=== PATIENT | female | born 1965 | race Hispanic/Latino ===

== ENCOUNTER 2016-05-06 16:11 | Inpatient (IN) | payer BC ==
[2016-05-06 16:24] VITALS: BMI 23.5
[2016-05-06] MEDS ORDERED: Morphine 4 mg/ml ISec IVP STA ×4 (16:39→21:25)
--- NOTE | 2016-05-06 17:27 | ED PDOC ---
Arrival/HPI - General Chief Complaint: Abnormal Labs Time Seen by Provider: 05/06/16 16:37 Historian: Patient - History of Present Illness Narrative History of Present Illness (Text): 05/06/16 17:40 A 50 year old female sent into the emergency department by PMD for increasing left lower extremity pain and swelling. Patient reports a history of a Tibula fracture repair 3 months ago. Patient also complains of chronic shortness of breath. She denies any chest pain or other complaints at this time. PMD: Dr. Hill Past Medical History - Provider Review Nursing Documentation Reviewed: Yes - Infectious Disease Hx of Infectious Diseases: MRSA - Tetanus Immunization Tetanus Immunization: Unknown - Cardiac Hx Hypertension: Yes - Pulmonary Hx Chronic Obstructive Pulmonary Disease (COPD): Yes - Neurological Hx Dizziness: Yes Hx Migraine: Yes - HEENT Hx Difficulty Chewing: Yes (difficulty swallowing some meat) - Renal Hx Renal Disorder: No - Endocrine/Metabolic Hx Endocrine Disorders: No - Hematological/Oncological Hx Blood Transfusions: Yes Hx Blood Transfusion Reaction: No - Integumentary Hx Dermatological Disorder: Yes (skin tears easily since bypass surgery) - Musculoskeletal/Rheumatological Hx Back Pain: Yes (titanium lower back, curviture upper back) Hx Degenerative Joint Disease: Yes (bulging and herniated disc) Hx Falls: Yes Hx Fractures: Yes (left tibia) Hx Herniated Disk: Yes Hx Osteoarthritis: Yes Hx Rhabdomyolysis: Yes Hx Unsteady Gait: Yes - Gastrointestinal Hx Gastrointestinal Disorders: Yes Hx Gall Bladder Disease: No (gall bladder removed during bypass surgery 2006) Hx Gastroesophageal Reflux: Yes HX Swallowing Problems: Yes (problems swallowing some meats) Other/Comment: gastric bypass with mesh in 2006 - Genitourinary/Gynecological Hx Genitourinary Disorders: Yes (URINARY FREQUENCY,DYSURIA) Hx Urinary Tract Infection: Yes - Psychiatric Hx Anxiety: Yes Hx Depression: Yes Hx Post Traumatic Stress Disorder: Yes Hx Substance Use: No - Surgical History Hx Cholecystectomy: Yes Hx Gastric Bypass Surgery: Yes Hx Hysterectomy: Yes Hx Musculoskeletal Surgery: Yes (titanium lower back, cranial surgery) - Anesthesia Hx Anesthesia Reactions: No Hx Malignant Hyperthermia: No - Suicidal Assessment Feels Threatened In Home Enviroment: No Family/Social History - Physician Review Nursing Documentation Reviewed: Yes Family/Social History: No Known Family HX Smoking Status: Former Smoker Hx Alcohol Use: Yes (pt quit drinking at age 19) Hx Substance Use: No Hx Substance Use Treatment: No Allergies/Home Meds Allergies/Adverse Reactions: Allergies No Known Allergies Allergy (Verified 05/06/16 16:24) Home Medications: Home Meds Medication Instructions Recorded Confirmed Albuterol/Ipratropium [Duoneb 3 3 ml NEB TID 02/08/16 02/09/16 MG/3 Ml-0.5 MG/3 Ml 3 Ml] Docusate [Colace] 100 mg PO BID 02/08/16 02/09/16 Escitalopram [Lexapro] 20 mg PO DAILY 02/08/16 02/09/16 Gabapentin [Neurontin] 300 mg PO TID 02/08/16 02/09/16 HYDROmorphone [Dilaudid] 8 mg PO Q4H PRN 02/08/16 02/09/16 Hydromorphone HCl [Dilaudid] 4 mg PO Q4H PRN 02/08/16 02/09/16 Lubiprostone [Amitiza] 24 mcg PO BID 02/08/16 02/09/16 Pentoxifylline [Pentoxil] 400 mg PO TID 02/08/16 02/09/16 hydroCHLOROthiazide [Microzide] 12.5 mg PO DAILY 02/08/16 02/09/16 oxyCODONE [oxycodone Hydrochloride] 20 mg PO Q12H PRN 02/08/16 02/09/16 Review of Systems - Physician Review All systems were reviewed & negative as marked: Yes - Review of Systems Respiratory: SOB Cardiovascular: absent: Chest Pain Musculoskeletal: Other (increase left lower extremity pain and swelling) Physical Exam Vital Signs Reviewed: Yes Vital Signs Temp Pulse Resp BP Pulse Ox 05/06/16 16:26 97.8 F 77 17 100/68 98 Temperature: Afebrile Blood Pressure: Normal Pulse: Regular Respiratory Rate: Normal Appearance: Positive for: Well-Appearing, Non-Toxic, Comfortable Pain Distress: None Mental Status: Positive for: Alert and Oriented X 3 - Systems Exam Head: Present: Atraumatic, Normocephalic Pupils: Present: PERRL Extroacular Muscles: Present: EOMI Conjunctiva: Present: Normal Mouth: Present: Moist Mucous Membranes Neck: Present: Normal Range of Motion Respiratory/Chest: Present: Clear to Auscultation, Good Air Exchange. No: Respiratory Distress, Accessory Muscle Use Cardiovascular: Present: Regular Rate and Rhythm, Normal S1, S2. No: Murmurs Abdomen: Present: Normal Bowel Sounds. No: Tenderness, Distention, Peritoneal Signs Back: Present: Normal Inspection Upper Extremity: Present: Normal Inspection. No: Cyanosis, Edema Lower Extremity: Present: Edema (left lower extremity from knee down to the foot ), NORMAL PULSES, Temperature Abnormalties (warm to the touch) Neurological: Present: GCS=15, CN II-XII Intact, Speech Normal Skin: Present: Warm, Dry, Normal Color. No: Rashes Psychiatric: Present: Alert, Oriented x 3, Normal Insight, Normal Concentration Medical Decision Making ED Course and Treatment: 05/06/16 16:40 Impression: A 50 year old female with worsening left lower extremity swelling and pain. Differential Diagnosis include but are not limited to: DVT Plan: -- Angio Chest CT -- Duplex left lower extremity -- Labs -- Morphine -- Reassess and disposition Prior Visits: Notes and results from previous visits were reviewed. The patient last presented to the emergency department on 01/28/16 for evaluation of left knee and right hip pain. Progress Notes: 05/06/16 18:25 Ultrasound called the emergency department to notify us Doppler of the left lower extremity is negative for DVT. - Lab Interpretations Lab Results: 05/06/16 17:35 05/06/16 17:35 Lab Results 05/06/16 17:35: WBC 6.3, RBC 3.50, Hgb 9.7 L, Hct 30.6 L, MCV 87.4, MCH 27.7, MCHC 31.7, RDW 16.3 H, Plt Count 225, MPV 9.0, Gran % 60.1, Lymph % (Auto) 27.8 , Tompkins % (Auto) 7.8 H, Eos % (Auto) 4.0, Baso % (Auto) 0.3, Gran # 3.78, Lymph # 1.8, Tompkins # 0.5, Eos # 0.3, Baso # 0.02, PT 11.6, INR 1.07, APTT 29.8, Sodium 138, Potassium 5.2 H, Chloride 105, Carbon Dioxide 29, Anion Gap 9 L, BUN 10, Creatinine 0.7, Est GFR ( Amer) > 60, Est GFR (Non-Af Amer) > 60, Random Glucose 69 L, Calcium 7.8 L, Total Bilirubin 0.3, AST 26, ALT 19, Alkaline Phosphatase 136 H, Total Protein 5.6 L, Albumin 2.4 L, Globulin 3.2, Albumin/ Globulin Ratio 0.8 L I have reviewed the lab results: Yes - RAD Interpretation Radiology Orders: 05/06/16 16:37 ANGIO CHEST PE PROTOCOL [CT] Stat DUPLEX LOWER EXTRM VEIN LEFT [US] Stat - Medication Orders Current Medication Orders: Discontinued Medications Piperacillin Sod/Tazobactam Sod (Zosyn 3.375 In Ns 100ml) 100 mls @ 200 mls/hr IVPB STAT STA PRN Reason: Protocol Stop: 05/06/16 21:41 Last Admin: 05/06/16 22:14 Dose: 200 MLS/HR eMAR Start Stop Document 05/06/16 22:14 EKEOO (Rec: 05/06/16 22:14 EKEOO [facility] [place] [id number]) Intravenous Solution Start Date 05/06/16 Start Time 22:14 Morphine Sulfate (Morphine) 4 mg IVP STAT STA Stop: 05/06/16 16:40 Last Admin: 05/06/16 17:47 Dose: 4 MG MAR Pain Assessment Document 05/06/16 17:47 REED (Rec: 05/06/16 17:48 REED [id number]) Pain Reassessment Is this a pain reassessment? No Sleep Is patient sleeping during reassessment? No Presence of Pain Presence of Pain Yes Pain Scale Used Pain Scale Used Numeric Location Left, Right or Bilateral Left Pain Location Body Site Leg IVP Administration Document 05/06/16 17:47 REEDJ (Rec: 05/06/16 17:48 REEDJ [id number]) Charges for Administration # of IVP Administrations 1 Morphine Sulfate (Morphine) 4 mg IVP STAT STA Stop: 05/06/16 18:57 Last Admin: 05/06/16 19:06 Dose: 4 MG MAR Pain Assessment Document 05/06/16 19:06 REEDJ (Rec: 05/06/16 19:06 REED [id number]) Pain Reassessment Is this a pain reassessment? Yes Sleep Is patient sleeping during reassessment? No Presence of Pain Presence of Pain Yes IVP Administration Document 05/06/16 19:06 REEDJ (Rec: 05/06/16 19:06 REEDJ [id number]) Charges for Administration # of IVP Administrations 1 Morphine Sulfate (Morphine) 4 mg IVP STAT STA Stop: 05/06/16 20:50 Last Admin: 05/06/16 21:22 Dose: 4 MG MAR Pain Assessment Document 05/06/16 21:22 EKEOO (Rec: 05/06/16 21:23 [facility] [id number] Pain Reassessment Is this a pain reassessment? No Sleep Is patient sleeping during reassessment? No Presence of Pain Presence of Pain Yes IVP Administration Document 05/06/16 21:22 EKEOO (Rec: 05/06/16 21:23 [place] [facility] [id number][place] Charges for Administration # of IVP Administrations 1 Morphine Sulfate (Morphine) 4 mg IVP STAT STA Stop: 05/06/16 21:26 Last Admin: 05/06/16 21:32 Dose: 4 MG MAR Pain Assessment Document 05/06/16 21:32 EKEOO (Rec: 05/06/16 21:32 [facility] [id number][place] Pain Reassessment Is this a pain reassessment? No Sleep Is patient sleeping during reassessment? No Presence of Pain Presence of Pain Yes IVP Administration Document 05/06/16 21:32 EKEOO (Rec: 05/06/16 21:32 [facility] [facility] [place] [id number]) Charges for Administration # of IVP Administrations 1 - Scribe Statement The provider has reviewed the documentation as recorded by the Shona Moreno Provider Scribe Attestation: All medical record entries made by the Tayloribashley were at my direction and personally dictated by me. I have reviewed the chart and agree that the record accurately reflects my personal performance of the history, physical exam, medical decision making, and the department course for this patient. I have also personally directed, reviewed, and agree with the discharge instructions and disposition. Disposition/Present on Arrival - Present on Arrival Any Indicators Present on Arrival: Yes History of DVT/PE: Yes History of Uncontrolled Diabetes: No Urinary Catheter: No History of Decub. Ulcer: No History Surgical Site Infection Following: None - Disposition Have Diagnosis and Disposition been Completed?: Yes Diagnosis: Cellulitis of left lower extremity Disposition Time: 20:00 Patient Plan: Admission Patient Problems: Current Active Problems Problem Status Diagnosed Anemia Acute Depression Acute Knee fracture, left Acute Rhabdomyolysis Acute Syncope, near Acute Condition: STABLE
[2016-05-06 17:50] LABS: ADD MANUAL DIFF? NO
[2016-05-06 17:56] LABS: BASO # 0.02 [, K/mm3] (0.0-2.0); BASO % 0.3 % (0.0-3.0); EOS # 0.3 (0.0-0.7); GRAN # 3.78 (1.4-6.5); GRAN % 60.1 % (50.0-68.0); HEMATOCRIT 30.6 % (36.0-48.0); LYMPH # 1.8 (1.2-3.4); LYMPH % 27.8 % (22.0-35.0); MEAN CELL VOLUME 87.4 fL (80.0-105.0); MEAN CORPUSCULAR HEMOGLOBIN 27.7 pg (25.0-35.0); MEAN CORPUSCULAR HGB CONC 31.7 g/dl (31.0-37.0); MONO # 0.5 (0.1-0.6); MONO % 7.8 % (1.0-6.0); PLATELET COUNT 225 [, 10^3/uL] (120.0-450.0); RED CELL DISTRIBUTION WIDTH 16.3 % (11.5-14.5); WHITE BLOOD COUNT 6.3 [, 10^3/ul] (4.5-11.0)
[2016-05-06 18:08] LABS: ALB/GLOB RATIO 0.8 (1.1-1.8); ALKALINE PHOSPHATASE 136 U/L (38-133); ALT/SGPT 19 U/L (7-56); AST/SGOT 26 U/L (15-39); BILIRUBIN,TOTAL 0.3 mg/dL (0.2-1.3); BLOOD UREA NITROGEN 10 mg/dL (7-21); CALCIUM 7.8 mg/dL (8.4-10.5); CARBON DIOXIDE 29 mmol/L (21-33); CHLORIDE 105 mmol/L (98-107); GFR AFRICAN-AMERICAN > 60; GLUCOSE,RANDOM 69 mg/dL (70-110); POTASSIUM 5.2 mmol/L (3.6-5.0); SODIUM 138 mmol/L (132-148); TOTAL PROTEIN 5.6 g/dL (5.8-8.3)
[2016-05-06 18:09] LABS: INR 1.07 (0.93-1.08); PARTIAL THROMBOPLASTIN TIME 29.8 Seconds (23.7-30.8)
--- NOTE | 2016-05-06 19:57 | US ---
PROCEDURE: Left lower extremity venous US HISTORY: Leg pain and swelling. Evaluate for DVT. PHYSICIAN(S): Bartolome Conn MD. TECHNIQUE: Duplex sonography and color-flow Doppler with graded compression were used to evaluate the deep venous system of the left lower extremity. The exam is limited by edema. FINDINGS: The visualized deep venous system of the left lower extremity is sonographically normal and compressible. Normal wave forms and augmentation are seen. There is no sonographic evidence for deep venous thrombosis in the visualized segments of the left lower extremity. IMPRESSION: 1. No sonographic evidence for deep venous thrombosis in the visualized segments of the left lower extremity.
--- NOTE | 2016-05-06 20:22 | CT ---
EXAM: CT Angiography Chest With Intravenous Contrast. CLINICAL HISTORY: 50 years old, female; Pain; Chest pressure; Patient HX: Chest pressure. Leg surger in jan 2016. Swollen left leg; Additional info: R/O pe TECHNIQUE: Axial computed tomographic angiography images of the chest with intravenous contrast using pulmonary embolism protocol. This CT exam was performed using one or more of the following dose reduction techniques: automated exposure control, adjustment of the mA and/or kV according to patient size, and/or use of iterative reconstruction technique. MIP reconstructed images were created and reviewed. Coronal and sagittal reformatted images were created and reviewed. CONTRAST: 100 mL of omni administered intravenously. EXAM DATE/TIME: 05/06/2016 4:37 PM COMPARISON: No relevant prior studies available. FINDINGS: PULMONARY ARTERIES: Contrast opacification of the pulmonary arteries is adequate, and there are no filling defects seen to suggest pulmonary embolism. AORTA: No evidence of aortic dissection. LUNGS: No evidence of significant focal consolidation/infiltrate in the lungs. No evidence of diffuse pulmonary vascular congestion. PLEURAL SPACE: No pneumothorax or pleural effusions seen. HEART: Coronary artery calcification. No evidence of significant pericardial effusion. MEDIASTINUM: Small hiatal hernia. BONES/JOINTS: No acute bony abnormality identified. LYMPH NODES: No evidence of diffuse lymphadenopathy. STOMACH AND BOWEL: Postsurgical changes involving the stomach and left abdomen, with an appearance most compatible with previous gastric bypass surgery. IMPRESSION: - No evidence of pulmonary embolism or other significant acute abnormality in the chest. - See above for remaining findings.
[2016-05-06] MEDS ORDERED: Piperacillin/Tazobact 3.375 gm 100 ML IVPB STA (21:12)
[2016-05-07] MEDS ORDERED: Albuterol-Ipratrop 3 mg / 0.5 (3 ml) UD ONE (00:14)
[2016-05-07] MEDS: HYDROmorphone 0.5 mg/0.5 ml ISec IVP PRN ×6 (01:26→22:50)
[2016-05-07] MEDS ORDERED: Piperacillin/Tazobact 3.375 gm 100 ML IVPB SCH (06:00)
[2016-05-07] MEDS: Vancomycin 1gm in NS 250ml 250 ML IVPB SCH ×2 (06:08→17:58)
[2016-05-07] MEDS: Albuterol-Ipratrop 3 mg / 0.5 (3 ml) UD INH SCH ×3 (08:31→20:10)
[2016-05-07] MEDS: Piperacillin/Tazobact 3.375 gm 100 ML IVPB SCH ×3 (12:15→23:41)
--- NOTE | 2016-05-07 14:39 | RAD ---
PROCEDURE: Left tibia and fibula. HISTORY: leg swelling and pain COMPARISON: 02/09/2016. TECHNIQUE: Standard protocol for this study/examination. FINDINGS: Stable position of orthopedic hardware proximal tibia a/ status post open reduction internal fixation tibial plateau fracture. Disuse osteopenia again identified. IMPRESSION: No significant interval change compared to the prior examination(s).
--- NOTE | 2016-05-07 15:52 | CP.PCM.CON ---
History of Present Illness - History of Present Illness History of Present Illness: 50 year old female with PMH of HTN, COPD, history cranial surgery, S/P cholecystectomy, S/P hysterectomy, S/P gastric bypass surgery, history of migraines, left ear deafness, obstructive sleep apnea came in to [facility] complaining of left lower extremity swelling, erythema and pain. She had tibial fracture in that leg about 2 months ago and underwent placement of screws to fix the fracture. She was doing well after the surgery. About 4-5 days ago, the leg started swelling without known trauma to the leg or foot, no animal contacts, no known wounds or skin breaks, no exposure the water or walking barefoot on soil. The patient denies fever or chills, no nausea or vomiting, no chest pain, no SOB, no headache or dizziness, no abdominal pain, no diarrhea, no dysuria. Infectious Diseases consult is consulted to further evaluate and manage. Review of Systems - Review of Systems All systems: reviewed and no additional remarkable complaints except (as per HPI ) Past Patient History - Infectious Disease Hx of Infectious Diseases: MRSA - Tetanus Immunizations Tetanus Immunization: Unknown - Past Medical History & Family History Past Medical History?: Yes Past Family History: Reviewed and not pertinent - Past Social History Smoking Status: Never Smoked Alcohol: None Drugs: Denies - CARDIAC Hx Cardiac Disorders: Yes Hx Hypertension: Yes - PULMONARY Hx Respiratory Disorders: Yes Hx Chronic Obstructive Pulmonary Disease (COPD): Yes - NEUROLOGICAL Hx Neurological Disorder: Yes Hx Dizziness: Yes Hx Migraine: Yes - HEENT Hx HEENT Problems: Yes Hx Deafness: Yes (LEFT EAR) Hx Difficulty Chewing: Yes (difficulty swallowing some meat) - RENAL Hx Chronic Kidney Disease: No - ENDOCRINE/METABOLIC Hx Endocrine Disorders: No - HEMATOLOGICAL/ONCOLOGICAL Hx Blood Disorders: Yes Hx Anemia: Yes - INTEGUMENTARY Hx Dermatological Problems: Yes (skin tears easily since bypass surgery) - MUSCULOSKELETAL/RHEUMATOLOGICAL Hx Falls: Yes - GASTROINTESTINAL Hx Gastrointestinal Disorders: Yes Hx Gall Bladder Disease: Yes (gall bladder removed during bypass surgery 2006) Hx Gastroesophageal Reflux: Yes HX Swallowing Problems: Yes (problems swallowing some meats) Other/Comment: gastric bypass with mesh in 2006 - GENITOURINARY/GYNECOLOGICAL Hx Genitourinary Disorders: Yes (URINARY FREQUENCY,DYSURIA) Hx Urinary Tract Infection: Yes - PSYCHIATRIC Hx Substance Use: No - SURGICAL HISTORY Hx Surgeries: Yes Hx Cholecystectomy: Yes Hx Gastric Bypass Surgery: Yes Hx Hysterectomy: Yes Hx Musculoskeletal Surgery: Yes (titanium lower back, cranial surgery) - ANESTHESIA Hx Anesthesia Reactions: No Hx Malignant Hyperthermia: No Meds Allergies/Adverse Reactions: Allergies Allergy/AdvReac Type Severity Reaction Status Date / Time No Known Allergies Allergy Verified 05/06/16 16:24 - Medications Medications: Current Medications Albuterol/Ipratropium (Duoneb 3 Mg/0.5 Mg (3 Ml) Ud) 3 ml INH TIDRESP MARU Docusate Sodium (Colace) 100 mg PO BID MARU Escitalopram Oxalate (Lexapro) 20 mg PO DAILY MARU Gabapentin (Neurontin) 300 mg PO TID MARU PRN Reason: Protocol Hydromorphone HCl (Dilaudid) 0.5 mg IVP Q4H PRN PRN Reason: Pain, Mild (1-3) Last Admin: 05/07/16 01:26 Dose: 0.5 mg Piperacillin Sod/Tazobactam Sod (Zosyn 3.375 In Ns 100ml) 100 mls @ 200 mls/hr IVPB Q6 MARU PRN Reason: Protocol Stop: 05/07/16 12:29 Non-Formulary Medication (Lubiprostone [Amitiza]) 24 mcg PO BID MARU Pentoxifylline (Pentoxil) 400 mg PO TID [facility] Physical Exam - Constitutional Appears: Non-toxic, No Acute Distress - Head Exam Head Exam: NORMAL INSPECTION - ENT Exam ENT Exam: Mucous Membranes Moist - Neck Exam Neck exam: Negative for: Lymphadenopathy, Meningismus - Respiratory Exam Respiratory Exam: Decreased Breath Sounds - Cardiovascular Exam Cardiovascular Exam: +S1, +S2 - GI/Abdominal Exam GI & Abdominal Exam: Soft. absent: Tenderness - Extremities Exam Additional comments: left lower extremity with swelling, erythema and tenderness on palpation Results - Vital Signs Recent Vital Signs: Last Vital Signs Temp 98.3 F 05/07/16 04:05 Pulse 79 05/07/16 04:05 Resp 20 05/07/16 04:05 BP 103/62 05/07/16 04:05 Pulse Ox 97 05/07/16 00:01 - Labs Result Diagrams: 05/06/16 17:35 05/06/16 17:35 Assessment & Plan - Assessment and Plan (Free Text) Plan: Assessment Consider left lower extremity skin and skin structure infection (cellulitis) in a patient S/P tibial fracture S/P screws placement 2-3 months ago HTN COPD history cranial surgery S/P cholecystectomy S/P hysterectomy S/P gastric bypass surgery history of migraines left ear deafness obstructive sleep apnea Plan Started patient on Vancomycin and Zosyn pending blood cx, xray of the left leg and will monitor clinical response; if she continues to have significant swelling by tomorrow, will consider CT of the left leg Will follow clinically
[2016-05-07] MEDS: Lubiprostone [Amitiza] 24 MCG PO SCH (17:39)
[2016-05-07] MEDS ORDERED: Albuterol-Ipratrop 3 mg / 0.5 (3 ml) UD INH PRN (23:00)
--- NOTE | 2016-05-08 01:32 | PN ---
DATE: 05/07/2016 REFERRING PHYSICIAN: Dr. Hill. REASON FOR CONSULTATION: Chronic obstructive lung disease, history of sleep apnea syndrome, admitted with cellulitis. HISTORY OF PRESENT ILLNESS: This is a 50-year-old female with multiple medical issues including slinger sequins navarro obstructive lung disease, hypertension, history of obesity requiring gastric bypass surgery, slinger sequins navarro spine pain with opiates and benzodiazepine dependent, history of sleep apnea syndrome, came in to Emergency Room with some cough and shortness of breath. Had a CT angio done, which was negative. S he also has swelling and erythema of both lower extremities, recently had a trauma to the leg with op en reduction and fixation. There is no fever, no chills, no chest pain. PAST MEDICAL HISTORY: Chronic obstructive lung disease, obstructive sleep apnea syndrome, chronic pa in syndrome, history of multiple spine injuries, history of fall with leg fracture requiring open red uction. SOCIAL HISTORY: No history of smoking or alcohol use. FAMILY HISTORY: No significant cardiopulmonary disease reported. MEDICATIONS: She is on Colace 100 mg twice a day, Dilaudid 0.5 mg IV q.4 hours p.r.n., DuoNeb q.8 ho urs, Lexapro 20 mg daily, Amitiza 24 mcg p.o. twice a day, gabapentin 300 mg 3 times a day, Pentoxil 400 mg 3 times a day, vancomycin 1 g IV q.12 hours, Zosyn 3.375 grams q.6 hours. REVIEW OF SYSTEMS: No headache, no rhinitis. Gets cough and shortness of breath. No chest pain, no nausea, no vomiting, no diarrhea. Has back pain and leg discomfort, leg is swollen and erythematous . PHYSICAL EXAMINATION: GENERAL: Lying in the bed, sleeping. No acute distress. VITAL SIGNS: Temp is 98, heart rate is 98, respiratory rate is 20, blood pressure 115/74, pulse ox 9 6% on room air. HEENT: Moist mucous membranes. Crowded airway. Mallampati score is 4. NECK: Supple. No JVD. LUNGS: Have a few scattered rhonchi. HEART: S1, S2. ABDOMEN: Soft, nontender. No organomegaly. EXTREMITIES: She does have edema and erythema, left leg is more swollen than the right. NEUROLOGIC: Sleepy, arousable, follows simple command. LABORATORY DATA: Shows hemoglobin 9.7, hematocrit 30.6, WBC 6.3, platelet is 225. INR 1.07, PTT is 30. Sodium 138, potassium 5.2, chloride 105, bicarbonate 29, BUN 10, creatinine 0.7, calcium is 7.8, glucose 69, AST 26, ALT 19, alkaline phosphatase is 136, albumin 2.4. Microbiology: Blood cultures have been negative. CT of the chest shows no pulmonary embolism. Venous Doppler of lower extremity done, which shows no sonographic evidence of DVT thrombus in the visualized segment of the lower ext remity. Also, x-ray of the tibia and fibula which shows no significant interval changes compared to prior examination. IMPRESSION AND PLAN: Chronic obstructive lung disease, cellulitis of the left lower extremity, histo ry of hypertension, migraine headaches, history of sleep apnea syndrome, opiate dependent. I agree w ith Dr. Hill with the present management. The patient seen by infectious diseases, started on broa d spectrum antibiotics covering healthcare-associated organism. I will add inhaled bronchodilator, k eep head at 45 degrees. Sleep apnea precaution. She lost significant weight after gastric bypass tang ery, probably having no more sleep apnea, but repeat study is not done yet. Will recommend [facility] repeat sleep study as outpatient. Follow up labs in the morning. We will follow with you. Catrachito Herrera MD cc: [id number] TT: 05/08/2016 00:12:49 Confirmation # [id number] Dictation # [id number] ms 05/08/2016 00:31:39
[2016-05-08] MEDS: HYDROmorphone 0.5 mg/0.5 ml ISec IVP PRN ×5 (03:19→20:13)
[2016-05-08] MEDS: Piperacillin/Tazobact 3.375 gm 100 ML IVPB SCH ×3 (05:13→17:18)
[2016-05-08] MEDS: Vancomycin 1gm in NS 250ml 250 ML IVPB SCH ×2 (05:14→18:27)
[2016-05-08] MEDS: Arformoterol 15 mcg/2 ml Inh Sol IH SCH ×2 (07:17→20:30)
[2016-05-08] MEDS: Budesonide 0.5 mg/2 ml Inhal Susp UD IH SCH ×2 (07:17→20:30)
[2016-05-08 07:18] LABS: HEMATOCRIT 28.6 % (36.0-48.0); MEAN CELL VOLUME 86.1 fL (80.0-105.0); MEAN CORPUSCULAR HEMOGLOBIN 27.4 pg (25.0-35.0); MEAN CORPUSCULAR HGB CONC 31.8 g/dl (31.0-37.0); MEAN PLATELET VOLUME 8.8 fl (7.0-11.0); RED CELL DISTRIBUTION WIDTH 16.5 % (11.5-14.5); WHITE BLOOD COUNT 4.6 [, 10^3/ul] (4.5-11.0)
[2016-05-08 07:19] LABS: ALB/GLOB RATIO 0.7 (1.1-1.8); ALKALINE PHOSPHATASE 126 U/L (38-133); ALT/SGPT 17 U/L (7-56); AST/SGOT 21 U/L (15-39); BILIRUBIN,TOTAL 0.3 mg/dL (0.2-1.3); BLOOD UREA NITROGEN 10 mg/dL (7-21); CALCIUM 7.5 mg/dL (8.4-10.5); CARBON DIOXIDE 27 mmol/L (21-33); CHLORIDE 107 mmol/L (98-107); GFR AFRICAN-AMERICAN > 60; GLUCOSE,RANDOM 70 mg/dL (70-110); SODIUM 140 mmol/L (132-148); TOTAL PROTEIN 5.2 g/dL (5.8-8.3)
--- NOTE | 2016-05-08 07:53 | HP ---
CHIEF COMPLAINT: Pain in the legs, swelling of the legs. HISTORY OF PRESENT ILLNESS: The patient is a 50-year-old female, was seen in my office with swelling of both legs, pain. Legs are swollen, red, warm and the patient was feeling shortness of breath. Also has history of chronic obstructive pulmonary disease, asthma, has a history of fracture of tibia, fibula, repaired 3 months ago and patient was complaining of shortness of breath. She denies any acute chest pain or other complaints. Actually, patient was sitting in my office. According to her, she cannot walk to the ER. Then, I had to call ambulance and transfer patient to the Emergency Room. PAST MEDICAL HISTORY: MRSA, hypertension, COPD, dizziness, migraine, history of gastric bypass, lost too much weight, multiple traumas due to falls, history of titanium lower back, herniation of the disk, fracture of the left tibia, osteoarthritis, rhabdomyolysis, unsteady gait, history of cholelithiasis removed during a bypass surgery, GERD, dyspepsia, gastric bypass with mesh in 2006 as per patient, history of UTI, anxiety, posttraumatic stress disorder, history of hysterectomy. FAMILY HISTORY: Father and mother noncontributory. HABITS: Alcohol yes, drinking at the age of 19. No history of substance abuse. History of smoking, but not smoking now. ALLERGIES: The patient is not allergic with any medications. HOME MEDICATIONS: DuoNeb, Colace, Lexapro, gabapentin, Dilaudid, Amitiza, Pentoxyl, hydrochlorothiazide, oxycodone. REVIEW OF SYSTEMS: The patient seen and examined on the bedside, looks a little bit better. Swelling of the legs is a little bit better. Shortness of breath is better. Seen by the ID. Getting IV antibiotics. complaining about the pain. No nausea, vomiting, diarrhea. No hematuria, no hematochezia. No headache, no dizziness. PHYSICAL EXAMINATION: VITAL SIGNS: Temperature 98.1, pulse 98, blood pressure 116/74, respiratory rate 20. HEENT: Head normocephalic, atraumatic. Eyes: PERRLA. Extraocular muscles intact. Conjunctivae pink. Eyelids unremarkable. Nose patent. Mucous membranes moist. NECK: Supple. No carotid bruit, no JVD, no thyromegaly. CHEST: Bilaterally symmetrical. HEART: S1, S2 positive. LUNGS: Clear to auscultation. ABDOMEN: Soft. Bowel sounds positive. No organomegaly. EXTREMITIES: Positive edema, redness and tender. Otherwise, moving all 4 extremities. NEUROLOGIC: The patient is awake, alert, oriented x 3. MEDICATIONS: Started Brovana, Colace, Dilaudid, Lexapro, Neurontin, Pentoxyl, Pulmicort, vancomycin, Zosyn. LABORATORIES: White blood cells 6.3, hemoglobin 9.7, hematocrit 30.6, platelets noted Sodium 138, potassium 5.2, BUN 10, creatinine 0.7, random glucose 69, calcium 7.8. ASSESSMENT AND PLAN: The patient is a 50-year-old lady with anemia, hyperkalemia, hyperglycemia, hypocalcemia. Seen by infectious disease, Dr. Tai Pearce. The patient has history of hypertension, chronic obstructive pulmonary disease, history of cranial surgery because of fall, status post cholecystectomy, status post hysterectomy, gastric bypass surgery, migraine, left ear deafness, obstructive sleep apnea syndrome, chronic back pain. Came in my office with her and because of cellulitis of the legs in a patient with status post tibial fracture, status post screw placement 2-3 months ago, started patient on vancomycin and Zosyn, pending on blood culture, x-ray of the left leg and will monitor clinical response. If she continues to have significant swelling by tomorrow, will consider CT of the left leg. Appreciated by Dr. Pearce's input. Pain management, physical therapy. I reviewed CT of the chest and ultrasound of the extremities. We will follow up. Marli Hill MD cc: [id number] TT: 05/08/2016 07:52:43 en MTDD
[2016-05-08] MEDS: Lubiprostone [Amitiza] 24 MCG PO SCH ×2 (09:30→17:17)
--- NOTE | 2016-05-08 15:26 | PN ---
DATE: 05/08/2016 REFERRING PHYSICIAN: Dr. Hill SUBJECTIVE: The patient is lying in the bed, feels better. No headache, no rhinitis, decreased coug h, no shortness of breath. No nausea, no vomiting, diarrhea. Has mild leg erythema and swelling. OBJECTIVE: GENERAL: No acute distress. VITAL SIGNS: Temp is 98, heart rate 76, respiratory rate is 20, blood pressure 99/63, pulse ox 94% o n room air. HEENT: Moist mucous membranes. Crowded airway. Mallampati score is 4. NECK: Supple. No JVD. LUNGS: Have a fair airflow with few rhonchi. HEART: S1 and S2. ABDOMEN: Soft, nontender. No organomegaly. EXTREMITIES: Left leg mild edema, erythema and tenderness. NEUROLOGIC: Awake, alert, follows simple command. MEDICATIONS: She is on Brovana 15 mcg inhaled twice a day, Colace 100 mg twice a day, Dilaudid 0.5 m g IV q. 4 hours p.r.n., DuoNeb q. 8 hours, Lexapro is 20 mg daily, Amitiza is 24 mcg p.o. twice a day , Neurontin 300 mg 3 times a day, pentoxifylline 400 mg 3 times a day, Pulmicort inhaler twice a day, vancomycin 1 g IV q. 12 hours, Zosyn 3.375 g IV q. 6 hours. LABORATORY DATA: Shows hemoglobin 9.1, hematocrit 28.6, WBC 4.6, platelet is 213. Sodium 140, potas sium 5.0, chloride 107, bicarbonate is 27, BUN 10, creatinine 0.8, glucose 70, calcium 7.5, AST 21, A LT 17, alkaline phosphatase is 126, albumin is 2.1. MICROBIOLOGY: Blood culture has been negative. IMPRESSION AND PLAN: Chronic obstructive lung disease, cellulitis left lower extremity, history of h ypertension, migraine headaches, sleep apnea syndrome, opiate dependent, history of left leg fracture requiring open reduction and fixation. Seen by infectious diseases, started on broad spectrum antib iotics covering healthcare-associated organism. Pulmonary point of view, continue bronchodilator, ke ep head elevated at 45 degrees. Gastric prophylaxis, deep venous thrombosis prophylaxis, fall precau tion. Thank you and we will follow with you. Catrachito Herrera MD cc: [id number] TT: 05/08/2016 15:25:55 Confirmation # [id number] Dictation # [id number] en
--- NOTE | 2016-05-08 16:14 | CP.PCM.PN ---
Subjective - Date & Time of Evaluation Date of Evaluation: 05/08/16 Time of Evaluation: 15:15 - Subjective Subjective: Comfortable in bed, no fevers overnight, a little less pain in the left leg. Objective - Vital Signs/Intake and Output Vital Signs (last 24 hours): Temp Pulse Resp BP Pulse Ox 97.9 F 76 20 99/63 L 94 L 05/08/16 09:07 05/08/16 09:07 05/08/16 09:07 05/08/16 09:07 05/08/16 09:07 Intake and Output: 05/08/16 05/08/16 06:59 18:59 Intake Total 1050 Output Total 450 Balance 600 - Medications Medications: Current Medications Albuterol/Ipratropium (Duoneb 3 Mg/0.5 Mg (3 Ml) Ud) 3 ml INH TIDRESP PRN PRN Reason: Shortness of Breath Arformoterol Tartrate (Brovana) 15 mcg IH [id number] [facility] Last Admin: 05/08/16 07:17 Dose: 15 mcg Budesonide (Pulmicort Respules) 0.5 mg IH [id number] [facility] Last Admin: 05/08/16 07:17 Dose: 0.5 mg Docusate Sodium (Colace) 100 mg PO BID [facility] Last Admin: 05/08/16 09:29 Dose: Not Given Escitalopram Oxalate (Lexapro) 20 mg PO DAILY [facility] Last Admin: 05/08/16 09:30 Dose: 20 mg Gabapentin (Neurontin) 300 mg PO TID [facility] PRN Reason: Protocol Last Admin: 05/08/16 13:37 Dose: 300 mg Hydromorphone HCl (Dilaudid) 0.5 mg IVP Q4H PRN PRN Reason: Pain, Mild (1-3) Last Admin: 05/08/16 12:21 Dose: 0.5 mg Vancomycin HCl (Vancomycin 1gm) 250 mls @ 167 mls/hr IVPB Q12H [facility] PRN Reason: Protocol Stop: 05/14/16 06:16 Last Admin: 05/08/16 05:14 Dose: 167 mls/hr Piperacillin Sod/Tazobactam Sod (Zosyn 3.375 In Ns 100ml) 100 mls @ 200 mls/hr IVPB Q6 [facility] PRN Reason: Protocol Stop: 05/14/16 06:01 Last Admin: 05/08/16 12:22 Dose: 200 mls/hr Lubiprostone [ (Amitiza] 24 Mcg) 24 mcg PO BID [facility] Last Admin: 05/08/16 09:30 Dose: Not Given Pentoxifylline (Pentoxil) 400 mg PO TID [facility] Last Admin: 05/08/16 13:37 Dose: 400 mg - Labs Labs: 05/08/16 06:30 05/08/16 06:30 PT 11.6 Seconds (9.9-11.8) 05/06/16 17:35 INR 1.07 (0.93-1.08) 05/06/16 17:35 APTT 29.8 Seconds (23.7-30.8) 05/06/16 17:35 - Constitutional Appears: Non-toxic, No Acute Distress - Head Exam Head Exam: NORMAL INSPECTION - Neck Exam Neck Exam: absent: Lymphadenopathy, Meningismus - Respiratory Exam Respiratory Exam: Decreased Breath Sounds - Cardiovascular Exam Cardiovascular Exam: +S1, +S2 - GI/Abdominal Exam GI & Abdominal Exam: Soft. absent: Tenderness - Extremities Exam Additional comments: left leg with slightly decreased swelling Assessment and Plan - Assessment and Plan (Free Text) Plan: Assessment Consider left lower extremity skin and skin structure infection (cellulitis) in a patient S/P tibial fracture S/P screws placement 2-3 months ago HTN COPD history cranial surgery S/P cholecystectomy S/P hysterectomy S/P gastric bypass surgery history of migraines left ear deafness obstructive sleep apnea Plan continue Vancomycin and Zosyn day 2; blood cx are negative, xray of the left leg did not show acute pathology; will continue to monitor clinical response; if she continues to have significant swelling by tomorrow, will consider CT of the left leg
[2016-05-09] MEDS: Piperacillin/Tazobact 3.375 gm 100 ML IVPB SCH ×4 (00:16→17:37)
[2016-05-09] MEDS: HYDROmorphone 0.5 mg/0.5 ml ISec IVP PRN ×6 (00:17→20:44)
[2016-05-09] MEDS: Vancomycin 1gm in NS 250ml 250 ML IVPB SCH ×2 (06:41→18:35)
[2016-05-09] MEDS: Arformoterol 15 mcg/2 ml Inh Sol IH SCH ×2 (07:29→20:24)
[2016-05-09] MEDS: Budesonide 0.5 mg/2 ml Inhal Susp UD IH SCH ×2 (07:29→20:24)
--- NOTE | 2016-05-09 08:23 | PN ---
DATE: 05/08/2016 SUBJECTIVE: The patient is a 50-year-old female. The patient is seen and examined at the bedside, l aide down comfortably. Still complaining about the leg pain, but is getting a little bit better. No headache, no dizziness, no fever, no chills, no nausea, vomiting, or diarrhea. No hematuria or hemalatha tochezia. PHYSICAL EXAMINATION: VITAL SIGNS: Temperature 97.9, pulse 76, respiratory rate 20, blood pressure 99/66, pulse ox 94. HEAD: Normocephalic, atraumatic. Eyes: PERRLA, extraocular muscles intact, conjunctivae clear, eye lids remarkable. Nose: Patent. Mucous membranes: Moist. NECK: Supple. No carotid bruit, JVD, or thyromegaly. CHEST: Bilaterally symmetrical. HEART: S1, S2 positive. LUNGS: Clear to auscultation. Marli Hill MD cc: [id number] TT: 05/09/2016 03:24:10 Confirmation # [id number] Dictation # [id number] vn
[2016-05-09] MEDS: Lubiprostone [Amitiza] 24 MCG PO SCH ×2 (09:52→17:48)
--- NOTE | 2016-05-09 15:11 | CP.PCM.PN ---
Subjective - Date & Time of Evaluation Date of Evaluation: 05/09/16 Time of Evaluation: 11:00 - Subjective Subjective: Still complaining of pain in the left leg but it is a little better. Objective - Vital Signs/Intake and Output Vital Signs (last 24 hours): Temp Pulse Resp BP Pulse Ox 97.7 F 76 20 118/85 98 05/09/16 08:45 05/09/16 08:45 05/09/16 08:45 05/09/16 08:45 05/09/16 08:45 Intake and Output: 05/09/16 05/09/16 06:59 18:59 Intake Total 720 Balance 720 - Medications Medications: Current Medications Albuterol/Ipratropium (Duoneb 3 Mg/0.5 Mg (3 Ml) Ud) 3 ml INH TIDRESP PRN PRN Reason: Shortness of Breath Arformoterol Tartrate (Brovana) 15 mcg IH [id number] [facility] Last Admin: 05/09/16 07:29 Dose: 15 mcg Budesonide (Pulmicort Respules) 0.5 mg IH [id number] [facility] Last Admin: 05/09/16 07:29 Dose: 0.5 mg Docusate Sodium (Colace) 100 mg PO BID [facility] Last Admin: 05/09/16 09:52 Dose: Not Given Escitalopram Oxalate (Lexapro) 20 mg PO DAILY [facility] Last Admin: 05/09/16 09:52 Dose: 20 mg Gabapentin (Neurontin) 300 mg PO TID [facility] PRN Reason: Protocol Last Admin: 05/09/16 13:58 Dose: 300 mg Hydromorphone HCl (Dilaudid) 0.5 mg IVP Q4H PRN PRN Reason: Pain, Mild (1-3) Last Admin: 05/09/16 12:25 Dose: 0.5 mg Vancomycin HCl (Vancomycin 1gm) 250 mls @ 167 mls/hr IVPB Q12H [facility] PRN Reason: Protocol Stop: 05/14/16 06:16 Last Admin: 05/09/16 06:41 Dose: 167 mls/hr Piperacillin Sod/Tazobactam Sod (Zosyn 3.375 In Ns 100ml) 100 mls @ 200 mls/hr IVPB Q6 [facility] PRN Reason: Protocol Stop: 05/14/16 06:01 Last Admin: 05/09/16 12:25 Dose: 200 mls/hr Lubiprostone [ (Amitiza] 24 Mcg) 24 mcg PO BID [facility] Last Admin: 05/09/16 09:52 Dose: Not Given Pentoxifylline (Pentoxil) 400 mg PO TID [facility] Last Admin: 05/09/16 13:58 Dose: 400 mg - Labs Labs: 05/08/16 06:30 05/08/16 06:30 PT 11.6 Seconds (9.9-11.8) 05/06/16 17:35 INR 1.07 (0.93-1.08) 05/06/16 17:35 APTT 29.8 Seconds (23.7-30.8) 05/06/16 17:35 - Constitutional Appears: Non-toxic, No Acute Distress - Head Exam Head Exam: NORMAL INSPECTION - Neck Exam Neck Exam: absent: Lymphadenopathy, Meningismus - Respiratory Exam Respiratory Exam: Decreased Breath Sounds - Cardiovascular Exam Cardiovascular Exam: +S1, +S2 - GI/Abdominal Exam GI & Abdominal Exam: Soft. absent: Tenderness - Extremities Exam Additional comments: left leg still with swelling but is less, less erythema Assessment and Plan - Assessment and Plan (Free Text) Plan: Assessment Consider left lower extremity skin and skin structure infection (cellulitis) in a patient S/P tibial fracture S/P screws placement 2-3 months ago, slowly improving HTN COPD history cranial surgery S/P cholecystectomy S/P hysterectomy S/P gastric bypass surgery history of migraines left ear deafness obstructive sleep apnea Plan continue Vancomycin and Zosyn day 3; blood cx are negative, xray of the left leg did not show acute pathology; will continue to monitor clinical response
[2016-05-09] MEDS ORDERED: Pantoprazole 40 mg EC Tab PO STA (19:01)
--- NOTE | 2016-05-09 23:54 | PN ---
DATE: 05/09/2016 REFERRING PHYSICIAN: Dr. Hill. SUBJECTIVE: The patient is sitting side of the bed, night was unremarkable. Overall, feels better. No headache, no rhinitis, decreased cough and shortness of breath. No nausea, no vomiting, no diarr hea. Decreased leg pain and swelling. OBJECTIVE: GENERAL: No acute distress. VITAL SIGNS: Temp is 98, heart rate is 88, respiratory rate is 20, blood pressure 106/59, pulse ox 9 8% on room air. HEENT: Moist mucous membrane. No ulcer or oral thrush noted. NECK: Supple. No JVD. LUNGS: Has a fair airflow with few rhonchi. HEART: S1, S2. ABDOMEN: Soft, nontender. No organomegaly. EXTREMITIES: Left leg has some erythema and swelling, tender to touch. NEUROLOGIC: Awake, alert, follows simple commands. MEDICATIONS: She is on Brovana 15 mcg inhaled twice a day, Colace 100 mg twice a day, Dilaudid 0.5 m g IV q. 4 hours p.r.n., DuoNeb q. 8 hours p.r.n., Lexapro 20 mg daily, Amitiza 24 mcg twice a day, Ne urontin 300 mg 3 times a day, Pentoxil 400 mg 3 times a day, Protonix 40 mg daily, Pulmicort inhaled twice a day, vancomycin 1 g q. 12 hours, Zosyn 3.375 g q. 6 hours. LABORATORY DATA: Shows hemoglobin 9.1, hematocrit 28.6, WBC 4.6, platelet count is 213. No other ne w lab is available since yesterday. MICROBIOLOGY: Blood culture has been negative. IMPRESSION AND PLAN: Chronic obstructive lung disease, cellulitis of left lower extremity, history o f hypertension, migraine headaches, sleep apnea syndrome, opiate dependent, left leg fracture, presen tly has cellulitis, dysfunction. Pulmonary point of view, keep head elevated at 45 degree. Co ntinue bronchodilator. Sleep apnea precautions. Careful with sedation. Gastric prophylaxis. Thank you and we will follow with you. Catrachito Herrera MD cc: [id number] TT: 05/09/2016 23:53:34 Confirmation # [id number] Dictation # [id number]
[2016-05-10] MEDS: HYDROmorphone 0.5 mg/0.5 ml ISec IVP PRN ×4 (00:34→13:54)
[2016-05-10] MEDS: Piperacillin/Tazobact 3.375 gm 100 ML IVPB SCH ×3 (00:35→12:11)
--- NOTE | 2016-05-10 03:16 | PN ---
DATE: 05/09/2016 SUBJECTIVE: The patient is a 50-year-old female. The patient examined at the bedside, looks comfortable. getting better. Still complaining of pain in both legs, especially the left leg. No fever, no chills. No headache. No nausea, vomiting, or diarrhea. PHYSICAL EXAMINATION: VITAL SIGNS: Temperature 97.7, pulse 76, respiratory rate 20, blood pressure 118/85, pulse oximetry of 98. HEAD: Normocephalic, atraumatic. Eyes: PERRLA, extraocular muscles intact, conjunctivae pink, eyelids unremarkable. Nose: Patent. Mucous membranes: Moist. NECK: Supple. No carotid bruits or thyromegaly. CHEST: Bilaterally symmetrical. HEART: S1, S2 positive. LUNGS: Clear to auscultation. ABDOMEN: Soft, bowel sounds present. No organomegaly. EXTREMITIES: No edema, no cyanosis. NEUROLOGIC: The patient is awake, alert, moving all 4 extremities, no focal deficit. MEDICATIONS: Albuterol, Brovana, vancomycin, Colace, Lexapro, Dilaudid, erythromycin, Zosyn, amikacin, pentoxifylline. LABORATORY: , hemoglobin 9.1, hematocrit 28.6, platelets 213. Sodium 140, potassium 4, BUN 10, creatinine 0.8, glucose 70. ASSESSMENT AND PLAN: The patient is a 50-year-old lady with left lower extremity cellulitis, skin surface infection, history of tibial fracture with screw placement 2-3 months ago, slowly improving; hypertension, chronic obstructive pulmonary disease, hypercholesterolemia, hypertriglyceridemia, hysterectomy, cholecystectomy, gastric bypass surgery, migraine, left ear deafness, obstructive sleep apnea syndrome, history of obesity. Continue vancomycin and Zosyn. Blood cultures are negative. Getting physical therapy. The patient may need do rehab and GI prophylaxis. Repeat labs. We will follow up. Marli Hill MD cc: [id number] TT: 05/10/2016 03:15:36 Confirmation # [id number] Dictation # [id number] vn MTDD
[2016-05-10] MEDS ORDERED: Pantoprazole 40 mg EC Tab PO SCH (06:30)
[2016-05-10 07:14] LABS: HEMATOCRIT 29.9 % (36.0-48.0); MEAN CELL VOLUME 85.9 fL (80.0-105.0); MEAN CORPUSCULAR HEMOGLOBIN 27.3 pg (25.0-35.0); MEAN CORPUSCULAR HGB CONC 31.8 g/dl (31.0-37.0); MEAN PLATELET VOLUME 9.2 fl (7.0-11.0); RED CELL DISTRIBUTION WIDTH 16.9 % (11.5-14.5); WHITE BLOOD COUNT 5.1 [, 10^3/ul] (4.5-11.0)
[2016-05-10] MEDS: Budesonide 0.5 mg/2 ml Inhal Susp UD IH SCH (07:23)
[2016-05-10] MEDS: Arformoterol 15 mcg/2 ml Inh Sol IH SCH (07:23)
[2016-05-10 07:50] LABS: BLOOD UREA NITROGEN 6 mg/dL (7-21); CARBON DIOXIDE 26 mmol/L (21-33); CHLORIDE 108 mmol/L (98-107); GFR AFRICAN-AMERICAN > 60; GLUCOSE,RANDOM 74 mg/dL (70-110); POTASSIUM 4.4 mmol/L (3.6-5.0); SODIUM 139 mmol/L (132-148)
[2016-05-10 09:18] VITALS: BP 124/77; PULSE 76; RESP 18; TEMP 97.7; O2SAT 96
[2016-05-10] MEDS: Lubiprostone [Amitiza] 24 MCG PO SCH (09:48)
[2016-05-10] MEDS ORDERED: Lubiprostone [Amitiza] 24 MCG PO SCH (10:05)
[2016-05-10] MEDS ORDERED: Lactobacillus Acidophilus 500 MU Cap PO SCH (14:00)
--- NOTE | 2016-05-10 16:16 | CP.PCM.PN ---
Subjective - Date & Time of Evaluation Date of Evaluation: 05/10/16 Time of Evaluation: 10:30 - Subjective Subjective: Comfortable in bed, not in distress, less pain in the left leg, much improved swelling, no fevers overnight. Objective - Vital Signs/Intake and Output Vital Signs (last 24 hours): Temp Pulse Resp BP Pulse Ox 97.7 F 76 18 124/77 96 05/10/16 09:17 05/10/16 09:17 05/10/16 09:17 05/10/16 09:17 05/10/16 09:17 Intake and Output: 05/10/16 05/10/16 06:59 18:59 Intake Total 360 480 Balance 360 480 - Medications Medications: Current Medications Albuterol/Ipratropium (Duoneb 3 Mg/0.5 Mg (3 Ml) Ud) 3 ml INH TIDRESP PRN PRN Reason: Shortness of Breath Last Admin: 05/09/16 20:24 Dose: 3 ml Arformoterol Tartrate (Brovana) 15 mcg IH [id number] [facility] Last Admin: 05/10/16 07:23 Dose: 15 mcg Budesonide (Pulmicort Respules) 0.5 mg IH [id number] [facility] Last Admin: 05/10/16 07:23 Dose: 0.5 mg Docusate Sodium (Colace) 100 mg PO BID [facility] Last Admin: 05/10/16 09:46 Dose: Not Given Escitalopram Oxalate (Lexapro) 20 mg PO DAILY [facility] Last Admin: 05/10/16 09:46 Dose: 20 mg Gabapentin (Neurontin) 300 mg PO TID [facility] PRN Reason: Protocol Last Admin: 05/10/16 13:53 Dose: 300 mg Hydromorphone HCl (Dilaudid) 0.5 mg IVP Q4H PRN PRN Reason: Pain, Mild (1-3) Last Admin: 05/10/16 13:54 Dose: 0.5 mg Vancomycin HCl (Vancomycin 1gm) 250 mls @ 167 mls/hr IVPB Q12H [facility] PRN Reason: Protocol Stop: 05/14/16 06:16 Last Admin: 05/09/16 18:35 Dose: 167 mls/hr Piperacillin Sod/Tazobactam Sod (Zosyn 3.375 In Ns 100ml) 100 mls @ 200 mls/hr IVPB Q6 [facility] PRN Reason: Protocol Stop: 05/14/16 06:01 Last Admin: 05/10/16 12:11 Dose: 200 mls/hr Lactobacillus Acidophilus (Bacid Acidophilus) 1 cap PO TID [facility] Last Admin: 05/10/16 13:53 Dose: 1 cap Lubiprostone [ (Amitiza] 24 Mcg) 24 mcg PO BID [facility] Pantoprazole Sodium (Protonix Ec Tab) 40 mg PO 0630 [facility] Pentoxifylline (Pentoxil) 400 mg PO TID [facility] Last Admin: 05/10/16 13:53 Dose: 400 mg - Labs Labs: 05/10/16 06:30 05/10/16 05:00 PT 11.6 Seconds (9.9-11.8) 05/06/16 17:35 INR 1.07 (0.93-1.08) 05/06/16 17:35 APTT 29.8 Seconds (23.7-30.8) 05/06/16 17:35 - Constitutional Appears: Non-toxic, No Acute Distress - Head Exam Head Exam: NORMAL INSPECTION - ENT Exam ENT Exam: Mucous Membranes Moist - Neck Exam Neck Exam: absent: Lymphadenopathy, Meningismus - Respiratory Exam Respiratory Exam: Decreased Breath Sounds - Cardiovascular Exam Cardiovascular Exam: +S1, +S2 - GI/Abdominal Exam GI & Abdominal Exam: Soft. absent: Tenderness - Extremities Exam Additional comments: decreased swelling and erythema of the left leg Assessment and Plan - Assessment and Plan (Free Text) Plan: Assessment Consider left lower extremity skin and skin structure infection (cellulitis) in a patient S/P tibial fracture S/P screws placement 2-3 months ago, clinically improving HTN COPD history cranial surgery S/P cholecystectomy S/P hysterectomy S/P gastric bypass surgery history of migraines left ear deafness obstructive sleep apnea Plan continue Vancomycin and Zosyn day 4 - target 5-7 days of therapy; blood cx are negative, xray of the left leg did not show acute pathology; will continue to monitor clinical response
--- NOTE | 2016-05-10 17:30 | PN ---
DATE: 05/10/2016 REFERRING PHYSICIAN: Dr. Hill. SUBJECTIVE: She is lying in the bed, head at 45 degrees. Feels much better. No headache, no rhinit is, no cough, no nausea, no vomiting, no diarrhea. Decreased leg swelling. Decreased erythema. OBJECTIVE: GENERAL: No acute distress. VITAL SIGNS: Temperature is 98, heart rate 76, respiratory rate is 20, blood pressure 124/77, pulse ox 96% on room air. HEENT: Moist mucous membrane. Crowded airway. NECK: Supple. No JVD. LUNGS: Have fair airflow with a few rhonchi. HEART: S1, S2. ABDOMEN: Soft, nontender. No organomegaly. EXTREMITIES: There is not much edema. Decreased erythema of the left leg. NEUROLOGIC: Awake, alert, follows simple commands. MEDICATIONS: She is on Bacid 1 capsule 3 times a day, Brovana 15 mcg inhaled twice a day, Colace 100 mg twice a day, Dilaudid 0.5 mg q. 4 hours p.r.n. and DuoNeb q. 8 hours p.r.n., Lexapro 20 mg daily, Amitiza 24 mcg twice a day, gabapentin 300 mg 3 times a day, pentoxifylline 400 mg 3 times a day, Pr otonix 40 mg daily, Pulmicort inhaled twice a day, vancomycin 1 g q. 12 hours, Zosyn 3.375 g q. 6 candy rs. LABORATORY DATA: Shows hemoglobin 9.5, hematocrit 29.9, WBC 5.1, platelet is 242. Sodium 139, potas sium 4.4, chloride 108, bicarbonate 26, BUN 6, creatinine 0.8, glucose 74, calcium is 8.0. IMPRESSION AND PLAN: Chronic obstructive lung disease, cellulitis of left lower extremity, history o f fracture of the left lower extremity requiring ____, hypertension, migraine headaches, sleep apnea syndrome, opiate dependent, left leg fracture. From pulmonary point of view, doing okay. Continue b ronchodilator. Keep head elevated at 45 degrees. Careful with sedation. Antibiotics as per infecti ous diseases. Gastric prophylaxis. Thank you, and will follow with you. Catrachito Herrera MD cc: [id number] TT: 05/10/2016 17:29:33 Confirmation # [id number] Dictation # [id number] mn
[2016-05-10] MEDS ORDERED: Pantoprazole 40 mg EC Tab PO ONE (18:46)
== END 2016-05-10 17:15 | DRG 603 ==
LOC: ED 16:11 → ERH 21:13 → 5RNO 05-07 00:21
PROVIDERS: ADMIT Internal Medicine; ATTEND Internal Medicine
DX: L03.116 Cellulitis of left lower limb (principal); M62.82 Rhabdomyolysis; K21.9 Gastro-esophageal reflux disease without esophagitis; J44.9 Chronic obstructive pulmonary disease, unspecified; I10 Essential (primary) hypertension; F43.10 Post-traumatic stress disorder, unspecified; R26.81 Unsteadiness on feet; M47.9 Spondylosis, unspecified; G43.909 Migraine, unspecified, not intractable, without status migrainosus; F41.9 Anxiety disorder, unspecified; D64.9 Anemia, unspecified; E83.51 Hypocalcemia; R73.9 Hyperglycemia, unspecified; E87.5 Hyperkalemia; H91.92 Unspecified hearing loss, left ear; G47.33 Obstructive sleep apnea (adult) (pediatric); G89.4 Chronic pain syndrome; E78.2 Mixed hyperlipidemia; Z98.84 Bariatric surgery status

== ENCOUNTER 2017-01-29 18:14 | Observation (INO) | payer BC, MEDICARE ==
[2017-01-29 18:15] VITALS: BMI 23.5
--- NOTE | 2017-01-29 20:18 | ED PDOC ---
Arrival/HPI - General Chief Complaint: Weakness/Neurological Deficit Time Seen by Provider: 01/29/17 19:38 Historian: Patient - History of Present Illness Narrative History of Present Illness (Text): 01/29/17 20:15 A 51 year old female presents to the emergency department complaining of generalized fatigue and decreased PO intact for 2 weeks. Patient reports she fell out of bed 1 week ago and developed a hematoma on her right hip. Patient was seen by PMD today, who instructed her to come into the emergency room for further evaluation. Ambulates at baseline with walker or cane due to sciolosis. Patient denies any fever, chills, nausea, vomiting, abdominal pain, chest pain , shortness of breath or any other complaints. PMD: Dr. Hill 01/29/17 23:08 Time/Duration: Other (2 weeks) Symptom Course: Unchanged Quality: Other Context: Home Past Medical History - Provider Review Nursing Documentation Reviewed: Yes - Infectious Disease Hx of Infectious Diseases: MRSA - Tetanus Immunization Tetanus Immunization: Unknown - Cardiac Hx Cardiac Disorders: Yes Hx Hypertension: Yes - Pulmonary Hx Chronic Obstructive Pulmonary Disease (COPD): Yes - Neurological Hx Neurological Disorder: Yes Hx Dizziness: Yes Hx Migraine: Yes - HEENT Hx HEENT Disorder: Yes Hx Deafness: Yes (LEFT EAR) Hx Difficulty Chewing: Yes (difficulty swallowing some meat) - Renal Hx Renal Disorder: No - Endocrine/Metabolic Hx Endocrine Disorders: No - Hematological/Oncological Hx Blood Disorders: Yes Hx Anemia: Yes - Integumentary Hx Dermatological Disorder: Yes (skin tears easily since bypass surgery) - Musculoskeletal/Rheumatological Hx Arthritis: Yes - Gastrointestinal Hx Gastrointestinal Disorders: Yes Hx Gall Bladder Disease: Yes (gall bladder removed during bypass surgery 2006) Hx Gastroesophageal Reflux: Yes HX Swallowing Problems: Yes (problems swallowing some meats) Other/Comment: gastric bypass with mesh in 2006 - Genitourinary/Gynecological Hx Genitourinary Disorders: Yes (URINARY FREQUENCY,DYSURIA) Hx Urinary Tract Infection: Yes - Psychiatric Hx Psychophysiologic Disorder: Yes Hx Anxiety: Yes Hx Depression: Yes Hx Post Traumatic Stress Disorder: Yes Hx Substance Use: No - Surgical History Hx Cholecystectomy: Yes Hx Gastric Bypass Surgery: Yes Hx Hysterectomy: Yes Hx Musculoskeletal Surgery: Yes (titanium lower back, cranial surgery) - Anesthesia Hx Anesthesia Reactions: No Hx Malignant Hyperthermia: No - Suicidal Assessment Feels Threatened In Home Enviroment: No Family/Social History - Physician Review Nursing Documentation Reviewed: Yes Family/Social History: No Known Family HX Smoking Status: Never Smoked Hx Alcohol Use: No Hx Substance Use: No Hx Substance Use Treatment: No Allergies/Home Meds Allergies/Adverse Reactions: Allergies No Known Allergies Allergy (Verified 05/06/16 16:24) Home Medications: Home Meds Medication Instructions Recorded Confirmed Albuterol/Ipratropium [Duoneb 3 3 ml NEB TID 02/08/16 01/29/17 MG/3 Ml-0.5 MG/3 Ml 3 Ml] Docusate [Colace] 100 mg PO BID 02/08/16 01/29/17 Escitalopram [Lexapro] 20 mg PO DAILY 02/08/16 01/29/17 Gabapentin [Neurontin] 300 mg PO TID 02/08/16 01/29/17 HYDROmorphone [Dilaudid] 8 mg PO Q4H PRN 02/08/16 01/29/17 Hydromorphone HCl [Dilaudid] 4 mg PO Q4H PRN 02/08/16 01/29/17 Lubiprostone [Amitiza] 24 mcg PO BID 02/08/16 01/29/17 Pentoxifylline [Pentoxil] 400 mg PO TID 02/08/16 01/29/17 hydroCHLOROthiazide [Microzide] 12.5 mg PO DAILY 02/08/16 01/29/17 oxyCODONE [oxycodone Hydrochloride] 20 mg PO Q12H PRN 02/08/16 01/29/17 Review of Systems - Physician Review All systems were reviewed & negative as marked: Yes - Review of Systems Constitutional: Fatigue. absent: Fevers, Night Sweats Respiratory: absent: SOB Cardiovascular: absent: Chest Pain Gastrointestinal: Appetite Changes. absent: Abdominal Pain, Nausea, Vomiting Skin: Other (hematoma on right hip) Physical Exam Vital Signs Reviewed: Yes Vital Signs Temp Pulse Resp BP Pulse Ox 01/29/17 22:11 67 19 134/87 97 01/29/17 21:00 73 20 151/86 H 97 01/29/17 19:36 97.5 F L 65 18 122/79 95 Temperature: Afebrile Blood Pressure: Normal Pulse: Regular Respiratory Rate: Normal Appearance: Positive for: Well-Appearing, Non-Toxic, Comfortable Pain Distress: None Mental Status: Positive for: Alert and Oriented X 3 - Systems Exam Head: Present: Atraumatic, Normocephalic Pupils: Present: PERRL Extroacular Muscles: Present: EOMI Conjunctiva: Present: Normal Mouth: Present: Moist Mucous Membranes Neck: Present: Normal Range of Motion Respiratory/Chest: Present: Clear to Auscultation, Good Air Exchange. No: Respiratory Distress, Accessory Muscle Use Cardiovascular: Present: Regular Rate and Rhythm, Normal S1, S2. No: Murmurs Abdomen: Present: Normal Bowel Sounds. No: Tenderness, Distention, Peritoneal Signs Back: No: Midline Tenderness Upper Extremity: Present: Normal Inspection, Normal ROM, NORMAL PULSES. No: Cyanosis, Edema Lower Extremity: Present: Normal Inspection, NORMAL PULSES, Normal ROM, Other ( Large hematoma to right hip). No: Edema, Tenderness (no midline bony tenderness ) Neurological: Present: GCS=15, CN II-XII Intact, Speech Normal Skin: Present: Warm, Dry, Normal Color. No: Rashes Psychiatric: Present: Alert, Oriented x 3, Normal Insight, Normal Concentration Medical Decision Making ED Course and Treatment: 01/29/17 20:15 Impression: A 51 year old female with generalized fatigue and decrease PO intact. Patient notes hematoma on right hip. Plan: -- Head CT -- Abdomen and pelvis CT -- Chest xray -- EKG -- Labs -- Urinalysis -- Reassess and disposition Progress Notes: MDRX reviewed, patient received a 30 day supply of Suboxone, Restoril and Valium on 01/03/17. EKG shows NSR at 57 BPM with no acute ST changes. Interpreted by me. 01/29/17 21:58 CT head negative 01/29/17 23:00 CT Abd/pelvis FINDINGS: Cholecystectomy clips are present. There is mild intrahepatic duct dilation likely secondary to cholecystectomy.Recommend correlation with laboratory values. The spleen is borderline prominent. The pancreas is normal. No hydronephrosis or perinephric stranding. Gastric bypass surgery. A normal appendix is identified coronal images 29 through 32. Posterior screws L4 - 5. In the subcutaneous fat of the right posterior lateral lower abdomen/upper pelvis, there is a fluid collection with Hounsfield units ranging from 20-50. There is a small amount of stranding in the surrounding fat. In general, the differential diagnosis would include hematoma, abscess, seroma, complex cystic structure. However, there is a reported history of known hematoma. Nonetheless, I would recommend followup to ensure complete resolution. The majority of the collection is of low attenuation however there is a faint area of increased density in the medial inferior portion. I suspect this represents varying degrees of blood products. It does not have the hyperdense serpiginous appearance normally associated with contrast extravasation/active bleeding. The complex fluid collection measures approximately 7.5 x 5.5 cm in axial dimensions and 8.5 cm in craniocaudal dimensions. The collection abuts the oblique musculature however there is no actual intramuscular hematoma. Lateral aspect of this region is incompletely imaged due to body habitus. IMPRESSION: Subcutaneous complex fluid collection right posterior lateral lower abdomen as discussed in detail above. Dr. Hill to take to tele observation for frequent falls and further mgmt of fluid collection as seen on CT. Hgb WNL. - Lab Interpretations Lab Results: 01/29/17 20:15 01/29/17 20:15 Lab Results 01/29/17 20:15: Sodium 143, Potassium 4.3, Chloride 102, Carbon Dioxide 29, Anion Gap 15, BUN 11, Creatinine 0.9, Est GFR ( Amer) > 60, Est GFR (Non- Af Amer) > 60, Random Glucose 90, Calcium 9.6, Phosphorus 3.5, Magnesium 1.7, Total Bilirubin 0.8, AST 39 H, ALT 19, Alkaline Phosphatase 142 H, Total Creatine Kinase 199, Troponin I 0.03 D, Total Protein 8.7 H, Albumin 4.3, Globulin 4.4, Albumin/Globulin Ratio 1.0 L, Lipase 132 01/29/17 20:15: APTT 38.0 H 01/29/17 20:15: WBC 6.3 D, RBC 4.63, Hgb 13.1, Hct 40.4, MCV 87.3, MCH 28.3, MCHC 32.4, RDW 15.1 H, Plt Count 229, MPV 9.0, Gran % 58.8, Lymph % (Auto) 33.0 , Foard % (Auto) 5.8, Eos % (Auto) 2.1, Baso % (Auto) 0.3, Gran # 3.68, Lymph # 2.1, Foard # 0.4, Eos # 0.1, Baso # 0.02 I have reviewed the lab results: Yes - RAD Interpretation Radiology Orders: 01/29/17 19:46 CHEST PORTABLE [RAD] Stat 01/29/17 19:57 ABD & PELVIS IV CONTRAST ONLY [CT] Stat HEAD W/O CONTRAST [CT] Stat - Medication Orders Current Medication Orders: Sodium Chloride (Sodium Chloride 0.9%) 500 mls @ 999 mls/hr IV .Q31M STA Stop: 01/29/17 23:11 Discontinued Medications Morphine Sulfate (Morphine) 4 mg IVP STAT STA Stop: 01/29/17 21:01 Last Admin: 01/29/17 21:06 Dose: 4 mg MAR Pain Assessment Document 01/29/17 21:06 CNR (Rec: 01/29/17 21:06 CNR [id number]) Pain Reassessment Is this a pain reassessment? Yes IVP Administration Document 01/29/17 21:06 CNR (Rec: 01/29/17 21:06 CNR [id number]) Charges for Administration # of IVP Administrations 1 Morphine Sulfate (Morphine) 4 mg IVP STAT STA Stop: 01/29/17 22:04 Last Admin: 01/29/17 22:20 Dose: 4 mg MAR Pain Assessment Document 01/29/17 22:20 RD (Rec: 01/29/17 22:34 RD [id number]) Pain Reassessment Is this a pain reassessment? No Sleep Is patient sleeping during reassessment? No Presence of Pain Presence of Pain Yes IVP Administration Document 01/29/17 22:20 RD (Rec: 01/29/17 22:34 RD [id number]) Charges for Administration # of IVP Administrations 1 - Scribe Statement The provider has reviewed the documentation as recorded by the Tayloribashley Slade Provider Scribe Attestation: All medical record entries made by the Scribe were at my direction and personally dictated by me. I have reviewed the chart and agree that the record accurately reflects my personal performance of the history, physical exam, medical decision making, and the department course for this patient. I have also personally directed, reviewed, and agree with the discharge instructions and disposition. Disposition/Present on Arrival - Present on Arrival Any Indicators Present on Arrival: No History of DVT/PE: Yes History of Uncontrolled Diabetes: No Urinary Catheter: No History of Decub. Ulcer: No History Surgical Site Infection Following: None - Disposition Have Diagnosis and Disposition been Completed?: Yes Diagnosis: Frequent falls, Right flank hematoma, Syncope, near Disposition: HOSPITALIZED Disposition Time: 22:50 Patient Plan: Observation Patient Problems: Current Active Problems Problem Status Onset Syncope, near Acute Frequent falls Acute Right flank hematoma Acute Condition: FAIR Referrals: Marli Hill MD [Primary Care Provider] - Follow up with primary Forms: [employer] (N[place]ien)
[2017-01-29 20:25] LABS: BASO # 0.02 K/mm3 (0.0-2.0); BASO % 0.3 % (0.0-3.0); EOS # 0.1 (0.0-0.7); EOS % 2.1 % (1.5-5.0); GRAN # 3.68 (1.4-6.5); GRAN % 58.8 % (50.0-68.0); HEMATOCRIT 40.4 % (36.0-48.0); LYMPH # 2.1 (1.2-3.4); MEAN CELL VOLUME 87.3 fl (80.0-105.0); MEAN CORPUSCULAR HEMOGLOBIN 28.3 pg (25.0-35.0); MEAN CORPUSCULAR HGB CONC 32.4 g/dl (31.0-37.0); MONO # 0.4 (0.1-0.6); MONO % 5.8 % (1.0-6.0); RED CELL DISTRIBUTION WIDTH 15.1 % (11.5-14.5); WHITE BLOOD COUNT 6.3 10^3/ul (4.5-11.0)
[2017-01-29 20:54] LABS: ALKALINE PHOSPHATASE 142 U/L (38-126); ALT/SGPT 19 U/L (7-56); AST/SGOT 39 U/L (14-36); BILIRUBIN,TOTAL 0.8 mg/dL (0.2-1.3); BLOOD UREA NITROGEN 11 mg/dL (7-21); CALCIUM 9.6 mg/dL (8.4-10.5); CARBON DIOXIDE 29 mmol/L (21-33); CHLORIDE 102 mmol/L (98-107); GFR AFRICAN-AMERICAN > 60; GLUCOSE,RANDOM 90 mg/dL (70-110); LIPASE 132 U/L (23-300); MAGNESIUM 1.7 mg/dL (1.7-2.2); PHOSPHOROUS 3.5 mg/dL (2.5-4.5); POTASSIUM 4.3 mmol/L (3.6-5.0); SODIUM 143 mmol/L (132-148); TOTAL PROTEIN 8.7 g/dL (5.8-8.3)
[2017-01-29] MEDS ORDERED: Morphine 4 mg/ml ISec IVP STA ×3 (21:00→23:16)
[2017-01-29] MEDS ORDERED: Iohexol 350 MG/100 ML VIAL ONE (21:03)
[2017-01-29] MEDS ORDERED: Morphine 4 mg/ml ISec ONE (21:03)
[2017-01-29 21:04] LABS: TROPONIN I 0.03 ng/mL
--- NOTE | 2017-01-29 21:50 | CT ---
EXAM: CT Head Without Intravenous Contrast CLINICAL HISTORY: 51 years old, female; Injury or trauma; Fall; Initial encounter; Blunt trauma (contusions or hematomas); Consciousness not specified; Additional info: Fall, head trauma TECHNIQUE: Axial computed tomography images of the head/brain without intravenous contrast. All CT scans at this facility use one or more dose reduction techniques, viz.: automated exposure control; ma/kV adjustment per patient size (including targeted exams where dose is matched to indication; i.e. head); or iterative reconstruction technique. COMPARISON: No relevant prior studies available. FINDINGS: Brain: Mild atrophy. No intracranial hemorrhage. No mass. Minimal decreased attenuation within periventricular white matter. No edema. Ventricles: No hydrocephalus. Bones/joints: No acute fracture. Soft tissues: Unremarkable. Vasculature: Minimal atherosclerotic disease of intracranial arteries. Sinuses: No acute sinusitis. Mastoid air cells: No mastoid effusion. Orbits: Unremarkable as visualized. IMPRESSION: 1. No intracranial hemorrhage. 2. Nonspecific white matter changes. 3. Incidental/non-acute findings are described above.
[2017-01-29] MEDS ORDERED: Sodium Chloride 0.9% 500 ML IV STA (22:41)
--- NOTE | 2017-01-29 22:58 | CT ---
EXAM: CT Abdomen and Pelvis With Intravenous Contrast EXAM DATE/TIME: 01/29/2017 7:57 PM CLINICAL HISTORY: 51 years old, female; Signs and symptoms; Other: Generalized weakness, poor appetite; Prior surgery; Surgery date: 6+ months; Surgery type: HX gb, gastric bypass 2006; Additional info: R flank hematoma TECHNIQUE: Axial computed tomography images of the abdomen and pelvis with intravenous contrast. All CT scans at this facility use one or more dose reduction techniques, viz.: automated exposure control; ma/kV adjustment per patient size (including targeted exams where dose is matched to indication; i.e. head); or iterative reconstruction technique. Coronal and sagittal reformatted images were created and reviewed. CONTRAST: 94 mL of omni 350 administered intravenously. COMPARISON: CR - HIP RIMMA W/WO PELVIS 3-4 VIEWS 2016-01-19 12:49 FINDINGS: Cholecystectomy clips are present. There is mild intrahepatic duct dilation likely secondary to cholecystectomy.Recommend correlation with laboratory values. The spleen is borderline prominent. The pancreas is normal. No hydronephrosis or perinephric stranding. Gastric bypass surgery. A normal appendix is identified coronal images 29 through 32. Posterior screws L4 - 5. In the subcutaneous fat of the right posterior lateral lower abdomen/upper pelvis, there is a fluid collection with Hounsfield units ranging from 20-50. There is a small amount of stranding in the surrounding fat. In general, the differential diagnosis would include hematoma, abscess, seroma, complex cystic structure. However, there is a reported history of known hematoma. Nonetheless, I would recommend followup to ensure complete resolution. The majority of the collection is of low attenuation however there is a faint area of increased density in the medial inferior portion. I suspect this represents varying degrees of blood products. It does not have the hyperdense serpiginous appearance normally associated with contrast extravasation/active bleeding. The complex fluid collection measures approximately 7.5 x 5.5 cm in axial dimensions and 8.5 cm in craniocaudal dimensions. The collection abuts the oblique musculature however there is no actual intramuscular hematoma. Lateral aspect of this region is incompletely imaged due to body habitus. IMPRESSION: Subcutaneous complex fluid collection right posterior lateral lower abdomen as discussed in detail above.
[2017-01-29 23:14] LABS: INR 1.28 (0.93-1.08)
[2017-01-30 00:37] LABS: PH,URINE 6.5 (4.7-8.0); URINE BILIRUBIN SMALL (NEGATIVE); URINE BLOOD NEGATIVE (NEGATIVE); URINE GLUCOSE (UA) NEGATIVE (NEGATIVE); URINE KETONE TRACE mg/dL (NEGATIVE); URINE LEUKOCYTE ESTERASE NEGATIVE Leu/uL (NEGATIVE); URINE PROTEIN TRACE mg/dL (<30 mg/dL)
[2017-01-30 00:50] LABS: URINE APPEARANCE CLEAR (CLEAR); URINE COLOR YELLOW (YELLOW)
[2017-01-30 00:55] LABS: URINE EPITHELIAL CELLS 0 - 2 /hpf (0-5); URINE RBC 0 - 2 /hpf (0-2); URINE WBC 0 - 2 /hpf (0-6)
[2017-01-30] MEDS: HYDROmorphone 0.5 mg/0.5 ml ISec IVP PRN ×4 (01:56→21:22)
[2017-01-30] MEDS ORDERED: HYDROmorphone 0.5 mg/0.5 ml ISec IVP STA (04:49)
--- NOTE | 2017-01-30 08:13 | RAD ---
HISTORY: fatigue COMPARISON: 01/28/2016 FINDINGS: LUNGS: No active pulmonary disease. PLEURA: No significant pleural effusion identified, no pneumothorax apparent. CARDIOVASCULAR: Normal. OSSEOUS STRUCTURES: No significant abnormalities. VISUALIZED UPPER ABDOMEN: Normal. OTHER FINDINGS: None. IMPRESSION: No active disease.
--- NOTE | 2017-01-30 09:41 | CP.PCM.CON ---
<Adriane Girard - Last Filed: 01/30/17 12:27> History of Present Illness - History of Present Illness History of Present Illness: PGY-2 neurology progress note for 51 year old female with PMH of HTN, migraines, copd, dizziness, presents to the emergency department complaining of generalized fatigue and decreased PO intact for 2 weeks and s/p fall. Patient reports she fell out of her new bed 1 week ago, she states that she hit her head and her side, developed a hematoma on her right hip. She denies any loss of consciousness, headache, dizziness. Patient was seen by PMD, who instructed her to come into the emergency room for further evaluation. Patient at baseline ambulates with walker or cane due to scoliosis. Patient denies any fever, chills, nausea, vomiting, abdominal pain, chest pain, shortness of breath or any other complaints. She does report history of fall last year resulting in fracture of her leg. She also report previous brain bleed. PMH: HTN, migraines, copd, dizziness PSH: cholecystectomy, gastric bypass, hysterectomy social history: denies smoking, denies alcohol, denies illicit drug use allergy: NKDA Review of Systems - Review of Systems All systems: reviewed and no additional remarkable complaints except (as stated in HPI) Past Patient History - Infectious Disease Hx of Infectious Diseases: MRSA - Tetanus Immunizations Tetanus Immunization: Unknown - Past Medical History & Family History Past Medical History?: Yes - Past Social History Smoking Status: Former Smoker - CARDIAC Hx Cardiac Disorders: Yes Hx Hypertension: Yes - PULMONARY Hx Chronic Obstructive Pulmonary Disease (COPD): Yes - NEUROLOGICAL Hx Neurological Disorder: Yes Hx Dizziness: Yes Hx Migraine: Yes - HEENT Hx HEENT Problems: Yes Hx Deafness: Yes (LEFT EAR) Hx Difficulty Chewing: Yes (difficulty swallowing some meat) - RENAL Hx Chronic Kidney Disease: No - ENDOCRINE/METABOLIC Hx Endocrine Disorders: No - HEMATOLOGICAL/ONCOLOGICAL Hx Blood Disorders: Yes Hx Anemia: Yes - INTEGUMENTARY Hx Dermatological Problems: Yes (skin tears easily since bypass surgery) - MUSCULOSKELETAL/RHEUMATOLOGICAL Hx Falls: Yes - GASTROINTESTINAL Hx Gastrointestinal Disorders: Yes Hx Gall Bladder Disease: Yes (gall bladder removed during bypass surgery 2006) Hx Gastroesophageal Reflux: Yes HX Swallowing Problems: Yes (problems swallowing some meats) Other/Comment: gastric bypass with mesh in 2006 - GENITOURINARY/GYNECOLOGICAL Hx Genitourinary Disorders: Yes (URINARY FREQUENCY,DYSURIA) Hx Urinary Tract Infection: Yes - PSYCHIATRIC Hx Psychophysiologic Disorder: Yes Hx Anxiety: Yes Hx Depression: Yes Hx Post Traumatic Stress Disorder: Yes - SURGICAL HISTORY Hx Cholecystectomy: Yes Hx Gastric Bypass Surgery: Yes Hx Hysterectomy: Yes Hx Musculoskeletal Surgery: Yes (titanium lower back, cranial surgery) - ANESTHESIA Hx Anesthesia Reactions: No Hx Malignant Hyperthermia: No Meds Allergies/Adverse Reactions: Allergies Allergy/AdvReac Type Severity Reaction Status Date / Time No Known Allergies Allergy Verified 05/06/16 16:24 - Medications Medications: Current Medications Hydromorphone HCl (Dilaudid) 0.25 mg IVP Q6H PRN PRN Reason: Pain, severe (8-10) Last Admin: 01/30/17 09:07 Dose: 0.25 mg Physical Exam - Constitutional Appears: No Acute Distress - Head Exam Head Exam: ATRAUMATIC, NORMAL INSPECTION - Eye Exam Eye Exam: EOMI, Normal appearance, PERRL - Respiratory Exam Respiratory Exam: Clear to Auscultation Bilateral, NORMAL BREATHING PATTERN. absent: Rhonchi, Wheezes, Respiratory Distress - Cardiovascular Exam Cardiovascular Exam: REGULAR RHYTHM - Neurological Exam Neurological exam: Alert, CN II-XII Intact, Oriented x3 - Expanded Neurological Exam Expanded Patient oriented to: person, place, time Cranial nerves: EOM's Intact: Normal, Nystagmus: Normal, Tongue Deviation: Normal Cerebellar Function: Finger to Nose: Normal Neuro motor strength exam: Left Upper Extremity: 5, Right Upper Extremity: 5, Left Lower Extremity: 5, Right Lower Extremity: 5 Results - Vital Signs Recent Vital Signs: Last Vital Signs Temp 97.9 F 01/30/17 02:36 Pulse 55 L 01/30/17 06:00 Resp 17 01/30/17 02:36 BP 108/71 01/30/17 02:36 Pulse Ox 95 01/30/17 02:36 - Labs Result Diagrams: 01/29/17 20:15 01/29/17 20:15 Labs: Laboratory Results - last 24 hr 01/29/17 01/30/17 01/30/17 23:09 00:10 00:10 PT 14.0 H INR 1.28 H Urine Color Yellow Urine Appearance Clear Urine pH 6.5 Ur Specific [place] <= 1.005 Urine Protein Trace H Urine Glucose (UA) Negative Urine Ketones Trace H Urine Blood Negative Urine Nitrate Negative Urine Bilirubin Small H Urine Urobilinogen 1.0 H Ur Leukocyte Esterase Negative Urine RBC 0 - 2 Urine WBC 0 - 2 Ur Epithelial Cells 0 - 2 Urine Opiates Screen Positive H Urine Methadone Screen Negative Ur Barbiturates Screen Negative Ur Phencyclidine Scrn Negative Ur Amphetamines Screen Negative U Benzodiazepines Scrn Positive U Oth Cocaine Metabols Negative U Cannabinoids Screen Negative Assessment & Plan - Assessment and Plan (Free Text) Assessment: 51 year old female with PMH of HTN, migraines, copd, dizziness, presents to the emergency department complaining of generalized fatigue and decreased PO intact for 2 weeks and s/p fall due to de conditioning secondary to underlying long standing arthritis - CT head showed no acute findings - naproxen for pain management - OOB to chair - PT/OT Thank you for the consult Case reviewed and discussed with attending <Matt Clark - Last Filed: 01/30/17 18:04> Meds - Medications Medications: Current Medications Hydromorphone HCl (Dilaudid) 0.25 mg IVP Q6H PRN PRN Reason: Pain, severe (8-10) Last Admin: 01/30/17 15:09 Dose: 0.25 mg Results - Vital Signs Recent Vital Signs: Last Vital Signs Temp 97.8 F 01/30/17 06:00 Pulse 62 01/30/17 14:00 Resp 18 01/30/17 06:00 BP 101/70 01/30/17 06:00 Pulse Ox 95 01/30/17 06:00 - Labs Result Diagrams: 01/29/17 20:15 01/29/17 20:15 Labs: Laboratory Results - last 24 hr 01/29/17 01/30/17 01/30/17 23:09 00:10 00:10 PT 14.0 H INR 1.28 H Urine Color Yellow Urine Appearance Clear Urine pH 6.5 Ur Specific [place] <= 1.005 Urine Protein Trace H Urine Glucose (UA) Negative Urine Ketones Trace H Urine Blood Negative Urine Nitrate Negative Urine Bilirubin Small H Urine Urobilinogen 1.0 H Ur Leukocyte Esterase Negative Urine RBC 0 - 2 Urine WBC 0 - 2 Ur Epithelial Cells 0 - 2 Urine Opiates Screen Positive H Urine Methadone Screen Negative Ur Barbiturates Screen Negative Ur Phencyclidine Scrn Negative Ur Amphetamines Screen Negative U Benzodiazepines Scrn Positive U Oth Cocaine Metabols Negative U Cannabinoids Screen Negative Attending/Attestation - Attestation I have personally seen and examined this patient.: Yes I have fully participated in the care of the patient.: Yes I have reviewed all pertinent clinical information: Yes
--- NOTE | 2017-01-30 14:06 | RAD ---
PROCEDURE: Right Hip and pelvis Radiographs. HISTORY: fall COMPARISON: 01/19/2016 FINDINGS: BONES: Normal. No fracture. There is an old fracture of the left greater trochanter JOINTS: Normal. SOFT TISSUES: Normal. OTHER FINDINGS: None. IMPRESSION: No acute findings
--- NOTE | 2017-01-30 15:21 | CP.PCM.CON ---
<Chris Russell - Last Filed: 01/30/17 14:50> History of Present Illness - History of Present Illness History of Present Illness: Surgery Consult Note for Dr. Hayward Pt is a 51 yo F with PMH of HTN, migraines, COPD, rhabdomyolysis, dizziness, scoliosis, DDD, spinal stenosis and cerebral hemorrhage s/p fall was told to proceed to [facility] [place] [facility] ED by her PMD due to generalized fatigued, decreased PO intake, and right hip hematoma. Pt states that 1 week ago she was asleep when she accidentally rolled off the bed and hit the side of her head on her nightstand and hit her right hip on the floor. Pt states that pain and bruising was severe , but no open wound. Bruising improved over the week. Today, patient states that pain is still there, but controlled with medications. On comparison, with photo taken a day after injury occurred, bruising has decreased. Of note, patient requires cane/wheel chair s/p fall about a year ago requiring surgical removal and debridement of glass from her head. Pt denied CP, SOB, nausea, vomiting, diarrhea, abdominal pain, fever, chills, or CID. PMH: HTN, migraines, COPD, rhabdomyolysis, dizziness, scoliosis, DDD, spinal stenosis, cerebral hemorrhage s/p fall PSH: cholecystectomy, gastric bypass, hysterectomy, L tibial fracture repair, surgical cranial wound debridement All: NKDA FHx: DM, OR, breast CA SH: Denied tobacco, EtOH, and illicit drug use Review of Systems - Review of Systems Review of Systems: 12 point ROS reviewed and is negative other than what is stated in HPI. Past Patient History - Infectious Disease Hx of Infectious Diseases: MRSA - Tetanus Immunizations Tetanus Immunization: Unknown - Past Medical History & Family History Past Medical History?: Yes - Past Social History Smoking Status: Former Smoker - CARDIAC Hx Cardiac Disorders: Yes Hx Hypertension: Yes - PULMONARY Hx Chronic Obstructive Pulmonary Disease (COPD): Yes - NEUROLOGICAL Hx Neurological Disorder: Yes Hx Dizziness: Yes Hx Migraine: Yes - HEENT Hx HEENT Problems: Yes Hx Deafness: Yes (LEFT EAR) Hx Difficulty Chewing: Yes (difficulty swallowing some meat) - RENAL Hx Chronic Kidney Disease: No - ENDOCRINE/METABOLIC Hx Endocrine Disorders: No - HEMATOLOGICAL/ONCOLOGICAL Hx Blood Disorders: Yes Hx Anemia: Yes - INTEGUMENTARY Hx Dermatological Problems: Yes (skin tears easily since bypass surgery) - MUSCULOSKELETAL/RHEUMATOLOGICAL Hx Falls: Yes - GASTROINTESTINAL Hx Gastrointestinal Disorders: Yes Hx Gall Bladder Disease: Yes (gall bladder removed during bypass surgery 2006) Hx Gastroesophageal Reflux: Yes HX Swallowing Problems: Yes (problems swallowing some meats) Other/Comment: gastric bypass with mesh in 2006 - GENITOURINARY/GYNECOLOGICAL Hx Genitourinary Disorders: Yes (URINARY FREQUENCY,DYSURIA) Hx Urinary Tract Infection: Yes - PSYCHIATRIC Hx Psychophysiologic Disorder: Yes Hx Anxiety: Yes Hx Depression: Yes Hx Post Traumatic Stress Disorder: Yes - SURGICAL HISTORY Hx Cholecystectomy: Yes Hx Gastric Bypass Surgery: Yes Hx Hysterectomy: Yes Hx Musculoskeletal Surgery: Yes (titanium lower back, cranial surgery) - ANESTHESIA Hx Anesthesia Reactions: No Hx Malignant Hyperthermia: No Meds Allergies/Adverse Reactions: Allergies Allergy/AdvReac Type Severity Reaction Status Date / Time No Known Allergies Allergy Verified 05/06/16 16:24 - Medications Medications: Current Medications Hydromorphone HCl (Dilaudid) 0.25 mg IVP Q6H PRN PRN Reason: Pain, severe (8-10) Last Admin: 01/30/17 09:07 Dose: 0.25 mg Physical Exam - Constitutional Appears: No Acute Distress - Head Exam Head Exam: NORMAL INSPECTION - Eye Exam Eye Exam: Normal appearance - Neck Exam Neck exam: Positive for: Normal Inspection - Respiratory Exam Respiratory Exam: NORMAL BREATHING PATTERN. absent: Accessory Muscle Use, Respiratory Distress - Cardiovascular Exam Cardiovascular Exam: RRR. absent: Diastolic murmur, Gallop, Rubs, Systolic Murmur - GI/Abdominal Exam GI & Abdominal Exam: Soft. absent: Distended, Guarding, Rebound, Tenderness - Extremities Exam Additional comments: Bruise extending ~20 cm on right hip, no open lesions, lacerations, wounds. TTP. Indurated area over right iliac crest. - Neurological Exam Neurological exam: Alert, Oriented x3 - Skin Skin Exam: Normal Color Results - Vital Signs Recent Vital Signs: Last Vital Signs Temp 97.8 F 01/30/17 06:00 Pulse 61 01/30/17 06:00 Resp 18 01/30/17 06:00 BP 101/70 01/30/17 06:00 Pulse Ox 95 01/30/17 06:00 - Labs Result Diagrams: 01/29/17 20:15 01/29/17 20:15 Labs: Laboratory Results - last 24 hr 01/29/17 01/30/17 01/30/17 23:09 00:10 00:10 PT 14.0 H INR 1.28 H Urine Color Yellow Urine Appearance Clear Urine pH 6.5 Ur Specific [place] <= 1.005 Urine Protein Trace H Urine Glucose (UA) Negative Urine Ketones Trace H Urine Blood Negative Urine Nitrate Negative Urine Bilirubin Small H Urine Urobilinogen 1.0 H Ur Leukocyte Esterase Negative Urine RBC 0 - 2 Urine WBC 0 - 2 Ur Epithelial Cells 0 - 2 Urine Opiates Screen Positive H Urine Methadone Screen Negative Ur Barbiturates Screen Negative Ur Phencyclidine Scrn Negative Ur Amphetamines Screen Negative U Benzodiazepines Scrn Positive U Oth Cocaine Metabols Negative U Cannabinoids Screen Negative Assessment & Plan - Assessment and Plan (Free Text) Assessment: 51 yo F presents with right hip hematoma Plan: - CT scan showed 7.5x5.5cm hematoma on right hip - Apply ice pack to affected area - Possible bedside aspiration tomorrow - Medical management per primary - DW Dr. Mainor Russell, PGY1 <Juan Hayward - Last Filed: 02/02/17 09:49> Results - Vital Signs Recent Vital Signs: Last Vital Signs Temp 97.4 F L 01/31/17 06:00 Pulse 78 01/31/17 06:00 Resp 20 01/31/17 06:00 BP 104/73 01/31/17 06:00 Pulse Ox 96 01/31/17 06:00 - Labs Result Diagrams: 01/31/17 05:30 01/31/17 05:30 Assessment & Plan - Assessment and Plan (Free Text) Assessment: s/p fall 1 1/2 week+Hematoma hip Chet conservative Rx-Pt concurs/Follow up office This consultation done under my direct supervision Kulwant Hayward MD FACS
--- NOTE | 2017-01-30 19:06 | CARD ---
APPROVED REPORT EKG Measurement Heart [id number] <Conclusion> Sinus bradycardia Cannot rule out Anteroseptal infarct, age undetermined Abnormal ECG
[2017-01-30 19:09] VITALS: TEMP 97.4
[2017-01-31] MEDS: Albuterol-Ipratrop 3 mg / 0.5 (3 ml) UD IH SCH ×3 (01:51→13:41)
[2017-01-31] MEDS: HYDROmorphone 0.5 mg/0.5 ml ISec IVP PRN ×2 (04:16→10:18)
--- NOTE | 2017-01-31 05:50 | HP ---
CHIEF COMPLAINT: Fall, blurring of vision, and pain in the right hip. HISTORY OF PRESENT ILLNESS: Ms. Yessi Ramirez, my private patient, a 51-year-old female with past medical history of hypertension, migraines, COPD, rhabdomyolysis, dizziness, scoliosis, spinal stenosis, cerebral hemorrhage, history of multiple time falls, and history of narcotics abuse, came to the emergency room from my office with generalized fatigue, decreased p.o. intake, right hip hematoma status post fall, blurring of vision, and headache. The patient states that one week ago she was sleeping when she accidentally rolled off the bed and hit the side of her head on her night stand and hit her right hip on the floor. The patient stated that pain and bruising was severe, but not open wound. There was discoloration, bruising improving over the week, but still having pain in the hip. The patient has multiple time of falls. We admitted the patient for surgical consult to rule out hematoma and debridement of glass from her head. The patient denies chest pain, shortness of breath, nausea, vomiting, or diarrhea. No hematuria or hematochezia. No fever or chills, but complaining about blurring of vision and headache. PAST MEDICAL HISTORY: Rhabdomyolysis, hypertension, migraines, COPD, dizziness, scoliosis, spinal stenosis, DJD, cerebral hemorrhage status post fall, cholecystectomy, gastric bypass surgery, hysterectomy, left tibial fracture status post repair, and surgical cranial wound debridement. ALLERGIES: THE PATIENT IS NOT ALLERGIC TO ANY MEDICATIONS. FAMILY HISTORY: Diabetes mellitus, hypertension, and breast CA. SOCIAL HISTORY: Denies smoking, alcohol or illicit drug abuse. HOME MEDICATIONS: Reviewed by me. REVIEW OF SYSTEMS: The patient was seen and examined at the bedside, having pain in the hip. Otherwise, no nausea, vomiting or diarrhea. No fever, no chills. Blurring of vision is better, still having headache and pain in the hip. No fever, no chills. No hematuria, no hematochezia. PHYSICAL EXAMINATION: VITAL SIGNS: Temperature 97.8, pulse 61, respiratory rate 18, blood pressure 111/70, and pulse oximetry 95%. HEENT: Head is normocephalic. Eyes: PERRLA. Extraocular muscles intact. Conjunctivae clear. Nose patent. NECK: Supple. No carotid bruits, JVD or thyromegaly. CHEST: Bilaterally symmetrical. HEART: S1 and S2 positive. LUNGS: Clear to auscultation. ABDOMEN: Soft. Bowel sounds present. No organomegaly. EXTREMITIES: No edema. No cyanosis. NEUROLOGIC: The patient is awake and alert. Moving all 4 extremities. No focal deficits. LABORATORY DATA: White blood cells 6.3, hemoglobin 13.1, hematocrit 40.4, and platelets 229. Sodium 143, potassium 4.3, BUN 11, creatinine 0.9, and glucose 90. ASSESSMENT AND PLAN: Ms. Yessi Ramirez is a 51-year-old lady with right hip hematoma, surgical consult called. CT scan shows hematoma on the right hip, apply ice pack to the affected area; possible bedside aspiration tomorrow by Dr. Hawyard, history of fall, hypertension, migraine, chronic obstructive pulmonary disease, rhabdomyolysis, dizziness, scoliosis, spinal stenosis, cerebral hematoma status post multiple falls, surgical history of cholecystectomy, gastric bypass, hysterectomy, and left tibial fracture repair. Neurological consult called for blurring of vision and headache, seen by Dr. Matt Clark; generalized fatigue, decreased p.o. intake for two weeks. CT of head shows no fracture, no acute findings. Naproxen for pain management, out of bed to the chair, PT and OT. Appreciated Dr. Clark's input. Reviewed hip and pelvis x-rays. Reviewed CAT scan of the abdomen and pelvis, has subacute complex of fluid collection of right posterolateral lower abdomen, looks like hematoma. Gastrointestinal and deep venous thrombosis prophylaxis. Repeat labs. We will follow up. Marli Hill MD MTDD
[2017-01-31 06:36] LABS: BASO # 0.02 K/mm3 (0.0-2.0); BASO % 0.4 % (0.0-3.0); EOS # 0.2 (0.0-0.7); EOS % 3.4 % (1.5-5.0); GRAN # 2.99 (1.4-6.5); GRAN % 52.8 % (50.0-68.0); HEMATOCRIT 38.3 % (36.0-48.0); LYMPH # 2.2 (1.2-3.4); LYMPH % 38.1 % (22.0-35.0); MEAN CORPUSCULAR HEMOGLOBIN 27.4 pg (25.0-35.0); MEAN CORPUSCULAR HGB CONC 31.1 g/dl (31.0-37.0); MEAN PLATELET VOLUME 9.1 fl (7.0-11.0); MONO # 0.3 (0.1-0.6); MONO % 5.3 % (1.0-6.0); RED CELL DISTRIBUTION WIDTH 15.6 % (11.5-14.5); WHITE BLOOD COUNT 5.7 10^3/ul (4.5-11.0)
[2017-01-31 06:40] LABS: IRON 39 ug/dL (45-180)
[2017-01-31 06:53] LABS: ALKALINE PHOSPHATASE 124 U/L (38-126); ALT/SGPT 27 U/L (7-56); AST/SGOT 30 U/L (14-36); BILIRUBIN,TOTAL 0.8 mg/dL (0.2-1.3); BLOOD UREA NITROGEN 9 mg/dL (7-21); CARBON DIOXIDE 28 mmol/L (21-33); CHLORIDE 108 mmol/L (98-107); CHOLESTEROL 192 mg/dL (130-200); GFR AFRICAN-AMERICAN > 60; GLUCOSE,RANDOM 80 mg/dL (70-110); POTASSIUM 3.3 mmol/L (3.6-5.0); SODIUM 144 mmol/L (132-148); TOTAL PROTEIN 7.3 g/dL (5.8-8.3)
[2017-01-31] MEDS ORDERED: Bupivacaine 0.25% Inj(30mL) IJ ONE (08:33)
--- NOTE | 2017-01-31 08:41 | CP.PCM.PN ---
Subjective - Date & Time of Evaluation Date of Evaluation: 01/31/17 Time of Evaluation: 08:38 - Subjective Subjective: Surgery Progress Note for Dr. Hayward Pt seen and examined at bedside. No acute overnight events. Pt states that hematoma over right hip is box tender, but controlled. Pt denied CP, SOB, nausea, vomiting, diarrhea, fever, chills, CID, or dizziness. Objective - Vital Signs/Intake and Output Vital Signs (last 24 hours): Temp Pulse Resp BP Pulse Ox 97.4 F L 68 18 110/64 95 01/30/17 16:00 01/31/17 05:26 01/30/17 16:00 01/30/17 20:00 01/30/17 20:00 Intake and Output: 01/31/17 01/31/17 06:59 18:59 Intake Total 660 Balance 660 - Medications Medications: Current Medications Albuterol/Ipratropium (Duoneb 3 Mg/0.5 Mg (3 Ml) Ud) 3 ml IH [id number] [facility] Last Admin: 01/31/17 08:22 Dose: 3 ml Bupivacaine HCl (Marcaine 0.25%) 0 ml IJ ONCE ONE Stop: 01/31/17 08:34 Docusate Sodium (Colace) 100 mg PO BID [facility] Last Admin: 01/31/17 00:55 Dose: Not Given Escitalopram Oxalate (Lexapro) 20 mg PO DAILY MARU Gabapentin (Neurontin) 300 mg PO TID [facility] PRN Reason: Protocol Hydrochlorothiazide (Microzide) 12.5 mg PO DAILY [facility] Hydromorphone HCl (Dilaudid) 0.25 mg IVP Q6H PRN PRN Reason: Pain, severe (8-10) Last Admin: 01/31/17 04:16 Dose: 0.25 mg Pentoxifylline (Pentoxil) 400 mg PO TID [facility] - Labs Labs: 01/31/17 05:30 01/31/17 05:30 PT 14.0 SECONDS (9.4-12.5) H 01/29/17 23:09 INR 1.28 (0.93-1.08) H 01/29/17 23:09 APTT 38.0 Seconds (25.1-36.5) H 01/29/17 20:15 - Constitutional Appears: No Acute Distress - Head Exam Head Exam: NORMAL INSPECTION - Eye Exam Eye Exam: Normal appearance - ENT Exam ENT Exam: Normal Exam - Neck Exam Neck Exam: Normal Inspection - Respiratory Exam Respiratory Exam: NORMAL BREATHING PATTERN. absent: Accessory Muscle Use, Respiratory Distress - Cardiovascular Exam Cardiovascular Exam: RRR. absent: Gallop, Rubs, Murmur - GI/Abdominal Exam GI & Abdominal Exam: Soft. absent: Distended, Guarding, Tenderness, Rebound - Extremities Exam Additional comments: Hematoma over right hip with surrounding ecchymosis. TTP. - Neurological Exam Neurological Exam: Alert, Awake, Oriented x3 - Skin Skin Exam: Normal Color (other than right hip hematoma) Assessment and Plan - Assessment and Plan (Free Text) Assessment: 51 yo F presents with right hip hematoma Plan: - Ok to DC from surgical standpoint - F/u with Dr. Hayward in office - Aspiration can be done outpatient if it does not resolve on its own - Apply ice pack to affected area - Medical management per primary - DW Dr. Mainor Russell, PGY1
[2017-01-31] MEDS ORDERED: Potassium Chloride 20 mEq ER Tab PO ONE (08:48)
[2017-01-31 08:52] VITALS: BP 104/73; PULSE 78; RESP 20; O2SAT 96
[2017-01-31] MEDS ORDERED: Potassium Chloride 20 mEq ER Tab PO SCH (11:15)
[2017-01-31 13:33] LABS: FOLATE 10.9 ng/mL
== END 2017-01-31 13:43 | disposition home or self-care (01) ==
LOC: ED 18:14 → ERH 22:40 → 3RNO 01-30 00:50
PROVIDERS: ADMIT Internal Medicine; ATTEND Internal Medicine
DX: S70.01XA Contusion of right hip, initial encounter (principal); W06.XXXA Fall from bed, initial encounter; R29.6 Repeated falls; R51 Headache; J44.9 Chronic obstructive pulmonary disease, unspecified; I10 Essential (primary) hypertension; M62.82 Rhabdomyolysis; M48.00 Spinal stenosis, site unspecified; G43.909 Migraine, unspecified, not intractable, without status migrainosus; M19.90 Unspecified osteoarthritis, unspecified site; M41.9 Scoliosis, unspecified; H91.90 Unspecified hearing loss, unspecified ear; K21.9 Gastro-esophageal reflux disease without esophagitis; Z91.81 History of falling; Y92.003 Bedroom of unspecified non-institutional (private) residence as the place of occurrence of the external cause; Z98.84 Bariatric surgery status; Z90.710 Acquired absence of both cervix and uterus; Z87.891 Personal history of nicotine dependence
CPT/HCPCS: 36415; 70450; 71010; 73502; 74177; 80053; 80061; 81001; 82550; 82607; 82746; 83036; 83540; 83550; 83690; 83735; 84100; 84443; 84484; 85025; 85610; 85730; 93005; 94640; 96374; 96375; 96376; 97162; 97530; 99285; G0378; G0480; G8978; G8979; G8980; J1170; J2270; J7040; Q9967

== ENCOUNTER 2018-02-10 20:24 | Inpatient (IN) | payer MEDICARE, BC ==
[2018-02-10] MEDS ORDERED: Oxycodone/Acetaminophen 5/325 mg Tab PO STA ×2 (20:44→21:59)
--- NOTE | 2018-02-10 20:49 | ED PDOC ---
Arrival/HPI - General Chief Complaint: Lower Extremity Problem/Injury Time Seen by Provider: 02/10/18 20:25 Historian: Patient - History of Present Illness Narrative History of Present Illness (Text): 02/10/18 20:46 52 year old female, with past medical history of hypertension, COPD, rhabdomyolysis, scoliosis, spinal stenosis, cerebral hemorrhage, multiple falls w/ left tibial fracture s/p repair, presents to the ED complaining of right knee pain s/p fall 4:30 am this morning. Patient states she was attempting to get up from her bed to her wheelchair when she had a mechanical fall onto her right knee. Patient denies any head injury or any loss of consciousness. Patient reports assistance from her with ambulation following the incident. Patient informs difficulty ambulating secondary to pain, prompting her to present to the ED for medical evaluation. Patient denies any other associated somatic complaints. Patient denies any fevers, chills, headache, dizziness, chest pain, shortness of breath, dyspnea on exertion, cough, abdominal pain, nausea, vomiting, diarrhea, back pain, neck pain, or any other complaints. PMD: Dr. Hill Neurologist: Dr. Clark Time/Duration: Other (4:30 AM) Symptom Onset: Gradual Symptom Course: Unchanged Quality: Aching Activities at Onset: Light Context: Home Past Medical History - Provider Review Nursing Documentation Reviewed: Yes - Infectious Disease Hx of Infectious Diseases: None - Tetanus Immunization Tetanus Immunization: Unknown - Cardiac Hx Cardiac Disorders: Yes Hx Hypertension: Yes - Pulmonary Hx Chronic Obstructive Pulmonary Disease (COPD): Yes - Neurological Hx Neurological Disorder: Yes Hx Dizziness: Yes Hx Migraine: Yes - HEENT Hx HEENT Disorder: Yes Hx Deafness: Yes (LEFT EAR) Hx Difficulty Chewing: Yes (difficulty swallowing some meat) - Renal Hx Renal Disorder: No - Endocrine/Metabolic Hx Endocrine Disorders: No - Hematological/Oncological Hx Blood Disorders: Yes Hx Anemia: Yes - Integumentary Hx Dermatological Disorder: Yes (skin tears easily since bypass surgery) - Musculoskeletal/Rheumatological Hx Falls: Yes - Gastrointestinal Hx Gastrointestinal Disorders: Yes Hx Gall Bladder Disease: Yes (gall bladder removed during bypass surgery 2006) Hx Gastroesophageal Reflux: Yes HX Swallowing Problems: Yes (problems swallowing some meats) Other/Comment: gastric bypass with mesh in 2006 - Genitourinary/Gynecological Hx Genitourinary Disorders: Yes (URINARY FREQUENCY,DYSURIA) Hx Urinary Tract Infection: Yes - Psychiatric Hx Psychophysiologic Disorder: Yes Hx Anxiety: Yes Hx Depression: Yes Hx Post Traumatic Stress Disorder: Yes Hx Substance Use: No - Surgical History Hx Cholecystectomy: Yes Hx Gastric Bypass Surgery: Yes Hx Hysterectomy: Yes Hx Musculoskeletal Surgery: Yes (titanium lower back, cranial surgery) - Anesthesia Hx Anesthesia Reactions: No Hx Malignant Hyperthermia: No - Suicidal Assessment Feels Threatened In Home Enviroment: No Family/Social History - Physician Review Nursing Documentation Reviewed: Yes Family/Social History: Unknown Family HX Smoking Status: Former Smoker Hx Alcohol Use: No Hx Substance Use: No Hx Substance Use Treatment: No Allergies/Home Meds Allergies/Adverse Reactions: Allergies No Known Allergies Allergy (Verified 05/06/16 16:24) Home Medications: Home Meds Medication Instructions Recorded Confirmed Albuterol/Ipratropium [Duoneb 3 3 ml NEB TID 02/08/16 01/29/17 mg/0.5 mg (3 ml) UD] Docusate [Colace] 100 mg PO BID 02/08/16 01/29/17 Escitalopram [Lexapro] 20 mg PO DAILY 02/08/16 02/10/18 Gabapentin [Neurontin] 300 mg PO TID 02/08/16 01/29/17 Hydromorphone HCl [Dilaudid] 4 mg PO Q4H PRN 02/08/16 01/29/17 Lubiprostone [Amitiza] 24 mcg PO BID 02/08/16 01/29/17 Pentoxifylline [Pentoxil] 400 mg PO TID 02/08/16 01/29/17 hydroCHLOROthiazide [Microzide] 12.5 mg PO DAILY 02/08/16 01/29/17 oxyCODONE [oxyCODONE Immediate 20 mg PO Q12H PRN 02/08/16 01/29/17 Release Tab] Buprenorphine HCl/Naloxone HCl 1 tab PO TID 02/10/18 02/10/18 [Buprenorphin-Naloxon 8-2 mg Sl] Diazepam [Valium] 10 mg PO TID 02/10/18 02/10/18 Nizatidine 300 mg PO DAILY 02/10/18 02/10/18 Olanzapine/Fluoxetine HCl 2 tab PO HS 02/10/18 02/10/18 [Olanzapine-Fluoxetine 6-25 mg] Pregabalin [Lyrica] 100 mg PO TID 02/10/18 02/10/18 Temazepam [Restoril] 30 mg PO HS 02/10/18 02/10/18 rOPINIRole [Requip] 1 mg PO DAILY 02/10/18 02/10/18 Review of Systems - Physician Review All systems were reviewed & negative as marked: Yes - Review of Systems Constitutional: absent: Fevers Respiratory: absent: SOB, Cough Cardiovascular: absent: Chest Pain Gastrointestinal: absent: Abdominal Pain, Diarrhea, Nausea, Vomiting Genitourinary Female: absent: Dysuria, Urine Output Changes Musculoskeletal: Arthralgias (Right knee pain). absent: Back Pain, Neck Pain Skin: absent: Rash Neurological: absent: Headache, Dizziness Physical Exam - Physical Exam Narrative Physical Exam (Text): 02/10/18 20:57 Gen: VS reviewed, alert, well developed, well nourished, drowsy, mild distress. ENT: normal pharynx. Eye: EOMI, PERRL. Neck: no JVD, supple, no adenopathy. CV: regular rate, regular rhythm, no rubs, no murmur, no gallops, S1, S2, pulses equal and strong. Pulm: no distress, clear to auscultation, no wheeze, no rhonchi, breath sounds equal, no rales. Abd: soft, nontender, no guarding, no rebound, no rigidity, normal bowel sounds. Ext: Tenderness with effusion noted to right knee. Limited range of motion to the right knee. No bruising noted to the area. Skin: good color, no rash, no cyanosis. Psych: responds appropriately to questions, normal affect. Neuro: oriented x 3, CN2-12 intact grossly, motor intact, sensation intact. Appearance: Positive for: Well-Appearing, Non-Toxic, Other (Drowsy) Pain Distress: Mild Mental Status: Positive for: Alert and Oriented X 3 Medical Decision Making ED Course and Treatment: 02/10/18 20:44 Impression: 52 year old female presents to the Emergency department complaining of right knee pain s/p fall. Plan: -- EKG -- Labs -- Percocet -- X-ray of Right Knee -- Reassess and disposition Prior Visits: Notes and results from previous visits were reviewed. Progress Notes: 02/10/18 21:[address] hill. patient to be admitted for traumatic right knee effusion, possible ligament vs meniscus injury. patient will require comprehensive knee eval and is a potential candidate for rehab. For now, will get CT of the knee for further eval. 02/10/18 21:53 - Scribe Statement The provider has reviewed the documentation as recorded by the Scribe Alfonso Narvaez. All medical record entries made by the Scribe were at my direction and personally dictated by me. I have reviewed the chart and agree that the record accurately reflects my personal performance of the history, physical exam, medical decision making, and the department course for this patient. I have also personally directed, reviewed, and agree with the discharge instructions and disposition. Disposition/Present on Arrival - Present on Arrival Any Indicators Present on Arrival: No History of DVT/PE: No History of Uncontrolled Diabetes: No Urinary Catheter: No History of Decub. Ulcer: No History Surgical Site Infection Following: None - Disposition Have Diagnosis and Disposition been Completed?: Yes Diagnosis: Knee effusion, right Disposition: HOSPITALIZED Disposition Time: 21:53 Patient Problems: Current Active Problems Problem Status Onset Knee effusion, right Acute Condition: STABLE Referrals: Marli Hill MD [Primary Care Provider] - Follow up with primary Forms: [employer] ([place]uan)
[2018-02-10 21:38] LABS: BLOOD UREA NITROGEN 14 mg/dL (7-21); CALCIUM 8.3 mg/dL (8.4-10.5); GFR NON-AFRICAN AMERICAN > 60
[2018-02-10 21:39] LABS: BASO # 0.01 K/mm3 (0.0-2.0); BASO % 0.1 % (0.0-3.0); EOS # 0.2 (0.0-0.7); EOS % 2.8 % (1.5-5.0); GRAN # 5.11 (1.4-6.5); GRAN % 70.4 % (50.0-68.0); HEMOGLOBIN 9.9 g/dL (12.0-16.0); LYMPH # 1.4 (1.2-3.4); LYMPH % 18.7 % (22.0-35.0); MEAN CELL VOLUME 83.2 fl (80.0-105.0); MEAN CORPUSCULAR HEMOGLOBIN 25.1 pg (25.0-35.0); MEAN CORPUSCULAR HGB CONC 30.2 g/dl (31.0-37.0); MEAN PLATELET VOLUME 8.9 fl (7.0-11.0); MONO # 0.6 (0.1-0.6); RBC 3.94 10^6/uL (3.5-6.1); RED CELL DISTRIBUTION WIDTH 16.7 % (11.5-14.5); WHITE BLOOD COUNT 7.3 10^3/uL (4.5-11.0)
[2018-02-11 04:39] VITALS: BMI 43.5
[2018-02-11 06:33] LABS: HEMOGLOBIN 9.6 g/dL (12.0-16.0); MEAN CELL VOLUME 83.6 fl (80.0-105.0); MEAN CORPUSCULAR HEMOGLOBIN 25.4 pg (25.0-35.0); MEAN CORPUSCULAR HGB CONC 30.4 g/dl (31.0-37.0); MEAN PLATELET VOLUME 8.8 fl (7.0-11.0); RBC 3.78 10^6/uL (3.5-6.1); RED CELL DISTRIBUTION WIDTH 16.7 % (11.5-14.5); WHITE BLOOD COUNT 6.2 10^3/uL (4.5-11.0)
[2018-02-11 06:35] LABS: IRON 82 ug/dL (45-180)
[2018-02-11 06:37] LABS: BLOOD UREA NITROGEN 14 mg/dL (7-21); CALCIUM 8.1 mg/dL (8.4-10.5); GFR NON-AFRICAN AMERICAN > 60; HDL CHOLESTEROL 33 mg/dL (29-60)
[2018-02-11 06:44] LABS: % IRON SATURATION 24 % (20-55); TOTAL IRON BINDING CAPACITY 347 ug/dL (265-497)
[2018-02-11 06:47] LABS: LDL CHOLESTEROL 129 mg/dL (0-129)
--- NOTE | 2018-02-11 08:15 | RAD ---
Date of service: 02/10/2018 PROCEDURE: Right Knee Radiographs. HISTORY: injury COMPARISON: None. FINDINGS: BONES: No demonstrated acute fracture or destructive bony lesion identified. Diffuse osteopenia suggests osteoporosis. JOINTS: No subluxation or dislocation appreciated. Degenerative joint space narrowing and cortical sclerosis are appreciated in all 3 joint compartments compatible with osteoarthritis. JOINT EFFUSION: None. OTHER FINDINGS: None. IMPRESSION: Other for arthritis seen throughout the joint compartments of the right knee without definitive fracture or dislocation identified. Please see separate subsequent right knee CT demonstrating lateral tibial plateau fracture however, also performed 02/10/2018.
--- NOTE | 2018-02-11 09:09 | CT ---
Date of service: 02/10/2018 PROCEDURE: HISTORY: injury, fall COMPARISON: TECHNIQUE: FINDINGS: Large joint effusion. Lateral tibial plateau fracture with 5 millimeter plateau depression. No other fracture deformity is observed. Mild degenerative changes. Vascular calcifications. IMPRESSION: Large joint effusion. Lateral tibial plateau fracture with 5 millimeter plateau depression.
[2018-02-11] MEDS: Non Formulary Medication (Lubiprostone [Amitiza] 24 MCG) PO SCH ×2 (10:54→18:05)
--- NOTE | 2018-02-11 11:04 | CP.PCM.PCO ---
Addendum Addendum: 02/11/18 11:00 med list was obtained from [facility] [place] pharmacy [phone] subooxone 09/18, filled 02/09/18 lyrica 100mg po tid ropinirole 1mg po daily escitalopram 20mg po daily diazepam 10mg po daily symbiax 08/11 (olanzapine/fluoxetine) two tabs daily temazepam 15mg po daily nizatidine 300mg po tid prescriber topamax/butalbital by Dr.Ashish Clark excitalopram, symbiax, could be resumed diazepam and temazepam could be adjusted, but pt seems to be drowsy, will consider to hold it for now will f/u and advise accordingly
[2018-02-11 12:36] LABS: FOLATE > 20.0 ng/mL
--- NOTE | 2018-02-11 12:38 | CON ---
DATE: 02/11/2018 HISTORY OF PRESENT ILLNESS: In short, the patient is 52-year-old female with multiple medical issues including hypertension, COPD, rhabdomyolysis, scoliosis, spinal stenosis, cerebral hemorrhage, multiple falls. The patient came to the hospital complaining of right knee pain, status post fall. Psych consult was called for evaluation of psychotropic medications. The patient was seen and examined. This pattern chart writer is very familiar with this patient from the previous consultation services, which took place here in [place], most recent was in 01/2016. Back then, the patient came to the hospital status post fall as well, so the patient has psychiatrist in the community, Torsten Manley, and the patient fills her medications here in [place] [facility]. This pattern chart writer checked the previous record. The patient was on gabapentin, Lexapro 40 mg daily, Symbyax 08/11, it is combination of Zyprexa and Prozac. The patient also was on diazepam 10 mg three times a day and Suboxone. The patient also was on Restoril. The patient reported that she is on the same set of the medications right now. Last time, the patient saw Dr. Torsten Manley at the beginning of the month. The patient reported that her mood is okay. The patient denied any thoughts of harming herself or others. The patient denied any hopelessness or helplessness. The patient reported history of hearing voices, but not now. The patient's vital signs are stable. Temperature 98.1, pulse is 85, blood pressure 127/78, respirations 18, oxygen saturation is 93. MEDICATIONS: Reviewed. The patient is on Colace, Lexapro 20 mg daily, Toradol, Symbyax, Pentoxil, Lyrica, and Requip. LABORATORY DATA: Labs reviewed. Most recent was from today. Hemoglobin and hematocrit are 9.6 and 31.6. Chemistry reviewed. Triglycerides and cholesterol, elevated. Urine drug screen was not obtained from the patient. Microbiology reviewed. Blood bank reviewed. Reports reviewed. Knee x-ray was done yesterday, which showed large joint effusion, lateral tibial plateau fracture with 5 mm plateau depression. MENTAL STATUS EXAMINATION: The patient appears to be drowsy, is generally arousable, some psychomotor retardation. Mood described as okay. Affect was constricted. Thought process, coherent and goal directed. Thought content, the patient denied visual, auditory, or tactile hallucinations. Denied paranoid ideation. The patient denied thoughts of harming herself or others. Denied intent or plan. Insight and judgment seemed to be fair. Impulses are well controlled. IMPRESSION: As per history, depression with psychosis. No history of being admitted to the psychiatric inpatient unit. At present moment, the patient is on the medical floor status post fall. The patient is on multiple psychotropic medications. PLAN: We will call to [facility], , to confirm medications. In regard of Restoril, we will confirm the dose, but at the present moment, the patient seems to be drowsy. In regard of Symbyax, it could be continued. In regard of Suboxone, the patient reported that she had history of being addicted to pain killers, and the patient and her family was advised to bring her old medications. Meanwhile, the patient is not depressed. The patient is not psychotic. We will follow up and advise accordingly. In regard of the medications, we will call to the pharmacy and confirm medications, and we will give you advises. Thank you very much for letting me participate in care of your patient. Should you have any questions, give me a call back. Eva Siu MD
--- NOTE | 2018-02-11 14:30 | PN ---
DATE: 02/11/2018 PULMONARY PROGRESS NOTE REFERRING PHYSICIAN: Marli Hill MD REASON FOR CONSULT: Chronic obstructive lung disease, history of sleep apnea and mechanical fall with lateral tibial plateau fracture. HISTORY OF PRESENT ILLNESS: Yessi is a 52-year-old female known to us from prior admissions with past medical history of hypertension, chronic obstructive lung disease, rhabdomyolysis, scoliosis, spinal stenosis, cerebral hemorrhage, multiple falls with left tibial fracture status post repair, valvular heart disease, obesity, lost weight but regained, chronic pain syndrome, history of anxiety and depression, and history of gastric bypass surgery. The patient presented to the emergency room complaining of right knee pain, status post mechanical fall. She stated that she was attempting to get out of her bed to the wheel chair, when she fell on to her right knee. Today, the patient reports pain to right lower extremity, right knee. No headache, rhinitis, chest pain, shortness of breath, cough, abdominal pain, nausea, vomiting, or diarrhea reported. PAST MEDICAL HISTORY: As per history of present illness. ALLERGIES: NO KNOWN ALLERGIES. SOCIAL HISTORY: Former smoker. No EtOH abuse. No illicit drug use. FAMILY HISTORY: No significant cardiopulmonary disease reported. MEDICATIONS: Reviewed. Colace 100 mg twice a day, Lexapro 20 mg daily, hydrochlorothiazide 12.5 mg daily, Toradol 50 mg every 6 hours p.r.n., 24 mcg twice a day, olanzapine/fluoxetine 6/25 mg two tabs at bedtime, pentoxyl 400 mg three times a day, Lyrica 100 mg three times a day and Requip 1 mg daily. REVIEW OF SYSTEMS: No headache, rhinitis, cough, shortness of breath, chest pain, abdominal pain, nausea, vomiting, or diarrhea reported. The patient does report pain to right lower extremity. PHYSICAL EXAMINATION GENERAL: No acute distress. VITAL SIGNS: Blood pressure 127/78, pulse 84, temperature 98, and oxygen saturation 93%. HEENT: Moist mucous membranes. Crowded airway. Small oral cavity. NECK: Supple. No JVD. LUNGS: Few rhonchi bilaterally. CARDIOVASCULAR: S1 and S2 audible. ABDOMEN: Soft and nontender. No distension. No organomegaly. EXTREMITIES: Tender right lower extremity, erythema, mild swelling to right lower extremity. NEUROLOGICAL: Awake, alert, verbal, and follows simple commands. LABORATORY DATA: Reviewed. WBC 6.2, RBC 3.78, hemoglobin 9.6, hematocrit 31.6 and platelets 195. Sodium 139, potassium 4.6, chloride 104, carbon dioxide 32, anion gap 8, BUN 14, creatinine 0.9, GFR greater than 60, random glucose 99 and calcium 8.1. Iron 82, CIBC 347, percent saturation 24. Triglycerides , cholesterol 219, LDL cholesterol direct 129 and HDL cholesterol 33. TSH 1.40. Knee CT shows large joint effusion, lateral tibial plateau fracture with 5 mm plateau depression. IMPRESSION AND PLAN: Mechanical fall with a right large joint effusion, lateral tibial plateau fracture, 5 millimeter plateau depression, chronic obstructive lung disease, valvular heart disease, history of gastric bypass surgery, depression, anxiety disorder, and chronic pain syndrome. Continue consult with psychiatrist. Pulmonary point of view, the patient with past medical history of sleep apnea syndrome, keep head of bed elevated at 45 degrees, sleep apnea precautions. We will add inhaled bronchodilators, gastric prophylaxis, rule out Lovenox for deep venous thrombosis prophylaxis. We will monitor hemoglobin and hematocrit closely. Orthopedic followup and pain management. We will add Protonix for gastric prophylaxis. This patient was seen and examined by Dr. Herrera. Discussed assessment and plan as described above. Thank you for this consult. We will follow with you. Rg Prudence, DIRECTOR OF APPLICATION DEVELOPMENT Glenda Solis MD
--- NOTE | 2018-02-11 14:48 | CP.PCM.APN ---
Subjective - Date & Time of Evaluation Date of Evaluation: 02/11/18 Time of Evaluation: 10:10 - Subjective Subjective: Patient seen and examined at bedside. Is complaining of 10 /10 pain to right knee extending down leg, currently asking for pain medicine. Denied shortness of breath, chest pain, fever or chills. Review of Systems - Constitutional Constitutional: As Per HPI - EENT Eyes: As Per HPI Ears: As Per HPI - Breasts Breasts: As Per HPI - Cardiovascular Cardiovascular: As Per HPI - Respiratory Respiratory: As Per HPI - Gastrointestinal Gastrointestinal: As Per HPI - Genitourinary Genitourinary: As Per HPI - Reproductive: Female Reproductive:Female: As Per HPI - Musculoskeletal Musculoskeletal: Joint Swelling, Limited Range of Motion, Radiating Pain into Limb - Integumentary Integumentary: Erythema - Neurological Neurological: As Per HPI - Psychiatric Psychiatric: As Per HPI - Endocrine Endocrine: As Per HPI Objective - Vital Signs/Intake and Output Vital Signs (last 24 hours): Temp Pulse Resp BP Pulse Ox 98.5 F 80 16 111/69 96 02/11/18 14:00 02/11/18 14:00 02/11/18 14:00 02/11/18 14:00 02/11/18 14:00 Intake and Output: 02/11/18 02/11/18 06:59 18:59 Intake Total 200 Balance 200 - Medications Medications: Current Medications Docusate Sodium (Colace) 100 mg PO BID [facility] Last Admin: 02/11/18 10:54 Dose: 100 mg Enoxaparin Sodium (Lovenox) 40 mg SC DAILY [facility]; Protocol Escitalopram Oxalate (Lexapro) 20 mg PO DAILY [facility] Last Admin: 02/11/18 10:55 Dose: 20 mg Hydrochlorothiazide (Microzide) 12.5 mg PO DAILY [facility] Last Admin: 02/11/18 10:55 Dose: 12.5 mg Ketorolac Tromethamine (Toradol) 15 mg IVP Q12 PRN PRN Reason: Pain, moderate (4-7) Non-Formulary Medication (Lubiprostone [Amitiza]) 24 mcg PO BID [facility] Last Admin: 02/11/18 10:54 Dose: Not Given Non-Formulary Medication (Olanzapine/Fluoxetine Hcl [Olanzapine-Fluoxetine 6-25 Mg]) 2 tab PO [facility] Pantoprazole Sodium (Protonix Ec Tab) 40 mg PO HS [facility] Pentoxifylline (Pentoxil) 400 mg PO TID [facility] Last Admin: 02/11/18 10:54 Dose: Not Given Pregabalin (Lyrica) 100 mg PO TID [facility] Last Admin: 02/11/18 13:56 Dose: 100 mg Ropinirole HCl (Requip) 1 mg PO DAILY [facility] Last Admin: 02/11/18 10:55 Dose: 1 mg - Labs Labs: 02/11/18 06:00 02/11/18 06:00 - Constitutional Appears: Well, Non-toxic, No Acute Distress - Head Exam Head Exam: NORMAL INSPECTION - Eye Exam Eye Exam: Normal appearance Pupil Exam: NORMAL ACCOMODATION - ENT Exam ENT Exam: Mucous Membranes Moist, Normal Exam - Neck Exam Neck Exam: Full ROM - Respiratory Exam Respiratory Exam: Clear to Ausculation Bilateral, NORMAL BREATHING PATTERN - Cardiovascular Exam Cardiovascular Exam: REGULAR RHYTHM, +S1, +S2 - GI/Abdominal Exam GI & Abdominal Exam: Soft, Normal Bowel Sounds - Rectal Exam Rectal Exam: Deferred - Extremities Exam Extremities Exam: Joint Swelling, Tenderness Additional comments: right leg with erythema noted to right lower leg, and 2+ edema. - Back Exam Back Exam: NORMAL INSPECTION - Neurological Exam Neurological Exam: Oriented x3 - Psychiatric Exam Psychiatric exam: Normal Affect - Skin Skin Exam: Dry, Intact, Warm Assessment and Plan - Assessment and Plan (Free Text) Assessment: Radiology Results Knee X-Ray 02/10/18 20:43 IMPRESSION: Other for arthritis seen throughout the joint compartments of the right knee without definitive fracture or dislocation identified. Please see separate subsequent right knee CT demonstrating lateral tibial plateau fracture however, also performed 02/10/2018. Knee CT 02/10/18 21:50 IMPRESSION: Large joint effusion. Lateral tibial plateau fracture with 5 millimeter plateau depression. 52 year old female, with past medical history of hypertension, COPD, rhabdomyolysis, scoliosis, spinal stenosis, cerebral hemorrhage, multiple falls w/ left tibial fracture s/p repair, presents to the ED complaining of right knee pain s/p fall 4:30 am on day of admission, noted in ED to have right knee effusion and admitted for further work up. Plan: 1. Right leg lateral tibial fracture- Awaiting ortho recommendations, possible surgery? Awaiting further xrays. 2. Right knee with large joint effusion likely secondary to fx left tibial fracture, with associated cellulitis- will order empiric antibiotics. 3. Pain secondary to right tibia fracture, pain meds as ordered, pain management consult pending. Will continue to monitor clinical status and follow closely. Pt eval is pending.
--- NOTE | 2018-02-11 14:52 | CP.PCM.CON ---
History of Present Illness - History of Present Illness History of Present Illness: ortho consult for Dr. Lawrence 52 F sustained a fall yesterday while trying to get into bed and landed onto her right knee. Patient is 2 years s/p ORIF left tibial plateau fracture. Patient is 90% non ambulatory in the wheelchair. She ambulates with a cane to go to the bathroom while at home. Patient admits to pain and swelling in her right knee. She is a chronic pain management patient. She does admit to some pain in her groin as well as right ankle pain. Past Patient History - Infectious Disease Hx of Infectious Diseases: None - Tetanus Immunizations Tetanus Immunization: Unknown - Past Medical History & Family History Past Medical History?: Yes - Past Social History Smoking Status: Never Smoked - CARDIAC Hx Cardiac Disorders: Yes Hx Hypertension: Yes - PULMONARY Hx Respiratory Disorders: Yes Hx Chronic Obstructive Pulmonary Disease (COPD): Yes - NEUROLOGICAL Hx Neurological Disorder: Yes Hx Dizziness: Yes Hx Migraine: Yes - HEENT Hx HEENT Problems: Yes Hx Deafness: Yes (LEFT EAR) Hx Difficulty Chewing: Yes (difficulty swallowing some meat) - RENAL Hx Chronic Kidney Disease: No - ENDOCRINE/METABOLIC Hx Endocrine Disorders: No - HEMATOLOGICAL/ONCOLOGICAL Hx Blood Disorders: Yes Hx Anemia: Yes - INTEGUMENTARY Hx Dermatological Problems: Yes (skin tears easily since bypass surgery) - MUSCULOSKELETAL/RHEUMATOLOGICAL Hx Musculoskeletal Disorders: Yes Hx Falls: Yes - GASTROINTESTINAL Hx Gastrointestinal Disorders: Yes Hx Gall Bladder Disease: Yes (gall bladder removed during bypass surgery 2006) Hx Gastroesophageal Reflux: Yes HX Swallowing Problems: Yes (problems swallowing some meats) Other/Comment: gastric bypass with mesh in 2006 - GENITOURINARY/GYNECOLOGICAL Hx Genitourinary Disorders: Yes (URINARY FREQUENCY,DYSURIA) Hx Urinary Tract Infection: Yes - PSYCHIATRIC Hx Psychophysiologic Disorder: Yes Hx Anxiety: Yes Hx Depression: Yes Hx Post Traumatic Stress Disorder: Yes - SURGICAL HISTORY Hx Surgeries: Yes Hx Cholecystectomy: Yes Hx Gastric Bypass Surgery: Yes Hx Hysterectomy: Yes Hx Musculoskeletal Surgery: Yes (titanium lower back, cranial surgery) - ANESTHESIA Hx Anesthesia Reactions: No Hx Malignant Hyperthermia: No Meds Allergies/Adverse Reactions: Allergies Allergy/AdvReac Type Severity Reaction Status Date / Time No Known Allergies Allergy Verified 05/06/16 16:24 - Medications Medications: Current Medications Docusate Sodium (Colace) 100 mg PO BID [facility] Last Admin: 02/11/18 10:54 Dose: 100 mg Enoxaparin Sodium (Lovenox) 40 mg SC DAILY [facility]; Protocol Escitalopram Oxalate (Lexapro) 20 mg PO DAILY [facility] Last Admin: 02/11/18 10:55 Dose: 20 mg Hydrochlorothiazide (Microzide) 12.5 mg PO DAILY [facility] Last Admin: 02/11/18 10:55 Dose: 12.5 mg Ketorolac Tromethamine (Toradol) 15 mg IVP Q6H PRN PRN Reason: Pain, moderate (4-7) Non-Formulary Medication (Lubiprostone [Amitiza]) 24 mcg PO BID [facility] Last Admin: 02/11/18 10:54 Dose: Not Given Non-Formulary Medication (Olanzapine/Fluoxetine Hcl [Olanzapine-Fluoxetine 6-25 Mg]) 2 tab PO HS [facility] Pantoprazole Sodium (Protonix Ec Tab) 40 mg PO HS [facility] Pentoxifylline (Pentoxil) 400 mg PO TID [facility] Last Admin: 02/11/18 10:54 Dose: Not Given Pregabalin (Lyrica) 100 mg PO TID [facility] Last Admin: 02/11/18 13:56 Dose: 100 mg Ropinirole HCl (Requip) 1 mg PO DAILY [facility] Last Admin: 02/11/18 10:55 Dose: 1 mg Physical Exam - Constitutional Appears: Well, No Acute Distress - Head Exam Head Exam: ATRAUMATIC, NORMAL INSPECTION - Extremities Exam Additional comments: On examination, patient is alert and awake laying in bed in no acute distress. Patient appears lethargic. On examination of the right knee, the skin is intact. There is a large effusion. No obvious deformity. She has tenderness to palpation over the lateral tibial plateau as well as the ankle. Pitting edema noted of the lower extremity. She has active range of motion of the foot and ankle. Sensation is intact to light touch. She has some mild pain in the right groin with passive IR/ER of the hip. Calf and thigh are soft and non-tender. Grossly NVI distally - Neurological Exam Neurological exam: Alert Results - Vital Signs Recent Vital Signs: Last Vital Signs Temp 98.5 F 02/11/18 14:00 Pulse 80 02/11/18 14:00 Resp 16 02/11/18 14:00 BP 111/69 02/11/18 14:00 Pulse Ox 96 02/11/18 14:00 - Labs Result Diagrams: 02/11/18 06:00 02/11/18 06:00 Labs: Laboratory Results - last 24 hr 02/10/18 02/10/18 02/11/18 21:20 21:20 06:00 WBC 7.3 RBC 3.94 Hgb 9.9 L D Hct 32.8 L MCV 83.2 D MCH 25.1 MCHC 30.2 L RDW 16.7 H Plt Count 189 MPV 8.9 Gran % 70.4 H Lymph % (Auto) 18.7 L Hardy % (Auto) 8.0 H Eos % (Auto) 2.8 Baso % (Auto) 0.1 Gran # 5.11 Lymph # (Auto) 1.4 Hardy # (Auto) 0.6 Eos # (Auto) 0.2 Baso # (Auto) 0.01 Sodium 137 139 Potassium 5.3 H 4.6 Chloride 102 104 Carbon Dioxide 32 32 Anion Gap 9 L 8 L BUN 14 14 Creatinine 0.7 0.9 Est GFR ( Amer) > 60 > 60 Est GFR (Non-Af Amer) > 60 > 60 Random Glucose 102 99 Hemoglobin A1c Calcium 8.3 L 8.1 L Iron TIBC % Saturation Triglycerides 209 H Cholesterol 219 H LDL Cholesterol Direct 129 HDL Cholesterol 33 Vitamin B12 175 L Folate > 20.0 TSH 3rd Generation 02/11/18 02/11/18 02/11/18 06:00 06:00 06:00 WBC 6.2 RBC 3.78 Hgb 9.6 L Hct 31.6 L MCV 83.6 MCH 25.4 MCHC 30.4 L RDW 16.7 H Plt Count 195 MPV 8.8 Gran % Lymph % (Auto) Hardy % (Auto) Eos % (Auto) Baso % (Auto) Gran # Lymph # (Auto) Hardy # (Auto) Eos # (Auto) Baso # (Auto) Sodium Potassium Chloride Carbon Dioxide Anion Gap BUN Creatinine Est GFR ( Amer) Est GFR (Non-Af Amer) Random Glucose Hemoglobin A1c 5.3 Calcium Iron 82 TIBC 347 % Saturation 24 Triglycerides Cholesterol LDL Cholesterol Direct HDL Cholesterol Vitamin B12 Folate TSH 3rd Generation 02/11/18 06:00 WBC RBC Hgb Hct MCV MCH MCHC RDW Plt Count MPV Gran % Lymph % (Auto) Hardy % (Auto) Eos % (Auto) Baso % (Auto) Gran # Lymph # (Auto) Hardy # (Auto) Eos # (Auto) Baso # (Auto) Sodium Potassium Chloride Carbon Dioxide Anion Gap BUN Creatinine Est GFR ( Amer) Est GFR (Non-Af Amer) Random Glucose Hemoglobin A1c Calcium Iron TIBC % Saturation Triglycerides Cholesterol LDL Cholesterol Direct HDL Cholesterol Vitamin B12 Folate TSH 3rd Generation 1.40 - Imaging and Cardiology ct scan Additional comment: CT scan of the right knee reviewed shows a large joint effusion. There is a lateral tibial plateau fracture with 5mm depression of the plateau. Assessment & Plan (1) Tibial plateau fracture, right Assessment and Plan: Ct scan reviewed with Dr. Lawrence showing a right lateral tibial plateau fracture The treatment options were discussed with the patient and her including operative vs non operative treatment. The risks benefits and alternatives were discussed in detail for both options, and explaining that both operative and non operative would include patient to be NWB of the RLE for about 10-12 weeks. It was discussed that the recommendation is for surgery pending her function status. Patient and her would like to proceed with surgery. Discussed above with Dr. Howard Lawrence will see patient tomorrow morning to further discuss. Status: Acute
[2018-02-11 16:04] LABS: BARBITURATES, UR NEGATIVE (NEGATIVE); OPIATES, UR NEGATIVE (NEGATIVE)
[2018-02-11 16:05] LABS: BENZODIAZEPINES, UR POSITIVE (NEGATIVE); PHENCYCLIDINE, UR NEGATIVE (NEGATIVE)
--- NOTE | 2018-02-11 17:20 | RAD ---
HISTORY: clearance COMPARISON: Chest x-ray performed 01/29/17 TECHNIQUE: Chest PA and lateral FINDINGS: Examination limited by habitus. LUNGS: Left lower lobe infiltrate. Linear atelectasis, right midlung zone. Please note that chest x-ray has limited sensitivity for the detection of pulmonary masses. PLEURA: Left costophrenic angle excluded from view. No significant pleural effusion identified. No definite pneumothorax . CARDIOVASCULAR: Cardiomegaly. No atherosclerotic calcification present. OSSEOUS STRUCTURES: Osseous demineralization. Degenerative changes. VISUALIZED UPPER ABDOMEN: Elevation of the right hemidiaphragm. OTHER FINDINGS: None. IMPRESSION: Left lower lobe infiltrate. Linear atelectasis, right midlung zone. Cardiomegaly.
[2018-02-11] MEDS: ceFAZolin 1 gm in NS 1 GM/100 ML BAG IVPB SCH ×2 (17:55→21:00)
[2018-02-11] MEDS: Pantoprazole 40 mg EC Tab PO SCH (21:18)
[2018-02-11] MEDS: OLANZAPINE PO SCH (21:20)
[2018-02-11] MEDS: FLUOXETINE HCL PO SCH (21:20)
[2018-02-11] MEDS: [UNRECOGNIZED DRUG - OTHER] PO SCH (21:20)
--- NOTE | 2018-02-12 00:01 | CARD ---
APPROVED REPORT Date of service: 02/10/2018 EKG Measurement Heart [id number] MD [id number] <Conclusion> Normal sinus rhythm Low voltage QRS Septal infarct, age undetermined Abnormal ECG
[2018-02-12 04:01] LABS: BARBITURATES, UR NEGATIVE (NEGATIVE); OPIATES, UR NEGATIVE (NEGATIVE)
[2018-02-12 04:25] LABS: BENZODIAZEPINES, UR POSITIVE (NEGATIVE); PHENCYCLIDINE, UR NEGATIVE (NEGATIVE)
[2018-02-12] MEDS: ceFAZolin 1 gm in NS 1 GM/100 ML BAG IVPB SCH (06:33)
[2018-02-12 07:01] LABS: BASO # 0.02 K/mm3 (0.0-2.0); BASO % 0.3 % (0.0-3.0); EOS # 0.3 (0.0-0.7); EOS % 4.8 % (1.5-5.0); GRAN # 2.65 (1.4-6.5); GRAN % 45.5 % (50.0-68.0); HEMOGLOBIN 9.6 g/dL (12.0-16.0); LYMPH # 2.3 (1.2-3.4); LYMPH % 38.9 % (22.0-35.0); MEAN CELL VOLUME 85.4 fl (80.0-105.0); MEAN CORPUSCULAR HEMOGLOBIN 25.4 pg (25.0-35.0); MEAN CORPUSCULAR HGB CONC 29.7 g/dl (31.0-37.0); MEAN PLATELET VOLUME 8.8 fl (7.0-11.0); MONO # 0.6 (0.1-0.6); MONO % 10.5 % (1.0-6.0); RBC 3.78 10^6/uL (3.5-6.1); WHITE BLOOD COUNT 5.8 10^3/uL (4.5-11.0)
[2018-02-12 07:16] LABS: BLOOD UREA NITROGEN 17 mg/dL (7-21); CALCIUM 8.1 mg/dL (8.4-10.5); GFR NON-AFRICAN AMERICAN > 60
[2018-02-12 09:47] LABS: URINE BILIRUBIN NEGATIVE (NEGATIVE); URINE BLOOD NEGATIVE (NEGATIVE); URINE GLUCOSE (UA) NEGATIVE (NEGATIVE); URINE LEUKOCYTE ESTERASE TRACE Leu/uL (NEGATIVE); URINE PROTEIN NEGATIVE mg/dL (<30 mg/dL); URINE UROBILINOGEN 0.2 E.U./dL (<1 E.U./dL)
[2018-02-12 09:48] LABS: URINE APPEARANCE CLEAR (CLEAR); URINE COLOR YELLOW (YELLOW)
--- NOTE | 2018-02-12 09:56 | RAD ---
Date of service: 02/11/2018 PROCEDURE: Right Ankle Radiographs. HISTORY: s/p fall COMPARISON: None available. FINDINGS: BONES: Normal. No fracture. JOINTS: Normal. No osteoarthritis. Ankle mortise maintained. Talar dome intact SOFT TISSUES: Normal. OTHER FINDINGS: None. IMPRESSION: Normal right ankle radiographs.
[2018-02-12 10:01] LABS: URINE BACTERIA FEW /hpf; URINE RBC NEGATIVE /hpf (0-2)
--- NOTE | 2018-02-12 10:20 | CON ---
DATE: 02/12/2018 INPATIENT CONSULT REASON FOR CONSULT: Right proximal tibia fracture. Consult is as follows. HISTORY OF PRESENT ILLNESS: This is 52-year-old female who presents status post fall with right knee pain. The patient denies any other injuries. She denies any numbness or tingling going down her leg. PHYSICAL EXAMINATION GENERAL: This is an obese female, in no apparent distress. She is awake, alert and oriented x3. EXTREMITY: Evaluation of the right lower extremity shows right lower extremity is in a knee immobilizer. She has a small layer ecchymosis along the end of the distal tibia just proximal to the ankle. No gross crepitus is appreciated. She is moving her foot without significant pain. Her thigh and calf are soft and nontender. She does have significant tenderness over the lateral aspect of her proximal tibia. No gross varus valgus instability is appreciated. She has a palpable DP pulse. Grossly, she is neurovascularly intact. Grossly, she is neuromotor, she is neurologically intact. She is intact at soft touch in all distributions. X-rays of CT scan of the right knee showing lateral tibial plateau fracture with approximately 5 mm of depression at the articular surface. X-rays of the right hip shows no obvious fractures or dislocations. X-rays of the ankles shows no obvious fractures or dislocations. IMPRESSION: Right lateral tibial plateau fracture. PLAN: We discussed the treatment options including nonsurgical versus surgical management. The risks and benefits of all options were discussed with the patient and the patient's spouse and they want to proceed with surgery which should be an open reduction and internal fixation of right lateral tibial plateau fracture. For now, we are going to have her continue ice, elevation, nonweightbearing right lower extremity. We will hold her Lovenox today and we will plan to further evaluate her soft tissue swelling tomorrow. If there is no significant swelling, we will plan on proceeding with the surgery. Aldair Lawrence MD
--- NOTE | 2018-02-12 10:23 | RAD ---
Date of service: 02/11/2018 PROCEDURE: Pelvis and right hip HISTORY: s/p fall. COMPARISON: 01/30/2017 TECHNIQUE: Three views FINDINGS: Old fractures of the right pubic rami are seen. There is some heterotopic bone adjacent to the left femoral neck. There is no acute fracture. IMPRESSION: No acute findings
--- NOTE | 2018-02-12 10:53 | RAD ---
Date of service: 02/12/2018 PROCEDURE: Radiographs of the right tibia and fibula. HISTORY: s/p fall COMPARISON: None available TECHNIQUE: Frontal and lateral views obtained. FINDINGS: BONES: No fracture or destructive lesion. JOINT SPACES: Unremarkable. OTHER FINDINGS: None. IMPRESSION: Unremarkable radiographs of the right tibia and fibula.
[2018-02-12] MEDS: Nystatin 100,000 Units/gm Topical Pow(15 gm) TOP SCH ×2 (11:04→17:33)
--- NOTE | 2018-02-12 11:05 | PN ---
DATE: 02/11/2018 SUBJECTIVE: The patient is a 52-year-old female. The patient was seen and examined at the bedside on 02/11/2018. Looking comfortable. No fever. No chills. No hematuria. No hematochezia. Still having swelling of the legs and is hurting. Discussion done with nursing staff. Marli Hill MD MTDD
[2018-02-12] MEDS: Enoxaparin 40 mg Syringe SC SCH (11:11)
[2018-02-12] MEDS: Calcium-Vit D 250 mg-125 Units Tab UD PO SCH (11:13)
--- NOTE | 2018-02-12 11:57 | PN ---
DATE: 02/12/2018 PULMONARY PROGRESS NOTE REFERRING PHYSICIAN: Dr. Marli Hill. SUBJECTIVE: The patient is lying in bed with head of bed elevated. Family is at bedside. No acute distress. No overnight events reported. No headache, rhinitis, cough, shortness of breath, chest pain, abdominal pain, nausea, vomiting, or diarrhea reported. The patient does report pain to right lower extremity. OBJECTIVE: GENERAL: No acute distress. VITAL SIGNS: Blood pressure 91/56, pulse 95, temperature 97.5, and oxygen saturation 94%. HEENT: Moist mucous membranes. Crowded airway. Small oral cavity. NECK: Supple. No JVD. LUNGS: Few rhonchi bilaterally. CARDIOVASCULAR: S1 and S2 audible. ABDOMEN: Soft and nontender. No distension. No organomegaly. EXTREMITIES: Immobilizer is in place to right lower extremity. No edema to left lower extremity. NEUROLOGICAL: Awake, alert, and verbal. Follows commands. MEDICATIONS: Reviewed. DuoNeb 3 mL inhalation every 6 hours p.r.n., Brovana 15 mcg every 12 hours, Lipitor 10 mg at dinner, Pulmicort 0.5 mg every 12 hours, calcium vitamin D 1 tab daily, Ancef 1 g every 8 hours, vitamin B12 1000 mcg IM daily, Colace 100 mg twice a day, Lovenox 40 mg daily, Lexapro 20 mg daily, fenofibrate 145 mg p.o. daily, hydrochlorothiazide 12.5 mg p.o. daily, Toradol 15 mg IV push every 12 hours p.r.n., Amitiza 24 mcg twice a day, olanzapine/fluoxetine 6/25 mg two tabs at bedtime, nystatin topically twice a day, Protonix 40 mg at dinner, Pentoxil 400 mg three times a day, Lyrica 100 mg three times a day, and Requip 1 mg p.o. daily. LABORATORY DATA: Reviewed. WBC 5.8, RBC 3.78, hemoglobin 9.6, hematocrit 32.3, and platelets 185. Sodium 140, potassium 4.7, chloride 105, carbon dioxide 32, anion gap 8, BUN 17, creatinine 0.9, GFR greater than 60, random glucose 112, and calcium 8.1. Urine leukocyte esterase trace, urine WBC 10-15. Urine benzodiazepine screen positive. Chest x-ray shows left lower lobe infiltrate, linear atelectasis right mid lung zone, and cardiomegaly. Ankle x-ray shows normal right ankle radiographs. Hip and pelvis x-ray report pending. IMPRESSION AND PLAN: Mechanical fall with right lateral tibial plateau fracture, 5 mm plateau depression, chronic obstructive lung disease, valvular heart disease, history of gastric bypass surgery, patient regained weight, depression, anxiety disorder, chronic pain syndrome, and past medical history of sleep apnea syndrome. Keep head of bed elevated at 45 degrees, sleep apnea precaution. Continue inhaled bronchodilators, gastric prophylaxis, and deep venous thrombosis prophylaxis. We will order procalcitonin level to be done today due to left lower lobe infiltrate noted on chest x-ray. We will start the patient on continuous positive airway pressure 7 at bedtime for sleep apnea syndrome. Will order CT chest without contrast to evaluate infiltrate seen on chest x-ray. Patient is s/p fall. Want to rule out lung contusion. The patient will need sleep study and full pulmonary function test as outpatient. The patient should have close cardiopulmonary monitoring while under anesthesia and after anesthesia. This patient was seen and examined with Dr. Herrera. Discussed assessment and plan as described above. Thank you for this consult. We will follow with you. Rg Weeks APN Catrachito Herrera MD DAMIEN
--- NOTE | 2018-02-12 13:09 | HP ---
DATE OF EXAM: 02/11/2018 The patient was seen and examined on the bedside on 02/11/2018. This history and physical is on 02/11/2018. CHIEF COMPLAINT: Lower extremity pain. HISTORY OF PRESENT ILLNESS: Ms. Yessi Ramirez is 52-year-old female with past medical history of hypertension, COPD, rhabdomyolysis, scoliosis, spinal stenosis, cerebral hemorrhage, multiple falls, left tibial fracture status post repair, has history of drug addiction, came to the emergency room for the right knee pain and status post fall. The patient states that she was attempting to getup from her bed to her wheelchair when she had a mechanical fall on to her right knee. The patient denies any head injury or any loss of consciousness as per patient. The patient reports assistance from her partner. Denies any head injury or loss of consciousness. The patient reports assistance from her with ambulation falling the incident, difficulty ambulating after that, so came in the emergency room. No fever. No chills. No diarrhea. No hematuria. No hematochezia. Readmitted the patient, did knee x-ray and knee CT, seen by Dr. Sharon Tello psychiatrist because the patient is on too many pain medications. We will call pain management also. Omer got confirmed patient's psych medications. The patient's regular psychiatrist is Dr. callejas PAST MEDICAL HISTORY: As above, hypertension, COPD, dizziness, migraine, deafness, difficulty swallowing sometime meat, history of gastric bypass long time ago, anemia, skin tears, cholecystectomy, after the bypass surgery in 2006, anxiety, depression and posttraumatic stress disorder. FAMILY HISTORY: Father and mother noncontributory. SOCIAL HISTORY: Smoking, former smoker; alcohol, no as per patient. Substance abuse, no as per patient. ALLERGIES: NOT ALLERGIC WITH ANY MEDICATIONS. HOME MEDICATIONS: Albuterol, Colace, Lexapro, Neurontin and Dilaudid, Amitiza, Pentoxil, Valium, nizatidine, Lyrica, Restoril and Requip. REVIEW OF SYSTEMS: The patient was seen and examined at the bedside, complaining about pain. No fever. No chills. No headache. No dizziness. No chest pain. No palpitation. No rhinitis, coughing or shortness of breath. No abdominal pain. Complaining about pain in the lower extremities. PHYSICAL EXAMINATION: VITAL SIGNS: Blood pressure 120/78, pulse 80, temperature 98.2 and oxygen saturation 93%. HEENT: Head is normocephalic and atraumatic. Eyes PERRLA. Extraocular muscles intact. Conjunctivae clear. Nose patent. Mucous membrane moist. NECK: Supple. No carotid bruit. No JVD or thyromegaly. CHEST: Bilaterally symmetrical. HEART: S1 and S2, positive. LUNGS: Few rhonchi bilaterally. ABDOMEN: Soft and nontender. No organomegaly. EXTREMITIES: Tender right lower extremity. Erythema, mild swelling of the right lower extremity. NEUROLOGIC: Awake and alert. Follows simple commands. Cranial nerve II through XII was grossly intact. LABORATORY DATA: White blood cells is 6.2, hemoglobin 9.6, hematocrit 31.6 and platelets 195. Sodium 139, potassium 4.6, BUN 14, creatinine 0.9, calcium 8.1, triglyceride 209, cholesterol 219 and vitamin B12 175. ASSESSMENT AND PLAN: Ms. Yessi Ramirez is 52-year-old female with anemia, hypocalcemia, hypertriglyceridemia, hypercholesterolemia, B12 deficiency, benzodiazepine is positive, screening came with fall. According to the patient, it is a mechanical fall with large right joint effusion, bilateral tibial plateau fracture, 5 mm plateau depression, chronic obstructive lung disease, valvular heart disease, history of gastric bypass, surgery, depression, anxiety, chronic pain syndrome, history of drug addiction. Continue present treatment. Psych consult possible because she is on too many psych medications. Her psychiatrist Dr. Dr. Tello confirmed her psych medications and she is on pain medications. Also, we are following her pain management Dr. Mckeon, sleep apnea precautions, Dr. Herrera added inhaled bronchodilators, gastric prophylaxis, Lovenox for deep vein thrombosis prophylaxis. We have to monitor her H and H, hypercholesterolemia, hypertriglyceridemia. We will add Lipitor, add TriCor. We will give injections of B12. Repeat labs. We will follow up. Marli Hill MD MTDD
--- NOTE | 2018-02-12 13:22 | CP.PCM.CON ---
History of Present Illness - History of Present Illness History of Present Illness: 52 year old female with PMH of HTN, COPD, history cranial surgery, S/P cholecystectomy, S/P hysterectomy, S/P gastric bypass surgery, history of migraines, left ear deafness, obstructive sleep apnea, morbid obesity with BMI 44 [place] [facility] [place] and landing on her right knee. She has had ORIF done on her left tibia 2 years ago. Ortho is evaluating her right knee to see if surgery is needed. Infectious diseases consult is requested because CXR is showing left lower lobe infiltrate. About 2 days ago, patient states she started having dry cough with some chills. She denies rhinorrhea, no sore throat, no body aches, no headache or dizziness, no SOB at rest, no nausea or vomiting, no dysphagia, no abdominal pain, no diarrhea, no dysuria. Review of Systems - Review of Systems All systems: reviewed and no additional remarkable complaints except (as per HPI) Past Patient History - Infectious Disease Hx of Infectious Diseases: None - Tetanus Immunizations Tetanus Immunization: Unknown - Past Medical History & Family History Past Medical History?: Yes - Past Social History Smoking Status: Never Smoked - CARDIAC Hx Cardiac Disorders: Yes Hx Hypertension: Yes - PULMONARY Hx Respiratory Disorders: Yes Hx Chronic Obstructive Pulmonary Disease (COPD): Yes - NEUROLOGICAL Hx Neurological Disorder: Yes Hx Dizziness: Yes Hx Migraine: Yes - HEENT Hx HEENT Problems: Yes Hx Deafness: Yes (LEFT EAR) Hx Difficulty Chewing: Yes (difficulty swallowing some meat) - RENAL Hx Chronic Kidney Disease: No - ENDOCRINE/METABOLIC Hx Endocrine Disorders: No - HEMATOLOGICAL/ONCOLOGICAL Hx Blood Disorders: Yes Hx Anemia: Yes - INTEGUMENTARY Hx Dermatological Problems: Yes (skin tears easily since bypass surgery) - MUSCULOSKELETAL/RHEUMATOLOGICAL Hx Musculoskeletal Disorders: Yes Hx Falls: Yes - GASTROINTESTINAL Hx Gastrointestinal Disorders: Yes Hx Gall Bladder Disease: Yes (gall bladder removed during bypass surgery 2006) Hx Gastroesophageal Reflux: Yes HX Swallowing Problems: Yes (problems swallowing some meats) Other/Comment: gastric bypass with mesh in 2006 - GENITOURINARY/GYNECOLOGICAL Hx Genitourinary Disorders: Yes (URINARY FREQUENCY,DYSURIA) Hx Urinary Tract Infection: Yes - PSYCHIATRIC Hx Psychophysiologic Disorder: Yes Hx Anxiety: Yes Hx Depression: Yes Hx Post Traumatic Stress Disorder: Yes - SURGICAL HISTORY Hx Surgeries: Yes Hx Cholecystectomy: Yes Hx Gastric Bypass Surgery: Yes Hx Hysterectomy: Yes Hx Musculoskeletal Surgery: Yes (titanium lower back, cranial surgery) - ANESTHESIA Hx Anesthesia Reactions: No Hx Malignant Hyperthermia: No Meds Allergies/Adverse Reactions: Allergies Allergy/AdvReac Type Severity Reaction Status Date / Time No Known Allergies Allergy Verified 05/06/16 16:24 - Medications Medications: Current Medications Albuterol/Ipratropium (Duoneb 3 Mg/0.5 Mg (3 Ml) Ud) 3 ml IH [id number] PRN PRN Reason: Shortness of Breath Arformoterol Tartrate (Brovana) 15 mcg IH [id number] [facility] Atorvastatin Calcium (Lipitor) 10 mg PO DIN [facility] Budesonide (Pulmicort Respules) 0.5 mg IH [id number] [facility] Calcium/Vitamin D (Oscal-D 250 Mg-125 Units Tab) 1 tab PO DAILY [facility] Cyanocobalamin (Vitamin B12 1000 Mcg/Ml Inj) 1,000 mcg IM DAILY [facility] Docusate Sodium (Colace) 100 mg PO BID [facility] Last Admin: 02/11/18 18:00 Dose: 100 mg Enoxaparin Sodium (Lovenox) 40 mg SC DAILY [facility]; Protocol Escitalopram Oxalate (Lexapro) 20 mg PO DAILY [facility] Last Admin: 02/11/18 10:55 Dose: 20 mg Fenofibrate (Tricor) 145 mg PO DAILY [facility] Hydrochlorothiazide (Microzide) 12.5 mg PO DAILY [facility] Last Admin: 02/11/18 10:55 Dose: 12.5 mg Cefazolin Sodium (Ancef 1gm In Ns) 1 gm in 100 mls @ 100 mls/hr IVPB Q8 [facility] Last Admin: 02/12/18 06:33 Dose: 100 mls/hr Ketorolac Tromethamine (Toradol) 15 mg IVP Q12 PRN PRN Reason: Pain, moderate (4-7) Last Admin: 02/11/18 21:19 Dose: 15 mg Non-Formulary Medication (Lubiprostone [Amitiza]) 24 mcg PO BID [facility] Last Admin: 02/11/18 18:05 Dose: Not Given Non-Formulary Medication (Olanzapine/Fluoxetine Hcl [Olanzapine-Fluoxetine 6-25 Mg]) 2 tab PO HS [facility] Last Admin: 02/11/18 21:20 Dose: 2 tab Nystatin (Nystop Topical Powder) 0 gm TOP BID [facility] Pantoprazole Sodium (Protonix Ec Tab) 40 mg PO HS [facility] Last Admin: 02/11/18 21:18 Dose: 40 mg Pentoxifylline (Pentoxil) 400 mg PO TID [facility] Last Admin: 02/11/18 10:54 Dose: Not Given Pregabalin (Lyrica) 100 mg PO TID [facility] Last Admin: 02/11/18 18:01 Dose: 100 mg Ropinirole HCl (Requip) 1 mg PO DAILY [facility] Last Admin: 02/11/18 10:55 Dose: 1 mg Physical Exam - Constitutional Appears: Chronically Ill - Head Exam Head Exam: NORMAL INSPECTION - ENT Exam ENT Exam: Mucous Membranes Moist - Neck Exam Neck exam: Negative for: Lymphadenopathy, Meningismus - Respiratory Exam Respiratory Exam: Decreased Breath Sounds - Cardiovascular Exam Cardiovascular Exam: +S1, +S2 - GI/Abdominal Exam GI & Abdominal Exam: Soft. absent: Tenderness Results - Vital Signs Recent Vital Signs: Last Vital Signs Temp 97.5 F L 02/11/18 22:00 Pulse 95 H 02/11/18 22:00 Resp 18 02/11/18 22:00 BP 91/56 L 02/11/18 22:00 Pulse Ox 94 L 02/11/18 22:00 - Labs Result Diagrams: 02/12/18 06:20 02/12/18 06:20 Labs: Laboratory Results - last 24 hr 02/11/18 02/11/18 02/11/18 06:00 06:00 15:22 WBC RBC Hgb Hct MCV MCH MCHC RDW Plt Count MPV Gran % Lymph % (Auto) Ogle % (Auto) Eos % (Auto) Baso % (Auto) Gran # Lymph # (Auto) Ogle # (Auto) Eos # (Auto) Baso # (Auto) Sodium Potassium Chloride Carbon Dioxide Anion Gap BUN Creatinine Est GFR ( Amer) Est GFR (Non-Af Amer) Random Glucose Hemoglobin A1c 5.3 Calcium Vitamin B12 175 L Folate > 20.0 Urine Opiates Screen Negative Urine Methadone Screen Negative Ur Barbiturates Screen Negative Ur Phencyclidine Scrn Negative Ur Amphetamines Screen Negative U Benzodiazepines Scrn Positive H U Oth Cocaine Metabols Negative U Cannabinoids Screen Negative 02/11/18 02/12/18 02/12/18 15:38 06:20 06:20 WBC 5.8 RBC 3.78 Hgb 9.6 L Hct 32.3 L MCV 85.4 MCH 25.4 MCHC 29.7 L RDW 17.0 H Plt Count 185 MPV 8.8 Gran % 45.5 L Lymph % (Auto) 38.9 H Ogle % (Auto) 10.5 H Eos % (Auto) 4.8 Baso % (Auto) 0.3 Gran # 2.65 Lymph # (Auto) 2.3 Ogle # (Auto) 0.6 Eos # (Auto) 0.3 Baso # (Auto) 0.02 Sodium 140 Potassium 4.7 Chloride 105 Carbon Dioxide 32 Anion Gap 8 L BUN 17 Creatinine 0.9 Est GFR ( Amer) > 60 Est GFR (Non-Af Amer) > 60 Random Glucose 112 H Hemoglobin A1c Calcium 8.1 L Vitamin B12 Folate Urine Opiates Screen Negative Urine Methadone Screen Negative Ur Barbiturates Screen Negative Ur Phencyclidine Scrn Negative Ur Amphetamines Screen Negative U Benzodiazepines Scrn Positive H U Oth Cocaine Metabols Negative U Cannabinoids Screen Negative Assessment & Plan - Assessment and Plan (Free Text) Plan: Assessment R/O left lower lobe community-acquired pneumonia right knee injury from fall history of left lower extremity skin and skin structure infection (cellulitis) in a patient S/P tibial fracture S/P screws placement HTN COPD history cranial surgery S/P cholecystectomy S/P hysterectomy S/P gastric bypass surgery history of migraines left ear deafness obstructive sleep apnea Plan started Rocephin and Doxycycline and follow up blood cx, PCT; patient to get CT chest follow up further plans of Ortho will monitor clinically
--- NOTE | 2018-02-12 13:29 | CP.PCM.APN ---
Subjective - Date & Time of Evaluation Date of Evaluation: 02/12/18 Time of Evaluation: 11:00 - Subjective Subjective: Pt seen and examined at bedside. In no acute distress. Denies chest pain or shortness of breath. Objective - Vital Signs/Intake and Output Vital Signs (last 24 hours): Temp Pulse Resp BP Pulse Ox 97.5 F L 95 H 18 91/56 L 94 L 02/11/18 22:00 02/11/18 22:00 02/11/18 22:00 02/11/18 22:00 02/11/18 22:00 Intake and Output: 02/12/18 02/12/18 06:59 18:59 Intake Total 540 Balance 540 - Medications Medications: Current Medications Albuterol/Ipratropium (Duoneb 3 Mg/0.5 Mg (3 Ml) Ud) 3 ml IH [id number] PRN PRN Reason: Shortness of Breath Arformoterol Tartrate (Brovana) 15 mcg IH [id number] [facility] Atorvastatin Calcium (Lipitor) 10 mg PO DIN [facility] Budesonide (Pulmicort Respules) 0.5 mg IH [id number] [facility] Calcium/Vitamin D (Oscal-D 250 Mg-125 Units Tab) 1 tab PO DAILY [facility] Last Admin: 02/12/18 11:13 Dose: 1 tab Cyanocobalamin (Vitamin B12 1000 Mcg/Ml Inj) 1,000 mcg IM DAILY [facility] Last Admin: 02/12/18 11:12 Dose: 1,000 mcg Docusate Sodium (Colace) 100 mg PO BID [facility] Last Admin: 02/12/18 11:12 Dose: 100 mg Doxycycline Hyclate (Doryx) 100 mg PO Q12 [facility]; Protocol Enoxaparin Sodium (Lovenox) 40 mg SC DAILY [facility]; Protocol Last Admin: 02/12/18 11:11 Dose: 40 mg Escitalopram Oxalate (Lexapro) 20 mg PO DAILY [facility] Last Admin: 02/12/18 11:12 Dose: 20 mg Fenofibrate (Tricor) 145 mg PO DAILY [facility] Last Admin: 02/12/18 11:13 Dose: 145 mg Hydrochlorothiazide (Microzide) 12.5 mg PO DAILY [facility] Last Admin: 02/12/18 11:12 Dose: 12.5 mg Ceftriaxone Sodium (Rocephin 1 Gram Ivpb) 1 gm in 100 mls @ 100 mls/hr IVPB DAILY [facility]; Protocol Ketorolac Tromethamine (Toradol) 15 mg IVP Q12 PRN PRN Reason: Pain, moderate (4-7) Last Admin: 02/12/18 11:13 Dose: 15 mg Non-Formulary Medication (Lubiprostone [Amitiza]) 24 mcg PO BID [facility] Last Admin: 02/11/18 18:05 Dose: Not Given Non-Formulary Medication (Olanzapine/Fluoxetine Hcl [Olanzapine-Fluoxetine 6-25 Mg]) 2 tab PO HS [facility] Last Admin: 02/11/18 21:20 Dose: 2 tab Nystatin (Nystop Topical Powder) 0 gm TOP BID [facility] Last Admin: 02/12/18 11:04 Dose: 1 applic Pantoprazole Sodium (Protonix Ec Tab) 40 mg PO HS [facility] Last Admin: 02/11/18 21:18 Dose: 40 mg Pentoxifylline (Pentoxil) 400 mg PO TID [facility] Last Admin: 02/11/18 10:54 Dose: Not Given Pregabalin (Lyrica) 100 mg PO TID [facility] Last Admin: 02/12/18 11:13 Dose: 100 mg Ropinirole HCl (Requip) 1 mg PO DAILY [facility] Last Admin: 02/12/18 11:13 Dose: 1 mg - Labs Labs: 02/12/18 06:20 02/12/18 06:20 - Constitutional Appears: Well, No Acute Distress - Head Exam Head Exam: ATRAUMATIC - Eye Exam Eye Exam: Normal appearance - ENT Exam ENT Exam: Mucous Membranes Moist, Normal Exam - Neck Exam Neck Exam: Full ROM - Respiratory Exam Respiratory Exam: Rhonchi - Cardiovascular Exam Cardiovascular Exam: REGULAR RHYTHM, +S1, +S2 - GI/Abdominal Exam GI & Abdominal Exam: Soft, Normal Bowel Sounds - Rectal Exam Rectal Exam: Deferred - Extremities Exam Additional comments: Right lower extremity with immobilizer - Neurological Exam Neurological Exam: Alert, Awake, Oriented x3 Assessment and Plan - Assessment and Plan (Free Text) Assessment: Pt is a 52 y.o. female who is admitted with R knee pain s/p fall. ITS Impressions Knee X-Ray 02/10/18 20:43 IMPRESSION: Other for arthritis seen throughout the joint compartments of the right knee without definitive fracture or dislocation identified. Please see separate subsequent right knee CT demonstrating lateral tibial plateau fracture however, also performed 02/10/2018. Knee CT 02/10/18 21:50 IMPRESSION: Large joint effusion. Lateral tibial plateau fracture with 5 millimeter plateau depression. Hip/Pelvis X-Ray 02/11/18 14:28 IMPRESSION: No acute findings Ankle X-Ray 02/11/18 14:43 IMPRESSION: Normal right ankle radiographs. Chest X-Ray 02/11/18 14:53 IMPRESSION: Left lower lobe infiltrate. Linear atelectasis, right midlung zone. Cardiomegaly. Tibia/Fibula X-Ray 02/12/18 08:34 IMPRESSION: Unremarkable radiographs of the right tibia and fibula. Plan: Possible OR tomorrow for R lateral tibial plateau fracture Started on Rocephin and Doxy by ID for L lower lobe infiltrate CT Chest/Procal pending Ortho, Pulm, Psych, Pain Management and ID on board Meds per MAR Physical therapy eval after surgery Will continue to follow
--- NOTE | 2018-02-12 13:31 | CT ---
Date of service: 02/12/2018 PROCEDURE: CT Chest without contrast HISTORY: rule out lung contusion; follow up infiltrate COMPARISON: 05/06/2016 TECHNIQUE: Contiguous axial images were obtained through the chest without intravenous contrast enhancement. Sagittal and coronal reconstructions were performed. Radiation dose: Total exam DLP = 887.62 mGy-cm. This CT exam was performed using one or more of the following dose reduction techniques: Automated exposure control, adjustment of the mA and/or kV according to patient size, and/or use of iterative reconstruction technique. FINDINGS: LUNGS: Linear fibrotic changes in the right upper lobe as well as discoid atelectasis/left minimal lingular infiltrate. MEDIASTINUM: Unremarkable thoracic aorta. No aneurysm. Normal sized heart. Main pulmonary artery unremarkable. No vascular congestion. No lymphadenopathy. No aortic atherosclerotic calcification. PLEURA: No pleural fluid. No pneumothorax. BONES: No fracture. No destructive lesion. UPPER ABDOMEN: Status post gastric sleeve surgery and cholecystectomy. OTHER FINDINGS: None. IMPRESSION: Linear fibrotic changes in the right upper lobe as well as discoid atelectasis/left minimal lingular infiltrate.
[2018-02-12] MEDS: cefTRIAXone 1 gm 1 GM/100 ML BAG IVPB SCH (13:53)
[2018-02-12] MEDS: Non Formulary Medication (Lubiprostone [Amitiza] 24 MCG) PO SCH ×2 (13:53→17:33)
--- NOTE | 2018-02-12 16:04 | CARD ---
APPROVED REPORT Date of service: 02/12/2018 EXAM: Two-dimensional and M-mode echocardiogram with Doppler and color Doppler. INDICATION Pre-Op 2D DIMENSIONS Left Atrium (2D)4.0 (1.6-4.0cm)IVSd0.9 (0.7-1.1cm) LVDd4.2 (3.9-5.9cm)LVOT Diameter2.1 (1.8-2.4cm) PWd1.1 (0.7-1.1cm)LVDs2.9 (2.5-4.0cm) FS (%) 30.7 %LVEF (%)58.6 (>50%) M-Mode DIMENSIONS Aortic Root3.20 (2.2-3.7cm)Aortic Cusp Exc.1.10 (1.5-2.0cm) Aortic Valve AoV Peak Thzijppr947.0cm/sAoV VTI62.6cmAO Peak GR.34mmHg LVOT Peak Rucnvaap636.0cm/sLVOT VTI21.30cmAO Mean GR.20mmHg ADINA (VMAX)1.90nd5GGZ (VTI)1.18cm2 Mitral Valve MV E Cjnyhach74.8cm/sMV A Xdayoekk58.4cm/sE/A ratio1.0 TDI Lateral E' Peak V11.30cm/sMedial E' Peak V7.70cm/sE/Lateral E'7.9 E/Medial E'11.5 Pulmonary Valve PV Peak Asvdzoxt29.4cm/sPV Peak Grad.3mmHg Tricuspid Valve TR Peak Kdbnxxai685mo/sRAP BHEDGQSC91yePxMR Peak Gr.21mmHg [id number] LEFT VENTRICLE The left ventricle is normal size. There is normal left ventricular wall thickness. The left ventricular function is normal.EF-55-60% There is normal LV segmental wall motion. Transmitral Doppler flow pattern is Grade II-pseudonormal filling dynamics. No left ventricle thrombus noted on this study. There is no ventricular septal defect visualized. There is no left ventricular aneurysm. There is no mass noted in the left ventricle. RIGHT VENTRICLE The right ventricle is normal size. There is normal right ventricular wall thickness. The right ventricular systolic function is normal. ATRIA The left atrium is borderline dilated. The right atrium size is normal. The interatrial septum is intact with no evidence for an atrial septal defect. AORTIC VALVE The aortic valve is calcified and displays decreased opening. right coronary cusp is relatively immobile There is trace aortic regurgitation. Mild There is no aortic valvular vegetation. MITRAL VALVE The mitral valve is thickened but opens well. Mitral regurgitation is trace. There is no mitral valve stenosis. There is no evidence of mitral valve prolapse. TRICUSPID VALVE The tricuspid valve leaflets are thickened , but open well. There is trace tricuspid regurgitation.RVSP-31 mmof hg. There is no tricuspid valve stenosis. There is no tricuspid valve prolapse or vegetation. PULMONIC VALVE The pulmonic valve is mildly thickened. There is trace pulmonic valvular regurgitation. There is no pulmonic valvular stenosis. GREAT VESSELS The aortic root is normal in size. The ascending aorta is normal in size. The pulmonary artery is normal. The IVC is normal in size and collapses >50% with inspiration. PERICARDIAL EFFUSION There is no pleural effusion. There is no pericardial effusion. <Conclusion> Normal chamber size. EF-55-60%. Trace MR/TR/AR/PI. Mild , right coronary cusp is heavily calcified and relatively immobile. RVSP-31 mmof Hg. The IVC is normal in size and collapses >50% with inspiration. There is no pericardial effusion.
--- NOTE | 2018-02-12 19:44 | CON ---
DATE: 02/12/2018 CARDIOLOGY CONSULTATION REPORT REASON FOR CONSULTATION: Preop evaluate and stratification for left knee surgery status post fall with fracture of right tibial plateau. BRIEF NOTE OF THE VISIT: This is a 52-year-old female with a past medical history of hypertension, COPD, obesity, rhabdomyolysis, scoliosis, spinal stenosis, history of CVA in the past, history of multiple fall, history of left tibial fracture status post repair, who came to the emergency room walking home and trying to get on the bed and her leg left snapped and fell down and sustained fracture possibly with a left tibial plateau fracture with a 5 mm plateau depression and large joint left effusion requiring OR internal fixation. Cardiology consult is called for preop evaluation, risk stratification. The patient denies any chest pain. Denies any shortness of breath. Denies any palpitation. The patient says this is functional, active with no history of chest pain or shortness of breath or any palpitation. PAST MEDICAL HISTORY: Significant for hypertension, COPD, dizziness, migraine, hard of hearing, difficulty in swallowing, history of gastric bypass long time ago, history of depression, history of posttraumatic stress syndrome. PAST SURGICAL HISTORY: Significant for cholecystectomy, history of gastric bypass in 2006. SOCIAL HISTORY: Has tobacco abuse, quit at the age of 19; history of some substance abuse in the past. FAMILY HISTORY: Significant for coronary artery disease. CURRENT MEDICATIONS: At home, was taking buprenorphine and naloxone combination, Restoril, Lyrica, oxycodone, lot of substance for narcotic and analgesic as well. CARDIAC WORKUP: The patient had last previous workup as follows; mild aortic regurgitation, echo dated 03/16/2014, normal ejection fraction of 58%. Past surgical history as mentioned, history of gastric bypass surgery in the past to reduce the weight, history of spinal surgery for back pain, history of cholecystectomy, history of hysterectomy, and history of left knee surgery recently after a fall. REVIEW OF SYSTEMS: As per HPI. PHYSICAL EXAMINATION; As follows; VITAL SIGNS: Height of the patient 5 feet 2 inches. Weight of the patient is 203 pounds. Body mass index 43.5 kg/m2. Rest of the vital signs; temperature afebrile, heart rate is 80 and blood pressure 111/69. HEENT: PERRLA. Extraocular muscles intact. NECK: Supple. No carotid bruits or thyromegaly. CHEST: Clear to auscultation. HEART: S1 and S2, regular. ABDOMEN: Soft. EXTREMITIES: Clubbing and cyanosis negative. LABORATORY DATA: Blood work as follows; WBC 5.8, hemoglobin 9.3, hematocrit 32.3, platelet count 185. Chemistry shows sodium 140, potassium 4.3, chloride 105, carbon dioxide 32, anion gap of 8, BUN 17, creatinine 0.9. EKG showed normal sinus, low voltage poor R-R progression. IMPRESSION: A 52-year-old female with past medial history significant for gastric bypass, history of hysterectomy, history of multiple surgeries, chronic obstructive pulmonary disease, history of back surgeries, scoliosis, rhabdomyolysis, multiple medical problems, obesity, came in after a fall and tibial fracture requiring open reduction and internal fixation. PLAN: Because of the patient is at moderate risk, we will get echo to her left ventricular function. Start low dose of beta-saba. No history of angina, no history of arrhythmia, no history of congestive heart failure. We will follow with you. Further recommendations made after the patient's echo. Most likely, we will tell the patient to go as a moderate to high risk surgery because of underlying comorbidity. We will follow with you. Thank you Dr. Hill for providing this opportunity in taking care of the patient, Yessi Ramirez for pulmonary evaluation and followup as well. Catrachito Way MD
[2018-02-12] MEDS: Arformoterol 15 mcg/2 ml Inh Sol IH SCH (20:16)
[2018-02-12] MEDS: Budesonide 0.5 mg/2 ml Inhal Susp UD IH SCH (20:17)
--- NOTE | 2018-02-12 20:23 | PN ---
DATE: 02/12/2018 SUBJECTIVE: The patient is a 52-year-old female with reported history of anxiety and depression. The patient sees Dr. Torsten Manley in the community. The patient was admitted on the medical side, status post fall. Psych consult was called for evaluation of medication. The patient has multiple psychotropic medications. The patient was seen initially yesterday. Medication list confirmed. The patient is followed up today. The patient presented with some improvement with her presentation. The patient reported that she slept okay. The patient is kind of concerned about her fall, which led the patient to this hospitalization and the patient was found to have lateral tibial plateau fracture. The patient reported that she is scheduled for surgery for tomorrow. The patient reported that she is not anxious about surgery, but she is worried about her fall. The patient seems to be optimistic, denied being depressed. PHYSICAL EXAMINATION: VITAL SIGNS: Stable. LABORATORY DATA: Reviewed. MEDICATIONS: Reviewed. MENTAL STATUS EXAMINATION: The patient appears to be alert, oriented, pleasant, cooperative. Mood described as, "I am okay." Affect was reactive, mood congruent. Thought process seems to be coherent and goal directed. Thought content, the patient denies visual, auditory, or tactile hallucinations. Denies paranoid ideations. The patient denies thoughts of harming herself or others. Denies intent or plan. The patient does not present to be psychotic or suicidal. Insight and judgment seem to be fair. Impulses are well controlled. IMPRESSION: As per history, mood spectrum disorder and posttraumatic stress disorder, as well as rapid eye movement sleeping disorder. PLAN: Continue current management. Continue current medications. Lexapro could be continued, Suboxone is on hold. There are no acute psychiatric issues going on. The patient contracted for safety. The patient has followup appointment with Dr. Torsten Manley, family is involved. This sba underwriter will sign off from this case. Please re-consult as needed. Thank you very much for letting me participate in the care of your patient. Eva Siu MD DAMIEN
[2018-02-12] MEDS: FLUOXETINE HCL PO SCH (22:16)
[2018-02-12] MEDS: OLANZAPINE PO SCH (22:16)
[2018-02-12] MEDS: Pantoprazole 40 mg EC Tab PO SCH (22:16)
[2018-02-12] MEDS: [UNRECOGNIZED DRUG - OTHER] PO SCH (22:16)
--- NOTE | 2018-02-13 02:23 | PN ---
DATE: 02/12/2018 SUBJECTIVE: The patient is a 52-year-old female. The patient was seen and examined at the bedside, 02/12/2018, looking comfortable. No fever. No chills. No hematuria. No hematochezia. Still having pain in the legs. No headache. No dizziness. No acute distress. Denies chest pain or shortness of breath. PHYSICAL EXAMINATION: VITAL SIGNS: Temperature 97.5, pulse 95, respiratory rate 18, blood pressure 91/66, pulse oximetry 94. HEENT: Normocephalic and atraumatic. Eyes PERRLA. Extraocular muscles intact. Conjunctivae clear. Nose patent. Mucous membranes moist. NECK: Supple. No carotid bruit, JVD, or thyromegaly. CHEST: Bilaterally symmetrical. HEART: S1, S2 positive. LUNGS: Clear to auscultation. ABDOMEN: Soft. Bowel sounds present. No organomegaly. EXTREMITIES: No edema. No cyanosis. NEUROLOGIC: The patient is awake and alert, moving all four extremities. No focal deficits. MEDICATIONS: Brovana, Lipitor, Pulmicort, Os-Vinicius, vitamin B12, Colace, doxycycline, Lovenox, Lexapro, TriCor, hydrochlorothiazide, Rocephin, nystatin, Protonix, Lyrica, Requip. LABORATORY DATA: White blood cells 5.8, hemoglobin 9.6, hematocrit 32.3, platelets 155. Sodium 140, potassium 4.7, BUN 70, creatinine 0.9, glucose 112. ASSESSMENT AND PLAN: Ms. Yessi Ramirez is a 52-year-old female with anemia, hyperglycemia, admitted with right knee pain as before. X-rays of the knee shows arthritis throughout the joint compartment of the right knee without definite fracture or dislocation on the right. Subsequent right knee CT demonstrates lateral tibial plateau fractures, fractures likes 5 mm plateau depression with large joint effusion, apexes no acute findings. Ankle x-rays normal right ankle radiograph. Check x-ray shows left lower lobe infiltrates, linear atelectasis, right middle lung zone. Unremarkable radiographs of the right tibia and fibula. Discussion done with nurse practitioner, James Kahn, and patient's partner. Possibly, patient will go to ER tomorrow for right lateral tibia, left plateau fracture, starting Rocephin and doxycycline by Infectious Disease for lower lobe infiltrate. Ortho, Pulmonary, Cardio, and Psych is on the case. Physical therapy evaluation after surgery seen by the manager mutual fund, Dr. Way. The patient has history of COPD, hypertension, migraine, history of gastric bypass long time ago, history of posttraumatic stress disorder. he will get echocardiography to see the left ventricular function. He cleared the patient to go as moderate to high risk surgery because of underlying comorbidity. Seen by the emergency crew supervisor also. Continue present treatment. Repeat labs. We will follow up. Marli Hill MD MTDD
[2018-02-13 06:55] LABS: PARTIAL THROMBOPLASTIN TIME 33.2 Seconds (25.1-36.5); PROTHROMBIN TIME 11.5 SECONDS (9.4-12.5)
[2018-02-13 07:21] LABS: BASO # 0.02 K/mm3 (0.0-2.0); BASO % 0.4 % (0.0-3.0); EOS # 0.3 (0.0-0.7); EOS % 4.9 % (1.5-5.0); GRAN # 2.47 (1.4-6.5); GRAN % 46.8 % (50.0-68.0); HEMOGLOBIN 9.2 g/dL (12.0-16.0); MEAN CELL VOLUME 86.5 fl (80.0-105.0); MEAN CORPUSCULAR HEMOGLOBIN 24.9 pg (25.0-35.0); MEAN CORPUSCULAR HGB CONC 28.8 g/dl (31.0-37.0); MONO # 0.5 (0.1-0.6); MONO % 9.9 % (1.0-6.0); RBC 3.7 10^6/uL (3.5-6.1); RED CELL DISTRIBUTION WIDTH 17.1 % (11.5-14.5); WHITE BLOOD COUNT 5.3 10^3/uL (4.5-11.0)
--- NOTE | 2018-02-13 07:35 | CP.PCM.PN ---
Subjective - Date & Time of Evaluation Date of Evaluation: 02/13/18 Time of Evaluation: 06:45 - Subjective Subjective: Awake, alert, lying in bed, right leg with immobilizer Reason for consultation and follow up: Cardiac evaluation and pre-op clearance for right tibial fracture Seen and examined by me and Dr. Way Objective - Vital Signs/Intake and Output Vital Signs (last 24 hours): Temp Pulse Resp BP Pulse Ox 98.6 F 89 20 130/70 95 02/12/18 14:00 02/13/18 01:05 02/12/18 14:00 02/12/18 17:36 02/12/18 14:00 Intake and Output: 02/13/18 02/13/18 06:59 18:59 Intake Total 620 Balance 620 - Medications Medications: Current Medications Albuterol/Ipratropium (Duoneb 3 Mg/0.5 Mg (3 Ml) Ud) 3 ml IH [id number] PRN PRN Reason: Shortness of Breath Arformoterol Tartrate (Brovana) 15 mcg IH [id number] [facility] Last Admin: 02/12/18 20:16 Dose: 15 mcg Atorvastatin Calcium (Lipitor) 10 mg PO DIN [facility] Last Admin: 02/12/18 17:35 Dose: 10 mg Budesonide (Pulmicort Respules) 0.5 mg IH [id number] [facility] Last Admin: 02/12/18 20:17 Dose: 0.5 mg Calcium/Vitamin D (Oscal-D 250 Mg-125 Units Tab) 1 tab PO DAILY [facility] Last Admin: 02/12/18 11:13 Dose: 1 tab Cyanocobalamin (Vitamin B12 1000 Mcg/Ml Inj) 1,000 mcg IM DAILY [facility] Last Admin: 02/12/18 11:12 Dose: 1,000 mcg Docusate Sodium (Colace) 100 mg PO BID [facility] Last Admin: 02/12/18 17:36 Dose: 100 mg Doxycycline Hyclate (Doryx) 100 mg PO Q12 [facility]; Protocol Last Admin: 02/12/18 22:15 Dose: 100 mg Enoxaparin Sodium (Lovenox) 40 mg SC DAILY [facility]; Protocol Last Admin: 02/12/18 11:11 Dose: 40 mg Escitalopram Oxalate (Lexapro) 20 mg PO DAILY [facility] Last Admin: 02/12/18 11:12 Dose: 20 mg Fenofibrate (Tricor) 145 mg PO DAILY [facility] Last Admin: 02/12/18 11:13 Dose: 145 mg Hydrochlorothiazide (Microzide) 12.5 mg PO DAILY [facility] Last Admin: 02/12/18 11:12 Dose: 12.5 mg Ceftriaxone Sodium (Rocephin 1 Gram Ivpb) 1 gm in 100 mls @ 100 mls/hr IVPB DAILY [facility]; Protocol Last Admin: 02/12/18 13:53 Dose: 100 mls/hr Ketorolac Tromethamine (Toradol) 15 mg IVP Q12 PRN PRN Reason: Pain, moderate (4-7) Last Admin: 02/12/18 23:38 Dose: 15 mg Metoprolol Tartrate (Lopressor) 12.5 mg PO BID [facility] Last Admin: 02/12/18 17:36 Dose: 12.5 mg Non-Formulary Medication (Lubiprostone [Amitiza]) 24 mcg PO BID [facility] Last Admin: 02/12/18 17:33 Dose: Not Given Non-Formulary Medication (Olanzapine/Fluoxetine Hcl [Olanzapine-Fluoxetine 6-25 Mg]) 2 tab PO HS [facility] Last Admin: 02/12/18 22:16 Dose: 2 tab Nystatin (Nystop Topical Powder) 0 gm TOP BID [facility] Last Admin: 02/12/18 17:33 Dose: 1 applic Pantoprazole Sodium (Protonix Ec Tab) 40 mg PO HS [facility] Last Admin: 02/12/18 22:16 Dose: 40 mg Pentoxifylline (Pentoxil) 400 mg PO TID [facility] Last Admin: 02/11/18 10:54 Dose: Not Given Pregabalin (Lyrica) 100 mg PO TID [facility] Last Admin: 02/12/18 17:36 Dose: 100 mg Ropinirole HCl (Requip) 1 mg PO DAILY [facility] Last Admin: 02/12/18 11:13 Dose: 1 mg - Labs Labs: 02/13/18 06:30 02/12/18 06:20 PT 11.5 SECONDS (9.4-12.5) 02/13/18 06:30 INR 1.00 02/13/18 06:30 APTT 33.2 Seconds (25.1-36.5) 02/13/18 06:30 - Constitutional Appears: Non-toxic, No Acute Distress - Head Exam Head Exam: NORMAL INSPECTION, NORMOCEPHALIC - Eye Exam Eye Exam: Normal appearance Pupil Exam: NORMAL ACCOMODATION - ENT Exam ENT Exam: Mucous Membranes Moist, Normal Exam - Respiratory Exam Respiratory Exam: Clear to Ausculation Bilateral, NORMAL BREATHING PATTERN - Cardiovascular Exam Cardiovascular Exam: +S1, +S2 - GI/Abdominal Exam GI & Abdominal Exam: Soft, Normal Bowel Sounds - Extremities Exam Additional comments: right leg immobilizer - Neurological Exam Neurological Exam: Alert, Awake, Oriented x3 - Psychiatric Exam Psychiatric exam: Normal Affect, Normal Mood - Skin Skin Exam: Dry, Normal Color, Warm Assessment and Plan - Assessment and Plan (Free Text) Assessment: A 52 year old female,who came to the ER due to right knee pain s/p fall. History of hypertension, COPD, obese, rhabdomyolysis, scoliosis, spinal stenosis, cerebral hemorrhage,CVA, multiple falls w/ left tibial fracture s/p repair.depression, hard of hearing, post traumatic stress syndrome,cholecystectomy, gastric bypass 2006, history of tobacco abuse.CT of right leg showed lateral tibial plateau fracture. Denies chest pain. Denies shortness of breath. Echo showed LVEF 55-60%, normal chambers. Trace MR/TR/AR/PI. mild aortic stenosis, right cusp is heavily calcified relatively immobile. RVSP 31 mmHg.No pericardial effusion. No evidence of heart failure, No evidence of myocardial ischemia. Cleared for right leg surgery. Moderate risk for surgery. Plan: No distress Patient for right tibial surgery Cleared for surgery with moderate risk Echo LVEF 55-60% Heart rate controlled Blood pressure controlled Started low dose Lopressor Continue current treatment Will follow up postoperatively Plan and treatment discussed with Dr. Way
[2018-02-13 07:42] LABS: ALB/GLOB RATIO 0.9 (1.1-1.8); ALBUMIN 3.2 g/dL (3.0-4.8); ALT/SGPT 28 U/L (7-56); AST/SGOT 46 U/L (14-36); BLOOD UREA NITROGEN 13 mg/dL (7-21); CALCIUM 8.5 mg/dL (8.4-10.5); GFR NON-AFRICAN AMERICAN > 60; HDL CHOLESTEROL 32 mg/dL (29-60)
[2018-02-13 07:52] LABS: LDL CHOLESTEROL 137 mg/dL (0-129)
[2018-02-13] MEDS: Budesonide 0.5 mg/2 ml Inhal Susp UD IH SCH ×2 (07:52→19:52)
[2018-02-13] MEDS: Arformoterol 15 mcg/2 ml Inh Sol IH SCH ×2 (07:52→19:51)
[2018-02-13] MEDS: Non Formulary Medication (Lubiprostone [Amitiza] 24 MCG) PO SCH ×2 (10:00→18:37)
--- NOTE | 2018-02-13 10:08 | RAD ---
Date of service: 02/13/2018 HISTORY: pneumoni, repeat in am COMPARISON: CT scan 02/12/2018 TECHNIQUE: Chest PA and lateral FINDINGS: LUNGS: The CT shows linear atelectasis or scarring in the lingular segment of the left lobe and minimal linear scarring in the right upper lobe. The findings are more difficult to appreciate on plain film. The findings are unchanged. There are no new infiltrates PLEURA: No significant pleural effusion identified. No pneumothorax apparent. CARDIOVASCULAR: No aortic atherosclerotic calcification present. Normal cardiac size. No pulmonary vascular congestion. OSSEOUS STRUCTURES: No significant abnormalities. VISUALIZED UPPER ABDOMEN: Normal. OTHER FINDINGS: None. IMPRESSION: The CT shows linear atelectasis or scarring in the lingular segment of the left lobe and minimal linear scarring in the right upper lobe. The findings are more difficult to appreciate on plain film. The findings are unchanged There are no new infiltrates
[2018-02-13] MEDS ORDERED: Midazolam 2 MG/2 ML VIAL ONE (10:45)
[2018-02-13] MEDS ORDERED: Propofol 10 mg/ml Inj (20 ML) ONE (10:45)
[2018-02-13] MEDS ORDERED: Phenylephrine 10 mg/ml Inj ONE (10:59)
--- NOTE | 2018-02-13 11:22 | PN ---
DATE: 02/12/2018 REASON FOR CONSULTATION AND FOLLOWUP: Cardiac evaluation, preop evaluation for right tibial fracture. This note is in addition to the dictated by nurse practitioner, Mayte Olmstead. Patient had echocardiography done yesterday that revealed ejection fraction 55-60%, trace MR, normal chamber sizes and trace TR, trace AR, trace TN, mild right coronary cusp with heavily calcified and relatively immobile, RV systolic pressure 31. RECOMMENDATION: Patient is cleared to go for surgery, it is moderate risk because of underlying comorbidity, no absolute contraindication, no evidence of ischemia, no evidence of arrhythmia, no evidence of congestive heart failure. We will follow up closely. Continue low-dose beta-saba as tolerated and started yesterday. We will follow with you. Thank you Dr. Hill for providing us the opportunity in taking care of the patient, Ashley Dickson. We will put the order of clearance in physician nurse communication. Patient needs pulmonary evaluation and clearance before surgery. Catrachito Way MD
--- NOTE | 2018-02-13 12:08 | PN ---
DATE: 02/13/2018 PULMONARY PROGRESS NOTE REFERRING PHYSICIAN: Marli Hill MD SUBJECTIVE: The patient seen and examined at bedside. No acute distress. Reports wearing CPAP machine last night. No headache, rhinitis, cough, shortness of breath, chest pain, abdominal pain, nausea, vomiting, diarrhea, leg pain or leg swelling reported. Family is at bedside. The patient reports pending surgery today. Has chest x-ray to be done prior to surgery. PHYSICAL EXAMINATION: GENERAL: No acute distress. VITAL SIGNS: Blood pressure 100/65, pulse 66, temperature 97.2 and oxygen saturation 99%. HEENT: Moist mucous membranes. Crowded airway. Small oral cavity. NECK: Supple. No JVD. LUNGS: Few rhonchi bilaterally. CARDIOVASCULAR: S1 and S2, audible. ABDOMEN: Soft and nontender. No distention. No organomegaly. EXTREMITIES: Immobilizer is in place to right lower extremity. No edema to left lower extremity. NEUROLOGIC: Awake, alert and verbal. Follows commands. MEDICATIONS: Reviewed. DuoNeb 3 mL inhalation every 6 hours p.r.n., Brovana 15 mcg every 12 hours, Lipitor 10 mg at dinner, Pulmicort 0.5 mg inhalation every 12 hours, Os-Vinicius D 1 tab daily, Rocephin 1 g daily, vitamin B12 at 1000 mcg IM daily, Colace 100 mg twice a day, doxycycline 100 mg every 12 hours, Lovenox 40 mg subcutaneous daily, Lexapro 20 mg daily, Tricor 145 mg daily, hydrochlorothiazide 12.5 mg daily, Toradol 15 mg every 12 hours p.r.n., Lopressor 12.5 mg twice a day, Amitiza 24 mcg twice a day, olanzapine/fluoxetine 6/25 mg two tabs at bedtime, nystatin topically twice a day affected area, Protonix 40 mg at bedtime, Pentoxil 400 mg three times a day, Lyrica 100 mg three times a day, and Requip 1 mg daily. LABORATORY DATA: Reviewed. WBC 5.3, RBC 3.7, hemoglobin 9.2, hematocrit 32 and platelets 200. PT 11.5, INR 1 and APTT 33.2. Sodium 141, potassium 4.6, chloride 106, carbon dioxide 31, anion gap 10, BUN 13, creatinine 0.8, GFR greater than 60, random glucose 105, calcium 8.5, phosphorous 5, magnesium 2.1, total bilirubin 0.2, AST 46, ALT 28, alkaline phosphatase 120, total protein 6.7, albumin 3.2, globulin 3.5 and albumin-globulin ratio 0.9. Triglycerides 180, cholesterol 207, LDL cholesterol 137 and HDL cholesterol 32. Procalcitonin 0.07 and TSH is 2.73. Chest x-ray shows no new infiltrates. Echocardiogram shows normal chamber size, ejection fraction 55% to 60%, mild aortic stenosis, right coronary cusp is heavily calcified and relatively immobile, RVSP is 31, IVC is normal in size and collapse is greater than 50% with inspiration. No pericardial effusion. There is trace MR/TR/AR/PI. Chest CT shows linear fibrotic changes in the right upper lobe as well as discoid atelectasis or left minimal lingular infiltrates. IMPRESSION AND PLAN: Mechanical fall with right lateral tibial plateau fracture, 5 mm plateau depression, chronic obstructive lung disease, valvular heart disease, history of gastric bypass surgery, the patient regained weight, depression, anxiety disorder, chronic pain syndrome, history of sleep apnea syndrome. Findings on chest CT are thought to be chronic changes, the patient does not have a cough, does not have shortness of breath. We believe the patient is stable for surgery. Sleep apnea precautions must be maintained while sedated. Continued inhaled bronchodilators, gastric prophylaxis, and deep venous thrombosis prophylaxis. Keep head of bed elevated at 45 degrees. Sleep apnea precautions. Close cardiopulmonary monitoring while under anesthesia and after anesthesia. The patient will need sleep study and full pulmonary function test as outpatient. This patient was seen and examined with Dr. Herrera. Discussed assessment and plan as described above. Thank you for this consult. We will follow with you. Rg Weeks APN Catrachito Herrera MD
--- NOTE | 2018-02-13 12:30 | CP.PCM.PN ---
Subjective - Date & Time of Evaluation Date of Evaluation: 02/13/18 Time of Evaluation: 07:50 - Subjective Subjective: Patient for surgery on right knee today, no fevers overnight. Objective - Vital Signs/Intake and Output Vital Signs (last 24 hours): Temp Pulse Resp BP Pulse Ox 97.5 F L 95 H 18 91/56 L 94 L 02/11/18 22:00 02/11/18 22:00 02/11/18 22:00 02/11/18 22:00 02/11/18 22:00 Intake and Output: 02/12/18 02/12/18 06:59 18:59 Intake Total 540 Balance 540 - Medications Medications: Current Medications Albuterol/Ipratropium (Duoneb 3 Mg/0.5 Mg (3 Ml) Ud) 3 ml IH [id number] PRN PRN Reason: Shortness of Breath Arformoterol Tartrate (Brovana) 15 mcg IH [id number] [facility] Atorvastatin Calcium (Lipitor) 10 mg PO DIN [facility] Budesonide (Pulmicort Respules) 0.5 mg IH [id number] [facility] Calcium/Vitamin D (Oscal-D 250 Mg-125 Units Tab) 1 tab PO DAILY [facility] Last Admin: 02/12/18 11:13 Dose: 1 tab Cyanocobalamin (Vitamin B12 1000 Mcg/Ml Inj) 1,000 mcg IM DAILY [facility] Last Admin: 02/12/18 11:12 Dose: 1,000 mcg Docusate Sodium (Colace) 100 mg PO BID [facility] Last Admin: 02/12/18 11:12 Dose: 100 mg Doxycycline Hyclate (Doryx) 100 mg PO Q12 [facility]; Protocol Enoxaparin Sodium (Lovenox) 40 mg SC DAILY [facility]; Protocol Last Admin: 02/12/18 11:11 Dose: 40 mg Escitalopram Oxalate (Lexapro) 20 mg PO DAILY [facility] Last Admin: 02/12/18 11:12 Dose: 20 mg Fenofibrate (Tricor) 145 mg PO DAILY [facility] Last Admin: 02/12/18 11:13 Dose: 145 mg Hydrochlorothiazide (Microzide) 12.5 mg PO DAILY [facility] Last Admin: 02/12/18 11:12 Dose: 12.5 mg Ceftriaxone Sodium (Rocephin 1 Gram Ivpb) 1 gm in 100 mls @ 100 mls/hr IVPB DAILY [facility]; Protocol Ketorolac Tromethamine (Toradol) 15 mg IVP Q12 PRN PRN Reason: Pain, moderate (4-7) Last Admin: 02/12/18 11:13 Dose: 15 mg Non-Formulary Medication (Lubiprostone [Amitiza]) 24 mcg PO BID [facility] Last Admin: 02/11/18 18:05 Dose: Not Given Non-Formulary Medication (Olanzapine/Fluoxetine Hcl [Olanzapine-Fluoxetine 6-25 Mg]) 2 tab PO HS [facility] Last Admin: 02/11/18 21:20 Dose: 2 tab Nystatin (Nystop Topical Powder) 0 gm TOP BID [facility] Last Admin: 02/12/18 11:04 Dose: 1 applic Pantoprazole Sodium (Protonix Ec Tab) 40 mg PO HS [facility] Last Admin: 02/11/18 21:18 Dose: 40 mg Pentoxifylline (Pentoxil) 400 mg PO TID [facility] Last Admin: 02/11/18 10:54 Dose: Not Given Pregabalin (Lyrica) 100 mg PO TID [facility] Last Admin: 02/12/18 11:13 Dose: 100 mg Ropinirole HCl (Requip) 1 mg PO DAILY [facility] Last Admin: 02/12/18 11:13 Dose: 1 mg - Labs Labs: 02/12/18 06:20 02/12/18 06:20 - Constitutional Appears: No Acute Distress, Chronically Ill - Head Exam Head Exam: NORMAL INSPECTION - Respiratory Exam Respiratory Exam: Decreased Breath Sounds - Cardiovascular Exam Cardiovascular Exam: +S1, +S2 - GI/Abdominal Exam GI & Abdominal Exam: Soft. absent: Tenderness Assessment and Plan - Assessment and Plan (Free Text) Plan: Assessment consider left lower lobe community-acquired pneumonia right knee injury from fall with tibial plate fracture history of left lower extremity skin and skin structure infection (cellulitis) in a patient S/P tibial fracture S/P screws placement HTN COPD history cranial surgery S/P cholecystectomy S/P hysterectomy S/P gastric bypass surgery history of migraines left ear deafness obstructive sleep apnea Plan continue Rocephin and Doxycycline day 2 for 5-7 days - reviewed CT chest follow up findings on surgery today will continue to monitor clinically
[2018-02-13] MEDS ORDERED: Rocuronium 10 mg/ml (5 ml) ONE ×2 (13:21→14:05)
[2018-02-13] MEDS ORDERED: cefTRIAXone (Rocephin) 1 gm Inj IVPB ONE (13:25)
[2018-02-13] MEDS ORDERED: Bupivacaine 0.5% 50 ML IJ ONE (13:51)
[2018-02-13] MEDS ORDERED: Neostigmine Methylsulfate 3mg/3ml Syringe IV ONE (14:53)
[2018-02-13] MEDS ORDERED: Glycopyrrolate 0.2 mg/ml (2ml vial) ONE (15:06)
[2018-02-13] MEDS ORDERED: Sevoflurane - Inhalation Anesthetic Liq (250 ml) ONE (15:14)
[2018-02-13] MEDS ORDERED: Bacitracin Ointment 30 GM TUBE ONE (15:59)
--- NOTE | 2018-02-13 16:17 | PCM.SURG1 ---
Surgeon's Initial Post Op Note - Surgeon's Notes Surgeon: Ivana Lawrence MD Dispensing And Measuring Optician: Gisele Knott PA-C Type of Anesthesia: General Endo Anesthesia Administered By: Dr. Licea Pre-Operative Diagnosis: right lateral tibial plateau fracture Operative Findings: see full note Post-Operative Diagnosis: same Operation Performed: ORIF Right lateral tibial plateau fx Specimen/Specimens Removed: none Estimated Blood Loss: EBL {In ML}: 75 Blood Products Given: N/A Drains Used: Wound Vac Post-Op Condition: Fair Date of Surgery/Procedure: 02/13/18 Time of Surgery/Procedure: 16:17 (+DP/PT pulses )
[2018-02-13] MEDS ORDERED: Lactated Ringer's 1,000 ML IV SCH (16:30)
[2018-02-13] MEDS: HYDROmorphone 0.5 mg/0.5 ml ISec IVP PRN ×2 (17:04→20:45)
[2018-02-13] MEDS ORDERED: HYDROmorphone 0.5 mg/0.5 ml ISec ONE (17:09)
--- NOTE | 2018-02-13 17:56 | RAD ---
Date of service: 02/13/2018 PROCEDURE: Right Knee Radiographs. HISTORY: s/o ORIF lateral tibial plateau fx. COMPARISON: 02/12/2018 FINDINGS: BONES: Status post ORIF lateral tibial plateau fracture. Fracture fragments are in near anatomic alignment. Orthopedic hardware is grossly intact. JOINTS: Normal. No osteoarthritis. JOINT EFFUSION: None. OTHER FINDINGS: Postoperative changes of anterior soft tissues. Suprapatellar surgical drain. IMPRESSION: Status post ORIF lateral tibial plateau fracture.
[2018-02-13] MEDS: HYDROmorphone 1 mg/ml ISec IVP PRN ×2 (18:31→23:08)
--- NOTE | 2018-02-13 22:07 | PQF ---
PROVIDER RESPONSE TEXT: Patient with left lower lobe pneumonia present REVIEWER QUERY TEXT: Clinical Validity Additional clinical indicators are required to support your documented diagnosis of Please respond and also state in your next progress note whether: -- Condition exists and also please provide clinical indicators to support the diagnosis -- Condition does not exist and also please provide amended documentation in the medical record to cl caleb -- Unable to provide additional clarity regarding the diagnosis -- Other, please specify The patient's Clinical Indicators include: Documentation, " r/o LLL CAP"CT Chest- Linear fibrotic changes in the right upper lobe as well as dis coid Please clarify if Pneumonia is present or has it been ruled out Query created by: Karime Tomlin on 02/13/2018 9:33 AM Electronically signed by: Tai Pearce MD 02/13/2018 10:04 PM
--- NOTE | 2018-02-13 22:57 | PN ---
DATE: 02/13/2018 SUBJECTIVE: The patient is a 52-year-old female. The patient was seen and examined at the bedside on 02/13/2018, looking comfortable. I saw her early in the morning before she has to go for surgery. Her girlfriend was standing on the bedside also. No fever. No chills. No headache. No dizziness. No chest pain. No palpitation. PHYSICAL EXAMINATION: VITAL SIGNS: Temperature 98.6, pulse 89, respiratory rate 20, blood pressure 130/70, and pulse oximetry 95. HEENT: Head, normocephalic and atraumatic. Eyes: PERRLA. Extraocular muscles intact. Conjunctivae clear. Nose patent. Mucous membranes moist. NECK: Supple. No carotid bruit. No JVD or thyromegaly. CHEST: Bilaterally symmetrical. HEART: S1, S2 positive. LUNGS: Clear to auscultation. ABDOMEN: Soft. Bowel sounds present. No organomegaly. EXTREMITIES: No edema. No cyanosis. Both the knees are tender. NEUROLOGIC: The patient is awake and alert, follows simple commands. Moving all 4 extremities. No focal deficits. Cranial nerves II through XII are grossly intact. MEDICATIONS: DuoNeb, Brovana, Lipitor, Pulmicort, vitamin D, Os-Vinicius, doxycycline, Lovenox, Lexapro, hydralazine, Toradol, and Protonix. LABORATORY DATA: White blood cells 5.3, hemoglobin 9.2, hematocrit 32, platelets 200. Sodium 140, potassium 4.7, BUN 17, creatinine 0.9, and glucose 112. ASSESSMENT AND PLAN: Ms. Yessi Ramirez is a 52-year-old lady with anemia, hyperglycemia, has history of right knee pain status post fall, hypertension, chronic obstructive pulmonary disease, obesity, history of rhabdomyolysis, scoliosis, spinal stenosis, cerebral hemorrhage, cerebrovascular accident, multiple falls, left tibial fracture has to be repaired, depression, under the care of psychiatrist, getting psychiatric medications, hard of hearing, posttraumatic stress disorder syndrome, cholecystectomy and gastric bypass surgery in 2006, history of tobacco abuse, substance abuse. CT of the right leg shows lateral tibial plateau fracture. Planned for surgery today, was cleared by Cardiology and Pulmonary. Plan is to after surgery to give physical therapy and we will transfer to rehab. Meanwhile, continue present treatment. Repeat laboratories. We will follow up. Marli Hill MD [facility] # [id number]
[2018-02-13] MEDS: Pantoprazole 40 mg EC Tab PO SCH (23:04)
--- NOTE | 2018-02-14 02:13 | OP ---
PROCEDURE DATE: 02/13/2018 PREOPERATIVE DIAGNOSIS: Right lateral tibial plateau fracture. POSTOPERATIVE DIAGNOSIS: Right lateral tibial plateau fracture. PROCEDURE: Open reduction and internal fixation of right lateral tibial plateau fracture. SURGEON: Aldair Lawrence MD FABRICATION ENGINEER: Dr. Lawrence was assisted by Felicia Knott, physician help desk assistant. Ms. Knott was present throughout the entire case and assisted in patient positioning, wound closure, and retraction. ANESTHESIA: General. COMPLICATIONS: None. ESTIMATED BLOOD LOSS: 25 mL. IMPLANT: Synthes lateral proximal tibial locking plate. INDICATIONS FOR PROCEDURE: This is a 52-year-old female who presented status post fall with right knee pain. On examination, the patient was noted to have lateral joint line tenderness, but was stable with varus valgus stress. Radiographically, x-rays and CAT scan were consistent with displaced lateral tibial plateau fracture. Recommendation was for open reduction and internal fixation once the patient was medically optimized. The risks, benefits, and alternatives of the procedure were discussed with the patient and informed consent was obtained. OPERATIVE PROCEDURE: After the surgical site was signed and verified in the preoperative holding area, the patient was taken to the operating room and placed supine on the operating room table. After administration of general anesthesia, the patient received her ceftriaxone and doxycycline IV as part of her regularly scheduled doses. A tourniquet was placed about the right thigh. A bump was placed under the right hip. Care was taken to make sure all bony prominences and nerves were well padded and protected, and the right upper extremity was prepped and draped in the usual sterile fashion. The tourniquet was inflated and an approximately 12 cm curvilinear incision was made, centered proximally over the ITB , curving down towards the Gerdy's tubercle and extending distally. The soft tissue was dissected sharply down to the fascia and the fascia was incised in line with the ITB and both medial and lateral flaps were raised. A submeniscal arthrotomy was performed and extensive amount of fracture hematoma was evacuated. Sutures were placed in the meniscus for later repair. At this point, the wound was irrigated with antibiotic saline solution and the fracture was evaluated. The patient was noted to have a depressed central portion of the lateral tibial plateau and a small split. At this point, through the split and using a bone tamp and osteotome, the articular surface was elevated. This was confirmed under direct visualization as well as a C-arm. Next, using cancellous bone chips and putty, the metaphyseal defect was packed to provide support for the articular segment. Next, using a bone reduction forceps, the split was then reduced and images were taken confirming good reduction in both the AP and lateral planes. Satisfied, a 4-hole Synthes locking plate was then placed and originally held using K-wires. Position of the plate was confirmed using a C-arm. The fracture was then definitely fixed using five screws in the proximal articular segment and two locking and one cortical screw distally. Once this was done, all the K-wires were removed and position of wire and position of the hardware was confirmed using image intensifier. Satisfied, the wound was irrigated and the meniscus was repaired through the K-wire holes in the plate and tying down the previous FiberWire sutures. The ITB and the fascia was loosely approximated using #1 Vicryl suture, the subcutaneous suture was closed using 0 Vicryl and 2-0 Vicryl suture, and the skin was closed using 3-0 nylon. A TRACY wound VAC incisional dressing was placed and a knee immobilizer was placed. The patient was then awakened and taken to the recovery room in stable condition. Aldair Lawrence MD
[2018-02-14] MEDS: HYDROmorphone 1 mg/ml ISec IVP PRN ×4 (03:09→22:15)
[2018-02-14] MEDS: oxyCODONE 10 mg Immediate Release Tab PO PRN (06:04)
[2018-02-14] MEDS: OLANZAPINE PO SCH ×2 (06:05→22:55)
[2018-02-14] MEDS: FLUOXETINE HCL PO SCH ×2 (06:05→22:55)
[2018-02-14] MEDS: [UNRECOGNIZED DRUG - OTHER] PO SCH ×2 (06:05→22:55)
[2018-02-14 06:56] LABS: BLOOD UREA NITROGEN 12 mg/dL (7-21); CALCIUM 8.1 mg/dL (8.4-10.5); GFR NON-AFRICAN AMERICAN > 60
[2018-02-14 06:59] LABS: BASO # 0.02 K/mm3 (0.0-2.0); BASO % 0.3 % (0.0-3.0); EOS # 0.3 (0.0-0.7); EOS % 3.5 % (1.5-5.0); GRAN # 4.99 (1.4-6.5); GRAN % 65.2 % (50.0-68.0); HEMOGLOBIN 9.7 g/dL (12.0-16.0); LYMPH # 1.7 (1.2-3.4); LYMPH % 22.5 % (22.0-35.0); MEAN CELL VOLUME 85.2 fl (80.0-105.0); MEAN CORPUSCULAR HEMOGLOBIN 25.1 pg (25.0-35.0); MEAN CORPUSCULAR HGB CONC 29.5 g/dl (31.0-37.0); MEAN PLATELET VOLUME 9.2 fl (7.0-11.0); MONO # 0.7 (0.1-0.6); MONO % 8.5 % (1.0-6.0); RBC 3.86 10^6/uL (3.5-6.1); RED CELL DISTRIBUTION WIDTH 16.9 % (11.5-14.5); WHITE BLOOD COUNT 7.7 10^3/uL (4.5-11.0)
[2018-02-14] MEDS: Arformoterol 15 mcg/2 ml Inh Sol IH SCH ×2 (07:52→20:13)
[2018-02-14] MEDS: Budesonide 0.5 mg/2 ml Inhal Susp UD IH SCH ×2 (07:52→20:13)
--- NOTE | 2018-02-14 08:17 | CP.PCM.PN ---
Subjective - Date & Time of Evaluation Date of Evaluation: 02/14/18 Time of Evaluation: 06:40 - Subjective Subjective: Awake, alert, lying in bed, complaining of leg pain Reason for consultation and follow up: Cardiac evaluation and pre-op clearance for right tibial fracture, status post ORIF of right tibia plateau fracture Seen and examined by me and Dr. Way Objective - Vital Signs/Intake and Output Vital Signs (last 24 hours): Temp Pulse Resp BP Pulse Ox 99.4 F 84 20 140/82 93 L 02/14/18 06:13 02/13/18 22:00 02/13/18 22:00 02/13/18 22:00 02/13/18 22:00 Intake and Output: 02/14/18 02/14/18 06:59 18:59 Intake Total 240 Output Total 1400 Balance -1160 - Medications Medications: Current Medications Acetaminophen (Tylenol 325mg Tab) 650 mg PO Q6H PRN PRN Reason: Fever >100.4 F Last Admin: 02/14/18 07:03 Dose: 650 mg Albuterol/Ipratropium (Duoneb 3 Mg/0.5 Mg (3 Ml) Ud) 3 ml IH [id number] PRN PRN Reason: Shortness of Breath Arformoterol Tartrate (Brovana) 15 mcg IH [id number] [facility] Last Admin: 02/14/18 07:52 Dose: 15 mcg Atorvastatin Calcium (Lipitor) 10 mg PO DIN [facility] Last Admin: 02/13/18 18:38 Dose: 10 mg Budesonide (Pulmicort Respules) 0.5 mg IH [id number] [facility] Last Admin: 02/14/18 07:52 Dose: 0.5 mg Calcium/Vitamin D (Oscal-D 250 Mg-125 Units Tab) 1 tab PO DAILY [facility] Last Admin: 02/12/18 11:13 Dose: 1 tab Cyanocobalamin (Vitamin B12 1000 Mcg/Ml Inj) 1,000 mcg IM DAILY [facility] Last Admin: 02/13/18 10:00 Dose: Not Given Docusate Sodium (Colace) 100 mg PO BID [facility] Last Admin: 02/13/18 18:41 Dose: 100 mg Doxycycline Hyclate (Doryx) 100 mg PO Q12 [facility]; Protocol Last Admin: 02/13/18 23:04 Dose: 100 mg Enoxaparin Sodium (Lovenox) 40 mg SC DAILY [facility]; Protocol Last Admin: 02/12/18 11:11 Dose: 40 mg Escitalopram Oxalate (Lexapro) 20 mg PO DAILY [facility] Last Admin: 02/12/18 11:12 Dose: 20 mg Fenofibrate (Tricor) 145 mg PO DAILY [facility] Last Admin: 02/13/18 18:40 Dose: 145 mg Hydrochlorothiazide (Microzide) 12.5 mg PO DAILY [facility] Last Admin: 02/13/18 10:00 Dose: Not Given Hydromorphone HCl (Dilaudid) 1 mg IVP Q4H PRN PRN Reason: Pain, severe (8-10) Last Admin: 02/14/18 03:09 Dose: 1 mg Ceftriaxone Sodium (Rocephin 1 Gram Ivpb) 1 gm in 100 mls @ 100 mls/hr IVPB DAILY [facility]; Protocol Last Admin: 02/12/18 13:53 Dose: 100 mls/hr Ketorolac Tromethamine (Toradol) 15 mg IVP Q12 PRN PRN Reason: Pain, moderate (4-7) Last Admin: 02/13/18 20:50 Dose: 15 mg Metoprolol Tartrate (Lopressor) 12.5 mg PO BID [facility] Last Admin: 02/13/18 18:37 Dose: 12.5 mg Non-Formulary Medication (Lubiprostone [Amitiza]) 24 mcg PO BID [facility] Last Admin: 02/13/18 18:37 Dose: Not Given Non-Formulary Medication (Olanzapine/Fluoxetine Hcl [Olanzapine-Fluoxetine 6-25 Mg]) 2 tab PO [facility] Last Admin: 02/14/18 06:05 Dose: Not Given Nystatin (Nystop Topical Powder) 0 gm TOP BID [facility] Last Admin: 02/12/18 17:33 Dose: 1 applic Oxycodone HCl (Oxycodone Immediate Release Tab) 10 mg PO Q4H PRN PRN Reason: Pain, moderate (4-7) Last Admin: 02/14/18 06:04 Dose: 10 mg Pantoprazole Sodium (Protonix Ec Tab) 40 mg PO HS [facility] Last Admin: 02/13/18 23:04 Dose: 40 mg Pentoxifylline (Pentoxil) 400 mg PO TID [facility] Last Admin: 02/11/18 10:54 Dose: Not Given Pregabalin (Lyrica) 100 mg PO TID [facility] Last Admin: 02/13/18 18:39 Dose: 100 mg Ropinirole HCl (Requip) 1 mg PO DAILY [facility] Last Admin: 02/12/18 11:13 Dose: 1 mg - Labs Labs: 02/14/18 06:00 02/14/18 06:00 PT 11.5 SECONDS (9.4-12.5) 02/13/18 06:30 INR 1.00 02/13/18 06:30 APTT 33.2 Seconds (25.1-36.5) 02/13/18 06:30 - Constitutional Appears: Non-toxic, No Acute Distress - Head Exam Head Exam: NORMAL INSPECTION, NORMOCEPHALIC - Eye Exam Eye Exam: Normal appearance Pupil Exam: NORMAL ACCOMODATION - ENT Exam ENT Exam: Mucous Membranes Moist, Normal Exam - Respiratory Exam Respiratory Exam: Decreased Breath Sounds, NORMAL BREATHING PATTERN - Cardiovascular Exam Cardiovascular Exam: +S1, +S2 - GI/Abdominal Exam GI & Abdominal Exam: Soft, Normal Bowel Sounds - Extremities Exam Additional comments: right leg immobilizer - Neurological Exam Neurological Exam: Alert, Awake, Oriented x3 - Psychiatric Exam Psychiatric exam: Normal Affect, Normal Mood - Skin Skin Exam: Dry, Normal Color, Warm Assessment and Plan - Assessment and Plan (Free Text) Assessment: A 52 year old female,who came to the ER due to right knee pain s/p fall. History of hypertension, COPD, obese, rhabdomyolysis, scoliosis, spinal stenosis, cerebral hemorrhage,CVA, multiple falls w/ left tibial fracture s/p repair.depression, hard of hearing, post traumatic stress syndrome,cholecystectomy, gastric bypass 2006, history of tobacco abuse.CT of right leg showed lateral tibial plateau fracture. Denies chest pain. Denies shortness of breath. Echo showed LVEF 55-60%, normal chambers. Trace MR/TR/AR/PI. mild aortic stenosis, right cusp is heavily calcified relatively immobile. RVSP 31 mmHg.No pericardial effusion. No evidence of heart failure, No evidence of myocardial ischemia. Cleared for right leg surgery. Moderate risk for surgery. Status post ORIF of right tibia plateau fracture POD#1. Left lower lobe pneumonia. Plan: Status post ORIF of right tibia plateau fracture POD#1 No distress, complaining of surgical leg pain PRN pain medicine administered by RN Low grade fever, Tylenol PRN Heart rate controlled Blood pressure controlled On Lopressor 12.5 mg BID Continue current treatment Plan and treatment discussed with Dr. Way
[2018-02-14] MEDS: Non Formulary Medication (Lubiprostone [Amitiza] 24 MCG) PO SCH ×2 (10:34→18:29)
[2018-02-14] MEDS: Enoxaparin 40 mg Syringe SC SCH (11:00)
[2018-02-14] MEDS: Calcium-Vit D 250 mg-125 Units Tab UD PO SCH (11:02)
[2018-02-14] MEDS: Nystatin 100,000 Units/gm Topical Pow(15 gm) TOP SCH ×2 (11:09→18:30)
[2018-02-14] MEDS: cefTRIAXone 1 gm 1 GM/100 ML BAG IVPB SCH (11:09)
--- NOTE | 2018-02-14 12:28 | PN ---
DATE: 02/14/2018 REASON FOR CONSULTATION AND FOLLOWUP: Preop evaluation and postop followup, status post OR right tibial plateau fracture. This note is in addition to the dictated by nurse practitioner, Mayte Olmstead. SUBJECTIVE: The patient denies any chest pain, shortness of breath, or any palpitation. Not in apparent distress. PHYSICAL EXAMINATION: VITAL SIGNS: The patient's low-grade fever , heart rate 97, and blood pressure 132/91. GENERAL: No complaint of any chest pain. CVS status is stable. In summary, this is a 52-year-old female with past medical history significant for hypertension, history of obesity, scoliosis, spinal stenosis, rhabdomyolysis, CVA in the past, status post multiple falls, status post fall, and fracture of the tibia status post OR internal fixation. Recent echo on 02/12/2018 showed ejection fraction 55% to 60%, trace MR, trace TR, trace AR, trace PI, mild right coronary cusp with heavily calcified and relatively immobile, RV systolic pressure 31. RECOMMENDATIONS: Follow up labs, monitor electrolytes closely, adequate analgesia. The patient's low-grade fever follow up closely. Continue low-dose beta saba as blood pressure and heart rate is tolerated. Since the blood pressure is 132/90 and heart rate is elevated, we will increase metoprolol to 25 mg p.o. twice a day. We will follow with you. Continue DVT prophylaxis. Monitor H and H closely. We will get magnesium and phosphate level tomorrow. Thank you Dr. Hill for providing us the opportunity in taking care of the patient, Yessi Ramirez. Catrachito Way MD
--- NOTE | 2018-02-14 14:23 | CP.PCM.PN ---
Subjective - Date & Time of Evaluation Date of Evaluation: 02/14/18 Time of Evaluation: 14:20 - Subjective Subjective: Pt awake but sleepy. Adequate pain control. Pt was seen by physical therapy earlier. Tmax 102.1 Tnow 98.1 RLE: dressing intact, knee immobilizer in place grossly NVI distally WBC 7.7 Hg 9.6 R knee post op xrays: fx well aligned, hardware in good position POD#1 Spirometry PT D/c planning. Will likely need THIERRY placement Objective - Vital Signs/Intake and Output Vital Signs (last 24 hours): Temp Pulse Resp BP Pulse Ox 102.1 F H 90 16 125/76 92 L 02/14/18 07:00 02/14/18 11:03 02/14/18 07:00 02/14/18 11:03 02/14/18 07:00 Intake and Output: 02/14/18 02/14/18 06:59 18:59 Intake Total 240 Output Total 1400 Balance -1160 - Medications Medications: Current Medications Acetaminophen (Tylenol 325mg Tab) 650 mg PO Q6H PRN PRN Reason: Fever >100.4 F Last Admin: 02/14/18 07:03 Dose: 650 mg Albuterol/Ipratropium (Duoneb 3 Mg/0.5 Mg (3 Ml) Ud) 3 ml IH [id number] PRN PRN Reason: Shortness of Breath Arformoterol Tartrate (Brovana) 15 mcg IH [id number] [facility] Last Admin: 02/14/18 07:52 Dose: 15 mcg Atorvastatin Calcium (Lipitor) 10 mg PO DIN [facility] Last Admin: 02/13/18 18:38 Dose: 10 mg Budesonide (Pulmicort Respules) 0.5 mg IH [id number] [facility] Last Admin: 02/14/18 07:52 Dose: 0.5 mg Calcium/Vitamin D (Oscal-D 250 Mg-125 Units Tab) 1 tab PO DAILY [facility] Last Admin: 02/14/18 11:02 Dose: 1 tab Cyanocobalamin (Vitamin B12 1000 Mcg/Ml Inj) 1,000 mcg IM DAILY [facility] Last Admin: 02/14/18 11:01 Dose: 1,000 mcg Docusate Sodium (Colace) 100 mg PO BID [facility] Last Admin: 02/14/18 11:03 Dose: 100 mg Doxycycline Hyclate (Doryx) 100 mg PO Q12 [facility]; Protocol Last Admin: 02/14/18 11:07 Dose: 100 mg Enoxaparin Sodium (Lovenox) 40 mg SC DAILY [facility]; Protocol Last Admin: 02/14/18 11:00 Dose: 40 mg Escitalopram Oxalate (Lexapro) 20 mg PO DAILY [facility] Last Admin: 02/14/18 11:02 Dose: 20 mg Fenofibrate (Tricor) 145 mg PO DAILY [facility] Last Admin: 02/14/18 11:02 Dose: 145 mg Hydrochlorothiazide (Microzide) 12.5 mg PO DAILY [facility] Last Admin: 02/14/18 11:03 Dose: 12.5 mg Hydromorphone HCl (Dilaudid) 1 mg IVP Q4H PRN PRN Reason: Pain, severe (8-10) Last Admin: 02/14/18 11:46 Dose: 1 mg Ceftriaxone Sodium (Rocephin 1 Gram Ivpb) 1 gm in 100 mls @ 100 mls/hr IVPB DAILY [facility]; Protocol Last Admin: 02/14/18 11:09 Dose: 100 mls/hr Ketorolac Tromethamine (Toradol) 15 mg IVP Q12 PRN PRN Reason: Pain, moderate (4-7) Last Admin: 02/14/18 08:20 Dose: 15 mg Metoprolol Tartrate (Lopressor) 25 mg PO Q12 [facility] Last Admin: 02/14/18 11:03 Dose: 25 mg Non-Formulary Medication (Lubiprostone [Amitiza]) 24 mcg PO BID [facility] Last Admin: 02/13/18 18:37 Dose: Not Given Non-Formulary Medication (Olanzapine/Fluoxetine Hcl [Olanzapine-Fluoxetine 6-25 Mg]) 2 tab PO [facility] Last Admin: 02/14/18 06:05 Dose: Not Given Nystatin (Nystop Topical Powder) 0 gm TOP BID [facility] Last Admin: 02/14/18 11:09 Dose: 1 applic Oxycodone HCl (Oxycodone Immediate Release Tab) 10 mg PO Q4H PRN PRN Reason: Pain, moderate (4-7) Last Admin: 02/14/18 06:04 Dose: 10 mg Pantoprazole Sodium (Protonix Ec Tab) 40 mg PO HS [facility] Last Admin: 02/13/18 23:04 Dose: 40 mg Pentoxifylline (Pentoxil) 400 mg PO TID [facility] Last Admin: 02/11/18 10:54 Dose: Not Given Pregabalin (Lyrica) 100 mg PO TID [facility] Last Admin: 02/14/18 11:07 Dose: 100 mg Ropinirole HCl (Requip) 1 mg PO DAILY [facility] Last Admin: 02/14/18 11:12 Dose: 1 mg - Labs Labs: 02/14/18 06:00 02/14/18 06:00 PT 11.5 SECONDS (9.4-12.5) 02/13/18 06:30 INR 1.00 02/13/18 06:30 APTT 33.2 Seconds (25.1-36.5) 02/13/18 06:30
--- NOTE | 2018-02-14 15:55 | PN ---
DATE: 02/14/2018 PULMONARY PROGRESS NOTE REFERRING PHYSICIAN: Marli Hill MD SUBJECTIVE: The patient is lying in bed, asleep, easily arousable. No headache, rhinitis, cough, shortness of breath, chest pain, abdominal pain, nausea, vomiting, leg pain or leg swelling reported. PHYSICAL EXAMINATION GENERAL: No acute distress. VITAL SIGNS: Blood pressure 132/91, pulse 97, temperature 99.4, and oxygen saturation 92. HEENT: Moist mucous membranes. Crowded airway. Small oral cavity. NECK: Supple. No JVD. LUNGS: Few scattered rhonchi bilaterally. CARDIOVASCULAR: S1, S2 audible. ABDOMEN: Soft, nontender. No distention. No organomegaly. EXTREMITIES: Immobilizer in place to the right lower extremity. No edema to bilateral lower extremities. NEUROLOGICAL: Awake, alert, and verbal. Follows commands. MEDICATIONS: Reviewed. Tylenol 650 every 6 hours p.r.n., DuoNeb 3 mL inhalation every 6 hours p.r.n., Brovana 50 mcg every 12 hours, Lipitor 10 mg daily, Pulmicort 0.5 mg inhalation every 12 hours, calcium with vitamin D one tab p.o. daily, Rocephin 1 g daily, vitamin B12 1000 mcg IM daily, Colace 100 mg twice a day, doxycycline 100 mg every 12 hours, Lovenox 40 mg subcu daily, Lexapro 20 mg p.o. daily, fenofibrate 145 mg p.o. daily, hydrochlorothiazide 12.5 mg p.o. daily, Dilaudid 1 mg IV push every 4 hours p.r.n., Toradol 15 mg IV push every 12 hours p.r.n., metoprolol tartrate 25 mg every 12 hours, Amitiza 25 mcg twice a day, olanzapine/fluoxetine 6/25 mg two tabs at bedtime, Nystatin topically twice a day to the infected area, oxycodone 10 mg every 4 hours p.r.n., Protonix 40 mg at bedtime, Pentoxil 400 mg two times a day, Lyrica 100 mg two times a day, and ReQuip 1 mg daily. LABORATORY DATA: Reviewed. WBC 7.7, RBC 3.86, hemoglobin 9.7, hematocrit 32.9, platelets 223. Sodium 138, potassium 5.1, chloride 105, carbon dioxide 20, anion gap 10, BUN 12, creatinine 0.9, GFR greater than 60. Random glucose 119, calcium 8.1. IMPRESSION AND PLAN: Mechanical fall with right lateral tibial plateau fracture, 5 mm plateau depression, status post aura, chronic obstructive lung disease, valvular heart disease, history of gastric bypass surgery, depression, anxiety disorder, chronic pain syndrome, history of sleep apnea syndrome. Continue sleep apnea precaution, head of bed elevated at 25 degrees. Continue continuous positive airway pressure use at bedtime, continue bronchodilators, gastric prophylaxis, deep venous thrombosis prophylaxis. The patient out-of-bed to chair if okay with orthopedic surgeon. This patient was seen and examined by Dr. Herrera. I discussed assessment and plan as described above. Thank you for this consult. We will follow. Rg Weeks APN Catrachito Herrera MD [facility]
[2018-02-14] MEDS: Pantoprazole 40 mg EC Tab PO SCH (22:15)
--- NOTE | 2018-02-14 23:31 | PN ---
DATE: 02/14/2018 SUBJECTIVE: The patient is status post surgery of the right knee. She seems comfortable on pain medications. No respiratory distress. PHYSICAL EXAMINATION VITAL SIGNS: Earlier she had a temperature of 102.1, now it is 98.1, heart rate 81, blood pressure 106/69, respiration 18, sat 92% on room air. HEAD AND NECK: Normal. No JVD. No thyromegaly. CHEST: Clear bilateral. CARDIAC: First sound and second sound normal. ABDOMEN: Soft, obese, and nontender. EXTREMITIES: Noted for right knee cast and left leg no edema. NEUROLOGIC: She open her eyes and move. Follow commands. She was just sedated She moves all extremities except her right leg because of recent surgery. LABORATORY STUDY: Sodium 138, potassium 5.1, chloride 105, bicarb 29, BUN 12, creatinine 0.9, and calcium 8.1. Hemoglobin A1c 5.3. CBC shows white count of 7.7, hemoglobin 9.7, hematocrit 32.9, and platelets 223. MEDICATIONS: The patient currently taking Brovana, Colace, Dilaudid, doxycycline, DuoNeb, Lexapro, Lipitor 10 mg at bedtime, Lopressor 25 mg twice a day, Amitiza 24 mcg twice a day, Lovenox 40 subcutaneous, Lyrica 100 t.i.d., calcium, vitamin D, oxycodone 10 mg every 4 hour p.r.n., Protonix, pentoxifylline, Requip, Rocephin 1 g daily, Toradol p.r.n. 15 mg, TriCor 145, Tylenol and vitamin B12. IMPRESSION AND PLAN: 1. Status post right knee surgery. The patient will be going for physical therapy. 2. Postoperative fever of 102. Does also have urine 10 to 15 white cells however. Her blood cultures are negative and urine culture . She will continue current antibiotic coverage. Currently, she is getting Rocephin and doxycycline. 3. Hypertension, chronic obstructive pulmonary disease and anemia. Continue current therapy. Brovana, Pulmicort and Lipitor for hypercholesterolemia. Continue current therapy. Plan, go for rehabilitation when stable and afebrile. Marbin Silva MD
--- NOTE | 2018-02-15 02:31 | PN ---
DATE: 02/14/2018 SUBJECTIVE: The patient is seen in bed, in no acute distress. The patient was seen early this morning in room 564, bed 1. No fevers. No chills. PHYSICAL EXAMINATION: VITAL SIGNS: Temperature of 98, T-max earlier of 102, blood pressure 130/90, respiratory rate of 18. HEENT: Unremarkable. NECK: Supple. LUNGS: Decreased breath sounds. HEART: Normal S1 and S2. ABDOMEN: Soft. LABORATORY EXAMINATION: Reveals a white count of 7.7, hemoglobin of 9. Coagulation is noted. Chemistries revealed a BUN of 12, creatinine of 0.9. LFTs are noted. Procalcitonin is 0.07. Urinalysis is noted. Microbiology reveals the blood cultures are negative. Urine cultures with multiple species, probable contamination. ASSESSMENT AND PLAN: This is a 52-year-old female with left lower lobe community-acquired pneumonia. The patient is with chronic obstructive lung disease, on ceftriaxone and doxycycline day #3. The patient had a CAT scan of the chest. Status post open reduction and internal fixation of the tibial plateau fracture, on doxycycline and ceftriaxone. We will follow closely with you. Ryan Patel MD
[2018-02-15] MEDS: HYDROmorphone 1 mg/ml ISec IVP PRN ×3 (04:14→22:18)
[2018-02-15 06:57] LABS: BASO # 0.01 K/mm3 (0.0-2.0); BASO % 0.2 % (0.0-3.0); EOS # 0.2 (0.0-0.7); EOS % 3.4 % (1.5-5.0); GRAN # 3.48 (1.4-6.5); GRAN % 69.6 % (50.0-68.0); HEMOGLOBIN 9.1 g/dL (12.0-16.0); LYMPH % 19.8 % (22.0-35.0); MEAN CELL VOLUME 86.9 fl (80.0-105.0); MEAN CORPUSCULAR HEMOGLOBIN 25.3 pg (25.0-35.0); MEAN CORPUSCULAR HGB CONC 29.1 g/dl (31.0-37.0); MEAN PLATELET VOLUME 8.9 fl (7.0-11.0); MONO # 0.4 (0.1-0.6); RBC 3.6 10^6/uL (3.5-6.1); RED CELL DISTRIBUTION WIDTH 17.3 % (11.5-14.5)
[2018-02-15 07:31] LABS: BLOOD UREA NITROGEN 15 mg/dL (7-21); CALCIUM 7.8 mg/dL (8.4-10.5); GFR NON-AFRICAN AMERICAN > 60
[2018-02-15] MEDS: Budesonide 0.5 mg/2 ml Inhal Susp UD IH SCH ×3 (07:38→19:42)
[2018-02-15] MEDS: Arformoterol 15 mcg/2 ml Inh Sol IH SCH ×3 (07:38→19:41)
--- NOTE | 2018-02-15 07:40 | CP.PCM.PN ---
Subjective - Date & Time of Evaluation Date of Evaluation: 02/15/18 Time of Evaluation: 06:45 - Subjective Subjective: Lying in bed, Awake, alert, tolerable leg pain Reason for consultation and follow up: Cardiac evaluation and pre-op clearance for right tibial fracture, status post ORIF of right tibia plateau fracture Seen and examined by me and Dr. Way Objective - Vital Signs/Intake and Output Vital Signs (last 24 hours): Temp Pulse Resp BP Pulse Ox 98.2 F 85 18 111/67 92 L 02/14/18 23:25 02/14/18 23:25 02/14/18 23:25 02/14/18 23:25 02/14/18 23:25 Intake and Output: 02/15/18 02/15/18 06:59 18:59 Intake Total 860 Balance 860 - Medications Medications: Current Medications Acetaminophen (Tylenol 325mg Tab) 650 mg PO Q6H PRN PRN Reason: Fever >100.4 F Last Admin: 02/14/18 07:03 Dose: 650 mg Albuterol/Ipratropium (Duoneb 3 Mg/0.5 Mg (3 Ml) Ud) 3 ml IH [id number] PRN PRN Reason: Shortness of Breath Arformoterol Tartrate (Brovana) 15 mcg IH [id number] [facility] Last Admin: 02/14/18 20:13 Dose: 15 mcg Atorvastatin Calcium (Lipitor) 10 mg PO DIN [facility] Last Admin: 02/14/18 17:22 Dose: 10 mg Budesonide (Pulmicort Respules) 0.5 mg IH [id number] [facility] Last Admin: 02/14/18 20:13 Dose: 0.5 mg Calcium/Vitamin D (Oscal-D 250 Mg-125 Units Tab) 1 tab PO DAILY [facility] Last Admin: 02/14/18 11:02 Dose: 1 tab Cyanocobalamin (Vitamin B12 1000 Mcg/Ml Inj) 1,000 mcg IM DAILY [facility] Last Admin: 02/14/18 11:01 Dose: 1,000 mcg Docusate Sodium (Colace) 100 mg PO BID [facility] Last Admin: 02/14/18 18:28 Dose: 100 mg Doxycycline Hyclate (Doryx) 100 mg PO Q12 [facility]; Protocol Last Admin: 02/14/18 22:15 Dose: 100 mg Enoxaparin Sodium (Lovenox) 40 mg SC DAILY [facility]; Protocol Last Admin: 02/14/18 11:00 Dose: 40 mg Escitalopram Oxalate (Lexapro) 20 mg PO DAILY [facility] Last Admin: 02/14/18 11:02 Dose: 20 mg Fenofibrate (Tricor) 145 mg PO DAILY [facility] Last Admin: 02/14/18 11:02 Dose: 145 mg Hydrochlorothiazide (Microzide) 12.5 mg PO DAILY [facility] Last Admin: 02/14/18 11:03 Dose: 12.5 mg Hydromorphone HCl (Dilaudid) 1 mg IVP Q4H PRN PRN Reason: Pain, severe (8-10) Last Admin: 02/15/18 04:14 Dose: 1 mg Ceftriaxone Sodium (Rocephin 1 Gram Ivpb) 1 gm in 100 mls @ 100 mls/hr IVPB DAILY [facility]; Protocol Last Admin: 02/14/18 11:09 Dose: 100 mls/hr Ketorolac Tromethamine (Toradol) 15 mg IVP Q12 PRN PRN Reason: Pain, moderate (4-7) Last Admin: 02/14/18 20:42 Dose: 15 mg Metoprolol Tartrate (Lopressor) 25 mg PO Q12 [facility] Last Admin: 02/14/18 22:14 Dose: 25 mg Non-Formulary Medication (Lubiprostone [Amitiza]) 24 mcg PO BID [facility] Last Admin: 02/14/18 18:29 Dose: Not Given Non-Formulary Medication (Olanzapine/Fluoxetine Hcl [Olanzapine-Fluoxetine 6-25 Mg]) 2 tab PO HS [facility] Last Admin: 02/14/18 22:55 Dose: Not Given Nystatin (Nystop Topical Powder) 0 gm TOP BID [facility] Last Admin: 02/14/18 18:30 Dose: 1 applic Oxycodone HCl (Oxycodone Immediate Release Tab) 10 mg PO Q4H PRN PRN Reason: Pain, moderate (4-7) Last Admin: 02/14/18 06:04 Dose: 10 mg Pantoprazole Sodium (Protonix Ec Tab) 40 mg PO HS [facility] Last Admin: 02/14/18 22:15 Dose: 40 mg Pentoxifylline (Pentoxil) 400 mg PO TID [facility] Last Admin: 02/11/18 10:54 Dose: Not Given Pregabalin (Lyrica) 100 mg PO TID [facility] Last Admin: 02/14/18 18:28 Dose: 100 mg Ropinirole HCl (Requip) 1 mg PO DAILY [facility] Last Admin: 02/14/18 11:12 Dose: 1 mg - Labs Labs: 02/15/18 06:00 02/15/18 06:00 PT 11.5 SECONDS (9.4-12.5) 02/13/18 06:30 INR 1.00 02/13/18 06:30 APTT 33.2 Seconds (25.1-36.5) 02/13/18 06:30 - Constitutional Appears: Non-toxic, No Acute Distress - Head Exam Head Exam: NORMAL INSPECTION, NORMOCEPHALIC - Eye Exam Eye Exam: Normal appearance Pupil Exam: NORMAL ACCOMODATION - ENT Exam ENT Exam: Mucous Membranes Moist, Normal Exam - Respiratory Exam Respiratory Exam: Decreased Breath Sounds, Clear to Ausculation Bilateral, NORMAL BREATHING PATTERN - Cardiovascular Exam Cardiovascular Exam: +S1, +S2 - GI/Abdominal Exam GI & Abdominal Exam: Soft, Normal Bowel Sounds - Extremities Exam Additional comments: right leg immobilizer - Neurological Exam Neurological Exam: Alert, Awake, Oriented x3 - Psychiatric Exam Psychiatric exam: Normal Affect, Normal Mood - Skin Skin Exam: Dry, Normal Color, Warm Assessment and Plan - Assessment and Plan (Free Text) Assessment: A 52 year old female,who came to the ER due to right knee pain s/p fall. History of hypertension, COPD, obese, rhabdomyolysis, scoliosis, spinal stenosis, cerebral hemorrhage,CVA, multiple falls w/ left tibial fracture s/p repair.depression, hard of hearing, post traumatic stress syndrome,cholecystectomy, gastric bypass 2006, history of tobacco abuse.CT of right leg showed lateral tibial plateau fracture. Denies chest pain. Denies shortness of breath. Echo showed LVEF 55-60%, normal chambers. Trace MR/TR/AR/PI. mild aortic stenosis, right cusp is heavily calcified relatively immobile. RVSP 31 mmHg.No pericardial effusion. No evidence of heart failure, No evidence of myocardial ischemia. Status post ORIF of right tibia plateau fracture POD#2. Left lower lobe pneumonia. Cardiac status stable. Plan: No distress, complaining of tolerable surgical leg pain Cardiac status stable Heart rate controlled Blood pressure controlled Status post ORIF of right tibia plateau fracture POD#2 On Lopressor 12.5 mg BID Continue IV antibiotics as per ID Continue current treatment Continue current medications Physical therapy Will follow up Plan and treatment discussed with Dr. Way
[2018-02-15] MEDS ORDERED: Magnesium Sulfate 2 gm/50 ml 2 GM/50 ML BAG IVPB ONE (09:20)
[2018-02-15] MEDS: Enoxaparin 40 mg Syringe SC SCH (09:26)
[2018-02-15] MEDS: cefTRIAXone 1 gm 1 GM/100 ML BAG IVPB SCH (09:36)
[2018-02-15] MEDS: Calcium-Vit D 250 mg-125 Units Tab UD PO SCH (09:36)
[2018-02-15] MEDS: Nystatin 100,000 Units/gm Topical Pow(15 gm) TOP SCH ×2 (09:36→18:24)
[2018-02-15] MEDS: Non Formulary Medication (Lubiprostone [Amitiza] 24 MCG) PO SCH ×2 (10:38→18:23)
--- NOTE | 2018-02-15 14:19 | PN ---
DATE: 02/15/2018 SUBJECTIVE: The patient is in bed, in no acute distress, nontoxic. PHYSICAL EXAMINATION: VITAL SIGNS: Temperature is 98, blood pressure is 110/60, respiratory rate of 18. HEENT: Unremarkable. NECK: Supple. LUNGS: Decreased breath sounds. HEART: Normal S1, S2. ABDOMEN: Soft, nontender. LABORATORY DATA: White count of 5, hemoglobin of 9, platelets of 185. Chemistries reveals a BUN of 15, creatinine of 0.9. Urinalysis is noted and microbiology reveals the blood cultures are no growth and urine cultures species and urinalysis is not significant and Dr. Silva's note is reviewed. ASSESSMENT AND PLAN: This is a 52-year-old female, seen earlier today in 564, bed 1, status post right knee surgery. Postoperatively, the patient had a fever, which is resolved, with negative cultures with a left lower community-acquired pneumonia, day #4 of ceftriaxone and doxycycline, status post open reduction internal fixation of the tibial plateau fracture, with negative procalcitonin, negative blood cultures, no obvious source for the postoperative fever of 102. We will discontinue the ceftriaxone and the doxycycline, today is day #4 of the antibiotics. The patient is clinically doing well. She is awake and alert, conversing. We will follow with you. Discontinue the antibiotics. Ryan Patel MD
[2018-02-15] MEDS: Ergocalciferol 50,000 Intl Units Cap PO SCH (18:25)
[2018-02-15] MEDS: oxyCODONE 10 mg Immediate Release Tab PO PRN (18:25)
[2018-02-15] MEDS: Albuterol-Ipratrop 3 mg / 0.5 (3 ml) UD IH PRN (18:35)
--- NOTE | 2018-02-15 21:41 | PN ---
DATE: 02/15/2018 PULMONARY PROGRESS NOTE REFERRING PHYSICIAN: Marli Hill MD SUBJECTIVE: She is lying in bed, sleepy but arousable. Night was unremarkable. Tolerated BiPAP well. No cough. No sputum production. No nausea. No vomiting. Right knee discomfort. Has a soft knee support on the right side. Neurologically awake, alert and follows simple commands. OBJECTIVE: GENERAL: No acute distress. VITAL SIGNS: Temperature is 98, T-max is 102, heart rate is 92, respiratory rate is 20, blood pressure is 99/57, and pulse ox is 94% on room air. HEENT: Moist mucous membranes. Crowded airway. NECK: Supple. No JVD. LUNGS: Has a fair airflow with few rhonchi. HEART: S1 and S2. ABDOMEN: Soft, nontender. No organomegaly. EXTREMITIES: Has a dressing on the right knee. NEUROLOGIC: Awake, alert and follows simple commands. MEDICATIONS: She is on Brovana inhaled twice a day, Colace 100 mg twice a day, Dilaudid 1 mg every 4 hours p.r.n., vitamin D 50,000 units every seven days, DuoNeb every 6 hours p.r.n., Lexapro 20 mg daily, Lipitor 10 mg daily, metoprolol tartrate 25 mg twice a day, Lovenox 40 mg daily, Amitiza 24 mcg twice a day, Lyrica 100 mg three times a day, hydrochlorothiazide 12.5 mg daily, calcium plus vitamin D, oxycodone immediate release every 4 hour p.r.n., pentoxifylline 400 mg three times a day, Protonix 40 mg daily, Pulmicort inhaled twice a day, Requip 1 mg at bedtime, Toradol 15 mg every 12 hours, TriCor 145 mg daily, Tylenol p.r.n., and vitamin B12 1000 mcg IM daily. LABORATORY DATA: Shows hemoglobin 9.1, hematocrit 31.3, WBC 5, platelet is 185. INR 1, PTT 33. Sodium 138, potassium 4.1, chloride 102, bicarbonate 32, BUN 15, creatinine 0.9, glucose 158, calcium is 7.8, phosphorus 3.6, magnesium 1.6. Urinalysis shows wbc's 10-15. Microbiology: Blood cultures and urine cultures have been negative. IMPRESSION AND PLAN: Mechanical fall with right lateral tibial plateau fracture with plateau depression, status post surgery; chronic obstructive lung disease; valvular heart disease; history of gastric bypass surgery; depression; anxiety disorder; chronic pain syndrome; history of sleep apnea syndrome; spike fever. Being followed by Dr. Patel. I believe, antibiotic choice is as per him. From sleep point of view, continue continuous positive airway pressure. Bronchodilators. Keep head at 45 degrees. Gastric prophylaxis. Deep venous thrombosis prophylaxis. Follow up labs in the morning. Thank you for this consult. We will follow with you. Catrachito Herrera MD
[2018-02-15] MEDS: Pantoprazole 40 mg EC Tab PO SCH (22:16)
--- NOTE | 2018-02-16 01:34 | PN ---
DATE: 02/15/2018 SUBJECTIVE: She had right knee surgery done. She complained of little short of breath, history of lung disease in the past, COPD. The patient otherwise seems okay. PHYSICAL EXAMINATION VITAL SIGNS: Temperature 102.6, heart rate 92, blood pressure 110/61, respirations 33, saturation 94%. HEAD AND NECK: Normal. No JVD. No thyromegaly. CHEST: Bilateral wheezing. CARDIAC: First sounds and second sounds normal. ABDOMEN: Soft, nontender. EXTREMITIES: Right knee has a cast and left leg is normal. NEUROLOGIC: Otherwise normal. LABORATORY DATA: The patient had on 02/15/2018, white count 5, hemoglobin 9.1, hematocrit 31.3, platelets 185. Chemistry: Sodium 138, potassium 4.1, chloride 102, bicarb 32, BUN 15, creatinine 0.9, blood sugar 158, calcium 7.8, and phosphorous 3.6, magnesium 1.6. IMPRESSION AND PLAN: 1. Status post right knee surgery. Continue DVT prophylaxis and pain medicine. 2. Wheezing with history of chronic obstructive pulmonary disease. We will give the patient nebulizer treatment. We will get a chest x-ray in the morning and will give Solu-Medrol IV 20 mg IV dose now. The patient also being seen by Dr. Herrera, so will continue current therapy. 3. History of depression, hypercholesterolemia, hypertension, chronic back pain. Plan is to continue current therapy. The patient getting Toradol, getting Lexapro, Dilaudid p.r.n., hydrochlorothiazide 12.5, oxycodone 10 mg every 4, Pulmicort, Requip 1 mg daily,Toradol p.r.n., Tylenol and vitamin B12. She is getting calcium and vitamin D. Continue current therapy. Followup clinically. 4. For the fever, 102, we are going to get ID consultation, Dr. Patel. I see here there is no any antibiotics IV. Will continue. Get blood cultures and get the ID consult. Marbin Silva MD
[2018-02-16] MEDS: HYDROmorphone 1 mg/ml ISec IVP PRN ×2 (05:24→08:59)
--- NOTE | 2018-02-16 07:09 | CP.PCM.PN ---
Subjective - Date & Time of Evaluation Date of Evaluation: 02/16/18 Time of Evaluation: 06:15 - Subjective Subjective: Feels better, tolerable leg pain, Lying in bed, Awake, alert, Reason for consultation and follow up: Cardiac evaluation and pre-op clearance for right tibial fracture, post op follow up status post ORIF of right tibia plateau fracture Seen and examined by me and Dr. Way Objective - Vital Signs/Intake and Output Vital Signs (last 24 hours): Temp Pulse Resp BP Pulse Ox 98.3 F 89 18 144/87 94 L 02/15/18 21:57 02/15/18 22:16 02/15/18 21:57 02/15/18 22:16 02/15/18 21:57 Intake and Output: 02/16/18 02/16/18 06:59 18:59 Intake Total 660 Balance 660 - Medications Medications: Current Medications Acetaminophen (Tylenol 325mg Tab) 650 mg PO Q6H PRN PRN Reason: Fever >100.4 F Last Admin: 02/15/18 17:00 Dose: 650 mg Albuterol/Ipratropium (Duoneb 3 Mg/0.5 Mg (3 Ml) Ud) 3 ml IH [id number] PRN PRN Reason: Shortness of Breath Last Admin: 02/15/18 18:35 Dose: 3 ml Arformoterol Tartrate (Brovana) 15 mcg IH [id number] [facility] Last Admin: 02/15/18 19:41 Dose: Not Given Atorvastatin Calcium (Lipitor) 10 mg PO DIN [facility] Last Admin: 02/15/18 18:21 Dose: 10 mg Budesonide (Pulmicort Respules) 0.5 mg IH [id number] [facility] Last Admin: 02/15/18 19:42 Dose: Not Given Calcium/Vitamin D (Oscal-D 250 Mg-125 Units Tab) 1 tab PO DAILY [facility] Last Admin: 02/15/18 09:36 Dose: 1 tab Cyanocobalamin (Vitamin B12 1000 Mcg/Ml Inj) 1,000 mcg IM DAILY [facility] Last Admin: 02/15/18 09:27 Dose: 1,000 mcg Docusate Sodium (Colace) 100 mg PO BID [facility] Last Admin: 02/15/18 18:21 Dose: 100 mg Enoxaparin Sodium (Lovenox) 40 mg SC DAILY [facility]; Protocol Last Admin: 02/15/18 09:26 Dose: 40 mg Ergocalciferol (Drisdol 50,000 Intl Units Cap) 1 cap PO Q7D [facility] Last Admin: 02/15/18 18:25 Dose: 1 cap Escitalopram Oxalate (Lexapro) 20 mg PO DAILY [facility] Last Admin: 02/15/18 09:29 Dose: 20 mg Fenofibrate (Tricor) 145 mg PO DAILY [facility] Last Admin: 02/15/18 09:31 Dose: 145 mg Hydrochlorothiazide (Microzide) 12.5 mg PO DAILY [facility] Last Admin: 02/15/18 09:29 Dose: 12.5 mg Hydromorphone HCl (Dilaudid) 1 mg IVP Q4H PRN PRN Reason: Pain, severe (8-10) Last Admin: 02/16/18 05:24 Dose: 1 mg Ketorolac Tromethamine (Toradol) 15 mg IVP Q12 PRN PRN Reason: Pain, moderate (4-7) Last Admin: 02/15/18 08:40 Dose: 15 mg Metoprolol Tartrate (Lopressor) 25 mg PO Q12 [facility] Last Admin: 02/15/18 22:16 Dose: 25 mg Non-Formulary Medication (Lubiprostone [Amitiza]) 24 mcg PO BID [facility] Last Admin: 02/15/18 18:23 Dose: Not Given Non-Formulary Medication (Olanzapine/Fluoxetine Hcl [Olanzapine-Fluoxetine 6-25 Mg]) 2 tab PO HS [facility] Last Admin: 02/14/18 22:55 Dose: Not Given Nystatin (Nystop Topical Powder) 0 gm TOP BID [facility] Last Admin: 02/15/18 18:24 Dose: 1 applic Oxycodone HCl (Oxycodone Immediate Release Tab) 10 mg PO Q4H PRN PRN Reason: Pain, moderate (4-7) Last Admin: 02/15/18 18:25 Dose: 10 mg Pantoprazole Sodium (Protonix Ec Tab) 40 mg PO HS [facility] Last Admin: 02/15/18 22:16 Dose: 40 mg Pentoxifylline (Pentoxil) 400 mg PO TID [facility] Last Admin: 02/11/18 10:54 Dose: Not Given Pregabalin (Lyrica) 100 mg PO TID [facility] Last Admin: 02/15/18 18:21 Dose: 100 mg Ropinirole HCl (Requip) 1 mg PO DAILY [facility] Last Admin: 02/15/18 09:38 Dose: 1 mg - Labs Labs: 02/15/18 06:00 02/15/18 06:00 PT 11.5 SECONDS (9.4-12.5) 02/13/18 06:30 INR 1.00 02/13/18 06:30 APTT 33.2 Seconds (25.1-36.5) 02/13/18 06:30 - Constitutional Appears: Non-toxic, No Acute Distress - Head Exam Head Exam: NORMAL INSPECTION, NORMOCEPHALIC - Eye Exam Eye Exam: Normal appearance Pupil Exam: NORMAL ACCOMODATION - ENT Exam ENT Exam: Mucous Membranes Moist, Normal Exam - Respiratory Exam Respiratory Exam: Decreased Breath Sounds, Clear to Ausculation Bilateral, NORMAL BREATHING PATTERN - Cardiovascular Exam Cardiovascular Exam: +S1, +S2 - GI/Abdominal Exam GI & Abdominal Exam: Soft, Normal Bowel Sounds - Extremities Exam Additional comments: right leg immobilizer - Neurological Exam Neurological Exam: Alert, Awake, Oriented x3 - Psychiatric Exam Psychiatric exam: Normal Affect, Normal Mood - Skin Skin Exam: Dry, Normal Color, Warm Assessment and Plan - Assessment and Plan (Free Text) Assessment: A 52 year old female,who came to the ER due to right knee pain s/p fall. History of hypertension, COPD, obese, rhabdomyolysis, scoliosis, spinal stenosis, cerebral hemorrhage,CVA, multiple falls w/ left tibial fracture s/p r epair.depression, hard of hearing, post traumatic stress syndrome,cholecystectomy, gastric bypass 2006, history of tobacco abuse.CT of right leg showed lateral tibial plateau fracture. Denies chest pain. Denies shortness of breath. Echo showed LVEF 55-60%, normal chambers. Trace MR/TR/AR/PI. mild aortic stenosis, right cusp is heavily calcified relatively immobile. RVSP 31 mmHg.No pericardial effusion. No evidence of heart failure, No evidence of myocardial ischemia.Left lower lobe pneumonia. Status post ORIF of right tibia plateau fracture POD#3. Cardiac status stable. Had fever yesterday afternoon, ID on consult. Plan: Status post ORIF of right tibia plateau fracture POD#3 No distress, denies shortness of breath Cardiac status stable Heart rate controlled Blood pressure controlled Had fever yesterday afternoon ID consult Given one dose of Prednisone On Lopressor 25 mg BID Continue IV antibiotics as per ID Continue current treatment Continue current medications Physical therapy Will follow up Plan and treatment discussed with Dr. Way
[2018-02-16] MEDS: Arformoterol 15 mcg/2 ml Inh Sol IH SCH ×2 (07:42→19:47)
[2018-02-16] MEDS: Budesonide 0.5 mg/2 ml Inhal Susp UD IH SCH ×2 (07:42→19:47)
--- NOTE | 2018-02-16 08:48 | CP.PCM.PN ---
Subjective - Date & Time of Evaluation Date of Evaluation: 02/16/18 Time of Evaluation: 08:48 - Subjective Subjective: Pt awake, alert. Tnow 97.4 T max 102 yesterday R knee: dressing changed, TRACY removed incision clean and dry; no drainage or cellulitis mild erythema distal tibia in area of anterio abrasions thigh soft, NT grossly NVI distally POD# 3 cont NWB RLE D/c planning Objective - Vital Signs/Intake and Output Vital Signs (last 24 hours): Temp Pulse Resp BP Pulse Ox 98.3 F 89 18 144/87 94 L 02/15/18 21:57 02/15/18 22:16 02/15/18 21:57 02/15/18 22:16 02/15/18 21:57 Intake and Output: 02/16/18 02/16/18 06:59 18:59 Intake Total 660 Balance 660 - Medications Medications: Current Medications Acetaminophen (Tylenol 325mg Tab) 650 mg PO Q6H PRN PRN Reason: Fever >100.4 F Last Admin: 02/15/18 17:00 Dose: 650 mg Albuterol/Ipratropium (Duoneb 3 Mg/0.5 Mg (3 Ml) Ud) 3 ml IH [id number] PRN PRN Reason: Shortness of Breath Last Admin: 02/15/18 18:35 Dose: 3 ml Arformoterol Tartrate (Brovana) 15 mcg IH [id number] [facility] Last Admin: 02/16/18 07:42 Dose: 15 mcg Atorvastatin Calcium (Lipitor) 10 mg PO DIN [facility] Last Admin: 02/15/18 18:21 Dose: 10 mg Budesonide (Pulmicort Respules) 0.5 mg IH [id number] [facility] Last Admin: 02/16/18 07:42 Dose: 0.5 mg Calcium/Vitamin D (Oscal-D 250 Mg-125 Units Tab) 1 tab PO DAILY [facility] Last Admin: 02/15/18 09:36 Dose: 1 tab Cyanocobalamin (Vitamin B12 1000 Mcg/Ml Inj) 1,000 mcg IM DAILY [facility] Last Admin: 02/15/18 09:27 Dose: 1,000 mcg Docusate Sodium (Colace) 100 mg PO BID [facility] Last Admin: 02/15/18 18:21 Dose: 100 mg Enoxaparin Sodium (Lovenox) 40 mg SC DAILY [facility]; Protocol Last Admin: 02/15/18 09:26 Dose: 40 mg Ergocalciferol (Drisdol 50,000 Intl Units Cap) 1 cap PO Q7D [facility] Last Admin: 02/15/18 18:25 Dose: 1 cap Escitalopram Oxalate (Lexapro) 20 mg PO DAILY [facility] Last Admin: 02/15/18 09:29 Dose: 20 mg Fenofibrate (Tricor) 145 mg PO DAILY [facility] Last Admin: 02/15/18 09:31 Dose: 145 mg Hydrochlorothiazide (Microzide) 12.5 mg PO DAILY [facility] Last Admin: 02/15/18 09:29 Dose: 12.5 mg Hydromorphone HCl (Dilaudid) 1 mg IVP Q4H PRN PRN Reason: Pain, severe (8-10) Last Admin: 02/16/18 05:24 Dose: 1 mg Ketorolac Tromethamine (Toradol) 15 mg IVP Q12 PRN PRN Reason: Pain, moderate (4-7) Last Admin: 02/15/18 08:40 Dose: 15 mg Metoprolol Tartrate (Lopressor) 25 mg PO Q12 [facility] Last Admin: 02/15/18 22:16 Dose: 25 mg Non-Formulary Medication (Lubiprostone [Amitiza]) 24 mcg PO BID [facility] Last Admin: 02/15/18 18:23 Dose: Not Given Non-Formulary Medication (Olanzapine/Fluoxetine Hcl [Olanzapine-Fluoxetine 6-25 Mg]) 2 tab PO HS [facility] Last Admin: 02/14/18 22:55 Dose: Not Given Nystatin (Nystop Topical Powder) 0 gm TOP BID [facility] Last Admin: 02/15/18 18:24 Dose: 1 applic Oxycodone HCl (Oxycodone Immediate Release Tab) 10 mg PO Q4H PRN PRN Reason: Pain, moderate (4-7) Last Admin: 02/15/18 18:25 Dose: 10 mg Pantoprazole Sodium (Protonix Ec Tab) 40 mg PO HS [facility] Last Admin: 02/15/18 22:16 Dose: 40 mg Pentoxifylline (Pentoxil) 400 mg PO TID [facility] Last Admin: 02/11/18 10:54 Dose: Not Given Pregabalin (Lyrica) 100 mg PO TID [facility] Last Admin: 02/15/18 18:21 Dose: 100 mg Ropinirole HCl (Requip) 1 mg PO DAILY [facility] Last Admin: 02/15/18 09:38 Dose: 1 mg - Labs Labs: 02/15/18 06:00 02/15/18 06:00 PT 11.5 SECONDS (9.4-12.5) 02/13/18 06:30 INR 1.00 02/13/18 06:30 APTT 33.2 Seconds (25.1-36.5) 02/13/18 06:30
--- NOTE | 2018-02-16 08:54 | PN ---
DATE: 02/15/2018 REASON FOR CONSULTATION: Followup preop clearancer and, status post postop followup. SUBJECTIVE: The patient denies any chest pain, shortness of breath, or any palpitation. Not in apparent distress. This note is in addition to the dictated by nurse practitioner, Mayte Olmstead. The patient had echocardiography preop that revealed ejection fraction of over 60%, trace MR, trace TR, trace AR, trace PI, mild aortic stenosis, the right cusp is heavily calcified and relatively immobile, RV systolic pressure 31. SUMMARY: This is a 52-year-old female with past medical history significant for noncardiac dependence, history of fall status post knee pain, history of rhabdomyolysis, history of knee surgery in the past, status post knee repair and now the patient had fracture of the tibial plateau status post repair, open reduction internal fixation. Kidney status is stable. RECOMMENDATIONS: Continue Lopressor, increased from 12.5 to 25 mg p.o. b.i.d. Continue DVT prophylaxis. Continue rehab. We will follow with you. Thank you Dr. Hill for providing us the opportunity in taking care of the patient, Yessi Ramirez. Catrachito Way MD MTDD
[2018-02-16 09:38] LABS: MEAN CELL VOLUME 85.6 fl (80.0-105.0); MEAN CORPUSCULAR HEMOGLOBIN 25.3 pg (25.0-35.0); MEAN CORPUSCULAR HGB CONC 29.6 g/dl (31.0-37.0); MEAN PLATELET VOLUME 9.1 fl (7.0-11.0); RBC 3.95 10^6/uL (3.5-6.1); WHITE BLOOD COUNT 5.4 10^3/uL (4.5-11.0)
--- NOTE | 2018-02-16 09:49 | RAD ---
Date of service: 02/13/2018 PROCEDURE: Fluoroscopy up to 1 hr HISTORY: O.R.I.F. OF RT. TIBIAL PLATEAU FX. (RIGHT) COMPARISON: TECHNIQUE: Fluoroscopy was provided in the operating room. 99.2 sec of fluoro time. Cumulative dose 6.57 mGy. Three images were submitted FINDINGS: The study shows internal fixation of a proximal tibial fracture with a plate and multiple screws IMPRESSION: As above
[2018-02-16] MEDS: Enoxaparin 40 mg Syringe SC SCH (09:53)
[2018-02-16] MEDS: Calcium-Vit D 250 mg-125 Units Tab UD PO SCH (09:54)
[2018-02-16] MEDS: Nystatin 100,000 Units/gm Topical Pow(15 gm) TOP SCH ×2 (09:55→17:57)
[2018-02-16] MEDS: Non Formulary Medication (Lubiprostone [Amitiza] 24 MCG) PO SCH ×2 (09:55→17:56)
[2018-02-16 10:14] LABS: BLOOD UREA NITROGEN 19 mg/dL (7-21); GFR NON-AFRICAN AMERICAN > 60
[2018-02-16] MEDS ORDERED: cefTRIAXone 1 gm 1 GM/100 ML BAG IVPB ONE (10:58)
--- NOTE | 2018-02-16 11:53 | CP.PCM.APN ---
Subjective - Date & Time of Evaluation Date of Evaluation: 02/16/18 Time of Evaluation: 08:45 - Subjective Subjective: Pt seen and examined at bedside. +cough but denies chest pain or shortness of breath. States that pain on R leg is controlled w/ current management. Objective - Vital Signs/Intake and Output Vital Signs (last 24 hours): Temp Pulse Resp BP Pulse Ox 97.4 F L 83 18 114/69 93 L 02/16/18 06:00 02/16/18 06:00 02/16/18 06:00 02/16/18 06:00 02/16/18 06:00 Intake and Output: 02/16/18 02/16/18 06:59 18:59 Intake Total 660 Balance 660 - Medications Medications: Current Medications Acetaminophen (Tylenol 325mg Tab) 650 mg PO Q6H PRN PRN Reason: Fever >100.4 F Last Admin: 02/15/18 17:00 Dose: 650 mg Albuterol/Ipratropium (Duoneb 3 Mg/0.5 Mg (3 Ml) Ud) 3 ml IH [id number] PRN PRN Reason: Shortness of Breath Last Admin: 02/15/18 18:35 Dose: 3 ml Arformoterol Tartrate (Brovana) 15 mcg IH [id number] [facility] Last Admin: 02/16/18 07:42 Dose: 15 mcg Atorvastatin Calcium (Lipitor) 10 mg PO DIN [facility] Last Admin: 02/15/18 18:21 Dose: 10 mg Budesonide (Pulmicort Respules) 0.5 mg IH [id number] [facility] Last Admin: 02/16/18 07:42 Dose: 0.5 mg Calcium/Vitamin D (Oscal-D 250 Mg-125 Units Tab) 1 tab PO DAILY [facility] Last Admin: 02/16/18 09:54 Dose: 1 tab Cyanocobalamin (Vitamin B12 1000 Mcg/Ml Inj) 1,000 mcg IM DAILY [facility] Last Admin: 02/16/18 09:56 Dose: 1,000 mcg Docusate Sodium (Colace) 100 mg PO BID [facility] Last Admin: 02/16/18 09:54 Dose: 100 mg Doxycycline Hyclate (Doryx) 100 mg PO Q12 [facility]; Protocol Enoxaparin Sodium (Lovenox) 40 mg SC DAILY [facility]; Protocol Last Admin: 02/16/18 09:53 Dose: 40 mg Ergocalciferol (Drisdol 50,000 Intl Units Cap) 1 cap PO Q7D [facility] Last Admin: 02/15/18 18:25 Dose: 1 cap Escitalopram Oxalate (Lexapro) 20 mg PO DAILY [facility] Last Admin: 02/16/18 09:54 Dose: 20 mg Fenofibrate (Tricor) 145 mg PO DAILY [facility] Last Admin: 02/16/18 09:54 Dose: 145 mg Hydrochlorothiazide (Microzide) 12.5 mg PO DAILY [facility] Last Admin: 02/16/18 09:54 Dose: 12.5 mg Hydromorphone HCl (Dilaudid) 2 mg PO Q6H PRN PRN Reason: Pain, severe (8-10) Ceftriaxone Sodium (Rocephin 1 Gram Ivpb) 1 gm in 100 mls @ 100 mls/hr IVPB ONCE ONE; Protocol Stop: 02/16/18 11:57 Ketorolac Tromethamine (Toradol) 15 mg IVP Q12 PRN PRN Reason: Pain, moderate (4-7) Last Admin: 02/15/18 08:40 Dose: 15 mg Metoprolol Tartrate (Lopressor) 25 mg PO Q12 [facility] Last Admin: 02/16/18 09:57 Dose: 25 mg Non-Formulary Medication (Lubiprostone [Amitiza]) 24 mcg PO BID [facility] Last Admin: 02/16/18 09:55 Dose: Not Given Non-Formulary Medication (Olanzapine/Fluoxetine Hcl [Olanzapine-Fluoxetine 6-25 Mg]) 2 tab PO HS [facility] Last Admin: 02/14/18 22:55 Dose: Not Given Nystatin (Nystop Topical Powder) 0 gm TOP BID [facility] Last Admin: 02/16/18 09:55 Dose: 1 applic Oxycodone HCl (Oxycodone Immediate Release Tab) 10 mg PO Q4H PRN PRN Reason: Pain, moderate (4-7) Last Admin: 02/15/18 18:25 Dose: 10 mg Pantoprazole Sodium (Protonix Ec Tab) 40 mg PO HS [facility] Last Admin: 02/15/18 22:16 Dose: 40 mg Pentoxifylline (Pentoxil) 400 mg PO TID [facility] Last Admin: 02/11/18 10:54 Dose: Not Given Pregabalin (Lyrica) 100 mg PO TID [facility] Last Admin: 02/16/18 09:54 Dose: 100 mg Ropinirole HCl (Requip) 1 mg PO DAILY [facility] Last Admin: 02/16/18 09:53 Dose: 1 mg - Labs Labs: 02/16/18 09:32 02/16/18 09:32 PT 11.5 SECONDS (9.4-12.5) 02/13/18 06:30 INR 1.00 02/13/18 06:30 APTT 33.2 Seconds (25.1-36.5) 02/13/18 06:30 - Constitutional Appears: Well, No Acute Distress - Head Exam Head Exam: NORMAL INSPECTION - Eye Exam Eye Exam: Normal appearance - Neck Exam Neck Exam: Full ROM - Respiratory Exam Respiratory Exam: Clear to Ausculation Bilateral, NORMAL BREATHING PATTERN - Cardiovascular Exam Cardiovascular Exam: REGULAR RHYTHM, +S1, +S2 - GI/Abdominal Exam GI & Abdominal Exam: Soft, Normal Bowel Sounds - Rectal Exam Rectal Exam: Deferred - Extremities Exam Additional comments: R lower ext with immobilizer - Neurological Exam Neurological Exam: Alert, Awake, Oriented x3 Assessment and Plan - Assessment and Plan (Free Text) Assessment: Pt is a 52 y.o. female who is admitter for R lateral tibial plateau fracture s/p ORIF on 02/13. She had spiked a fever yesterday - 102.6. Today, pt had been afebrile. Discussed w/ ID, will give her one dose of Rocephin and will re-start Doxy PO and repeat CXR. ID would like to observe pt for another 24hrs to make sure she remains afebrile. D/W Ortho, pt is cleared for DC to [facility] tomorrow if remains stable. Also, Dr. Silva (covering Dr. Hill), is clearing pt for DC to [facility] tomorrow if she continues to be afebrile and medically stable.
--- NOTE | 2018-02-16 12:30 | PN ---
DATE: 02/16/2018 REFERRING PHYSICIAN: Marli Hill MD SUBJECTIVE: The patient is lying in bed, awake. No acute distress. No overnight events reported. Does report some pain to right lower extremity. Reports wearing CPAP machine last night. No headache, rhinitis, cough, shortness of breath, chest pain, abdominal pain, nausea, vomiting, diarrhea reported. OBJECTIVE: GENERAL: No acute distress. VITAL SIGNS: Blood pressure 114/69, pulse 83, temperature 97.4, and oxygen saturation 93%. HEENT: Moist mucous membranes. Crowded airway. NECK: Supple. No JVD. LUNGS: Few rhonchi bilaterally. CARDIOVASCULAR: S1 and S2 audible. ABDOMEN: Soft and nontender. No distention. No organomegaly. EXTREMITIES: Dressing to right knee. NEUROLOGICAL: Awake, alert, and verbal. Follows simple commands. MEDICATIONS: Reviewed. Tylenol 650 mg every 6 hours p.r.n. for fever, DuoNeb 3 mL inhalation every 6 hours p.r.n., Brovana 15 mcg every 12 hours, Lipitor 10 mg at dinner, Pulmicort 0.5 mg every 12 hours, Os-Vinicius one tab daily, vitamin B12 1000 mcg IM daily, Colace 100 mg twice a day, Lovenox 40 mg subcutaneously daily, ergocalciferol 50,000 units every 7 days, Lexapro 20 mg daily, TriCor 145 mg daily, hydrochlorothiazide 12.5 mg daily, Dilaudid 1 mg IV push every 4 hours p.r.n., Toradol 15 mg every 12 hours p.r.n., Lopressor 25 mg every 12 hours, Amitiza 24 mcg twice a day, olanzapine/fluoxetine 6/25 mg two tabs at bedtime, Nystatin topically twice a day, oxycodone 10 mg every 4 hours p.r.n., Protonix 40 mg at bedtime, Pentoxil 400 mg three times a day, Lyrica 100 mg three times a day, and ReQuip 1 mg daily. LABORATORY DATA: Reviewed. WBC 5.4, RBC 3.95, hemoglobin 10, hematocrit 33.8, and platelets 219. Sodium 137, potassium 4.4, chloride 99, carbon dioxide 30, anion gap 13, BUN 19, creatinine 0.9, GFR greater than 60, random glucose 126, calcium 9. Blood cultures preliminary shows no growth after 4 days. IMPRESSION AND PLAN: Mechanical fall with right lateral tibial plateau fracture and plateau depression, status post surgery, chronic obstructive lung disease, valvular heart disease, history of gastric bypass surgery, depression, anxiety disorder, chronic pain syndrome, history of sleep apnea syndrome. The patient is seen and followed by Infectious Disease, antibiotics as per Infectious Disease. Pulmonary point of view, continue continuous positive airway pressure use at bedtime, head of bed elevated at 45 degrees, sleep precaution, continue inhaled bronchodilators, gastric prophylaxis, deep venous thrombosis prophylaxis. This patient was seen and examined with Dr. Herrera. Discussed assessment and plan as described above. Thank you for this consult and we will follow with you. Rg Weeks APN Catrachito Herrera MD
--- NOTE | 2018-02-16 12:47 | RAD ---
Date of service: 02/16/2018 HISTORY: cough COMPARISON: No prior. TECHNIQUE: Chest PA and lateral FINDINGS: LUNGS: Minimal infiltrate in the lingular segment of the left lung unchanged PLEURA: No significant pleural effusion identified. No pneumothorax apparent. CARDIOVASCULAR: No aortic atherosclerotic calcification present. Normal cardiac size. No pulmonary vascular congestion. OSSEOUS STRUCTURES: No significant abnormalities. VISUALIZED UPPER ABDOMEN: Normal. OTHER FINDINGS: None. IMPRESSION: Minimal infiltrate in the lingular segment of the left lung unchanged
[2018-02-16] MEDS: oxyCODONE 10 mg Immediate Release Tab PO PRN (13:47)
--- NOTE | 2018-02-16 14:02 | CP.PCM.PN ---
Subjective - Date & Time of Evaluation Date of Evaluation: 02/16/18 Time of Evaluation: 10:05 - Subjective Subjective: Had fever again yesterday afternoon but no fevers this morning, still with cough but improving. No nausea, no diarrhea, no SOB at rest. Objective - Vital Signs/Intake and Output Vital Signs (last 24 hours): Temp Pulse Resp BP Pulse Ox 97.4 F L 83 18 114/69 93 L 02/16/18 06:00 02/16/18 06:00 02/16/18 06:00 02/16/18 06:00 02/16/18 06:00 Intake and Output: 02/16/18 02/16/18 06:59 18:59 Intake Total 660 Balance 660 - Medications Medications: Current Medications Acetaminophen (Tylenol 325mg Tab) 650 mg PO Q6H PRN PRN Reason: Fever >100.4 F Last Admin: 02/15/18 17:00 Dose: 650 mg Albuterol/Ipratropium (Duoneb 3 Mg/0.5 Mg (3 Ml) Ud) 3 ml IH [id number] PRN PRN Reason: Shortness of Breath Last Admin: 02/15/18 18:35 Dose: 3 ml Arformoterol Tartrate (Brovana) 15 mcg IH [id number] [facility] Last Admin: 02/16/18 07:42 Dose: 15 mcg Atorvastatin Calcium (Lipitor) 10 mg PO DIN [facility] Last Admin: 02/15/18 18:21 Dose: 10 mg Budesonide (Pulmicort Respules) 0.5 mg IH [id number] [facility] Last Admin: 02/16/18 07:42 Dose: 0.5 mg Calcium/Vitamin D (Oscal-D 250 Mg-125 Units Tab) 1 tab PO DAILY [facility] Last Admin: 02/15/18 09:36 Dose: 1 tab Cyanocobalamin (Vitamin B12 1000 Mcg/Ml Inj) 1,000 mcg IM DAILY [facility] Last Admin: 02/15/18 09:27 Dose: 1,000 mcg Docusate Sodium (Colace) 100 mg PO BID [facility] Last Admin: 02/15/18 18:21 Dose: 100 mg Enoxaparin Sodium (Lovenox) 40 mg SC DAILY [facility]; Protocol Last Admin: 02/15/18 09:26 Dose: 40 mg Ergocalciferol (Drisdol 50,000 Intl Units Cap) 1 cap PO Q7D [facility] Last Admin: 02/15/18 18:25 Dose: 1 cap Escitalopram Oxalate (Lexapro) 20 mg PO DAILY [facility] Last Admin: 02/15/18 09:29 Dose: 20 mg Fenofibrate (Tricor) 145 mg PO DAILY [facility] Last Admin: 02/15/18 09:31 Dose: 145 mg Hydrochlorothiazide (Microzide) 12.5 mg PO DAILY [facility] Last Admin: 02/15/18 09:29 Dose: 12.5 mg Hydromorphone HCl (Dilaudid) 1 mg IVP Q4H PRN PRN Reason: Pain, severe (8-10) Last Admin: 02/16/18 08:59 Dose: 1 mg Ketorolac Tromethamine (Toradol) 15 mg IVP Q12 PRN PRN Reason: Pain, moderate (4-7) Last Admin: 02/15/18 08:40 Dose: 15 mg Metoprolol Tartrate (Lopressor) 25 mg PO Q12 [facility] Last Admin: 02/15/18 22:16 Dose: 25 mg Non-Formulary Medication (Lubiprostone [Amitiza]) 24 mcg PO BID [facility] Last Admin: 02/15/18 18:23 Dose: Not Given Non-Formulary Medication (Olanzapine/Fluoxetine Hcl [Olanzapine-Fluoxetine 6-25 Mg]) 2 tab PO [facility] Last Admin: 02/14/18 22:55 Dose: Not Given Nystatin (Nystop Topical Powder) 0 gm TOP BID [facility] Last Admin: 02/15/18 18:24 Dose: 1 applic Oxycodone HCl (Oxycodone Immediate Release Tab) 10 mg PO Q4H PRN PRN Reason: Pain, moderate (4-7) Last Admin: 02/15/18 18:25 Dose: 10 mg Pantoprazole Sodium (Protonix Ec Tab) 40 mg PO HS [facility] Last Admin: 02/15/18 22:16 Dose: 40 mg Pentoxifylline (Pentoxil) 400 mg PO TID [facility] Last Admin: 02/11/18 10:54 Dose: Not Given Pregabalin (Lyrica) 100 mg PO TID [facility] Last Admin: 02/15/18 18:21 Dose: 100 mg Ropinirole HCl (Requip) 1 mg PO DAILY [facility] Last Admin: 02/15/18 09:38 Dose: 1 mg - Labs Labs: 02/16/18 09:32 02/15/18 06:00 PT 11.5 SECONDS (9.4-12.5) 02/13/18 06:30 INR 1.00 02/13/18 06:30 APTT 33.2 Seconds (25.1-36.5) 02/13/18 06:30 - Constitutional Appears: Chronically Ill - Head Exam Head Exam: NORMAL INSPECTION - Neck Exam Neck Exam: absent: Lymphadenopathy, Meningismus - Respiratory Exam Respiratory Exam: Decreased Breath Sounds - Cardiovascular Exam Cardiovascular Exam: +S1, +S2 - GI/Abdominal Exam GI & Abdominal Exam: Soft. absent: Tenderness Assessment and Plan - Assessment and Plan (Free Text) Plan: Assessment consider left lower lobe community-acquired pneumonia right knee injury from fall with tibial plate fracture S/P ORIF POD #3 history of left lower extremity skin and skin structure infection (cellulitis) in a patient S/P tibial fracture S/P screws placement HTN COPD history cranial surgery S/P cholecystectomy S/P hysterectomy S/P gastric bypass surgery history of migraines left ear deafness obstructive sleep apnea Plan continue Rocephin and Doxycycline day 5 for 5-7 days - reviewed CT chest will continue to monitor clinically
--- NOTE | 2018-02-16 19:07 | PN ---
DATE: 02/16/2018 SEX OF THE PATIENT: Female. AGE OF THE PATIENT: 52. REASON FOR CONSULTATION: Follow up cardiac evaluation, preop clearance for right tibial fracture, status post follow up right internal fixation. SUBJECTIVE: The patient denies any chest pain, shortness of breath, or any palpitation. OBJECTIVE: GENERAL: Not in apparent distress. The patient is hemodynamically stable. VITAL SIGNS: Temperature afebrile, heart rate 83, and blood pressure 114/69. This note is in addition to dictated by nurse practitioner, Mayte Olmstead. ASSESSMENT: Status post fall, status post right knee surgery, status post refracture of the right knee, history of rhabdomyolysis, scoliosis, spinal stenosis, cardiovascular accident, multiple falls, left tibial fracture, status post repair in the past and now plateau of the tibial fracture, status post right internal fixation. Last echocardiogram shows ejection fraction 55% to 60%, normal chamber size, trace mitral regurgitation, tricuspid regurgitation, aortic regurgitation, ____. RECOMMENDATIONS: Continue rehab. Continue adequate analgesia. Continue metoprolol. Continue deep vein thrombosis prophylaxis. We will sign offjohnd to follow p.r.n. Monitor H and H. Monitor electrolytes. Thank you Dr. Hill for providing us the opportunity in taking care of the patient, Yessi Ramirez. Catrachito Way MD
[2018-02-16] MEDS: [UNRECOGNIZED DRUG - OTHER] PO SCH (21:45)
[2018-02-16] MEDS: Pantoprazole 40 mg EC Tab PO SCH (21:45)
[2018-02-16] MEDS: FLUOXETINE HCL PO SCH (21:45)
[2018-02-16] MEDS: OLANZAPINE PO SCH (21:45)
--- NOTE | 2018-02-17 07:04 | CP.PCM.PN ---
Subjective - Date & Time of Evaluation Date of Evaluation: 02/17/18 Time of Evaluation: 06:45 - Subjective Subjective: Lying in bed, Awake, alert Reason for consultation and follow up: Cardiac evaluation and pre-op clearance for right tibial fracture, post op follow up status post ORIF of right tibia plateau fracture Seen and examined by me and Dr. Way Objective - Vital Signs/Intake and Output Vital Signs (last 24 hours): Temp Pulse Resp BP Pulse Ox 97.9 F 79 20 103/68 96 02/16/18 23:19 02/16/18 23:19 02/16/18 23:19 02/16/18 23:19 02/16/18 23:19 Intake and Output: 02/17/18 02/17/18 06:59 18:59 Intake Total 480 Balance 480 - Medications Medications: Current Medications Acetaminophen (Tylenol 325mg Tab) 650 mg PO Q6H PRN PRN Reason: Fever >100.4 F Last Admin: 02/16/18 14:06 Dose: 650 mg Albuterol/Ipratropium (Duoneb 3 Mg/0.5 Mg (3 Ml) Ud) 3 ml IH [id number] PRN PRN Reason: Shortness of Breath Last Admin: 02/15/18 18:35 Dose: 3 ml Arformoterol Tartrate (Brovana) 15 mcg IH [id number] [facility] Last Admin: 02/16/18 19:47 Dose: 15 mcg Atorvastatin Calcium (Lipitor) 10 mg PO DIN [facility] Last Admin: 02/16/18 17:56 Dose: 10 mg Budesonide (Pulmicort Respules) 0.5 mg IH [id number] [facility] Last Admin: 02/16/18 19:47 Dose: 0.5 mg Calcium/Vitamin D (Oscal-D 250 Mg-125 Units Tab) 1 tab PO DAILY [facility] Last Admin: 02/16/18 09:54 Dose: 1 tab Cyanocobalamin (Vitamin B12 1000 Mcg/Ml Inj) 1,000 mcg IM DAILY [facility] Last Admin: 02/16/18 09:56 Dose: 1,000 mcg Docusate Sodium (Colace) 100 mg PO BID [facility] Last Admin: 02/16/18 17:56 Dose: Not Given Doxycycline Hyclate (Doryx) 100 mg PO Q12 [facility]; Protocol Last Admin: 02/16/18 21:30 Dose: 100 mg Enoxaparin Sodium (Lovenox) 40 mg SC DAILY [facility]; Protocol Last Admin: 02/16/18 09:53 Dose: 40 mg Ergocalciferol (Drisdol 50,000 Intl Units Cap) 1 cap PO Q7D [facility] Last Admin: 02/15/18 18:25 Dose: 1 cap Escitalopram Oxalate (Lexapro) 20 mg PO DAILY [facility] Last Admin: 02/16/18 09:54 Dose: 20 mg Fenofibrate (Tricor) 145 mg PO DAILY [facility] Last Admin: 02/16/18 09:54 Dose: 145 mg Hydrochlorothiazide (Microzide) 12.5 mg PO DAILY [facility] Last Admin: 02/16/18 09:54 Dose: 12.5 mg Hydromorphone HCl (Dilaudid) 2 mg PO Q6H PRN PRN Reason: Pain, severe (8-10) Last Admin: 02/17/18 02:13 Dose: 2 mg Ceftriaxone Sodium (Rocephin 1 Gram Ivpb) 1 gm in 100 mls @ 100 mls/hr IVPB DAILY [facility]; Protocol Metoprolol Tartrate (Lopressor) 25 mg PO Q12 [facility] Last Admin: 02/16/18 21:40 Dose: 25 mg Non-Formulary Medication (Lubiprostone [Amitiza]) 24 mcg PO BID [facility] Last Admin: 02/16/18 17:56 Dose: Not Given Non-Formulary Medication (Olanzapine/Fluoxetine Hcl [Olanzapine-Fluoxetine 6-25 Mg]) 2 tab PO HS [facility] Last Admin: 02/16/18 21:45 Dose: 2 tab Nystatin (Nystop Topical Powder) 0 gm TOP BID [facility] Last Admin: 02/16/18 17:57 Dose: 1 applic Oxycodone HCl (Oxycodone Immediate Release Tab) 10 mg PO Q4H PRN PRN Reason: Pain, moderate (4-7) Last Admin: 02/16/18 13:47 Dose: 10 mg Pantoprazole Sodium (Protonix Ec Tab) 40 mg PO HS [facility] Last Admin: 02/16/18 21:45 Dose: 40 mg Pentoxifylline (Pentoxil) 400 mg PO TID [facility] Last Admin: 02/11/18 10:54 Dose: Not Given Pregabalin (Lyrica) 100 mg PO TID [facility] Last Admin: 02/16/18 17:56 Dose: 100 mg Ropinirole HCl (Requip) 1 mg PO DAILY [facility] Last Admin: 02/16/18 09:53 Dose: 1 mg - Labs Labs: 02/16/18 09:32 02/16/18 09:32 PT 11.5 SECONDS (9.4-12.5) 02/13/18 06:30 INR 1.00 02/13/18 06:30 APTT 33.2 Seconds (25.1-36.5) 02/13/18 06:30 - Constitutional Appears: Non-toxic, No Acute Distress - Head Exam Head Exam: NORMAL INSPECTION, NORMOCEPHALIC - Eye Exam Eye Exam: Normal appearance Pupil Exam: NORMAL ACCOMODATION - ENT Exam ENT Exam: Mucous Membranes Moist, Normal Exam - Respiratory Exam Respiratory Exam: Decreased Breath Sounds, NORMAL BREATHING PATTERN - Cardiovascular Exam Cardiovascular Exam: +S1, +S2 - GI/Abdominal Exam GI & Abdominal Exam: Soft, Normal Bowel Sounds - Extremities Exam Additional comments: right leg immobilizer - Neurological Exam Neurological Exam: Alert, Altered, Awake, Oriented x3 - Psychiatric Exam Psychiatric exam: Normal Affect, Normal Mood - Skin Skin Exam: Dry, Normal Color, Warm Assessment and Plan - Assessment and Plan (Free Text) Assessment: A 52 year old female,who came to the ER due to right knee pain s/p fall. History of hypertension, COPD, obese, rhabdomyolysis, scoliosis, spinal stenosis, cerebral hemorrhage,CVA, multiple falls w/ left tibial fracture s/p repair.depression, hard of hearing, post traumatic stress syndrome,cholecystectomy, gastric bypass 2006, history of tobacco abuse.CT of right leg showed lateral tibial plateau fracture. Denies chest pain. Denies shortness of breath. Echo showed LVEF 55-60%, normal chambers. Trace MR/TR/AR/PI. mild aortic stenosis, right cusp is heavily calcified relatively immobile. RVSP 31 mmHg.No pericardial effusion. No evidence of heart failure, No evidence of myocardial ischemia. Left lower lobe pneumonia. Status post ORIF of right tibia plateau fracture POD#4. Cardiac status stable. ID on consult. Plan: Cardiac status stable Heart rate controlled Blood pressure controlled Status post ORIF of right tibia plateau fracture POD#4 No distress, denies shortness of breath ID consult (left lower lobe pneumonia Continue IV antibiotics as per ID On Lopressor 25 mg BID Continue current treatment Continue current medications Physical therapy Discharge planning Will follow up Plan and treatment discussed with Dr. Way
[2018-02-17] MEDS: Budesonide 0.5 mg/2 ml Inhal Susp UD IH SCH ×2 (07:51→19:58)
[2018-02-17] MEDS: Arformoterol 15 mcg/2 ml Inh Sol IH SCH ×2 (07:51→19:57)
[2018-02-17] MEDS ORDERED: cefTRIAXone 1 gm 1 GM/100 ML BAG IVPB SCH (10:00)
[2018-02-17] MEDS: Calcium-Vit D 250 mg-125 Units Tab UD PO SCH (11:00)
[2018-02-17] MEDS: Ergocalciferol 50,000 Intl Units Cap PO SCH (11:25)
[2018-02-17] MEDS: Enoxaparin 40 mg Syringe SC SCH (11:26)
[2018-02-17] MEDS: Non Formulary Medication (Lubiprostone [Amitiza] 24 MCG) PO SCH ×2 (11:27→17:38)
[2018-02-17] MEDS: Vancomycin 1gm in NS 250ml 1 GM/250 ML BAG IVPB SCH (11:42)
--- NOTE | 2018-02-17 12:14 | PN ---
DATE: 02/17/2018 REFERRING PHYSICIAN: Marli Hill MD. SUBJECTIVE: The patient lying in bed, asleep, easily arousable, no acute distress. No overnight events reported. The patient reports wearing BiPAP last night. No headache, rhinitis, cough, shortness of breath, chest pain, abdominal pain, nausea, vomiting, diarrhea, leg pain reported. The patient was febrile yesterday evening. PHYSICAL EXAMINATION: GENERAL: No acute distress. VITAL SIGNS: Blood pressure 103/68, pulse 79, temperature 97.9, oxygen saturation 96. HEENT: Moist mucous membranes. Crowded airway. NECK: Supple. No JVD. LUNGS: Few rhonchi bilaterally. CARDIOVASCULAR: S1 and S2 audible. ABDOMEN: Soft and nontender. No distention. No organomegaly. EXTREMITIES: Knee immobilizer in place to right lower extremity. NEUROLOGICAL: Awake, alert, and verbal. Follows commands. MEDICATIONS: Reviewed. Tylenol 650 every 6 hours p.r.n. fever greater than 100.4, DuoNeb 3 mL inhalation every 6 hours p.r.n., Brovana 15 mcg every 12 hours, Lipitor 10 mg at dinner, Pulmicort 0.5 mg every 12 hours, Os-Vinicius 1 tab daily, Rocephin 1 g every 8 hours, vitamin B12 at 100 mcg injection IM daily, Colace 100 mg twice a day, Lovenox 40 mg subcutaneously daily, ergocalciferol 1 capsule every 7 days, Lexapro 20 mg daily, fenofibrate 145 mg daily, hydrochlorothiazide 12.5 mg daily, Dilaudid 2 mg every 6 hours p.r.n., metoprolol tartrate 25 mg every 12 hours, Amitiza 24 mcg twice a day, olanzapine/fluoxetine 6/25 mg at bedtime, nystatin topically twice a day, oxycodone 10 mg every 4 hours p.r.n., Protonix 40 mg at bedtime, Pentoxil 400 mg 3 times a day, Lyrica 100 mg 3 times a day, and ReQuip 1 mg daily, vancomycin 1 g every 12 hours. LABORATORY DATA: Reviewed. POC glucose 105. Blood cultures, preliminary, no growth after 24 hours. IMPRESSION AND PLAN: Mechanical fall, right lateral tibial plateau fracture with plateau depression, status post open reduction and internal fixation, chronic obstructive lung disease, valvular heart disease, history of gastric bypass surgery, depression, anxiety disorder, chronic pain syndrome, history of sleep apnea syndrome. Continue followup with Infectious Disease. Antibiotics as per Infectious Disease. Pulmonary point of view, continue continuous positive airway pressure use at bedtime, sleep apnea precaution, head of bed elevated 45 degrees, continue inhaled bronchodilators, gastric prophylaxis, deep venous thrombosis prophylaxis, avoid nocturnal sedation. This patient was seen and examined with Dr. Herrera. Discussed assessment and plan as described above. Thank you for this consult. We will follow with you. Rg Weeks APN Catrachito Herrera MD
[2018-02-17] MEDS: Cefepime 1gm in NS 100ml 1 GM/100 ML BAG IVPB SCH ×2 (13:52→21:30)
[2018-02-17] MEDS: Nystatin 100,000 Units/gm Topical Pow(15 gm) TOP SCH ×2 (14:00→18:08)
--- NOTE | 2018-02-17 14:30 | PN ---
DATE: 02/17/2018 REASON FOR THE CONSULTATION AND FOLLOWUP: Cardiac evaluation, preop clearance for right tibial fracture, status post postoperative OR internal fixation postoperative followup. SUBJECTIVE: The patient denies any chest pain, shortness of breath, or any palpitation. not in apparent distress. PHYSICAL EXAMINATION VITAL SIGNS: Temperature afebrile, heart rate 79 and blood pressure 103/68. HEENT: PERRLA intact. NECK: Supple. No carotid bruit or thyromegaly. CHEST: Clear to auscultation. HEART: S1 and S2 regular. ABDOMEN: Soft. EXTREMITIES: Clubbing, cyanosis negative. LABORATORY DATA: Blood workup as follows; WBC 5.5, hemoglobin 10, hematocrit 33.8 and platelet count 219. Chemistry shows sodium 130, potassium 4.0, chloride 99, carbon dioxide 38, anion gap of 13, BUN 19 and creatinine 0.9. IMPRESSION: A 52-year-old female with past medical history significant for tibial surgery in the past status post tibial plateau fracture, status post open reduction and internal fixation, postop the patient is currently stable. Her recent echo shows ejection fraction of 55%, trace mitral regurgitation, tricuspid regurgitation, aortic regurgitation, PI, mild aortic stenosis, right cusp is heavily calcified, right ventricular systolic pressure 31, cardiovascular status is stable. No evidence of acute myocardial infarction, no evidence of ischemia. RECOMMENDATIONS: Continue adequate analgesia and rehab. We will sign off and glad to follow p.r.n. Continue perioperative beta-saba. Echo dated on 02/12/2018. This note is an addition to note dictated by nurse practitioner, Mayte Olmstead. Thank you Dr. Hill for providing us the opportunity in taking care of the patient, Yessi Ramirez. Catrachito Way MD
--- NOTE | 2018-02-17 17:03 | PN ---
DATE: 02/17/2018 SUBJECTIVE: The patient seen earlier today. The patient is slightly more lethargic today although she is responsive, she does communicate. She appears slightly less responsive. PHYSICAL EXAMINATION: VITAL SIGNS: Temperature is 100.8, heart rate of 86, respiratory rate of 20, blood pressure is 104/50. HEENT: Unremarkable. NECK: Supple. LUNGS: Have decreased breath sounds. HEART: Normal S1 and S2. ABDOMEN: Soft, nontender. LABORATORY EXAMINATION: Reveals a white count of 5.4, hemoglobin of 10 and platelets of 219. Coagulation is noted. Chemistries reveals a BUN of 19, creatinine of 0.9. Urinalysis is noted. Toxicology is reviewed. Microbiology reveals the blood cultures are negative. ASSESSMENT AND PLAN: A 52-year-old female with a fever, which is a new fever really although the repeat cultures are negative and also had a tachycardia. Systemic inflammatory response syndrome with a left lower lobe community-acquired pneumonia, right knee injury status post open reduction and internal fixation day #4 and, on ceftriaxone and doxycycline day #6. We will discontinue the doxycycline and the ceftriaxone new fevers. The patient had a chest x-ray yesterday. Minimal infiltrate is noted, which is unchanged with negative blood cultures and repeat cultures are negative. We will order urinalysis and urine culture and sputum culture and methicillin-resistant Staphylococcus aureus screen and a procalcitonin. We will make further recommendations. We will empirically start vancomycin and Maxipime. We will follow with you. Ryan Patel MD
[2018-02-17] MEDS: OLANZAPINE PO SCH (21:29)
[2018-02-17] MEDS: [UNRECOGNIZED DRUG - OTHER] PO SCH (21:29)
[2018-02-17] MEDS: FLUOXETINE HCL PO SCH (21:29)
[2018-02-17] MEDS: Pantoprazole 40 mg EC Tab PO SCH (21:29)
[2018-02-18 00:14] LABS: URINE BILIRUBIN NEGATIVE (NEGATIVE); URINE BLOOD NEGATIVE (NEGATIVE); URINE GLUCOSE (UA) NEGATIVE (NEGATIVE); URINE LEUKOCYTE ESTERASE NEGATIVE Leu/uL (NEGATIVE); URINE PROTEIN NEGATIVE mg/dL (<30 mg/dL); URINE UROBILINOGEN 0.2 E.U./dL (<1 E.U./dL)
[2018-02-18 00:16] LABS: URINE APPEARANCE CLEAR (CLEAR); URINE COLOR YELLOW (YELLOW)
[2018-02-18] MEDS: oxyCODONE 10 mg Immediate Release Tab PO PRN ×2 (00:19→06:39)
[2018-02-18] MEDS: Vancomycin 1gm in NS 250ml 1 GM/250 ML BAG IVPB SCH ×3 (01:45→23:25)
--- NOTE | 2018-02-18 02:14 | PN ---
DATE: 02/17/2018 SUBJECTIVE: The patient is clinically stable, comfortable breathing. No distress. PHYSICAL EXAMINATION: VITAL SIGNS: Temperature 98, heart rate 102, blood pressure 110/76, respirations 20, saturation 96%. HEAD AND NECK: Normal. No JVD. No thyromegaly. CHEST: Clear, bilateral. Decreased wheezing, better. CARDIAC: First sound and second sounds normal. ABDOMEN: Soft, nontender. EXTREMITIES: Right knee cast and no edema. NEUROLOGIC: Normal. LABORATORY DATA: Blood sugar 105, otherwise stable. IMPRESSION AND PLAN: 1. Status post right knee surgery fracture. The patient is going for rehabilitation. Continue deep vein thrombosis prophylaxis. 2. Chronic obstructive pulmonary disease, mild exacerbation, better with Solu-Medrol. Continue on inhaled bronchodilators. 3. Hypertension, hypercholesterinemia, anemia. Continue Lipitor, metoprolol, and iron pills. 4. The patient had chronic depression. Continue on Lexapro. The patient is getting Requip 1 mg by mouth daily. 5. Fever of 102. The patient had cultures. Culture results are negative. microbiology. The patient is on vancomycin and Maxipime. We will continue current therapy when cleared by Infectious Disease and other consultants. The patient will be sent for rehabilitation. Marbin Silva MD
[2018-02-18] MEDS: Albuterol-Ipratrop 3 mg / 0.5 (3 ml) UD IH PRN ×2 (03:26→07:25)
[2018-02-18] MEDS: Cefepime 1gm in NS 100ml 1 GM/100 ML BAG IVPB SCH ×3 (05:21→22:46)
--- NOTE | 2018-02-18 06:45 | CP.PCM.PN ---
Subjective - Date & Time of Evaluation Date of Evaluation: 02/18/18 Time of Evaluation: 06:20 - Subjective Subjective: Awake, alert, Lying in bed, no distress Reason for consultation and follow up: Cardiac evaluation and pre-op clearance for right tibial fracture, post op follow up status post ORIF of right tibia plateau fracture Seen and examined by me and Dr. Way Objective - Vital Signs/Intake and Output Vital Signs (last 24 hours): Temp Pulse Resp BP Pulse Ox 98.6 F 102 H 18 110/76 98 02/17/18 23:21 02/17/18 23:21 02/17/18 23:21 02/17/18 23:21 02/17/18 23:21 Intake and Output: 02/17/18 02/18/18 18:59 06:59 Intake Total 620 Balance 620 - Medications Medications: Current Medications Acetaminophen (Tylenol 325mg Tab) 650 mg PO Q6H PRN PRN Reason: Fever >100.4 F Last Admin: 02/16/18 14:06 Dose: 650 mg Albuterol/Ipratropium (Duoneb 3 Mg/0.5 Mg (3 Ml) Ud) 3 ml IH [id number] PRN PRN Reason: Shortness of Breath Last Admin: 02/18/18 03:26 Dose: 3 ml Arformoterol Tartrate (Brovana) 15 mcg IH [id number] [facility] Last Admin: 02/17/18 19:57 Dose: 15 mcg Atorvastatin Calcium (Lipitor) 10 mg PO DIN [facility] Last Admin: 02/17/18 18:05 Dose: 10 mg Budesonide (Pulmicort Respules) 0.5 mg IH [id number] [facility] Last Admin: 02/17/18 19:58 Dose: 0.5 mg Calcium/Vitamin D (Oscal-D 250 Mg-125 Units Tab) 1 tab PO DAILY [facility] Last Admin: 02/17/18 11:00 Dose: 1 tab Cyanocobalamin (Vitamin B12 1000 Mcg/Ml Inj) 1,000 mcg IM DAILY [facility] Last Admin: 02/17/18 11:28 Dose: 1,000 mcg Docusate Sodium (Colace) 100 mg PO BID [facility] Last Admin: 02/17/18 18:11 Dose: Not Given Enoxaparin Sodium (Lovenox) 40 mg SC DAILY [facility]; Protocol Last Admin: 02/17/18 11:26 Dose: 40 mg Ergocalciferol (Drisdol 50,000 Intl Units Cap) 1 cap PO Q7D [facility] Last Admin: 02/17/18 11:25 Dose: 1 cap Escitalopram Oxalate (Lexapro) 20 mg PO DAILY [facility] Last Admin: 02/17/18 11:25 Dose: 20 mg Fenofibrate (Tricor) 145 mg PO DAILY [facility] Last Admin: 02/17/18 11:25 Dose: 145 mg Hydrochlorothiazide (Microzide) 12.5 mg PO DAILY [facility] Last Admin: 02/17/18 11:41 Dose: Not Given Hydromorphone HCl (Dilaudid) 2 mg PO Q6H PRN PRN Reason: Pain, severe (8-10) Last Admin: 02/18/18 03:50 Dose: 2 mg Cefepime HCl (Maxipime 1gm) 1 gm in 100 mls @ 100 mls/hr IVPB Q8 [facility]; Protocol Stop: 02/26/18 14:01 Last Admin: 02/18/18 05:21 Dose: 100 mls/hr Vancomycin HCl (Vancomycin 1gm) 1 gm in 250 mls @ 167 mls/hr IVPB Q12H [facility]; Protocol Stop: 02/26/18 11:16 Last Admin: 02/18/18 01:45 Dose: 167 mls/hr Metoprolol Tartrate (Lopressor) 25 mg PO Q12 [facility] Last Admin: 02/17/18 21:28 Dose: 25 mg Non-Formulary Medication (Lubiprostone [Amitiza]) 24 mcg PO BID [facility] Last Admin: 02/17/18 17:38 Dose: Not Given Non-Formulary Medication (Olanzapine/Fluoxetine Hcl [Olanzapine-Fluoxetine 6-25 Mg]) 2 tab PO HS [facility] Last Admin: 02/17/18 21:29 Dose: 2 tab Nystatin (Nystop Topical Powder) 0 gm TOP BID [facility] Last Admin: 02/17/18 18:08 Dose: 1 applic Oxycodone HCl (Oxycodone Immediate Release Tab) 10 mg PO Q4H PRN PRN Reason: Pain, moderate (4-7) Last Admin: 02/18/18 06:39 Dose: 10 mg Pantoprazole Sodium (Protonix Ec Tab) 40 mg PO [facility] Last Admin: 01/01/19 21:29 Dose: 40 mg Pentoxifylline (Pentoxil) 400 mg PO TID [facility] Last Admin: 02/11/18 10:54 Dose: Not Given Pregabalin (Lyrica) 100 mg PO TID [facility] Last Admin: 02/17/18 18:05 Dose: 100 mg Ropinirole HCl (Requip) 1 mg PO DAILY [facility] Last Admin: 02/17/18 11:27 Dose: 1 mg - Labs Labs: 02/16/18 09:32 02/16/18 09:32 PT 11.5 SECONDS (9.4-12.5) 02/13/18 06:30 INR 1.00 02/13/18 06:30 APTT 33.2 Seconds (25.1-36.5) 02/13/18 06:30 - Constitutional Appears: Non-toxic, No Acute Distress - Head Exam Head Exam: NORMAL INSPECTION, NORMOCEPHALIC - Eye Exam Eye Exam: Normal appearance Pupil Exam: NORMAL ACCOMODATION - ENT Exam ENT Exam: Mucous Membranes Moist, Normal Exam - Neck Exam Neck Exam: Full ROM - Respiratory Exam Respiratory Exam: Decreased Breath Sounds, Clear to Ausculation Bilateral, NORMAL BREATHING PATTERN - Cardiovascular Exam Cardiovascular Exam: +S1, +S2 - GI/Abdominal Exam GI & Abdominal Exam: Soft, Normal Bowel Sounds - Extremities Exam Additional comments: right leg with immobilzer elevated with pillow - Neurological Exam Neurological Exam: Alert, Awake, Oriented x3 - Psychiatric Exam Psychiatric exam: Normal Affect, Normal Mood - Skin Skin Exam: Dry, Normal Color, Warm Assessment and Plan - Assessment and Plan (Free Text) Assessment: A 52 year old female,who came to the ER due to right knee pain s/p fall. History of hypertension, COPD, obese, rhabdomyolysis, scoliosis, spinal stenosis, cerebral hemorrhage,CVA, multiple falls w/ left tibial fracture s/p repair.depression, hard of hearing, post traumatic stress s yndrome,cholecystectomy, gastric bypass 2006, history of tobacco abuse.CT of right leg showed lateral tibial plateau fracture. Denies chest pain. Denies shortness of breath. Echo showed LVEF 55-60%, normal chambers. Trace MR/TR/AR/PI. mild aortic stenosis, right cusp is heavily calcified relatively immobile. RVSP 31 mmHg.No pericardial effusion. No evidence of heart failure, No evidence of myocardial ischemia. Left lower lobe pneumonia. Status post ORIF of right tibia plateau fracture POD#5. ID consult (left lower lobe pneumonia).Cardiac status stable. Will sign off. Refer as needed. Plan: Cardiac status stable Heart rate controlled Blood pressure controlled Status post ORIF of right tibia plateau fracture POD#5 No distress, denies shortness of breath Continue IV antibiotics as per ID On Lopressor 25 mg BID Adequate pain management for Physical therapy Continue current treatment Continue current medications Physical therapy Discharge planning Will sign off, refer as needed Plan and treatment discussed with Dr. Way
[2018-02-18] MEDS: Arformoterol 15 mcg/2 ml Inh Sol IH SCH ×2 (07:25→20:21)
[2018-02-18] MEDS: Budesonide 0.5 mg/2 ml Inhal Susp UD IH SCH ×2 (07:25→20:21)
--- NOTE | 2018-02-18 08:32 | PN ---
DATE: 02/16/2018 SUBJECTIVE: The patient is comfortable, in no distress, breathing better. PHYSICAL EXAMINATION: VITAL SIGNS: Temperature 100.8, heart rate 79, blood pressure 103/64, respirations 20, and saturation 96. HEAD AND NECK: Normal. No JVD. No thyromegaly. CHEST: Clear bilaterally. CARDIAC: First sound and second sound normal. ABDOMEN: Soft, obese, and nontender. EXTREMITIES: No edema. NEUROLOGIC: Normal. Right lower extremity is with a cast, status post surgery. LABORATORY DATA: White count 5.4, hemoglobin 10, hematocrit 33.8, and platelets 219. Chemistry: Sodium 137, potassium 4.4, chloride 99, bicarb 30, BUN 90, creatinine , blood sugar 126, and calcium 9. IMPRESSION: 1. Status post right knee surgery. Continue cast. The patient will go for physical therapy rehabilitations. Continue deep venous thrombosis prophylaxis. 2. Chronic obstructive pulmonary disease exacerbation. Continue Solu-Medrol and continue inhaled bronchodilators. 3. The patient has fever of 102. Blood culture orders negative. Continue vancomycin for now. Infectious disease consult has seen the patient. 4. Hypercholesteremia and hypertension. Continue metoprolol 25 b.i.d. and Lipitor. 5. Depression. Continue Lexapro. PLAN: We will follow her clinically. Continue inhaled bronchodilators, IV bronchodilators, B12 vitamins, oxycodone, and Maxipime 1 g every 8 hours plus vancomycin. We will follow up with the ID consult, and the patient when stable will be discharged. Marbin Silva MD
[2018-02-18 09:37] LABS: HEMOGLOBIN 9.1 g/dL (12.0-16.0); MEAN CELL VOLUME 86.4 fl (80.0-105.0); MEAN CORPUSCULAR HEMOGLOBIN 25.2 pg (25.0-35.0); MEAN CORPUSCULAR HGB CONC 29.2 g/dl (31.0-37.0); MEAN PLATELET VOLUME 8.9 fl (7.0-11.0); RBC 3.61 10^6/uL (3.5-6.1); RED CELL DISTRIBUTION WIDTH 17.4 % (11.5-14.5); WHITE BLOOD COUNT 2.7 10^3/uL (4.5-11.0)
--- NOTE | 2018-02-18 09:47 | CP.PCM.PN ---
Subjective - Date & Time of Evaluation Date of Evaluation: 02/18/18 Time of Evaluation: 09:41 - Subjective Subjective: Patient seen and examined. Denies any significant pain. Denies any SOB/CP but admits to purulent cough. Patient has been afebrile last 24h WBC 2.7 Hgb 9.1 R knee: dressings changed. Incision is clean dry and intact with the sutures in place. There is no erythema or drainage. Incision cleaned and new dressings applied. +AROM foot and ankle. Sensation intact to light touch. Calf is soft but tender to palpation. Thigh is soft and nontender. Grossly NVI distally s/p ORIF right lateral tibial plateau fracture Cont DVT prophylaxis Cont abx per ID Venous doppler US ordered to rule out any DVTs Discharge planning to [facility] Will see patient in Dr. Lawrence's office for a follow up Discussed above with Dr. Lawrence, agrees with above. Objective - Vital Signs/Intake and Output Vital Signs (last 24 hours): Temp Pulse Resp BP Pulse Ox 98.2 F 91 H 20 104/63 98 02/18/18 06:00 02/18/18 06:00 02/18/18 06:00 02/18/18 06:00 02/18/18 06:00 Intake and Output: 02/18/18 02/18/18 06:59 18:59 Intake Total 620 Balance 620 - Medications Medications: Current Medications Acetaminophen (Tylenol 325mg Tab) 650 mg PO Q6H PRN PRN Reason: Fever >100.4 F Last Admin: 02/16/18 14:06 Dose: 650 mg Albuterol/Ipratropium (Duoneb 3 Mg/0.5 Mg (3 Ml) Ud) 3 ml IH [id number] PRN PRN Reason: Shortness of Breath Last Admin: 02/18/18 07:25 Dose: 3 ml Arformoterol Tartrate (Brovana) 15 mcg IH [id number] [facility] Last Admin: 02/18/18 07:25 Dose: 15 mcg Atorvastatin Calcium (Lipitor) 10 mg PO DIN [facility] Last Admin: 02/17/18 18:05 Dose: 10 mg Budesonide (Pulmicort Respules) 0.5 mg IH [id number] [facility] Last Admin: 02/18/18 07:25 Dose: 0.5 mg Calcium/Vitamin D (Oscal-D 250 Mg-125 Units Tab) 1 tab PO DAILY [facility] Last Admin: 02/17/18 11:00 Dose: 1 tab Cyanocobalamin (Vitamin B12 1000 Mcg/Ml Inj) 1,000 mcg IM DAILY [facility] Last Admin: 02/17/18 11:28 Dose: 1,000 mcg Docusate Sodium (Colace) 100 mg PO BID [facility] Last Admin: 02/17/18 18:11 Dose: Not Given Enoxaparin Sodium (Lovenox) 40 mg SC DAILY [facility]; Protocol Last Admin: 02/17/18 11:26 Dose: 40 mg Ergocalciferol (Drisdol 50,000 Intl Units Cap) 1 cap PO Q7D [facility] Last Admin: 02/17/18 11:25 Dose: 1 cap Escitalopram Oxalate (Lexapro) 20 mg PO DAILY [facility] Last Admin: 02/17/18 11:25 Dose: 20 mg Fenofibrate (Tricor) 145 mg PO DAILY [facility] Last Admin: 02/17/18 11:25 Dose: 145 mg Hydrochlorothiazide (Microzide) 12.5 mg PO DAILY [facility] Last Admin: 02/17/18 11:41 Dose: Not Given Hydromorphone HCl (Dilaudid) 2 mg PO Q6H PRN PRN Reason: Pain, severe (8-10) Last Admin: 02/18/18 03:50 Dose: 2 mg Cefepime HCl (Maxipime 1gm) 1 gm in 100 mls @ 100 mls/hr IVPB Q8 [facility]; Protocol Stop: 02/26/18 14:01 Last Admin: 02/18/18 05:21 Dose: 100 mls/hr Vancomycin HCl (Vancomycin 1gm) 1 gm in 250 mls @ 167 mls/hr IVPB Q12H [facility]; Protocol Stop: 02/26/18 11:16 Last Admin: 02/18/18 01:45 Dose: 167 mls/hr Metoprolol Tartrate (Lopressor) 25 mg PO Q12 [facility] Last Admin: 02/17/18 21:28 Dose: 25 mg Non-Formulary Medication (Lubiprostone [Amitiza]) 24 mcg PO BID [facility] Last Admin: 02/17/18 17:38 Dose: Not Given Non-Formulary Medication (Olanzapine/Fluoxetine Hcl [Olanzapine-Fluoxetine 6-25 Mg]) 2 tab PO HS [facility] Last Admin: 02/17/18 21:29 Dose: 2 tab Nystatin (Nystop Topical Powder) 0 gm TOP BID [facility] Last Admin: 02/17/18 18:08 Dose: 1 applic Oxycodone HCl (Oxycodone Immediate Release Tab) 15 mg PO Q4H PRN PRN Reason: Pain, severe (8-10) Pantoprazole Sodium (Protonix Ec Tab) 40 mg PO HS [facility] Last Admin: 02/17/18 21:29 Dose: 40 mg Pentoxifylline (Pentoxil) 400 mg PO TID [facility] Last Admin: 02/11/18 10:54 Dose: Not Given Pregabalin (Lyrica) 100 mg PO TID [facility] Last Admin: 02/17/18 18:05 Dose: 100 mg Ropinirole HCl (Requip) 1 mg PO DAILY [facility] Last Admin: 02/17/18 11:27 Dose: 1 mg - Labs Labs: 02/18/18 09:15 02/16/18 09:32 PT 11.5 SECONDS (9.4-12.5) 02/13/18 06:30 INR 1.00 02/13/18 06:30 APTT 33.2 Seconds (25.1-36.5) 02/13/18 06:30 Assessment and Plan (1) Tibial plateau fracture, right Status: Acute
[2018-02-18 09:52] LABS: BLOOD UREA NITROGEN 24 mg/dL (7-21); CALCIUM 8.3 mg/dL (8.4-10.5); GFR NON-AFRICAN AMERICAN 52
[2018-02-18] MEDS: Non Formulary Medication (Lubiprostone [Amitiza] 24 MCG) PO SCH ×2 (10:00→18:13)
[2018-02-18] MEDS: Nystatin 100,000 Units/gm Topical Pow(15 gm) TOP SCH ×2 (10:00→18:15)
--- NOTE | 2018-02-18 11:58 | US ---
PROCEDURE: Right lower extremity venous US HISTORY: Leg pain and swelling. Evaluate for DVT. PHYSICIAN(S): Bartolome Conn M.D. TECHNIQUE: Duplex sonography and color-flow Doppler with graded compression were used to evaluate the deep venous system of the right lower extremity. Exam is somewhat limited by body habitus and FINDINGS: The visualized deep venous system of the right lower extremity is sonographically normal and compressible. Normal waveforms and augmentation are seen. There is no sonographic evidence for deep venous thrombosis in the visualized segments of the right lower extremity. IMPRESSION: 1. No sonographic evidence for deep venous thrombosis in the visualized segments of the right lower extremity.
--- NOTE | 2018-02-18 14:13 | PN ---
DATE: 02/18/2018 REASON FOR CONSULTATION: Followup preop evaluation, postop followup. In summary,this is a 52-year-old female with a past medical history of hypertension, history of fall, history of tibial fracture status post internal fixation. POSTOPERATIVE COURSE: The patient is stable. WBC 2.7, hemoglobin , hematocrit 31.2, platelet count 200. Chemistry showed sodium 132, potassium 4.4, , anion gap of 13, BUN 19 and creatinine 0.9. ASSESSMENT: A 52-year-old female with a past medical history significant for obesity, hypertension, status post tibial fracture, status post open reduction and internal fixation. The patient is hemodynamically stable. We will sign off, glad to follow up p.r.n. Continue pain medications. Continue metoprolol, continue atorvastatin. No active cardiac symptoms at this time. We will follow with you. Thank you, Dr. Hill, for providing us the opportunity in taking care of the patient, Ashley. Catrachito Way MD
--- NOTE | 2018-02-18 17:09 | CP.PCM.PN ---
Subjective - Date & Time of Evaluation Date of Evaluation: 02/18/18 Time of Evaluation: 09:40 - Subjective Subjective: c/o knee pain, denies chest pain, no SOB, no cough, no hemoptysis Objective - Vital Signs/Intake and Output Vital Signs (last 24 hours): Temp Pulse Resp BP Pulse Ox 98.5 F 81 20 100/51 L 93 L 02/18/18 14:00 02/18/18 14:00 02/18/18 14:00 02/18/18 14:00 02/18/18 14:00 Intake and Output: 02/18/18 02/18/18 06:59 18:59 Intake Total 620 Balance 620 - Medications Medications: Current Medications Acetaminophen (Tylenol 325mg Tab) 650 mg PO Q6H PRN PRN Reason: Fever >100.4 F Last Admin: 02/16/18 14:06 Dose: 650 mg Albuterol/Ipratropium (Duoneb 3 Mg/0.5 Mg (3 Ml) Ud) 3 ml IH [id number] PRN PRN Reason: Shortness of Breath Last Admin: 02/18/18 07:25 Dose: 3 ml Arformoterol Tartrate (Brovana) 15 mcg IH [id number] [facility] Last Admin: 02/18/18 07:25 Dose: 15 mcg Atorvastatin Calcium (Lipitor) 10 mg PO DIN [facility] Last Admin: 02/18/18 16:23 Dose: 10 mg Budesonide (Pulmicort Respules) 0.5 mg IH [id number] [facility] Last Admin: 02/18/18 07:25 Dose: 0.5 mg Calcium/Vitamin D (Oscal-D 250 Mg-125 Units Tab) 1 tab PO DAILY [facility] Last Admin: 02/17/18 11:00 Dose: 1 tab Cyanocobalamin (Vitamin B12 1000 Mcg/Ml Inj) 1,000 mcg IM DAILY [facility] Last Admin: 02/17/18 11:28 Dose: 1,000 mcg Docusate Sodium (Colace) 100 mg PO BID [facility] Last Admin: 02/17/18 18:11 Dose: Not Given Enoxaparin Sodium (Lovenox) 40 mg SC DAILY [facility]; Protocol Last Admin: 02/17/18 11:26 Dose: 40 mg Ergocalciferol (Drisdol 50,000 Intl Units Cap) 1 cap PO Q7D [facility] Last Admin: 02/17/18 11:25 Dose: 1 cap Escitalopram Oxalate (Lexapro) 20 mg PO DAILY [facility] Last Admin: 02/17/18 11:25 Dose: 20 mg Fenofibrate (Tricor) 145 mg PO DAILY [facility] Last Admin: 02/17/18 11:25 Dose: 145 mg Hydrochlorothiazide (Microzide) 12.5 mg PO DAILY [facility] Last Admin: 02/17/18 11:41 Dose: Not Given Hydromorphone HCl (Dilaudid) 2 mg PO Q6H PRN PRN Reason: Pain, severe (8-10) Last Admin: 02/18/18 16:23 Dose: 2 mg Cefepime HCl (Maxipime 1gm) 1 gm in 100 mls @ 100 mls/hr IVPB Q8 [facility]; Protocol Stop: 02/26/18 14:01 Last Admin: 02/18/18 14:19 Dose: 100 mls/hr Vancomycin HCl (Vancomycin 1gm) 1 gm in 250 mls @ 167 mls/hr IVPB Q12H [facility]; Protocol Stop: 02/26/18 11:16 Last Admin: 02/18/18 16:22 Dose: 167 mls/hr Metoprolol Tartrate (Lopressor) 25 mg PO Q12 [facility] Last Admin: 02/17/18 21:28 Dose: 25 mg Non-Formulary Medication (Lubiprostone [Amitiza]) 24 mcg PO BID [facility] Last Admin: 02/17/18 17:38 Dose: Not Given Non-Formulary Medication (Olanzapine/Fluoxetine Hcl [Olanzapine-Fluoxetine 6-25 Mg]) 2 tab PO [facility] Last Admin: 02/17/18 21:29 Dose: 2 tab Nystatin (Nystop Topical Powder) 0 gm TOP BID [facility] Last Admin: 02/17/18 18:08 Dose: 1 applic Oxycodone HCl (Oxycodone Immediate Release Tab) 15 mg PO Q4H PRN PRN Reason: Pain, severe (8-10) Pantoprazole Sodium (Protonix Ec Tab) 40 mg PO HS [facility] Last Admin: 02/17/18 21:29 Dose: 40 mg Pentoxifylline (Pentoxil) 400 mg PO TID [facility] Last Admin: 02/11/18 10:54 Dose: Not Given Pregabalin (Lyrica) 100 mg PO TID [facility] Last Admin: 02/18/18 14:19 Dose: 100 mg Ropinirole HCl (Requip) 1 mg PO DAILY [facility] Last Admin: 02/17/18 11:27 Dose: 1 mg - Labs Labs: 02/18/18 09:15 02/18/18 09:15 PT 11.5 SECONDS (9.4-12.5) 02/13/18 06:30 INR 1.00 02/13/18 06:30 APTT 33.2 Seconds (25.1-36.5) 02/13/18 06:30 - Respiratory Exam Respiratory Exam: Clear to Ausculation Bilateral, NORMAL BREATHING PATTERN - Cardiovascular Exam Cardiovascular Exam: REGULAR RHYTHM - GI/Abdominal Exam GI & Abdominal Exam: Soft, Normal Bowel Sounds - Extremities Exam Extremities Exam: Joint Swelling - Neurological Exam Neurological Exam: Alert, Awake - Skin Skin Exam: Dry, Warm Assessment and Plan (1) Tibial plateau fracture, right Status: Acute - Assessment and Plan (Free Text) Plan: await THIERRY
[2018-02-18] MEDS: oxyCODONE 15 mg Immediate Release Tab PO PRN (17:19)
--- NOTE | 2018-02-18 17:52 | PN ---
DATE: 02/18/2018 PULMONARY PROGRESS NOTE REFERRING PHYSICIAN: Marli Hill MD SUBJECTIVE: The patient is lying in bed, no acute distress. Reports having pain to right lower extremity, reports using CPAP machine last night. No headache, rhinitis, cough, shortness of breath, chest pain, abdominal pain, nausea, vomiting, diarrhea reported. OBJECTIVE: GENERAL: No acute distress. VITAL SIGNS: Blood pressure 104/63, pulse 91, temperature 98.2, oxygen saturation 98%. HEENT: Moist mucous membranes. Crowded airway. NECK: Supple. No JVD. LUNGS: Few rhonchi bilaterally. CARDIOVASCULAR: S1, S2 audible. ABDOMEN: Soft, nontender. No distension. No organomegaly. EXTREMITIES: Knee immobilizer in place to right lower extremity. Right lower extremity tender to touch. NEUROLOGIC: Awake, alert, verbal, follows commands. MEDICATIONS: Reviewed. Tylenol 650 every 6 hours p.r.n. for fever greater than 100.4, DuoNeb 3 mL inhalation every 6 hours p.r.n., Brovana 15 mcg every 12 hours, Lipitor 10 mg at dinner, Pulmicort 0.5 mg every 12 hours, Os-Vinicius 1 tab daily, cefepime 1 g every 8 hours, vitamin B12 1000 mcg IM daily, Colace 100 mg twice a day, Lovenox 40 mg daily, ergocalciferol 1 cap every 7 days, Lexapro 20 mg daily, fenofibrate 145 mg daily, hydrochlorothiazide 12.5 mg daily, Dilaudid 2 mg every 6 hours p.r.n., metoprolol tartrate 25 mg every 12 hours, Amitiza 24 mcg twice a day, olanzapine/fluoxetine 6/25 mg 2 tabs at bedtime, nystatin powder topically twice a day to affected area, oxycodone 15 mg every 4 hours p.r.n. severe pain, Protonix 40 mg at bedtime, Pentoxil 400 mg 3 times a day, Lyrica 100 mg 3 times a day, Requip 1 mg daily, vancomycin 1 g every 12 hours. LABORATORY DATA: Reviewed. WBC 2.7, RBC 3.61, hemoglobin 9.1, hematocrit 31.2, platelets 200. Sodium 137, potassium 4.6, chloride 104, carbon dioxide 27, anion gap 12, BUN 24, creatinine 1.1, GFR 52, random glucose 123, calcium 8.3, magnesium 1.8. Procalcitonin 0.17. Blood culture preliminary, no growth after 48 hours. DIAGNOSTIC DATA: Extremity ultrasound shows no sonographic evidence for deep venous thrombosis in the visualized segments of the right lower extremity. IMPRESSION AND PLAN: Mechanical fall, right lateral tibial plateau fracture with plateau depression status post open reduction internal fixation, chronic obstructive lung disease, sleep apnea syndrome, valvular heart disease, history of gastric bypass surgery, depression and anxiety disorder, chronic pain syndrome. Continue followup with Infectious Disease, antibiotics as per Infectious Disease, continue CPAP use at bedtime, sleep apnea precaution, head of bed elevated at 45 degrees, continue inhaled bronchodilators, gastric prophylaxis, deep venous thrombosis prophylaxis, avoid nocturnal sedation. The patient would benefit from physical therapy pending clearance. This patient was seen and examined with Dr. Herrera. Discussed assessment and plan as described above. Thank you for this consult. We will follow with you. Rg Weeks APN Catrachito Herrera MD
[2018-02-18] MEDS: Enoxaparin 40 mg Syringe SC SCH (18:12)
[2018-02-18] MEDS: Calcium-Vit D 250 mg-125 Units Tab UD PO SCH (18:15)
[2018-02-18] MEDS: Pantoprazole 40 mg EC Tab PO SCH (22:44)
[2018-02-18] MEDS: OLANZAPINE PO SCH ×2 (22:45→22:46)
[2018-02-18] MEDS: [UNRECOGNIZED DRUG - OTHER] PO SCH ×2 (22:45→22:46)
[2018-02-18] MEDS: FLUOXETINE HCL PO SCH ×2 (22:45→22:46)
--- NOTE | 2018-02-19 01:35 | PN ---
DATE: 02/18/2018 SUBJECTIVE: The patient is seen in bed, in no acute distress, nontoxic. The patient was seen early this morning in 561, bed 2. PHYSICAL EXAMINATION: VITAL SIGNS: Temperature of 98, blood pressure 100/50, respiratory rate 20, heart rate of 81. HEENT: Examination is unremarkable. NECK: Supple. LUNGS: Have decreased breath sounds. HEART: Normal S1 and S2. ABDOMEN: Soft. EXTREMITIES: No evidence of DVT. LABORATORY DATA: Examination reveals a white count of 2.7, BUN of 24, creatinine of 1.1, procalcitonin is 0.17. Urinalysis is noted. Microbiology, cultures are negative. ASSESSMENT AND PLAN: A 52-year-old female with a new fever, repeat cultures negative. Systemic inflammatory response syndrome, status post reduction and internal fixation day #5 and empirically started on vancomycin and cefepime. We will check on the final culture results. She has been afebrile. We will follow with you. Ryan Patel MD
[2018-02-19] MEDS: oxyCODONE 15 mg Immediate Release Tab PO PRN ×3 (01:40→17:43)
[2018-02-19] MEDS: Cefepime 1gm in NS 100ml 1 GM/100 ML BAG IVPB SCH ×2 (05:32→14:37)
[2018-02-19] MEDS: Budesonide 0.5 mg/2 ml Inhal Susp UD IH SCH ×2 (07:14→19:35)
[2018-02-19] MEDS: Arformoterol 15 mcg/2 ml Inh Sol IH SCH ×2 (07:14→19:35)
--- NOTE | 2018-02-19 08:03 | CP.PCM.PN ---
Subjective - Date & Time of Evaluation Date of Evaluation: 02/19/18 Time of Evaluation: 07:59 - Subjective Subjective: Pt awake,alert. Adequate pain control. Afebrile, VSS R knee: dressing changed incision clean and dry no cellulitis erythema over distal tibia improved wbc 2.7 POD#6 stable for rehab from ortho standpoint NWB RLE f/u in office 03/02 cont dvt prophylaxis Objective - Vital Signs/Intake and Output Vital Signs (last 24 hours): Temp Pulse Resp BP Pulse Ox 98.5 F 80 20 113/54 L 93 L 02/18/18 14:00 02/18/18 22:44 02/18/18 14:00 02/18/18 22:44 02/18/18 14:00 Intake and Output: 02/19/18 02/19/18 06:59 18:59 Intake Total 840 Balance 840 - Medications Medications: Current Medications Acetaminophen (Tylenol 325mg Tab) 650 mg PO Q6H PRN PRN Reason: Fever >100.4 F Last Admin: 02/16/18 14:06 Dose: 650 mg Albuterol/Ipratropium (Duoneb 3 Mg/0.5 Mg (3 Ml) Ud) 3 ml IH [id number] PRN PRN Reason: Shortness of Breath Last Admin: 02/18/18 07:25 Dose: 3 ml Arformoterol Tartrate (Brovana) 15 mcg IH [id number] [facility] Last Admin: 02/19/18 07:14 Dose: 15 mcg Atorvastatin Calcium (Lipitor) 10 mg PO DIN [facility] Last Admin: 02/18/18 16:23 Dose: 10 mg Budesonide (Pulmicort Respules) 0.5 mg IH [id number] [facility] Last Admin: 02/19/18 07:14 Dose: 0.5 mg Calcium/Vitamin D (Oscal-D 250 Mg-125 Units Tab) 1 tab PO DAILY [facility] Last Admin: 02/18/18 18:15 Dose: 1 tab Cyanocobalamin (Vitamin B12 1000 Mcg/Ml Inj) 1,000 mcg IM DAILY [facility] Last Admin: 02/18/18 18:15 Dose: 1,000 mcg Docusate Sodium (Colace) 100 mg PO BID [facility] Last Admin: 02/18/18 17:20 Dose: Not Given Enoxaparin Sodium (Lovenox) 40 mg SC DAILY [facility]; Protocol Last Admin: 02/18/18 18:12 Dose: 40 mg Ergocalciferol (Drisdol 50,000 Intl Units Cap) 1 cap PO Q7D [facility] Last Admin: 02/17/18 11:25 Dose: 1 cap Escitalopram Oxalate (Lexapro) 20 mg PO DAILY [facility] Last Admin: 02/18/18 11:00 Dose: 20 mg Fenofibrate (Tricor) 145 mg PO DAILY [facility] Last Admin: 02/18/18 10:00 Dose: 145 mg Hydrochlorothiazide (Microzide) 12.5 mg PO DAILY [facility] Last Admin: 02/18/18 10:00 Dose: 12.5 mg Hydromorphone HCl (Dilaudid) 2 mg PO Q6H PRN PRN Reason: Pain, severe (8-10) Last Admin: 02/19/18 06:08 Dose: 2 mg Cefepime HCl (Maxipime 1gm) 1 gm in 100 mls @ 100 mls/hr IVPB Q8 [facility]; Protocol Stop: 02/26/18 14:01 Last Admin: 02/19/18 05:32 Dose: 100 mls/hr Vancomycin HCl (Vancomycin 1gm) 1 gm in 250 mls @ 167 mls/hr IVPB Q12H [facility]; Protocol Stop: 02/26/18 11:16 Last Admin: 02/18/18 23:25 Dose: 167 mls/hr Metoprolol Tartrate (Lopressor) 25 mg PO Q12 [facility] Last Admin: 02/18/18 22:44 Dose: 25 mg Non-Formulary Medication (Lubiprostone [Amitiza]) 24 mcg PO BID [facility] Last Admin: 02/18/18 18:13 Dose: Not Given Non-Formulary Medication (Olanzapine/Fluoxetine Hcl [Olanzapine-Fluoxetine 6-25 Mg]) 2 tab PO HS [facility] Last Admin: 02/18/18 22:46 Dose: 2 tab Nystatin (Nystop Topical Powder) 0 gm TOP BID [facility] Last Admin: 02/18/18 18:15 Dose: 1 applic Oxycodone HCl (Oxycodone Immediate Release Tab) 15 mg PO Q4H PRN PRN Reason: Pain, severe (8-10) Last Admin: 02/19/18 01:40 Dose: 15 mg Pantoprazole Sodium (Protonix Ec Tab) 40 mg PO HS [facility] Last Admin: 02/18/18 22:44 Dose: 40 mg Pentoxifylline (Pentoxil) 400 mg PO TID [facility] Last Admin: 02/11/18 10:54 Dose: Not Given Pregabalin (Lyrica) 100 mg PO TID [facility] Last Admin: 02/18/18 17:19 Dose: 100 mg Ropinirole HCl (Requip) 1 mg PO DAILY [facility] Last Admin: 02/18/18 10:00 Dose: 1 mg - Labs Labs: 02/18/18 09:15 02/18/18 09:15 PT 11.5 SECONDS (9.4-12.5) 02/13/18 06:30 INR 1.00 02/13/18 06:30 APTT 33.2 Seconds (25.1-36.5) 02/13/18 06:30
[2018-02-19] MEDS: Calcium-Vit D 250 mg-125 Units Tab UD PO SCH (10:05)
--- NOTE | 2018-02-19 12:22 | PN ---
DATE: 02/19/2018 PULMONARY PROGRESS NOTE REFERRING PHYSICIAN: Marli Hill MD SUBJECTIVE: The patient is lying in bed with a head of bed elevated. Reports right lower extremity pain. Reports not using CPAP machine last night. No headache, rhinitis, cough, shortness of breath, chest pain, abdominal pain, nausea, vomiting, or diarrhea reported. OBJECTIVE: GENERAL: No acute distress. VITAL SIGNS: Blood pressure 112/70, pulse 86, temperature 98.6, and oxygen saturation 94%. HEENT: Moist mucous membranes. Crowded airway. NECK: Supple. No JVD. LUNGS: Few rhonchi bilaterally. CARDIOVASCULAR: S1, S2 audible. ABDOMEN: Soft and nontender. No distension. No organomegaly. EXTREMITIES: Right lower extremity tender to touch. Immobilizer in place to right lower extremity. NEUROLOGIC: Awake, alert, and verbal. Follows commands. MEDICATIONS: Reviewed. Tylenol 650 every 6 hours p.r.n. for fever greater than 100.4, DuoNeb 3 mL inhalation every 6 hours p.r.n., Brovana 15 mcg every 12 hours, Lipitor 10 mg at dinner, Pulmicort 0.5 mg every 12 hours, Os-Vinicius 1 tab daily, cefepime 1 g every 8 hours, vitamin B12 1000 mcg IM daily, Colace 100 mg twice a day, Lovenox 40 mg daily, ergocalciferol 50,000 units every 7 days, Lexapro 20 mg daily, fenofibrate 145 mg daily, hydrochlorothiazide 12.5 mg daily, Dilaudid 2 mg every 6 hours p.r.n., metoprolol tartrate 25 mg every 12 hours, Amitiza 24 mcg twice a day, olanzapine/fluoxetine 6/25 mg 2 tabs at bedtime, nystatin topically twice a day, oxycodone 15 mg every 4 hours p.r.n., Protonix 40 mg at bedtime, Pentoxil 400 mg three times a day, Lyrica 100 mg three times a day, Requip 1 mg daily, and vancomycin 1 g every 12 hours. LABORATORY DATA: Reviewed. Sputum culture pending. IMPRESSION AND PLAN: Mechanical fall, right lateral tibial plateau fracture status post open reduction internal fixation, chronic obstructive lung disease, sleep apnea syndrome, valvular heart disease, gastric bypass surgery history, depression, anxiety disorder, and chronic pain syndrome. Continue antibiotics as per Infectious Disease. Continue to encourage continuous positive airway pressure use at bedtime, sleep apnea precaution, head of bed elevated at 45 degrees. Continue inhaled bronchodilators, gastric prophylaxis, and deep venous thrombosis prophylaxis. The patient would benefit from physical therapy. Avoid nocturnal sedation. This patient was seen and examined with Dr. Herrera. Discussed assessment and plan as described above. Thank you for this consult. We will follow with you. Rg PrudenceMIRI Catrachito Herrera MD DAMIEN
[2018-02-19 12:45] VITALS: O2SAT 94
[2018-02-19] MEDS: Non Formulary Medication (Lubiprostone [Amitiza] 24 MCG) PO SCH (14:37)
[2018-02-19] MEDS: Nystatin 100,000 Units/gm Topical Pow(15 gm) TOP SCH (14:38)
[2018-02-19] MEDS: Vancomycin 1gm in NS 250ml 1 GM/250 ML BAG IVPB SCH (14:39)
[2018-02-19 14:56] VITALS: BP 90/59; PULSE 70; RESP 20; TEMP 97.8
--- NOTE | 2018-02-19 21:21 | DS ---
This is Dr. Dietz covering for Dr. Marli Hill. HOSPITAL COURSE: The patient is a 52-year-old female admitted through the emergency department on 02/11/2018 with an acute right tibial plateau fracture. The patient underwent open reduction and internal fixation of the fracture by Dr. Lawrence on 02/13/2018 and had an uncomplicated postoperative course. The patient was also treated for community-acquired pneumonia and was seen by Infectious Disease, Dr. Patel. The patient is now medically stable for discharge to subacute rehab. PHYSICAL EXAMINATION: VITAL SIGNS: Blood pressure 114/73, pulse 82, temperature 98.6, respiratory rate 18. LUNGS: Clear. HEART: Regular rate and rhythm. ABDOMEN: Soft, nontender. EXTREMITIES: Right knee dressing is intact. Wound is clean. NEUROLOGIC: The patient is awake and oriented x3 without focal sensory or motor deficits. SKIN: Warm and dry. IMPRESSION: 1. Status post open reduction and internal fixation, right tibial plateau fracture. 2. Community-acquired pneumonia. 3. Chronic obstructive pulmonary disease. 4. History of cerebrovascular accident. 5. Hypertension. 6. History of gastric bypass surgery. PLAN: The patient was discharged to subacute rehab on the following medications, Brovana 15 mcg inhaled every 12 hours, Colace 100 mg b.i.d., Dilaudid 2 mg p.o. every 6 hours p.r.n. DuoNebs every 6 hours., Lexapro 20 mg daily, Lipitor 10 mg daily, metoprolol tartrate 25 mg every 12 hours, Lovenox 40 mg subcutaneously daily, Amitiza 24 mcg twice daily Lyrica 100 mg three times daily, Maxipime 1 g IV every 8 hours, hydrochlorothiazide 12.5 mg daily, oxycodone 50 mg p.o. every 4 hours p.r.n., Requip 1 mg daily, TriCor 145 mg daily, vancomycin 1 g every 12 hours IV and Protonix 40 mg p.o. at bedtime. The patient will be maintained on a heart-healthy diet. Activities as per the rehab facility. The patient will be followed up after her discharge from the rehab facility by her PMD, Dr. Hill. Ankush Brown, GARCIA/ MD [facility] # [id number]
--- NOTE | 2018-02-19 21:47 | PN ---
DATE: 02/19/2018 SUBJECTIVE: The patient is in bed in no acute distress, nontoxic. OBJECTIVE: VITAL SIGNS: On exam, temperature is 98, blood pressure is 90/50, respiratory rate of 20, heart rate of 70. HEENT: Unremarkable. NECK: Supple. LUNGS: Have decreased breath sounds. HEART: Normal S1, S2. ABDOMEN: Soft. LABORATORY EXAMINATION: Reveals a white count of 2.7, hemoglobin of 9. Chemistries reveal a BUN of 24, creatinine of 1.1, procalcitonin is 0.17. Microbiology reveals cultures are negative. Review of orders reveals the patient to be on cefepime and vancomycin. ASSESSMENT AND PLAN: This is a 52-year-old female with systemic inflammatory response syndrome status post reduction and internal fixation, postprocedure day #6, started on vancomycin and cefepime empirically for the new fever. Now has been afebrile 24-48 hours with a normal white count. Urinalysis unremarkable. Urine culture, multiple species. Blood cultures negative. MRSA is negative. Ultrasound of lower extremities, no evidence of deep venous thrombosis. Chest x-ray, minimal infiltrate on the chest x-ray. We will discontinue the antibiotics with a negative procalcitonin. We will watch the patient off of antibiotics, afebrile. Ryan Patel MD
== END 2018-02-19 20:07 | DRG 492 ==
LOC: ED 20:24 → ERH 21:50 → 5RNO 22:52
PROVIDERS: ADMIT Internal Medicine; ATTEND Internal Medicine
PROC: B246ZZZ Ultrasonography of Right and Left Heart (ICD-10-PCS; 2018-02-12)
PROC: 0QSG04Z Reposition Right Tibia with Internal Fixation Device, Open Approach (ICD-10-PCS; principal; 2018-02-13 10:30)
DX: S82.141A Displaced bicondylar fracture of right tibia, initial encounter for closed fracture (principal); J18.1 Lobar pneumonia, unspecified organism; Z68.41 Body mass index [BMI] 40.0-44.9, adult; J44.0 Chronic obstructive pulmonary disease with (acute) lower respiratory infection; J44.1 Chronic obstructive pulmonary disease with (acute) exacerbation; M62.82 Rhabdomyolysis; M25.561 Pain in right knee; W18.30XA Fall on same level, unspecified, initial encounter; R29.6 Repeated falls; I10 Essential (primary) hypertension; M25.461 Effusion, right knee; Z79.899 Other long term (current) drug therapy; E66.01 Morbid (severe) obesity due to excess calories; Z98.84 Bariatric surgery status; G47.33 Obstructive sleep apnea (adult) (pediatric); F43.10 Post-traumatic stress disorder, unspecified; G47.9 Sleep disorder, unspecified; I35.0 Nonrheumatic aortic (valve) stenosis; M41.9 Scoliosis, unspecified; Z87.891 Personal history of nicotine dependence; Z90.49 Acquired absence of other specified parts of digestive tract; Z90.710 Acquired absence of both cervix and uterus; J44.9 Chronic obstructive pulmonary disease, unspecified; D64.9 Anemia, unspecified; E78.00 Pure hypercholesterolemia, unspecified; E78.1 Pure hyperglyceridemia; F32.89 Other specified depressive episodes; G89.4 Chronic pain syndrome; H91.92 Unspecified hearing loss, left ear; Z82.49 Family history of ischemic heart disease and other diseases of the circulatory system; K21.9 Gastro-esophageal reflux disease without esophagitis; M17.11 Unilateral primary osteoarthritis, right knee; M48.00 Spinal stenosis, site unspecified; R50.82 Postprocedural fever; Z86.73 Personal history of transient ischemic attack (TIA), and cerebral infarction without residual deficits; Z87.440 Personal history of urinary (tract) infections

== ENCOUNTER 2018-07-15 14:51 | Observation (INO) | payer MEDICARE, BC ==
[2018-07-15] MEDS ORDERED: Aspirin 325 mg EC Tablets PO STA (15:23)
[2018-07-15] MEDS ORDERED: Nitroglycerin 2% Ointment Foilpak UD TOP STA (15:27)
[2018-07-15] MEDS ORDERED: Enoxaparin 100 mg Syringe SC STA (15:28)
--- NOTE | 2018-07-15 15:36 | ED PDOC ---
Arrival/HPI - General Chief Complaint: Shortness Of Breath Time Seen by Provider: 07/15/18 15:02 Historian: Patient - History of Present Illness Time/Duration: > month Symptom Onset: Gradual Symptom Course: Worsening Severity Level: Moderate Activities at Onset: Rest Associated Symptoms (Text): 07/15/18 15:34 Patient complains of shortness of breath generalized weakness and fatigue difficulty ambulating intermittent chest pain for the last several weeks following discharge from rehab in May. No fever or chills. There has been a mild nonproductive cough. No injury or trauma. Past Medical History - Infectious Disease Hx of Infectious Diseases: None - Tetanus Immunization Tetanus Immunization: Unknown - Cardiac Hx Cardiac Disorders: Yes Hx Hypertension: Yes - Pulmonary Hx Chronic Obstructive Pulmonary Disease (COPD): Yes - Neurological Hx Paralysis: No - HEENT Hx HEENT Disorder: Yes Hx Deafness: Yes (LEFT EAR) Hx Difficulty Chewing: Yes (difficulty swallowing some meat) - Renal Hx Renal Disorder: No - Endocrine/Metabolic Hx Endocrine Disorders: No - Hematological/Oncological Hx Blood Transfusions: Yes Hx Blood Transfusion Reaction: No - Integumentary Hx Dermatological Disorder: Yes (skin tears easily since bypass surgery) - Musculoskeletal/Rheumatological Hx Musculoskeletal Disorders: Yes - Gastrointestinal Hx Gastrointestinal Disorders: Yes Hx Gall Bladder Disease: Yes (gall bladder removed during bypass surgery 2006) Hx Gastroesophageal Reflux: Yes HX Swallowing Problems: Yes (problems swallowing some meats) Other/Comment: gastric bypass with mesh in 2006 - Genitourinary/Gynecological Hx Genitourinary Disorders: Yes (URINARY FREQUENCY,DYSURIA) Hx Urinary Tract Infection: Yes - Psychiatric Hx Emotional Abuse: No Hx Physical Abuse: No Hx Substance Use: No - Surgical History Hx Cholecystectomy: Yes Hx Gastric Bypass Surgery: Yes Hx Hysterectomy: Yes Hx Musculoskeletal Surgery: Yes (titanium lower back, cranial surgery) - Anesthesia Hx Anesthesia Reactions: No Hx Malignant Hyperthermia: No - Suicidal Assessment Feels Threatened In Home Enviroment: No Family/Social History - Physician Review Nursing Documentation Reviewed: Yes Family/Social History: Unknown Family HX Smoking Status: Never Smoked Hx Alcohol Use: No Hx Substance Use: No Hx Substance Use Treatment: No Allergies/Home Meds Allergies/Adverse Reactions: Allergies No Known Allergies Allergy (Verified 05/06/16 16:24) Home Medications: Home Meds Medication Instructions Recorded Confirmed Albuterol/Ipratropium [Duoneb 3 3 ml NEB TID 02/08/16 01/29/17 mg/0.5 mg (3 ml) UD] Docusate [Colace] 100 mg PO BID 02/08/16 01/29/17 Escitalopram [Lexapro] 20 mg PO DAILY 02/08/16 02/10/18 Lubiprostone [Amitiza] 24 mcg PO BID 02/08/16 01/29/17 hydroCHLOROthiazide [Microzide] 12.5 mg PO DAILY 02/08/16 01/29/17 Olanzapine/Fluoxetine HCl 2 tab PO HS 02/10/18 02/10/18 [Olanzapine-Fluoxetine 6-25 mg] Pregabalin [Lyrica] 100 mg PO TID 02/10/18 02/10/18 rOPINIRole [Requip] 1 mg PO DAILY 02/10/18 02/10/18 Review of Systems - Physician Review All systems were reviewed & negative as marked: Yes - Review of Systems Constitutional: Fatigue. absent: Fevers Respiratory: SOB, Cough, Wheezing. absent: Sputum Cardiovascular: Chest Pain, Palpitations. absent: Syncope Gastrointestinal: Nausea. absent: Abdominal Pain, Diarrhea, Vomiting Neurological: absent: Headache, Dizziness, Focal Weakness Physical Exam Temperature: Afebrile Blood Pressure: Hypertensive Pulse: Regular Respiratory Rate: Normal Appearance: Positive for: Well-Appearing, Non-Toxic, Comfortable, Uncomfortable, Other (Obese and anxious) Pain Distress: None Mental Status: Positive for: Alert and Oriented X 3 - Systems Exam Head: Present: Atraumatic, Normocephalic Pupils: Present: PERRL Extroacular Muscles: Present: EOMI Conjunctiva: Present: Normal Mouth: Present: Moist Mucous Membranes Pharnyx: No: ERYTHEMA, EXUDATE, TONSILS ENLARGED Neck: Present: Normal Range of Motion. No: MIDLINE TENDERNESS, Paraspinal Tenderness Respiratory/Chest: Present: Clear to Auscultation, Good Air Exchange, Decreased Breath Sounds. No: Respiratory Distress, Accessory Muscle Use Cardiovascular: Present: Regular Rate and Rhythm, Normal S1, S2. No: Murmurs Abdomen: No: Tenderness, Distention, Peritoneal Signs Back: Present: Normal Inspection Upper Extremity: Present: Normal Inspection. No: Cyanosis, Edema Lower Extremity: Present: Normal Inspection. No: Edema Neurological: Present: GCS=15, CN II-XII Intact, Speech Normal, Motor Func Grossly Intact Skin: Present: Warm, Dry, Normal Color. No: Rashes Psychiatric: Present: Alert, Oriented x 3, Normal Insight, Normal Concentration Medical Decision Making ED Course and Treatment: 07/15/18 15:37 EKG shows normal sinus rhythm rate approximately [address]ressions in V2 through V5 when compared with EKG of February 10, 2018. 07/15/18 16:34 Seen in the emergency department by Dr. Way. Discussed with Dr. Hill who will admit to telemetry. - RAD Interpretation Radiology Orders: 07/15/18 15:25 CHEST PORTABLE [RAD] Stat X-ray chest one view as read by the rate shows no acute findings. No infiltrate effusion or cardiomegaly. Cosmetology Instructor: Radiologist - Medication Orders Current Medication Orders: Discontinued Medications Aspirin (Ecotrin) 325 mg PO STAT STA Stop: 07/15/18 15:24 Enoxaparin Sodium (Lovenox) 100 mg SC STAT STA; Protocol Stop: 07/15/18 15:29 Nitroglycerin (Nitro-Bid 2% Oint) 1 ea TOP STAT STA Stop: 07/15/18 15:28 Disposition/Present on Arrival - Present on Arrival Any Indicators Present on Arrival: No History of DVT/PE: No History of Uncontrolled Diabetes: No Urinary Catheter: No History of Decub. Ulcer: No History Surgical Site Infection Following: Bariatric Surgery, 6, Orthopedic Procedures - Disposition Have Diagnosis and Disposition been Completed?: Yes Diagnosis: Acute coronary syndrome Disposition: HOSPITALIZED Disposition Time: 16:35 Patient Plan: Observation, Telemetry Patient Problems: Current Active Problems Problem Status Onset Acute coronary syndrome Acute Condition: FAIR Referrals: PCP,NO [Primary Care Provider] - Follow up with primary Forms: [employer] (Bots[place]an)
[2018-07-15 15:49] LABS: BASO # 0.02 K/mm3 (0.0-2.0); BASO % 0.2 % (0.0-3.0); EOS # 0.2 (0.0-0.7); EOS % 2.3 % (1.5-5.0); HEMOGLOBIN 15.7 g/dL (12.0-16.0); LYMPH # 1.8 (1.2-3.4); LYMPH % 18.3 % (22.0-35.0); MEAN CELL VOLUME 80.8 fl (80.0-105.0); MEAN CORPUSCULAR HEMOGLOBIN 26.7 pg (25.0-35.0); MEAN CORPUSCULAR HGB CONC 33.1 g/dl (31.0-37.0); MEAN PLATELET VOLUME 10.1 fl (7.0-11.0); MONO # 0.7 (0.1-0.6); MONO % 7.3 % (1.0-6.0); RBC 5.88 10^6/uL (3.5-6.1); RED CELL DISTRIBUTION WIDTH 14.8 % (11.5-14.5); WHITE BLOOD COUNT 9.8 10^3/uL (4.5-11.0)
[2018-07-15 15:56] LABS: INR 1.16; PARTIAL THROMBOPLASTIN TIME 34.6 Seconds (26.9-38.3); PROTHROMBIN TIME 12.9 SECONDS (9.4-12.5)
[2018-07-15 16:00] LABS: VENOUS BLOOD GAS BASE EXCESS 4.7 mmol/L (0.0-2.0); VENOUS BLOOD GAS PO2 37 mm/Hg (30-55); VENOUS BLOOD PH 7.45 (7.32-7.43)
[2018-07-15 16:09] LABS: ALB/GLOB RATIO 1.1 (1.1-1.8); ALBUMIN 4.7 g/dL (3.0-4.8); ALT/SGPT 48 U/L (7-56); AST/SGOT 66 U/L (14-36); BLOOD UREA NITROGEN 16 mg/dL (7-21); CALCIUM 9.4 mg/dL (8.4-10.5); GFR NON-AFRICAN AMERICAN > 60
[2018-07-15] MEDS ORDERED: Apap-Butalbital-Caffeine 325-50-40mg Tab PO ONE ×2 (16:11→22:30)
[2018-07-15] MEDS ORDERED: Potassium Chloride 20 mEq/15 ml LIQ UD PO STA (16:12)
--- NOTE | 2018-07-15 16:19 | RAD ---
Date of service: 07/15/2018 HISTORY: sob COMPARISON: Chest radiographs 02/16/2018. TECHNIQUE: 1 view obtained. FINDINGS: LUNGS: No active pulmonary disease. PLEURA: No significant pleural effusion identified, no pneumothorax apparent. CARDIOVASCULAR: No aortic atherosclerotic calcification present. Normal cardiac size. No pulmonary vascular congestion. OSSEOUS STRUCTURES: No significant abnormalities. VISUALIZED UPPER ABDOMEN: Normal. OTHER FINDINGS: None. IMPRESSION: No interval acute cardiopulmonary disease appreciated.
[2018-07-15 16:34] LABS: B-TYPE NATRIURETIC PEPTIDE 268 pg/mL (0-450); TROPONIN I 0.02 ng/mL
[2018-07-15] MEDS: Nitroglycerin 2% Ointment Foilpak UD TOP SCH (18:00)
[2018-07-15] MEDS ORDERED: Magnesium Sulfate 2 gm/50 ml 2 GM/50 ML BAG IVPB ONE (18:03)
[2018-07-15] MEDS ORDERED: Potassium Chloride 20 mEq ER Tab PO STA ×2 (18:03→19:48)
--- NOTE | 2018-07-15 20:30 | CARD ---
APPROVED REPORT Date of service: 07/15/2018 EKG Measurement Heart [id number] <Conclusion> Normal sinus rhythm Nonspecific ST and T wave abnormality Prolonged QT Abnormal ECG
[2018-07-15 23:19] VITALS: BMI 37.1
[2018-07-15] MEDS ORDERED: Pneumococcal 23-Valent Vaccine IM ONE (23:19)
[2018-07-15 23:53] LABS: TROPONIN I 0.03 ng/mL
[2018-07-16] MEDS: Nitroglycerin 2% Ointment Foilpak UD TOP SCH ×3 (00:37→12:33)
[2018-07-16] MEDS ORDERED: Morphine 2 mg/ml ISec IVP STA ×2 (06:35→15:54)
[2018-07-16 06:56] LABS: BASO # 0.04 K/mm3 (0.0-2.0); BASO % 0.5 % (0.0-3.0); EOS # 0.3 (0.0-0.7); EOS % 3.9 % (1.5-5.0); HEMOGLOBIN 15.2 g/dL (12.0-16.0); LYMPH # 2.8 (1.2-3.4); LYMPH % 31.6 % (22.0-35.0); MEAN CELL VOLUME 80.9 fl (80.0-105.0); MEAN CORPUSCULAR HEMOGLOBIN 26.1 pg (25.0-35.0); MEAN CORPUSCULAR HGB CONC 32.3 g/dl (31.0-37.0); MEAN PLATELET VOLUME 9.9 fl (7.0-11.0); MONO # 0.7 (0.1-0.6); MONO % 7.8 % (1.0-6.0); RBC 5.82 10^6/uL (3.5-6.1); RED CELL DISTRIBUTION WIDTH 14.9 % (11.5-14.5); WHITE BLOOD COUNT 8.7 10^3/uL (4.5-11.0)
--- NOTE | 2018-07-16 07:07 | CON ---
DATE: 07/15/2018 CONSULT SERVICE: Cardiology. REASON FOR CONSULTATION: Chest pain, rule out acute coronary artery syndrome and unstable angina. BRIEF CLINICAL HISTORY: This is a 52-year-old female, her brought her here because of inability to walk for 6 days. The patient has recently had ankle surgery done, since the patient was walking with a walker and from the last 6 days, unable to walk and feeling generalized body ache and pain, nausea, vomiting, and some chest pain started this morning. PAST MEDICAL HISTORY: Past history is significant for recently fracture of tibia leg and the patient went to rehab where walking with a walker and now after she came back to home, she was bedridden. Past history also significant for COPD, hypertension, dizziness, hard of hearing, difficulty in swallowing, history of gastric bypass many years ago, depression, posttraumatic stress disorder. History of CVA, history of scoliosis, history of rhabdomyolysis, and history of spinal stenosis. Past medical history also significant for depression, history of left tibial fracture, history of right tibial fracture, history of CVA, history of spinal stenosis, and history of scoliosis. PAST SURGICAL HISTORY: Significant for history of gastric bypass in 2006, history of cholecystectomy, and history of ankle surgery in January 2018. SOCIAL HISTORY: Has tobacco abuse, quit at the age of 19. History of some substance abuse in the past. FAMILY HISTORY: Significant for coronary artery disease. CURRENT MEDICATIONS: The patient is taking at home Requip, vitamin D, Solu-Medrol, metoprolol tartrate, and hydrochlorothiazide. REVIEW OF SYSTEMS: As per HPI. PHYSICAL EXAMINATION: GENERAL: As follows; height of the patient 5 feet 6 inches, weight of the patient is 230 pounds, and body mass index 37.1 kg/m2. VITAL SIGNS: Temperature is afebrile, heart rate 96, and blood pressure 126/96. HEENT: PERRLA. Extraocular movement intact. NECK: Supple. No carotids bruits or thyromegaly. CHEST: Clear to auscultation. HEART: S1 and S2 regular. ABDOMEN: Soft. EXTREMITIES: Clubbing and cyanosis negative. LABORATORY DATA: EKG shows normal sinus with ST-T changes anteriorly, which is new since January. Blood workup; WBC 9.8, hemoglobin 15, hematocrit 47.5, and platelet count 279,000. Chemistry shows sodium 136, potassium 3.6, chloride 92, carbon dioxide 27, anion gap of 21, BUN 16, and creatinine 0.7. IMPRESSION: A 52-year-old female with a past medical history significant for extensive history of cerebrovascular accident, bilateral tibial fracture with internal fixation, history of spinal stenosis, history of chronic obstructive pulmonary disease, history of bedridden, presents with acute coronary artery syndrome and shortness of breath. RECOMMENDATIONS: We will follow serial CPK, troponin, treat unstable angina. We will load with aspirin and Plavix, also with Lovenox. Follow up with the serial trend troponin, if the troponin is positive, consider cardiac catheterization. Discussed with the patient and family. Thank you Dr. Hill for providing us the opportunity in taking care of the patient, Ashley Dickson. Catrachito Way MD cc: Marli Hill MD
[2018-07-16 07:19] LABS: TROPONIN I 0.03 ng/mL
[2018-07-16 07:21] LABS: LDL CHOLESTEROL 107 mg/dL (0-129)
[2018-07-16 07:29] LABS: ALBUMIN 4.6 g/dL (3.0-4.8); ALT/SGPT 53 U/L (7-56); AST/SGOT 71 U/L (14-36); BLOOD UREA NITROGEN 21 mg/dL (7-21); CALCIUM 9.6 mg/dL (8.4-10.5); GFR NON-AFRICAN AMERICAN > 60; HDL CHOLESTEROL 34 mg/dL (29-60)
--- NOTE | 2018-07-16 09:01 | CP.PCM.PN ---
Subjective - Date & Time of Evaluation Date of Evaluation: 07/16/18 Time of Evaluation: 06:35 - Subjective Subjective: Awake, alert, complaining of severe back pain, some chest discomfort Reason for consultation and follow up: cardiac evaluation of chest pain, history of COPD, hypertension,CVA Seen and examined by me and Objective - Vital Signs/Intake and Output Vital Signs (last 24 hours): Temp Pulse Resp BP Pulse Ox 98.1 F 74 18 136/91 H 95 07/16/18 05:12 07/16/18 05:12 07/16/18 05:12 07/16/18 05:12 07/16/18 05:12 Intake and Output: 07/16/18 07/16/18 06:59 18:59 Intake Total 600 Output Total 200 Balance 400 - Medications Medications: Current Medications Aspirin (Ecotrin) 81 mg PO DAILY [facility] Clopidogrel Bisulfate (Plavix) 75 mg PO DAILY [facility] Metoprolol Tartrate (Lopressor) 25 mg PO BID [facility] Last Admin: 07/15/18 18:37 Dose: Not Given Nitroglycerin (Nitro-Bid 2% Oint) 1 ea TOP Q6H [facility] Last Admin: 07/16/18 06:31 Dose: 1 ea - Labs Labs: 07/16/18 06:30 07/16/18 06:30 PT 12.9 SECONDS (9.4-12.5) H 07/15/18 15:40 INR 1.16 07/15/18 15:40 APTT 34.6 Seconds (26.9-38.3) 07/15/18 15:40 - Constitutional Appears: Non-toxic, No Acute Distress - Head Exam Head Exam: NORMAL INSPECTION, NORMOCEPHALIC - Eye Exam Eye Exam: Normal appearance Pupil Exam: NORMAL ACCOMODATION - ENT Exam ENT Exam: Mucous Membranes Moist, Normal Exam - Respiratory Exam Respiratory Exam: Decreased Breath Sounds, Clear to Ausculation Bilateral, NORMAL BREATHING PATTERN - Cardiovascular Exam Cardiovascular Exam: REGULAR RHYTHM, +S1, +S2 - GI/Abdominal Exam GI & Abdominal Exam: Soft, Normal Bowel Sounds - Extremities Exam Extremities Exam: Full ROM, Normal Capillary Refill - Neurological Exam Neurological Exam: Alert, Awake, Oriented x3 - Psychiatric Exam Psychiatric exam: Anxious - Skin Skin Exam: Dry, Normal Color, Warm Assessment and Plan - Assessment and Plan (Free Text) Assessment: A 52 year old obese female who came in to the ER due to generalized weakness with shortness of breath and intermittent chest pain. History of COPD, hypertension,gastric bypass in 2006,depression, post traumatic stress syndrome,CVA,scoliosis, rhamdomyolysis, spinal stenosis, left tibial fracture with surgery in January 2018, cholecystectomy.She went to rehab after the left tibial surgery and walking with walker, however for the past 6 days prior to admission, she was bedridden and felt very weak. Troponin indeterminate. Chest X ray unremarkable, EKG normal sinus rhythm with ST-T wave abnormality. Acute coronary syndrome. Echo done on 01/2018 showed LVEF 55-60%,trace MR/TR/AR/PI, mild aortic stenosis, right coronary cusp heavily calcified and relatively immobile, RVSP 31 mmHg, no pericardial effusion. Scheduled for cardiac catheterization today. Kept NPO. Complaining of severe back pain. PRN Morphine given. Plan: No distress Complaining of severe back pain. not relieved with Toradol PRN Morphine given. Scheduled for cardiac catheterization today Kept NPO Heart rate stable Blood pressure controlled On ASA 81 mg daily,Plavix 75 mg daily, Lopressor 25 mg BID Nitropatch 1 top every 6 hours. Continue current treatment Continue current medications Replenish potassium Further recommendations post cardiac cath Will follow up Plan and treatment discussed with Dr. Way
[2018-07-16] MEDS ORDERED: Potassium Chloride 20 mEq ER Tab PO STA (09:17)
[2018-07-16] MEDS ORDERED: Lidocaine 2% Inj (20ml) ONE (10:20)
--- NOTE | 2018-07-16 12:11 | CP.PCM.PCO ---
Physician Communication Note - Physician Communication Note Physician Communication Note: cardiac cath pending, PT eval pending
[2018-07-16] MEDS ORDERED: Iodixanol 320 MG/ML 200 ML BOTTLE IV ONE (13:22)
[2018-07-16 13:24] LABS: IRON 61 ug/dL (45-180)
[2018-07-16 13:34] LABS: % IRON SATURATION 14 % (20-55); TOTAL IRON BINDING CAPACITY 426 ug/dL (265-497)
[2018-07-16] MEDS ORDERED: Midazolam 2 MG/2 ML VIAL ONE ×2 (14:19→14:40)
[2018-07-16] MEDS ORDERED: Sodium Chloride 0.9% 1,000 ML IV SCH (15:15)
--- NOTE | 2018-07-16 15:47 | CPOSTOP ---
DATE: 07/16/2018 DICTATING PHYSICIAN: Catrachito Way MD RN RECRUITMENT: Sara lock technician. TYPE OF ANESTHESIA: Moderate conscious sedation, total 3 mg of Versed, 150 of fentanyl given. Periodically started 1 mg of Versed and 50 of fentanyl. PRE-PROCEDURE DIAGNOSIS: Unstable angina, acute coronary syndrome. PROCEDURE PERFORMED: Left heart catheterization. FINDINGS: Distal LAD diffusely diseased, 55% stenosis. FINAL DIAGNOSIS: Nonobstructive coronary artery disease, preserved left ventricular function. POST PROCEDURE CONDITION: The patient's condition is stable. VASCULAR ACCESS: Right femoral artery. CLOSURE DEVICE: Angio-Seal. TOTAL RADIATION DOSE: 8083.19 milligray unit. CUMULATIVE: 1139 milligray unit. FLUORO TIME: 3.2 minutes. TOTAL CONTRAST USED: [address] MD
[2018-07-16 16:02] LABS: URINE BILIRUBIN SMALL (NEGATIVE); URINE BLOOD SMALL (NEGATIVE); URINE GLUCOSE (UA) NEGATIVE (NEGATIVE); URINE LEUKOCYTE ESTERASE SMALL Leu/uL (NEGATIVE); URINE PROTEIN 100 mg/dL (<30 mg/dL)
[2018-07-16 16:04] LABS: URINE APPEARANCE SLIGHT-CLOUDY (CLEAR); URINE COLOR AMBER (YELLOW)
[2018-07-16 16:11] LABS: URINE BACTERIA MANY /hpf; URINE RBC 20 - 25 /hpf (0-2); URINE WBC TNTC /hpf (0-6)
--- NOTE | 2018-07-16 16:20 | CP.PCM.CON ---
<Chandrakant Chambers - Last Filed: 07/16/18 16:20> History of Present Illness - History of Present Illness History of Present Illness: PGY6 GI Fellow Consult Note Patient is a 52yo female with PMHx significant for morbid obesity s/p bariatric surgery (gastric sleeve with fundoplication per patient description), CAD, HTN, COPD, PUD, MIGUEL ÁNGEL, multiple fractures who presented to the ED with shortness of breath, intermittent chest pain and generalized malaise. The patient suffered a right tibial plateau fracture in January 2018 and subsequently had ORIF and prolonged rehabilitation with recent discharge in May 2018. Upon returning home, she still had difficulty ambulating and noted lower extremity weakness. In the last few weeks she has noticed progressively worsening fatigue, SOB and intermittent chest pain. More recently, she notes nausea and vomiting with difficulty tolerating any oral intake in the last 2 weeks. Given the constellation of symptoms, she came to the ED for evaluation and is currently being evaluated s/p cardiac catheterization (no interventions required). Regarding her nausea/vomiting, patient states that since her bariatric procedure she has suffered with difficulty tolerating any food and has suffered multiple gastric remnant ulcers previously. She also notes a history of vitamin deficiencies but is unaware of which vitamins she has been supplemented in the past. At this time, she notes epigastric burning pain radiating to the chest and nausea, vomiting with most meals. She admits to frequent constipation, typically only passing stool 2 times weekly. Denies any hematemesis, melena, or hematochezia. Does believe she has lost 15lbs in the last month (EMR I/O shows patient to be within 3lbs of her Tommy weight). 12 system ROS performed and otherwise negative PMHx: See HPI PSHx: B/L tibial ORIF, hysterectomy, gastric sleeve with fundoplication (per pt description), cholecystectomy FHx: Patient denies Social: Denies tobacco, EtOH or illicit drug use Endo: Multiple EGDs with prior PUD per patient; colonoscopy previously - both >5 years ago and none on record for review Past Patient History - Infectious Disease Hx of Infectious Diseases: None - Tetanus Immunizations Tetanus Immunization: Unknown - Past Medical History & Family History Past Medical History?: Yes - Past Social History Smoking Status: Never Smoked - CARDIAC Hx Cardiac Disorders: Yes Hx Hypercholesterolemia: Yes Hx Hypertension: Yes - PULMONARY Hx Respiratory Disorders: Yes Hx Chronic Obstructive Pulmonary Disease (COPD): Yes - NEUROLOGICAL Hx Neurological Disorder: Yes Hx Dizziness: Yes Hx Migraine: Yes - HEENT Hx HEENT Problems: Yes Hx Deafness: Yes (LEFT EAR) Hx Difficulty Chewing: Yes (difficulty swallowing some meat) - RENAL Hx Chronic Kidney Disease: No - ENDOCRINE/METABOLIC Hx Endocrine Disorders: No - HEMATOLOGICAL/ONCOLOGICAL Hx Blood Disorders: Yes Hx Anemia: Yes - INTEGUMENTARY Hx Dermatological Problems: Yes (skin tears easily since bypass surgery) Other/Comment: 07-15-18 BILATERAL LE EDEMA MORE TO RIGHT LEG +2 NON PITTING. OLD HEALED WOUND TO JACOBSEN BONE.PAIN TO LEGS. - MUSCULOSKELETAL/RHEUMATOLOGICAL Hx Falls: Yes - GASTROINTESTINAL Hx Gastrointestinal Disorders: Yes (CONSTIPATION.) Hx Gall Bladder Disease: Yes (gall bladder removed during bypass surgery 2006) Hx Gastroesophageal Reflux: Yes HX Swallowing Problems: Yes (problems swallowing some meats) Other/Comment: gastric bypass with mesh in 2006 - GENITOURINARY/GYNECOLOGICAL Hx Genitourinary Disorders: Yes (URINARY FREQUENCY,DYSURIA) Hx Urinary Tract Infection: Yes - PSYCHIATRIC Hx Substance Use: No - SURGICAL HISTORY Hx Surgeries: (GASTRIC BYPASS WITH MESH,TITANIUM LOWER BACK.) Hx Cholecystectomy: Yes Hx Gastric Bypass Surgery: Yes Hx Hysterectomy: Yes Hx Musculoskeletal Surgery: Yes (titanium lower back, cranial surgery) - ANESTHESIA Hx Anesthesia Reactions: No Hx Malignant Hyperthermia: No Meds Allergies/Adverse Reactions: Allergies Allergy/AdvReac Type Severity Reaction Status Date / Time No Known Allergies Allergy Verified 07/15/18 18:42 - Medications Medications: Current Medications Aspirin (Ecotrin) 81 mg PO DAILY [facility] Last Admin: 07/16/18 09:12 Dose: 81 mg Clopidogrel Bisulfate (Plavix) 75 mg PO DAILY [facility] Last Admin: 07/16/18 09:12 Dose: 75 mg Sodium Chloride (Sodium Chloride 0.9%) 1,000 mls @ 100 mls/hr IV .Q10H [facility] Stop: 07/17/18 01:00 Metoprolol Tartrate (Lopressor) 25 mg PO BID [facility] Last Admin: 07/16/18 09:13 Dose: Not Given Nitroglycerin (Nitro-Bid 2% Oint) 1 ea TOP Q6H [facility] Last Admin: 07/16/18 12:33 Dose: Not Given Potassium Chloride (K-Dur 20 Meq Er Tab) 40 meq PO ONCE ONE Stop: 07/16/18 18:31 Pregabalin (Lyrica) 100 mg PO TID [facility] Physical Exam - Constitutional Appears: No Acute Distress, Chronically Ill, Other (morbidly obese) - Eye Exam Eye Exam: EOMI, PERRL - ENT Exam ENT Exam: Mucous Membranes Moist - Respiratory Exam Respiratory Exam: Clear to Auscultation Bilateral. absent: Rales, Rhonchi, Wheezes - Cardiovascular Exam Cardiovascular Exam: RRR, +S1, +S2 - GI/Abdominal Exam GI & Abdominal Exam: Normal Bowel Sounds, Soft. absent: Distended, Firm, Guarding, Organomegaly, Rigid, Tenderness - Extremities Exam Extremities exam: Positive for: normal inspection. Negative for: pedal edema - Neurological Exam Neurological exam: Alert, Oriented x3 - Psychiatric Exam Psychiatric exam: Anxious - Skin Skin Exam: Dry, Warm Additional comments: multiple tattos on arms Results - Vital Signs Recent Vital Signs: Last Vital Signs Temp 97.7 F 07/16/18 12:00 Pulse 74 07/16/18 12:00 Resp 16 07/16/18 12:00 BP 137/86 07/16/18 12:00 Pulse Ox 95 07/16/18 05:12 - Labs Result Diagrams: 07/16/18 06:30 07/16/18 06:30 Labs: Laboratory Results - last 24 hr 07/15/18 07/15/18 07/16/18 15:40 23:20 06:30 WBC 8.7 RBC 5.82 Hgb 15.2 Hct 47.1 MCV 80.9 MCH 26.1 MCHC 32.3 RDW 14.9 H Plt Count 255 MPV 9.9 Neut % (Auto) 56.2 Lymph % (Auto) 31.6 Lyon % (Auto) 7.8 H Eos % (Auto) 3.9 Baso % (Auto) 0.5 Lymph # (Auto) 2.8 Lyon # (Auto) 0.7 H Eos # (Auto) 0.3 Baso # (Auto) 0.04 Absolute Neuts (auto) 4.91 Sodium Potassium Chloride Carbon Dioxide Anion Gap BUN Creatinine Est GFR ( Amer) Est GFR (Non-Af Amer) Random Glucose Hemoglobin A1c Calcium Phosphorus Magnesium Iron TIBC % Saturation Total Bilirubin AST ALT Alkaline Phosphatase Lactate Dehydrogenase 489 Total Creatine Kinase 93 Troponin I 0.02 D 0.03 D NT-Pro-B Natriuret Pep 268 Total Protein Albumin Globulin Albumin/Globulin Ratio Triglycerides Cholesterol LDL Cholesterol Direct HDL Cholesterol TSH 3rd Generation Urine Color Urine Appearance Urine pH Ur Specific [place] Urine Protein Urine Glucose (UA) Urine Ketones Urine Blood Urine Nitrate Urine Bilirubin Urine Urobilinogen Ur Leukocyte Esterase Urine RBC Urine WBC Ur Epithelial Cells Urine Bacteria 07/16/18 07/16/18 07/16/18 06:30 06:30 06:30 WBC RBC Hgb Hct MCV MCH MCHC RDW Plt Count MPV Neut % (Auto) Lymph % (Auto) Lyon % (Auto) Eos % (Auto) Baso % (Auto) Lymph # (Auto) Lyon # (Auto) Eos # (Auto) Baso # (Auto) Absolute Neuts (auto) Sodium 135 Potassium 3.3 L Chloride 93 L Carbon Dioxide 28 Anion Gap 17 BUN 21 Creatinine 0.8 Est GFR ( Amer) > 60 Est GFR (Non-Af Amer) > 60 Random Glucose 112 H Hemoglobin A1c 6.2 Calcium 9.6 Phosphorus 4.1 Magnesium 2.3 H Iron TIBC % Saturation Total Bilirubin 1.0 AST 71 H ALT 53 Alkaline Phosphatase 211 H Lactate Dehydrogenase 455 Total Creatine Kinase 91 Troponin I 0.03 NT-Pro-B Natriuret Pep Total Protein 9.1 H Albumin 4.6 Globulin 4.5 Albumin/Globulin Ratio 1.0 L Triglycerides 223 H Cholesterol 176 LDL Cholesterol Direct 107 HDL Cholesterol 34 TSH 3rd Generation 2.34 Urine Color Urine Appearance Urine pH Ur Specific [place] Urine Protein Urine Glucose (UA) Urine Ketones Urine Blood Urine Nitrate Urine Bilirubin Urine Urobilinogen Ur Leukocyte Esterase Urine RBC Urine WBC Ur Epithelial Cells Urine Bacteria 07/16/18 07/16/18 07:00 15:55 WBC RBC Hgb Hct MCV MCH MCHC RDW Plt Count MPV Neut % (Auto) Lymph % (Auto) Lyon % (Auto) Eos % (Auto) Baso % (Auto) Lymph # (Auto) Lyon # (Auto) Eos # (Auto) Baso # (Auto) Absolute Neuts (auto) Sodium Potassium Chloride Carbon Dioxide Anion Gap BUN Creatinine Est GFR ( Amer) Est GFR (Non-Af Amer) Random Glucose Hemoglobin A1c Calcium Phosphorus Magnesium Iron 61 TIBC 426 % Saturation 14 L Total Bilirubin AST ALT Alkaline Phosphatase Lactate Dehydrogenase Total Creatine Kinase Troponin I NT-Pro-B Natriuret Pep Total Protein Albumin Globulin Albumin/Globulin Ratio Triglycerides Cholesterol LDL Cholesterol Direct HDL Cholesterol TSH 3rd Generation Urine Color Monik Urine Appearance Slight-cloudy Urine pH 6.0 Ur Specific [place] 1.025 Urine Protein 100 H Urine Glucose (UA) Negative Urine Ketones 15 H Urine Blood Small H Urine Nitrate Positive H Urine Bilirubin Small H Urine Urobilinogen 1.0 H Ur Leukocyte Esterase Small H Urine RBC 20 - 25 H Urine WBC Tntc H Ur Epithelial Cells 10 - 12 H Urine Bacteria Many Assessment & Plan - Assessment and Plan (Free Text) Assessment: Patient is a 52yo female with PMHx significant for morbid obesity s/p bariatric surgery (gastric sleeve with fundoplication per patient description), CAD, HTN, COPD, PUD, MIGUEL ÁNGEL, multiple fractures who presented to the ED with shortness of breath, intermittent chest pain and generalized malaise -Abdominal pain, nausea, vomiting -CAD s/p cardiac catheterization -Morbid obesity with H/O bariatric surgery Plan: -Start pantoprazole 40mg PO QAM -Will attempt to obtain prior endoscopic records -There is a rather dramatic discordance between patient's reported issue of weight loss and our documented weights - would observe oral intake over the next 24-48 hours to determine caloric intake and ability to tolerate food -Awaiting B12/Folate level in AM -Ongoing PT/rehabilitation -Appreciate cardio input -Monitor clinical course for now -No witnessed episodes of nausea/vomiting documented -Per nursing notes - patient depressed and not on her regular psych meds for some time now - may benefit from psychiatric consultation - Date & Time Date: 07/16/18 Time: 15:00 <Manjula Burgess V - Last Filed: 07/16/18 18:52> Meds - Medications Medications: Current Medications Aspirin (Ecotrin) 81 mg PO DAILY [facility] Last Admin: 07/16/18 09:12 Dose: 81 mg Clopidogrel Bisulfate (Plavix) 75 mg PO DAILY [facility] Last Admin: 07/16/18 09:12 Dose: 75 mg Sodium Chloride (Sodium Chloride 0.9%) 1,000 mls @ 100 mls/hr IV .Q10H [facility] Stop: 07/17/18 01:00 Last Admin: 07/16/18 16:26 Dose: 100 mls/hr Metoprolol Tartrate (Lopressor) 25 mg PO BID [facility] Last Admin: 07/16/18 09:13 Dose: Not Given Nitroglycerin (Nitro-Bid 2% Oint) 1 ea TOP Q6H [facility] Last Admin: 07/16/18 12:33 Dose: Not Given Pantoprazole Sodium (Protonix Ec Tab) 40 mg PO 0600 [facility] Polyethylene Glycol (Miralax) 17 gm PO BID [facility] Pregabalin (Lyrica) 100 mg PO TID [facility] Results - Vital Signs Recent Vital Signs: Last Vital Signs Temp 97.8 F 07/16/18 18:00 Pulse 79 07/16/18 18:00 Resp 18 07/16/18 18:00 BP 133/84 07/16/18 18:00 Pulse Ox 95 07/16/18 05:12 - Labs Result Diagrams: 07/16/18 06:30 07/16/18 06:30 Labs: Laboratory Results - last 24 hr 07/15/18 07/16/18 07/16/18 23:20 06:30 06:30 WBC 8.7 RBC 5.82 Hgb 15.2 Hct 47.1 MCV 80.9 MCH 26.1 MCHC 32.3 RDW 14.9 H Plt Count 255 MPV 9.9 Neut % (Auto) 56.2 Lymph % (Auto) 31.6 Lyon % (Auto) 7.8 H Eos % (Auto) 3.9 Baso % (Auto) 0.5 Lymph # (Auto) 2.8 Lyon # (Auto) 0.7 H Eos # (Auto) 0.3 Baso # (Auto) 0.04 Absolute Neuts (auto) 4.91 Sodium 135 Potassium 3.3 L Chloride 93 L Carbon Dioxide 28 Anion Gap 17 BUN 21 Creatinine 0.8 Est GFR ( Amer) > 60 Est GFR (Non-Af Amer) > 60 Random Glucose 112 H Hemoglobin A1c Calcium 9.6 Phosphorus 4.1 Magnesium 2.3 H Iron TIBC % Saturation Total Bilirubin 1.0 AST 71 H ALT 53 Alkaline Phosphatase 211 H Lactate Dehydrogenase 489 455 Total Creatine Kinase 93 91 Troponin I 0.03 D 0.03 Total Protein 9.1 H Albumin 4.6 Globulin 4.5 Albumin/Globulin Ratio 1.0 L Triglycerides 223 H Cholesterol 176 LDL Cholesterol Direct 107 HDL Cholesterol 34 Folate TSH 3rd Generation Urine Color Urine Appearance Urine pH Ur Specific [place] Urine Protein Urine Glucose (UA) Urine Ketones Urine Blood Urine Nitrate Urine Bilirubin Urine Urobilinogen Ur Leukocyte Esterase Urine RBC Urine WBC Ur Epithelial Cells Urine Bacteria 07/16/18 07/16/18 07/16/18 06:30 06:30 07:00 WBC RBC Hgb Hct MCV MCH MCHC RDW Plt Count MPV Neut % (Auto) Lymph % (Auto) Lyon % (Auto) Eos % (Auto) Baso % (Auto) Lymph # (Auto) Lyon # (Auto) Eos # (Auto) Baso # (Auto) Absolute Neuts (auto) Sodium Potassium Chloride Carbon Dioxide Anion Gap BUN Creatinine Est GFR ( Amer) Est GFR (Non-Af Amer) Random Glucose Hemoglobin A1c 6.2 Calcium Phosphorus Magnesium Iron 61 TIBC 426 % Saturation 14 L Total Bilirubin AST ALT Alkaline Phosphatase Lactate Dehydrogenase Total Creatine Kinase Troponin I Total Protein Albumin Globulin Albumin/Globulin Ratio Triglycerides Cholesterol LDL Cholesterol Direct HDL Cholesterol Folate TSH 3rd Generation 2.34 Urine Color Urine Appearance Urine pH Ur Specific [place] Urine Protein Urine Glucose (UA) Urine Ketones Urine Blood Urine Nitrate Urine Bilirubin Urine Urobilinogen Ur Leukocyte Esterase Urine RBC Urine WBC Ur Epithelial Cells Urine Bacteria 07/16/18 07/16/18 13:05 15:55 WBC RBC Hgb Hct MCV MCH MCHC RDW Plt Count MPV Neut % (Auto) Lymph % (Auto) Lyon % (Auto) Eos % (Auto) Baso % (Auto) Lymph # (Auto) Lyon # (Auto) Eos # (Auto) Baso # (Auto) Absolute Neuts (auto) Sodium Potassium Chloride Carbon Dioxide Anion Gap BUN Creatinine Est GFR ( Amer) Est GFR (Non-Af Amer) Random Glucose Hemoglobin A1c Calcium Phosphorus Magnesium Iron TIBC % Saturation Total Bilirubin AST ALT Alkaline Phosphatase Lactate Dehydrogenase Total Creatine Kinase Troponin I Total Protein Albumin Globulin Albumin/Globulin Ratio Triglycerides Cholesterol LDL Cholesterol Direct HDL Cholesterol Folate 16.9 TSH 3rd Generation Urine Color Monik Urine Appearance Slight-cloudy Urine pH 6.0 Ur Specific [place] 1.025 Urine Protein 100 H Urine Glucose (UA) Negative Urine Ketones 15 H Urine Blood Small H Urine Nitrate Positive H Urine Bilirubin Small H Urine Urobilinogen 1.0 H Ur Leukocyte Esterase Small H Urine RBC 20 - 25 H Urine WBC Tntc H Ur Epithelial Cells 10 - 12 H Urine Bacteria Many Attending/Attestation - Attestation I have personally seen and examined this patient.: No I have fully participated in the care of the patient.: Yes I have reviewed all pertinent clinical information: Yes Notes (Text): p 07/16/18 18:52
--- NOTE | 2018-07-16 16:27 | CARD ---
APPROVED REPORT Date of service: 07/16/2018 Procedure(s) performed: Left Heart Catheterization HISTORY The patient is a 52 year-old female with a history of : previous CVA , chronic lung disease, hypertension , Admitted with ACS/ Unstable angina, Dynamic ST t changes. INDICATION The indication(s) include : unstable angina . CASE TECHNIQUE The patient was brought urgently to the Cardiac Catheterization Laboratory in a fasting state and was prepped and draped in a sterile manner. The right femoral groin was infiltrated with 2% Lidocaine subcutaneous anesthesia. A 6 Fr x 11 cm Krista sheath was inserted into the right femoral artery without difficulty. Coronary angiography was performed using coronary diagnostic catheters. The left coronary system was accessed and visualized with a Diagnostic,5F JL 4 CATH DXT 100 CM catheter. The right coronary system was accessed and visualized with a Diagnostic ,5F JR 4 CATH DXT 100 CM catheter. The left ventricle was accessed and visualized with a 5F PIGTAIL 145 CATH DXT 110 CM catheter. Left ventricular/Aortic Valve gradient assessed on pullback. Left ventriculogram was performed in MORRIS projection. Closure device was deployed with a 6 Fr Angio-Seal without any complications. The patient tolerated the procedure well and there were no complications associated with the procedure. Vessel Analysis The patient's coronary anatomy is left dominant. The left main coronary artery is a large size vessel . The left main bifurcates to the left anterior descending and circumflex. The left anterior descending artery is a medium size vessel with diffuse calcification noted throughout this vessel and without significant stenosis. There is a 55% stenosis in the distal segment. Diffusely diseases like thread but no focal flow limitingstenosis The first diagonal branch is a medium size vessel with diffuse calcification noted throughout this vessel and without significant stenosis. The circumflex artery is a large size vessel without significant stenosis. The first obtuse marginal branch is a medium size vessel with diffuse calcification noted throughout this vessel and without significant stenosis. There is a 50% stenosis in the ostial segment. The second obtuse marginal branch is a medium size vessel with diffuse calcification noted throughout this vessel and without significant stenosis. The third obtuse marginal branch is a small size vessel with diffuse calcification noted throughout this vessel and without significant stenosis. The left posterior descending artery is a medium size vessel with diffuse calcification noted throughout this vessel and without significant stenosis. The right coronary artery is a medium size vessel with diffuse calcification noted throughout this vessel and without significant stenosis. Left Ventricle The left ventricle is normal in size with normal contractility. There was no cardiomyopathy. The left ventricular ejection fraction is estimated to be 65%. The left ventricular end diastolic pressure is 5-6 mmHg. There was no gradient across the aortic valve upon pullback. Conclusion Non obstructive CAD limited to Distal LAD. diffusely diseased like a thread, but non flow limiting stenosis 55%. Moderate Disease inCx ( OM1). Preserved LV fX. EF-65%, EDP-5-6 mmof Hg. Recommendations Cardiac Rehabilitation Referral Aggressive Medical TherapyCardiac Risk Reduction Program Weight Loss Reduction Program CC; Nathalia Archibald MD.
[2018-07-16 18:01] LABS: FOLATE 16.9 ng/mL
[2018-07-16 18:13] VITALS: RESP 18
[2018-07-16] MEDS ORDERED: Potassium Chloride 20 mEq ER Tab PO ONE (18:30)
[2018-07-16] MEDS: POLYETHYLENE GLYCOL 3350 17 GM/Dose PACKET PO SCH (18:58)
--- NOTE | 2018-07-16 19:47 | CARD ---
APPROVED REPORT Date of service: 07/16/2018 EKG Measurement Heart [id number] ID [id number] <Conclusion> Normal sinus rhythm Low voltage QRS ST & T wave abnormalities Prolonged QT Abnormal ECG
[2018-07-16 22:08] LABS: BASO # 0.04 K/mm3 (0.0-2.0); BASO % 0.4 % (0.0-3.0); EOS # 0.3 (0.0-0.7); EOS % 3.2 % (1.5-5.0); HEMOGLOBIN 14.4 g/dL (12.0-16.0); LYMPH # 2.7 (1.2-3.4); LYMPH % 29.3 % (22.0-35.0); MEAN CELL VOLUME 81.9 fl (80.0-105.0); MEAN CORPUSCULAR HGB CONC 31.8 g/dl (31.0-37.0); MEAN PLATELET VOLUME 9.9 fl (7.0-11.0); MONO # 0.7 (0.1-0.6); MONO % 7.6 % (1.0-6.0); RBC 5.53 10^6/uL (3.5-6.1); RED CELL DISTRIBUTION WIDTH 14.8 % (11.5-14.5); WHITE BLOOD COUNT 9.3 10^3/uL (4.5-11.0)
[2018-07-16 22:28] LABS: BLOOD UREA NITROGEN 22 mg/dL (7-21); CALCIUM 9.5 mg/dL (8.4-10.5); GFR NON-AFRICAN AMERICAN > 60
[2018-07-17] MEDS: Alum-Mag Hydrox-Simethicone Susp (30 mL) PO SCH ×3 (02:41→15:52)
[2018-07-17 03:58] VITALS: O2SAT 96
--- NOTE | 2018-07-17 04:18 | CON ---
DATE: 07/16/2018 PULMONARY CONSULT REFERRING PHYSICIAN: Marli Hill MD REASON FOR CONSULTATION: Chronic obstructive lung disease, gastroesophageal reflux disease, has a sleep apnea syndrome. HISTORY OF PRESENT ILLNESS: This is a 52 years old female, well known to me from previous admission, noncompliant with followup, has multiple medical issues, has a history of gastric sleeve done many years ago, coronary artery disease, hypertension, chronic lung disease, peptic ulcer disease, sleep apnea syndrome, multiple falls with multiple fractures, history of opiates dependence at one time, had been taken off from the opiates and did well. Apparently at home had a chest pain, shortness of breath, presented to ER, seen by Cardiology, has a cardiac cath done which shows nonobstructive coronary artery disease, presently lying flat, has epigastric pain. No nausea, no dysuria. Has a chronic pain syndrome. She has regained some of the weight which she lost after gastric sleeve and has snoring, daytime sleepy and tired. PAST MEDICAL HISTORY: As per history of present illness. FAMILY HISTORY: No significant cardiopulmonary disease reported. SOCIAL HISTORY: Denied any smoking or alcohol use. MEDICATIONS: She is on Ecotrin 81 mg daily, Metoprolol Tartrate 25 mg twice a day, Lyrica 100 mg three times a day, MiraLax 17 g twice a day, Plavix 75 mg daily, Protonix 40 mg daily. She is on IV fluid normal saline 100 mL/hour. REVIEW OF SYSTEMS: No headache, no rhinitis. Admitted to have some shortness of breath, chest discomfort. No nausea, no vomiting, no diarrhea. Has a chronic leg pain. PHYSICAL EXAMINATION: GENERAL: Complaining about pain. VITAL SIGNS: Heart rate is 98, respiratory rate is 20, blood pressure 117/80, afebrile, pulse ox 95% on room air. HEENT: Moist mucous membrane. Crowded airway. Mallampati score is 4. NECK: Supple. No JVD. LUNGS: Few scattered rhonchi. HEART: S1 and S2. ABDOMEN: Mild epigastric pain. EXTREMITIES: There is no edema. NEUROLOGIC: Awake, alert, follows simple commands. LABORATORY DATA: Shows hemoglobin 15.2, hematocrit 47.1, WBC 8.7, platelet is 255. INR 1.16, PTT is 35. Has VBG done, pH 7.45, pCO2 of 42, O2 of 37. Sodium 135, potassium 2.3, chloride 93, bicarbonate 28, BUN 21, creatinine 0.8, glucose 112, hemoglobin A1c 6.2, calcium 9.6, phosphorus 4.1, magnesium 2.3, iron is 61. AST 71, ALT 53, alk phos is 211. Troponin less than 0.03. Albumin is 4.6. Triglyceride is 223, cholesterol 176. Folate 16.9. TSH 2.34. Urinalysis shows wbc too numerous to count, rbc is 20. Had a cardiac cath done which shows nonobstructive coronary disease. Chest x-ray done in the ER shows no infiltrate or effusion. IMPRESSION AND PLAN: Chronic obstructive lung disease, probably sleep apnea syndrome after gaining weight, history of gastric sleeve surgery in the past, hypertension, coronary artery disease, chronic lung disease, peptic ulcer disease, history of multiple falls with fractures, history of opiates use in the past, underwent detox therapy many months ago. Pulmonary point of view, is doing okay. We will add inhaled bronchodilator, add Maalox p.r.n. basis. We will place her on CPAP 7 cm with 30% oxygen while sleeping. May increase her Lyrica. We will give one dose of Toradol, continue proton inhibitors, gastric prophylaxis, SCD to lower extremity. We will suggest PFT on discharge as outpatient. Thank you, and we will follow with you. Catrachito Herrera MD
[2018-07-17] MEDS ORDERED: Pantoprazole 40 mg EC Tab PO SCH (06:00)
[2018-07-17 07:01] LABS: HEMOGLOBIN 14.3 g/dL (12.0-16.0); MEAN CORPUSCULAR HEMOGLOBIN 25.7 pg (25.0-35.0); MEAN CORPUSCULAR HGB CONC 31.4 g/dl (31.0-37.0); MEAN PLATELET VOLUME 10.1 fl (7.0-11.0); RBC 5.56 10^6/uL (3.5-6.1); RED CELL DISTRIBUTION WIDTH 14.9 % (11.5-14.5); WHITE BLOOD COUNT 9.1 10^3/uL (4.5-11.0)
--- NOTE | 2018-07-17 07:05 | CP.PCM.PN ---
Subjective - Date & Time of Evaluation Date of Evaluation: 07/17/18 Time of Evaluation: 06:30 - Subjective Subjective: Lying in bed, Awake, alert, complaining of severe back pain Reason for consultation and follow up: cardiac evaluation of chest pain, history of COPD, hypertension,CVA Seen and examined by me and Objective - Vital Signs/Intake and Output Vital Signs (last 24 hours): Temp Pulse Resp BP Pulse Ox 97.4 F L 67 18 134/89 96 07/17/18 06:00 07/17/18 06:00 07/17/18 06:00 07/17/18 06:00 07/17/18 06:00 Intake and Output: 07/17/18 07/17/18 06:59 18:59 Intake Total 120 Output Total 150 Balance -30 - Medications Medications: Current Medications Acetaminophen (Tylenol 325mg Tab) 650 mg PO Q6H PRN PRN Reason: Pain, moderate (4-7) Al Hydrox/Mg Hydrox/Simethicone (Maalox Plus 30 Ml) 30 ml PO [id number] [facility] Last Admin: 07/17/18 02:41 Dose: Not Given Aspirin (Ecotrin) 81 mg PO DAILY [facility] Last Admin: 07/16/18 09:12 Dose: 81 mg Clopidogrel Bisulfate (Plavix) 75 mg PO DAILY [facility] Last Admin: 07/16/18 09:12 Dose: 75 mg Metoprolol Tartrate (Lopressor) 25 mg PO BID [facility] Last Admin: 07/16/18 18:59 Dose: 25 mg Nitroglycerin (Nitro-Bid 2% Oint) 1 ea TOP Q6H [facility] Last Admin: 07/16/18 12:33 Dose: Not Given Pantoprazole Sodium (Protonix Ec Tab) 40 mg PO 0600 [facility] Last Admin: 07/17/18 05:24 Dose: 40 mg Polyethylene Glycol (Miralax) 17 gm PO BID [facility] Last Admin: 07/16/18 18:58 Dose: 17 gm Pregabalin (Lyrica) 200 mg PO TID [facility] - Labs Labs: 07/16/18 22:00 07/16/18 22:00 PT 12.9 SECONDS (9.4-12.5) H 07/15/18 15:40 INR 1.16 07/15/18 15:40 APTT 34.6 Seconds (26.9-38.3) 07/15/18 15:40 - Constitutional Appears: Non-toxic, No Acute Distress - Head Exam Head Exam: NORMAL INSPECTION, NORMOCEPHALIC - Eye Exam Eye Exam: Normal appearance Pupil Exam: NORMAL ACCOMODATION - ENT Exam ENT Exam: Mucous Membranes Moist, Normal Exam - Neck Exam Neck Exam: Full ROM, Normal Inspection - Respiratory Exam Respiratory Exam: Decreased Breath Sounds, Clear to Ausculation Bilateral, NORMAL BREATHING PATTERN - Cardiovascular Exam Cardiovascular Exam: REGULAR RHYTHM, +S1, +S2 - GI/Abdominal Exam GI & Abdominal Exam: Soft, Normal Bowel Sounds - Extremities Exam Extremities Exam: Full ROM, Normal Capillary Refill - Neurological Exam Neurological Exam: Alert, Altered, Awake, Oriented x3 - Psychiatric Exam Psychiatric exam: Normal Affect, Normal Mood - Skin Skin Exam: Dry, Normal Color, Warm Assessment and Plan - Assessment and Plan (Free Text) Assessment: A 52 year old obese female who came in to the ER due to generalized weakness with shortness of breath and intermittent chest pain. History of COPD, hypertension,gastric bypass in 2006,depression, post traumatic stress syndrome,CVA,scoliosis, rhamdomyolysis, spinal stenosis, left tibial fracture with surgery in January 2018, cholecystectomy.She went to rehab after the left tibial surgery and walking with walker, however for the past 6 days prior to admission, she was bedridden and felt very weak. Troponin indeterminate. Chest X ray unremarkable, EKG normal sinus rhythm with ST-T wave abnormality. Acute coronary syndrome. Echo done on 01/2018 showed LVEF 55-60%,trace MR/TR/AR/PI, mild aortic stenosis, right coronary cusp heavily calcified and relatively immobile, RVSP 31 mmHg, no pericardial effusion. Cardiac catheterization done yesterday and showed non-obstructive coronary artery disease limited to distal LAD, diffusely diseased like thread, 55%, non flow limiting,moderate diseased Circumflex (OM1), LVEF 65%. Denies chest pain however complaints of back pain .Pain management. Will discontinue telemetry. GI and pulmonary on consult. Plan: No distress, complaining of severe back pain PRN pain medications given Cardiac status stable Heart rate stable Blood pressure stable Will discontinue telemetry On ASA 81 mg daily, Lopressor 25 mg BID Continue current treatment Continue current medications Pain management Discharge planning Will follow up Plan and treatment discussed with Dr. Way
[2018-07-17 07:16] LABS: BLOOD UREA NITROGEN 24 mg/dL (7-21); CALCIUM 9.4 mg/dL (8.4-10.5); GFR NON-AFRICAN AMERICAN > 60
--- NOTE | 2018-07-17 08:25 | HP ---
DATE OF EXAM: 07/16/2018 The patient was seen and examined at the bedside on 07/16/2018. CHIEF COMPLAINT: Chest pain, shortness of breath. HISTORY OF PRESENT ILLNESS: Ms. Yessi Ramirez is a 52-year-old female, my private patient, well known to me from many years has multiple comorbidities, history of obesity, history of gastric bypass, chronic back pain, was in rehab for [address] [facility], discharged from there in May, came back with shortness of breath, generalized weakness, fatigue, difficulty of ambulating, intermittent chest pain for the last several weeks, falling, got discharged from the rehab in May. No fever. No chills. No hematochezia. No hematuria. No headache. No dizziness. Nonproductive cough. No injury at this time. 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 FAMILY HISTORY: Father and mother, noncontributory. HABITS: Never smoked. No drugs. No ethanol as per the patient. ALLERGIES: THE PATIENT IS NOT ALLERGIC WITH ANY MEDICATIONS. HOME MEDICATIONS: Reviewed by me. REVIEW OF SYSTEMS: The patient was seen and examined at the bedside. Looking comfortable. No fever. No chills. No hematuria. No hematochezia. No headache. No dizziness. No chest pain. No palpitation at the moment. PHYSICAL EXAMINATION VITAL SIGNS: Temperature 97.7, pulse 74, blood pressure 147/63, respiratory rate 16. HEENT: Head; normocephalic and atraumatic. Eyes; PERRLA. Extraocular muscles are intact. Conjunctivae clear. Nose patent. Mucous membranes moist. NECK: Supple. No carotid bruits, JVD, or thyromegaly. CHEST: Bilaterally symmetrical. HEART: S1 and S2 positive. LUNGS: Clear to auscultation. ABDOMEN: Soft. Bowel sounds present. No organomegaly. EXTREMITIES: No edema. No cyanosis. NEUROLOGIC: The patient is awake and alert. Moving all four extremities. No focal deficits. LABORATORY DATA: White blood cells 8.7, hemoglobin 15.2, hematocrit 47.1, platelets 255. Sodium 137, potassium 3.3, BUN 21, creatinine 0.8, glucose 112. ASSESSMENT AND PLAN: Ms. Yessi Ramirez is a 52-year-old female with hypokalemia, hypochloremia, diabetes mellitus, history of hypomagnesemia, abnormal liver function test, hypertriglyceridemia, came with chest pain and shortness of breath, going for cardiac catheterization today, is n.p.o. 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 We will continue present treatment. Repeat labs. We will follow up. Marli Hill MD MTDRufino
[2018-07-17] MEDS: POLYETHYLENE GLYCOL 3350 17 GM/Dose PACKET PO SCH (10:29)
--- NOTE | 2018-07-17 12:10 | PN ---
DATE: 07/17/2018 PULMONARY PROGRESS NOTE REFERRING PHYSICIAN: Marli Hill MD SUBJECTIVE: The patient seen lying in bed, no acute distress. No overnight events reported. No headache, rhinitis, cough, shortness of breath, chest pain, abdominal pain, nausea, vomiting, diarrhea, leg pain or leg swelling reported. The patient does report having some neck pain this morning. OBJECTIVE: GENERAL: No acute distress. VITAL SIGNS: Blood pressure 134/89, pulse 67, temperature 97.4, oxygen saturation 96% on room air. HEENT: Moist mucous membranes. Crowded airway. Mallampati score 4. NECK: Supple. No JVD. LUNGS: Few scattered rhonchi. CARDIOVASCULAR: S1, S2. ABDOMEN: Soft, nontender. No distention. No organomegaly. EXTREMITIES: No bilateral lower extremity edema. NEUROLOGICAL: Awake and alert, verbal and following commands. MEDICATIONS: Reviewed. Tylenol 650 every 6 hours p.r.n. moderate pain, Maalox 30 mL p.o. every 6 hours, aspirin 81 mg daily, Plavix 75 mg daily, metoprolol tartarate 25 mg twice a day, nitroglycerine topically every 6 hours, Protonix 40 mg daily, MiraLax 17 g twice a day, Lyrica 200 mg three times a day. LABORATORY DATA: Reviewed. WBC 9.1, RBC 5.56, hemoglobin 14.3, hematocrit 45.6, platelets 245. Sodium 138, potassium 4.2, chloride 101, carbon dioxide 25, anion gap 16, BUN 24, creatinine 0.8, GFR greater than 60, random glucose 98, calcium 9.4, TSH 3.08. IMPRESSION AND PLAN: Chronic obstructive lung disease, suspected sleep apnea syndrome, history of gastric sleeve surgery in the past, hypotension, coronary artery disease, chronic lung disease, peptic ulcer disease, history of multiple falls with fractures, history of opiate use in the past. Pulmonary point of view, we will place the patient on Brovana and Pulmicort nebulizer treatments, continuous positive airway pressure 7 cm with 30% oxygen at bedtime, sleep apnea precaution, head of bed elevated 45 degrees, gastric prophylaxis, deep venous thrombosis prophylaxis. Recommend the patient have full pulmonary function test. We will follow the patient to evaluate extensive chronic lung disease. Recommend the patient had sleep study as an outpatient to evaluate sleep apnea syndrome. The patient complaint of low bowel movement in the past days, currently on MiraLax twice a day. Discussed suppositories with the patient, the patient refused at this time. Continue bowel movement. The patient was seen and examined with Dr. Herrera. Discussed assessment and plan as described above. The patient was seen and examined with Desi Diez, nurse practitioner. Discussed assessment and plan as described above. Thank you for this consult. We will follow with you. Desi Diez APN Catrachito Herrera MD
--- NOTE | 2018-07-17 12:28 | CP.PCM.PCO ---
Physician Communication Note - Physician Communication Note Physician Communication Note: PT eval pending
--- NOTE | 2018-07-17 13:26 | CP.PCM.PN ---
<ShardamireyaperfectoChandrakant - Last Filed: 07/17/18 13:19> Subjective - Date & Time of Evaluation Date of Evaluation: 07/17/18 Time of Evaluation: 12:00 - Subjective Subjective: PGY6 GI Fellow Progress Note Patient seen and examined bedside this morning. The patient states she is feeling less nauseated and was able to tolerate a sandwich this morning. Her lunch tray is empty at bedside. No vomiting. 12 system ROS performed and negative except where stated Objective - Vital Signs/Intake and Output Vital Signs (last 24 hours): Temp Pulse Resp BP Pulse Ox 97.7 F 71 18 111/77 96 07/17/18 12:00 07/17/18 12:00 07/17/18 12:00 07/17/18 12:00 07/17/18 06:00 Intake and Output: 07/17/18 07/17/18 06:59 18:59 Intake Total 120 Output Total 150 Balance -30 - Medications Medications: Current Medications Acetaminophen (Tylenol 325mg Tab) 650 mg PO Q6H PRN PRN Reason: Pain, moderate (4-7) Al Hydrox/Mg Hydrox/Simethicone (Maalox Plus 30 Ml) 30 ml PO [id number] [facility] Last Admin: 07/17/18 09:00 Dose: 30 ml Arformoterol Tartrate (Brovana) 15 mcg IH [id number] [facility] Aspirin (Ecotrin) 81 mg PO DAILY [facility] Last Admin: 07/17/18 10:29 Dose: 81 mg Budesonide (Pulmicort Respules) 0.5 mg IH [id number] [facility] Clopidogrel Bisulfate (Plavix) 75 mg PO DAILY [facility] Last Admin: 07/16/18 09:12 Dose: 75 mg Enoxaparin Sodium (Lovenox) 40 mg SC DAILY [facility]; Protocol Escitalopram Oxalate (Lexapro) 20 mg PO DAILY [facility] Fluoxetine HCl (Prozac) 10 mg PO DAILY [facility] Fluoxetine HCl (Prozac) 10 mg PO STAT STA Stop: 07/17/18 13:18 Metoprolol Tartrate (Lopressor) 25 mg PO BID [facility] Last Admin: 07/17/18 10:28 Dose: 25 mg Nitroglycerin (Nitro-Bid 2% Oint) 1 ea TOP Q6H [facility] Last Admin: 07/16/18 12:33 Dose: Not Given Olanzapine (Zyprexa) 2.5 mg PO DAILY [facility]; Protocol Olanzapine (Zyprexa) 2.5 mg PO STAT STA; Protocol Stop: 07/17/18 13:15 Pantoprazole Sodium (Protonix Ec Tab) 40 mg PO 0600 [facility] Last Admin: 07/17/18 05:24 Dose: 40 mg Polyethylene Glycol (Miralax) 17 gm PO BID [facility] Last Admin: 07/17/18 10:29 Dose: Not Given Pregabalin (Lyrica) 200 mg PO TID [facility] Last Admin: 07/17/18 10:29 Dose: 200 mg Tramadol HCl (Ultram) 50 mg PO TID [facility] - Labs Labs: 07/17/18 06:30 07/17/18 06:30 PT 12.9 SECONDS (9.4-12.5) H 07/15/18 15:40 INR 1.16 07/15/18 15:40 APTT 34.6 Seconds (26.9-38.3) 07/15/18 15:40 - Constitutional Appears: No Acute Distress, Other (obese) - Eye Exam Eye Exam: EOMI, PERRL - ENT Exam ENT Exam: Mucous Membranes Moist - Respiratory Exam Respiratory Exam: Clear to Ausculation Bilateral. absent: Rales, Rhonchi, Wheezes - Cardiovascular Exam Cardiovascular Exam: RRR, +S1, +S2 - GI/Abdominal Exam GI & Abdominal Exam: Soft, Normal Bowel Sounds. absent: Distended, Firm, Guarding, Rigid, Tenderness, Organomegaly - Extremities Exam Extremities Exam: Normal Inspection. absent: Pedal Edema - Neurological Exam Neurological Exam: Alert, Awake, Oriented x3 - Psychiatric Exam Psychiatric exam: Normal Affect, Normal Mood - Skin Skin Exam: Dry, Warm Assessment and Plan - Assessment and Plan (Free Text) Assessment: Patient is a 52yo female with PMHx significant for morbid obesity s/p bariatric surgery (gastric sleeve with fundoplication per patient description), CAD, HTN, COPD, PUD, MIGUEL ÁNGEL, multiple fractures who presented to the ED with shortness of breath, intermittent chest pain and generalized malaise -Abdominal pain, nausea, vomiting - resolved -CAD s/p cardiac catheterization -Morbid obesity with H/O bariatric surgery Plan: -Continue PPI therapy with pantoprazole 40mg QAM for 5 weeks -Zantact 20mg PO QHS -Tolerating diet, continue to advance as tolerated -No plan for endoscopic evaluation at this time -Outpatient follow up encouraged -Per nursing notes - patient depressed and not on her regular psych meds for some time now - may benefit from psychiatric consultation <Manjula Burgess V - Last Filed: 07/18/18 00:07> Objective - Vital Signs/Intake and Output Vital Signs (last 24 hours): Temp Pulse Resp BP Pulse Ox 98 F 74 18 117/82 96 07/17/18 18:01 07/17/18 18:01 07/17/18 18:01 07/17/18 18:01 07/17/18 06:00 - Labs Labs: 07/17/18 06:30 07/17/18 06:30 PT 12.9 SECONDS (9.4-12.5) H 07/15/18 15:40 INR 1.16 07/15/18 15:40 APTT 34.6 Seconds (26.9-38.3) 07/15/18 15:40 Attending/Attestation - Attestation I have personally seen and examined this patient.: No I have fully participated in the care of the patient.: Yes I have reviewed all pertinent clinical information, including history, physical exam and plan: Yes Notes (Text): This is an addendum to the GI progress report dictated by the fellow. Patient would benefit from elective endoscopy evaluation as an outpatient. We will continue the PPI in the a.m. and H2 saba in the evening regimen if remains more symptomatic. 07/18/18 00:05
--- NOTE | 2018-07-17 17:37 | PN ---
This case was discussed with Dr. Hill she is inagreement with treatment plan. DATE: 07/17/2018 SUBJECTIVE: The patient came in with acute coronary syndrome, has a history of hyperlipidemia, COPD, obesity, hypertension, osteoarthritis. She has old fracture of the left tibia of lower left fibula, saw the patient today at the bedside. The patient was alert, oxygen at 2 L nasal cannula. Denying chest pain, shortness of breath, abdominal pain, hematuria, hematochezia, fevers or chills. Reporting some lower back pain, leg pain bilateral, stating she has old fractures and she has arthritis disease. The patient does have a history of rhabdomyolysis. The patient was given Toradol yesterday x1 dose, stating that was effective. PHYSICAL EXAMINATION: GENERAL: The patient appears chronically ill. No acute distress. VITAL SIGNS: 97.4, 67, 134/89, respirations 18, sat on 96% on O2 at 2 liters nasal cannula. HEENT: Normocephalic and atraumatic. PERRLA. Mucous membranes moist. NECK: Supple. No thyromegaly. Normal inspection. CARDIOVASCULAR: S1 and S2. No JVD. RESPIRATORY: Clear to auscultation. No wheeze. No rhonchi. ABDOMEN: Soft and distended. No organomegaly. EXTREMITIES: The patient is moving all extremities. No edema. SKIN: Intact. NEUROLOGIC: The patient is alert and oriented x3. MEDICATIONS: Maalox, Brovana, aspirin, Pulmicort, Plavix, Lovenox, Lopressor, nitroglycerin, Protonix, MiraLax, Lyrica, and Ultram. LABORATORY DATA: White blood cells 9.1, hemoglobin 14.3, hematocrit 45.6, platelet count 347. Sodium 138, potassium 4.2, BUN 14, creatinine 0.8, TSH is 3.8, PT 12.9, INR 1.160. ASSESSMENT AND PLAN: This 52-year-old female came in with acute coronary syndrome, obesity, diabetes, hypertension, chronic pain. Continuous on gastric and deep venous thrombosis prophylaxis. The patient stating she has pain bilateral legs, old fibular and tubular fractures, osteoarthritis, pain injection of Toradol yesterday, still complained of pain, Tylenol not effective, so ordered today for Tramadol 50 mg p.o. t.i.d. The patient also is on Lyrica 200 mg p.o. t.i.d. Cardiology is on the case. The patient also been seen by Pulmonology, we follow clinical course and repeat labs. ALL ABOVE NOTED , AGREED WITH DIRECTOR SKILLS TREATMENT PLAN , EDUCATION DONE , D/D DONE WITH DIRECTOR SKILLS AND STAFF , WILL CONT. SAME TREATMENT , Juan Antonio Renae APN Marli Hill MD MTDD
[2018-07-17 17:44] VITALS: PULSE 74
[2018-07-17 18:01] VITALS: BP 117/82; TEMP 98
[2018-07-17] MEDS ORDERED: Budesonide 0.5 mg/2 ml Inhal Susp UD IH SCH (20:00)
[2018-07-17] MEDS ORDERED: Arformoterol 15 mcg/2 ml Inh Sol IH SCH (20:00)
[2018-07-18] MEDS ORDERED: Enoxaparin 40 mg Syringe SC SCH (10:00)
== END 2018-07-17 18:23 | disposition home or self-care (01) ==
LOC: ED 14:51 → ERH 16:36 → 2RSO 20:57
PROVIDERS: ADMIT Internal Medicine; ATTEND Internal Medicine
DX: I25.110 Atherosclerotic heart disease of native coronary artery with unstable angina pectoris (principal); E11.9 Type 2 diabetes mellitus without complications; E78.00 Pure hypercholesterolemia, unspecified; E78.1 Pure hyperglyceridemia; E87.6 Hypokalemia; G47.33 Obstructive sleep apnea (adult) (pediatric); G89.4 Chronic pain syndrome; I10 Essential (primary) hypertension; J44.9 Chronic obstructive pulmonary disease, unspecified; K21.9 Gastro-esophageal reflux disease without esophagitis; K59.00 Constipation, unspecified; E66.01 Morbid (severe) obesity due to excess calories; Z98.84 Bariatric surgery status; F43.10 Post-traumatic stress disorder, unspecified; H91.90 Unspecified hearing loss, unspecified ear; I24.9 Acute ischemic heart disease, unspecified; M41.9 Scoliosis, unspecified; Z86.73 Personal history of transient ischemic attack (TIA), and cerebral infarction without residual deficits; Z87.891 Personal history of nicotine dependence; Z91.19 Patient's noncompliance with other medical treatment and regimen; Z91.81 History of falling; K27.9 Peptic ulcer, site unspecified, unspecified as acute or chronic, without hemorrhage or perforation
CPT/HCPCS: 36415; 71045; 80048; 80053; 80061; 81001; 82550; 82607; 82746; 82803; 83036; 83540; 83550; 83615; 83735; 83880; 84100; 84443; 84484; 85025; 85027; 85378; 85610; 85730; 93005; 93458; 96365; 96372; 96374; 97530; 99152; 99153; 99285; C1760; C1769; C2629; G0378; G8978; G8979; J1644; J1650; J1885; J2250; J2270; J3010; J7030; Q9966